=== PATIENT | female | born 1945 | race Caucasian/White ===

== ENCOUNTER 2016-10-24 09:41 | Inpatient (IN) | payer MEDICARE, OTHER ==
[~2016-10-24] VITALS: Ht 165.1 cm; Wt 65.0 kg
[~2016-10-24 09:41] MED LIST: BENZ100C7 PO; CALC-279 PO; FURO-85 PO; LEVO-366 PO; PRVHFAIN INH
--- NOTE | 2016-10-24 10:08 | EMERGENCY ROOM VISIT NOTE ---
History First contact with patient: 09:53 Chief Complaint: ILLNESS Stated Complaint: N,V,D, FEVER, COUGH History of Present Illness The patient is a 70 year old female with history of bronchiectasis (diagnosed in 03/26) who presents to the Emergency Room with complaints of flu-like symptoms over the last 4 days. She reports her symptoms started Kalia with body aches, chills, and then proceeded to have diarrhea, vomiting, and feeling dehydrated. She reports she then started coughing yesterday but hasn't so far today. She reports she had fevers of 101.4F yesterday, and a temp of 99.1 the day before. She reports her Capacity Manager is Dr Thompson who diagnosed her with bronchiectasis by CT scan and also a "non-contagious form of TB". She was recently admitted in the hospital in June and reports since then she has had multiple lung issues. Review of Systems See HPI for pertinent positives & negatives. A total of 10 systems reviewed and were otherwise negative. Past Medical/Surgical History Medical Problems: (1) Asthma (2) IBS (irritable bowel syndrome) (3) Kidney disease (4) MVP (mitral valve prolapse) (5) Skin problem Bronchiectasis Family History Cancer Diabetes mellitus Heart disease Hypertension Kidney disease Social History Smoking Status: Never Smoker Alcohol Use: occasionally Drug Use: none Marital Status: Housing Status: lives with significant other Occupation Status: retired Current/Historical Medications Scheduled Atenolol (Tenormin), 50 MG PO QAM Belladonna Alk/Phenobarbital (), 1 TAB PO TID Buspirone Hcl (Buspar), 15 MG PO BID Cholecalciferol (Vitamin D), 2,000 UNITS PO DAILY Pentosan Polysulfate Sodium (Elmiron), 200 MG PO BID Probiotic Product (Probiotic), Unknown Dose PO DAILY Pseudoephedrine-Guaifenesin (Mucinex D), 1 TAB PO BID Scheduled PRN Levalbuterol Tartrate (Levalbuterol Tartrate Hfa), 2 PUFF INH Q6 PRN for Wheezing Allergies Coded Allergies: Bacitracin (Unverified Allergy, Severe, itching, 10/24/16) Diphenhydramine (Unverified Allergy, Severe, anaphylaxis, 10/24/16) Neomycin (Unverified Allergy, Severe, itching, 10/24/16) Polymyxin B (Unverified Allergy, Severe, itching, 10/24/16) Sulfa Antibiotics (Unverified Allergy, Severe, rash, 10/24/16) Azithromycin (Unverified Adverse Reaction, Severe, nausea, 10/24/16) Clarithromycin (Unverified Adverse Reaction, Severe, nausea, 10/24/16) Codeine (Unverified Adverse Reaction, Severe, nausea, 10/24/16) Erythromycin (Unverified Adverse Reaction, Severe, nausea, 10/24/16) Hydrocodone (Unverified Adverse Reaction, Severe, nausea, 10/24/16) Hyoscyamine (Unverified Adverse Reaction, Severe, nausea, 10/24/16) Metronidazole (Unverified Adverse Reaction, Severe, nausea, 10/24/16) Oxymetazoline (Unverified Adverse Reaction, Severe, headache, 10/24/16) Pantoprazole (Unverified Adverse Reaction, Severe, nausea, 10/24/16) Propoxyphene (Unverified Adverse Reaction, Severe, nausea, 10/24/16) Tramadol (Unverified Adverse Reaction, Severe, nausea, 10/24/16) Ondansetron (Verified Adverse Reaction, Mild, "can't sleep", 10/24/16) Physical Exam Vital Signs Date Time Temp Pulse Resp B/P Pulse Ox O2 Delivery O2 Flow Rate FiO2 10/24/16 14:00 81 18 108/68 95 Room Air 10/24/16 13:28 79 10/24/16 12:47 99 Room Air 10/24/16 12:24 81 16 115/57 93 Room Air 10/24/16 11:23 85 18 106/64 96 Room Air 10/24/16 10:13 93 10/24/16 10:11 86 26 97/50 95 Room Air 10/24/16 09:48 37.4 95 18 105/59 92 Room Air Physical Exam GENERAL: Awake, alert, well-appearing, in no acute distress HENT: Normocephalic, atraumatic. Oropharynx dry. EYES: Normal conjunctiva. Sclera non-icteric. NECK: Supple. No nuchal rigidity. FROM. No JVD. RESPIRATORY: Rales to right base. CARDIAC: Regular rate, normal rhythm. Extremities warm and well perfused. Pulses equal. ABDOMEN: Soft, non-distended. No tenderness to palpation. No rebound or guarding. No masses. RECTAL: Deferred. MUSCULOSKELETAL: Chest examination reveals no tenderness. The back is symmetrical on inspection without obvious abnormality. There is no CVA tenderness to palpation. No joint edema. LOWER EXTREMITIES: Calves are equal size bilaterally and non-tender. No edema. No discoloration. NEURO: Normal sensorium. No sensory or motor deficits noted. SKIN: No rash or jaundice noted. Medical Decision & Procedures Laboratory Results 10/24/16 10:05 Red Blood Count 4.31, Mean Corpuscular Volume 88.6, Mean Corpuscular Hemoglobin 29.5, Mean Corpuscular Hemoglobin Concent 33.2, Mean Platelet Volume 9.3, Neutrophils (%) (Auto) 88.9, Lymphocytes (%) (Auto) 4.6, Monocytes (%) (Auto) 6.1, Eosinophils (%) (Auto) 0.0, Basophils (%) (Auto) 0.1, Neutrophils # (Auto) 12.81, Lymphocytes # (Auto) 0.67, Monocytes # (Auto) 0.88, Eosinophils # (Auto) 0.00, Basophils # (Auto) 0.01 10/24/16 10:05 Test 10/24/16 10:05 10/24/16 10:07 10/24/16 11:10 10/24/16 11:22 White Blood Count 14.42 K/uL (4.8-10.8) Red Blood Count 4.31 M/uL (4.2-5.4) Hemoglobin 12.7 g/dL (12.0-16.0) Hematocrit 38.2 % (37-47) Mean Corpuscular Volume 88.6 fL (80-100) Mean Corpuscular Hemoglobin 29.5 pg (25-34) Mean Corpuscular Hemoglobin Concent 33.2 g/dl (32-36) Platelet Count 208 K/uL (130-400) Mean Platelet Volume 9.3 fL (7.4-10.4) Neutrophils (%) (Auto) 88.9 % Lymphocytes (%) (Auto) 4.6 % Monocytes (%) (Auto) 6.1 % Eosinophils (%) (Auto) 0.0 % Basophils (%) (Auto) 0.1 % Neutrophils # (Auto) 12.81 K/uL (1.4-6.5) Lymphocytes # (Auto) 0.67 K/uL (1.2-3.4) Monocytes # (Auto) 0.88 K/uL (0.11-0.59) Eosinophils # (Auto) 0.00 K/uL (0-0.5) Basophils # (Auto) 0.01 K/uL (0-0.2) RDW Standard Deviation 45.3 fL (36.4-46.3) RDW Coefficient of Variation 13.8 % (11.5-14.5) Immature Granulocyte % (Auto) 0.3 % Immature Granulocyte # (Auto) 0.05 K/uL (0.00-0.02) Hyposegmented Neutrophils 1+ Prothrombin Time 10.7 SECONDS (9.0-12.0) Prothromb Time International Ratio 1.0 (0.9-1.1) Anion Gap 10.0 mmol/L (3-11) Est Creatinine Clear Calc Drug Dose 59.7 ml/min Estimated GFR () 87.2 Estimated GFR (Non- 75.2 BUN/Creatinine Ratio 20.0 (10-20) Calcium Level 8.8 mg/dl (8.5-10.1) Total Bilirubin 0.6 mg/dl (0.2-1) Aspartate Amino Transf (AST/SGOT) 17 U/L (15-37) Alanine Aminotransferase (ALT/SGPT) 21 U/L (12-78) Alkaline Phosphatase 51 U/L (45-117) Creatine Kinase MB < 0.5 ng/ml (0.5-3.6) Creatine Kinase MB Ratio (0-3.0) Total Protein 6.8 gm/dl (6.4-8.2) Albumin 3.5 gm/dl (3.4-5.0) Globulin 3.3 gm/dl (2.5-4.0) Albumin/Globulin Ratio 1.1 (0.9-2) Influenza Type A Antigen Neg for Influ A (NEG) Influenza Type B Antigen Neg for Influ B (NEG) Lactic Acid Level 1.2 mmol/L (0.4-2.0) Bedside Lactic Acid Venous 1.09 mmol/L (0.90-1.70) Medications Administered Medications (Trade) Dose Ordered Sig/Carola Route Start Time Stop Time Status Last Admin Dose Admin Sodium Chloride (Nss 1000ml) 1,000 ml @ 999 mls/hr Q1H1M IV 10/24/16 10:15 11/23/16 10:14 10/24/16 10:10 999 MLS/HR Ketorolac Tromethamine (Toradol Inj) 30 mg NOW STAT IV 10/24/16 10:20 10/24/16 10:21 DC 10/24/16 10:20 30 MG Levofloxacin (Levaquin / D5W) 750 mg NOW ONCE IV 10/24/16 11:30 10/24/16 11:31 DC 10/24/16 11:54 750 MG Prochlorperazine Edisylate (Compazine Inj) 10 mg STK-MED ONCE .ROUTE 10/24/16 11:49 10/24/16 11:51 DC 10/24/16 11:53 10 MG Procedure CHEST 2 VIEWS ROUTINE CLINICAL HISTORY: Fever and cough. History of bronchiectasis. COMPARISON STUDY: Chest radiograph July 21, [address] August 12, 2016. FINDINGS: There is no pneumothorax or pleural effusion. Cardiomediastinal silhouette is stable. There is no evidence of pulmonary edema. Note is again made of right middle lobe, lingular and left lower lobe opacities. The appearance is similar to chest CT of August 12, 2016. IMPRESSION: No significant change in right middle lobe, lingular and left lower lobe nodular opacities which favor an infectious etiology. ED Course 955: I evaluated the patient in room C4. 1000: I ordered the patient to have an IV placed and labs drawn. I ordered a CBC , CMP, Influenza antigen, and CXR. I gave her 4mg IV Zofran and a 1L NSS bolus. 10:28: I discussed the patient with Dr Burgess. We ordered a lactic acid and blood cultures as well. 10:50: The patient still had a relatively low BP despite fluids. She was started on IV Levaquin and admitted to the [facility]. Medical Decision 70 yo F with bronchiectasis who presents with 4 days of flu-like symptoms, but worsening cough. Differential includes influenza, superimposed pneumonia, sepsis , dehydration, or electrolyte abnormality. Her last admission in June was similar, and she required 10 days of Levaquin. Her flu swab was negative. She has a leukocytosis. She does not feel safe to go home with the extent her last pneumonia got to. She will be admitted to the Hospitalist service. Impression Primary Impression: Pneumonia Departure Information Dispostion Being Evaluated By Hospitalist Condition GOOD Referrals Danish Thompson DO (PCP) Patient Instructions My [facility] Resident Tracking Resident Involvement: Resident Care Provided Care Provided: Adult ED
[2016-10-24] MEDS ORDERED: ONDANSETRON INJ 2 MG/ML 2 ML VIAL IV STA (10:09)
[2016-10-24] MEDS: SODIUM CHLORIDE 0.9% 1000ML 1,000 ML IV SCH ×3 (10:10→12:17)
[2016-10-24] MEDS ORDERED: CHOL100010 PO (10:15)
[2016-10-24] MEDS ORDERED: LEVA45AE INH (10:17)
[2016-10-24] MEDS ORDERED: KETOROLAC TROMETHAMINE 30 MG/ML VIAL IV STA (10:20)
[2016-10-24 10:26] LABS: HEMATOCRIT 38.2 % (37-47); MEAN CELL VOLUME 88.6 fL (80-100); MEAN CORPUSCULAR HEMOGLOBIN 29.5 pg (25-34); MEAN CORPUSCULAR HGB CONC 33.2 g/dl (32-36); MEAN PLATELET VOLUME 9.3 fL (7.4-10.4); PLATELET COUNT 208 K/uL (130-400); RED BLOOD COUNT 4.31 M/uL (4.2-5.4); WHITE BLOOD COUNT 14.42 K/uL (4.8-10.8)
[2016-10-24 10:43] LABS: BLOOD UREA NITROGEN 16 mg/dl (7-18); CALCIUM 8.8 mg/dl (8.5-10.1); CARBON DIOXIDE 27 mmol/L (21-32); CHLORIDE 101 mmol/L (98-107); GLUCOSE 131 mg/dl (70-99); POTASSIUM 3.6 mmol/L (3.5-5.1); SODIUM 138 mmol/L (136-145)
[2016-10-24 10:48] LABS: ALB/GLOB RATIO 1.1 (0.9-2); ALKALINE PHOSPHATASE 51 U/L (45-117); ALT/SGPT 21 U/L (12-78); AST/SGOT 17 U/L (15-37)
--- NOTE | 2016-10-24 10:52 | DIAGNOSTIC IMAGING REPORT ---
CHEST 2 VIEWS ROUTINE CLINICAL HISTORY: Fever and cough. History of bronchiectasis. COMPARISON STUDY: Chest radiograph July 21, [address] August 12, 2016. FINDINGS: There is no pneumothorax or pleural effusion. Cardiomediastinal silhouette is stable. There is no evidence of pulmonary edema. Note is again made of right middle lobe, lingular and left lower lobe opacities. The appearance is similar to chest CT of August 12, 2016. IMPRESSION: No significant change in right middle lobe, lingular and left lower lobe nodular opacities which favor an infectious etiology. Electronically signed by: Rahat Mondragon M.D. 10/24/2016 10:50 AM Dictated Date/Time: 10/24/2016 10:47 AM
[2016-10-24 10:55] LABS: PROTHROMBIN TIME (PATIENT) 10.7 SECONDS (9.0-12.0)
[2016-10-24 10:56] LABS: BASO % 0.1 %; BASO ABS # 0.01 K/uL (0-0.2); COMPLETE YES; HYPOSEGMENTED POLYS 1+; IG% 0.3 %; LYMPH % 4.6 %; LYMPH ABS # 0.67 K/uL (1.2-3.4); MONO % 6.1 %; NEUT % 88.9 %
[2016-10-24] MEDS ORDERED: PSEU60TA80 PO (11:10)
[2016-10-24] MEDS ORDERED: LEVAQUIN 750MG / 150ML D5W IV ONE (11:30)
[2016-10-24] MEDS ORDERED: PROCHLORPERAZINE 5 MG/ML 2 ML VIAL IV STA (11:33)
[2016-10-24] MEDS ORDERED: PROCHLORPERAZINE 5 MG/ML 2 ML VIAL ONE (11:49)
[2016-10-24] MEDS ORDERED: BUSP15TA70 PO (11:51)
[2016-10-24] MEDS ORDERED: PROB1TAB16 PO (11:51)
[2016-10-24] MEDS ORDERED: ATEN50TA8 PO (11:51)
[2016-10-24] MEDS ORDERED: PENT100C6 PO (11:51)
[2016-10-24] MEDS ORDERED: BELL1TAB PO (11:51)
[2016-10-24] MEDS ORDERED: PROCHLORPERAZINE INJ 10 MG in SYRINGE 8 ML IV ONE (12:00)
[2016-10-24] MEDS ORDERED: PROMETHAZINE HCL INJ 12.5 MG in SODIUM CHLORIDE 0.9% 50ML 50 ML IV PRN (12:15)
[2016-10-24 12:47] VITALS: BP 153/72; PULSE 87; TEMP 36.7; O2SAT 99; Ht 165.1 cm; Wt 65.0 kg
--- NOTE | 2016-10-24 12:51 | History and Physical ---
History & Physical Date & Time of Service: Oct 24, 2016 at 12:28 Chief Complaint: N,V,D, Fever, Cough Primary Care Physician: Danish Thompson DO History of Present Illness Source: patient, clinic records, hospital records This patient is a pleasant 70-year-old female that presents the emergency department complaining of nausea, vomiting, diarrhea and cough. The patient has also been running a fever. She started feeling achy approximately 4 days ago. She did have a productive cough over the last 2 days. The nausea, vomiting and diarrhea started last night. She denies any significant abdominal pain. Her fever went as high as 101F. This is what prompted the patient come to the hospital for evaluation. The patient has a history of bronchiectasis. She follows with Dr. Thompson from pulmonary. The patient was treated in the hospital a few months back for community-acquired pneumonia. She does note a long-standing history of chronic/recurrent bronchitis. She denies any shortness of breath or chest pain. She denies any recent travel. She denies any sick contacts. She notes that her entire household had a GI illness about 1 month ago. No one in her household currently has any vomiting or diarrhea. 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) Allergies Coded Allergies: Diphenhydramine (Verified Allergy, Severe, anaphylaxis, 10/24/16) Bacitracin (Verified Allergy, Intermediate, itching, 10/24/16) Neomycin (Verified Allergy, Intermediate, itching, 10/24/16) Polymyxin B (Verified Allergy, Intermediate, itching, 10/24/16) Sulfa Antibiotics (Verified Allergy, Intermediate, rash, 10/24/16) Azithromycin (Verified Adverse Reaction, Mild, nausea, 10/24/16) Clarithromycin (Verified Adverse Reaction, Mild, nausea, 10/24/16) Codeine (Verified Adverse Reaction, Mild, nausea, 10/24/16) Erythromycin (Verified Adverse Reaction, Mild, nausea, 10/24/16) Hydrocodone (Verified Adverse Reaction, Mild, nausea, 10/24/16) Hyoscyamine (Verified Adverse Reaction, Mild, nausea, 10/24/16) Metronidazole (Verified Adverse Reaction, Mild, nausea, 10/24/16) Ondansetron (Verified Adverse Reaction, Mild, "can't sleep", 10/24/16) Oxymetazoline (Verified Adverse Reaction, Mild, headache, 10/24/16) Pantoprazole (Verified Adverse Reaction, Mild, nausea, 10/24/16) Propoxyphene (Verified Adverse Reaction, Mild, nausea, 10/24/16) Tramadol (Verified Adverse Reaction, Mild, nausea, 10/24/16) Home Medications Scheduled Atenolol (Tenormin), 50 MG PO QAM Belladonna Alk/Phenobarbital (), 1 TAB PO TID Buspirone Hcl (Buspar), 15 MG PO BID Cholecalciferol (Vitamin D), 2,000 UNITS PO DAILY Pentosan Polysulfate Sodium (Elmiron), 200 MG PO BID Probiotic Product (Probiotic), Unknown Dose PO DAILY Pseudoephedrine-Guaifenesin (Mucinex D), 1 TAB PO BID Scheduled PRN Levalbuterol Tartrate (Levalbuterol Tartrate Hfa), 2 PUFF INH Q6 PRN for Wheezing Review of Systems 10 system review performed and negative unless noted in HPI or below Physical Exam Vital Signs Date Time Temp Pulse Resp B/P Pulse Ox O2 Delivery O2 Flow Rate FiO2 10/24/16 12:24 81 16 115/57 93 Room Air 10/24/16 11:23 85 18 106/64 96 Room Air 10/24/16 10:13 93 10/24/16 10:11 86 26 97/50 95 Room Air 10/24/16 09:48 37.4 95 18 105/59 92 Room Air GENERAL: 70-year-old female, in moderate discomfort, SKIN: The skin was warm and moist HEAD: Normocephalic atraumatic. EYES: Conjunctivae without injection, sclerae without icterus. Extraocular movements intact. MOUTH: Mucous membranes fairly dry.sils are not enlarged. Pharynx without erythema or exudate. Uvula midline. NECK: Supple without nuchal rigidity. Lymphadenopathy noted in the anterior cervical chain bilaterally. No JVD. HEART: Regular rate and rhythm without murmurs gallops or rubs. LUNGS: Crackles at the bases bilaterally. Coarse breath sounds throughout. No wheezing. No tachypnea. Oxygen stable at 95% on room air. ABDOMEN: Positive bowel sounds x 4.Soft, nontender, without organomegaly. No guarding or rebound tenderness. MUSCULOSKELETAL: No muscle atrophy, erythema, or edema noted. Strength 5/5 throughout. NEURO: Patient was alert and oriented to person place and time. Normal sensation to touch. No focal neurological deficits. Diagnostics Laboratory Results 10/24/16 10:05 Red Blood Count 4.31, Mean Corpuscular Volume 88.6, Mean Corpuscular Hemoglobin 29.5, Mean Corpuscular Hemoglobin Concent 33.2, Mean Platelet Volume 9.3, Neutrophils (%) (Auto) 88.9, Lymphocytes (%) (Auto) 4.6, Monocytes (%) (Auto) 6.1, Eosinophils (%) (Auto) 0.0, Basophils (%) (Auto) 0.1, Neutrophils # (Auto) 12.81, Lymphocytes # (Auto) 0.67, Monocytes # (Auto) 0.88, Eosinophils # (Auto) 0.00, Basophils # (Auto) 0.01 10/24/16 10:05 Test 10/24/16 10:05 10/24/16 10:07 10/24/16 11:10 10/24/16 11:22 White Blood Count 14.42 K/uL (4.8-10.8) Red Blood Count 4.31 M/uL (4.2-5.4) Hemoglobin 12.7 g/dL (12.0-16.0) Hematocrit 38.2 % (37-47) Mean Corpuscular Volume 88.6 fL (80-100) Mean Corpuscular Hemoglobin 29.5 pg (25-34) Mean Corpuscular Hemoglobin Concent 33.2 g/dl (32-36) Platelet Count 208 K/uL (130-400) Mean Platelet Volume 9.3 fL (7.4-10.4) Neutrophils (%) (Auto) 88.9 % Lymphocytes (%) (Auto) 4.6 % Monocytes (%) (Auto) 6.1 % Eosinophils (%) (Auto) 0.0 % Basophils (%) (Auto) 0.1 % Neutrophils # (Auto) 12.81 K/uL (1.4-6.5) Lymphocytes # (Auto) 0.67 K/uL (1.2-3.4) Monocytes # (Auto) 0.88 K/uL (0.11-0.59) Eosinophils # (Auto) 0.00 K/uL (0-0.5) Basophils # (Auto) 0.01 K/uL (0-0.2) RDW Standard Deviation 45.3 fL (36.4-46.3) RDW Coefficient of Variation 13.8 % (11.5-14.5) Immature Granulocyte % (Auto) 0.3 % Immature Granulocyte # (Auto) 0.05 K/uL (0.00-0.02) Hyposegmented Neutrophils 1+ Prothrombin Time 10.7 SECONDS (9.0-12.0) Prothromb Time International Ratio 1.0 (0.9-1.1) Anion Gap 10.0 mmol/L (3-11) Est Creatinine Clear Calc Drug Dose 59.7 ml/min Estimated GFR () 87.2 Estimated GFR (Non- 75.2 BUN/Creatinine Ratio 20.0 (10-20) Calcium Level 8.8 mg/dl (8.5-10.1) Total Bilirubin 0.6 mg/dl (0.2-1) Aspartate Amino Transf (AST/SGOT) 17 U/L (15-37) Alanine Aminotransferase (ALT/SGPT) 21 U/L (12-78) Alkaline Phosphatase 51 U/L (45-117) Creatine Kinase MB < 0.5 ng/ml (0.5-3.6) Creatine Kinase MB Ratio (0-3.0) Total Protein 6.8 gm/dl (6.4-8.2) Albumin 3.5 gm/dl (3.4-5.0) Globulin 3.3 gm/dl (2.5-4.0) Albumin/Globulin Ratio 1.1 (0.9-2) Influenza Type A Antigen Neg for Influ A (NEG) Influenza Type B Antigen Neg for Influ B (NEG) Lactic Acid Level 1.2 mmol/L (0.4-2.0) Bedside Lactic Acid Venous 1.09 mmol/L (0.90-1.70) Results Past 24 Hours Test 10/24/16 10:00 10/24/16 10:05 10/24/16 10:07 10/24/16 11:10 Range/Units Creatine Kinase MB Ratio 0-3.0 White Blood Count 14.42 4.8-10.8 K/uL Red Blood Count 4.31 4.2-5.4 M/uL Hemoglobin 12.7 12.0-16.0 g/dL Hematocrit 38.2 37-47 % Mean Corpuscular Volume 88.6 80-100 fL Mean Corpuscular Hemoglobin 29.5 25-34 pg Mean Corpuscular Hemoglobin Concent 33.2 32-36 g/dl Platelet Count 208 130-400 K/uL Mean Platelet Volume 9.3 7.4-10.4 fL Neutrophils (%) (Auto) 88.9 % Lymphocytes (%) (Auto) 4.6 % Monocytes (%) (Auto) 6.1 % Eosinophils (%) (Auto) 0.0 % Basophils (%) (Auto) 0.1 % Neutrophils # (Auto) 12.81 1.4-6.5 K/uL Lymphocytes # (Auto) 0.67 1.2-3.4 K/uL Monocytes # (Auto) 0.88 0.11-0.59 K/uL Eosinophils # (Auto) 0.00 0-0.5 K/uL Basophils # (Auto) 0.01 0-0.2 K/uL RDW Standard Deviation 45.3 36.4-46.3 fL RDW Coefficient of Variation 13.8 11.5-14.5 % Immature Granulocyte % (Auto) 0.3 % Immature Granulocyte # (Auto) 0.05 0.00-0.02 K/uL Hyposegmented Neutrophils 1+ Prothrombin Time 10.7 9.0-12.0 SECONDS Prothromb Time International Ratio 1.0 0.9-1.1 Sodium Level 138 136-145 mmol/L Potassium Level 3.6 3.5-5.1 mmol/L Chloride Level 101 98-107 mmol/L Carbon Dioxide Level 27 21-32 mmol/L Anion Gap 10.0 3-11 mmol/L Blood Urea Nitrogen 16 7-18 mg/dl Creatinine 0.80 0.60-1.20 mg/dl Est Creatinine Clear Calc Drug Dose 59.7 ml/min Estimated GFR () 87.2 Estimated GFR (Non- 75.2 BUN/Creatinine Ratio 20.0 10-20 Random Glucose 131 70-99 mg/dl Calcium Level 8.8 8.5-10.1 mg/dl Total Bilirubin 0.6 0.2-1 mg/dl Aspartate Amino Transf (AST/SGOT) 17 15-37 U/L Alanine Aminotransferase (ALT/SGPT) 21 12-78 U/L Alkaline Phosphatase 51 45-117 U/L Creatine Kinase MB < 0.5 0.5-3.6 ng/ml Total Protein 6.8 6.4-8.2 gm/dl Albumin 3.5 3.4-5.0 gm/dl Globulin 3.3 2.5-4.0 gm/dl Albumin/Globulin Ratio 1.1 0.9-2 Influenza Type A Antigen Neg for Influ A NEG Influenza Type B Antigen Neg for Influ B NEG Lactic Acid Level 1.2 0.4-2.0 mmol/L Test 10/24/16 11:22 Range/Units Bedside Lactic Acid Venous 1.09 0.90-1.70 mmol/L Microbiology Results 10/24/16 Blood Culture, Received Pending 10/24/16 Blood Culture, Received Pending Diagnostic Radiology Patient: SIA ROBERTS Address1: [address] [place] [address] Rec: [id number] Address2: Acct ID: [id number] [facility] Zip: [place] [address] Date: 1945 Sex: F Room/Bed: Ref Phy: Danish Thompson DO SC: CEDER Att Phy: Report #: [id number] Yaa Phy: Danish Thompson DO Test: CXR Admit Phy: [employer] Broker: SHANTANU Interpreting Phy: Rahat Mondragon MD Diagnosis: N,V,D, FEVER, COUGH Ordering Phy: Marie Sin MD Service Date: 10/24/16 Admit Date: 10/24/16 MNE: [id number] CONF: DICTATED BY: Rahat Mondragon MD]] CC: Danish Thompson DO Flickinger, Bridget B., M.D. Vithalani, Nicki ., MD Endcc: [~ rep ct add3]] CHEST 2 VIEWS ROUTINE CLINICAL HISTORY: Fever and cough. History of bronchiectasis. COMPARISON STUDY: Chest radiograph July 21, [address] August 12, 2016. FINDINGS: There is no pneumothorax or pleural effusion. Cardiomediastinal silhouette is stable. There is no evidence of pulmonary edema. Note is again made of right middle lobe, lingular and left lower lobe opacities. The appearance is similar to chest CT of August 12, 2016. IMPRESSION: No significant change in right middle lobe, lingular and left lower lobe nodular opacities which favor an infectious etiology. Electronically signed by: Rahat Mondragon M.D. 10/24/2016 10:50 AM Dictated Date/Time: 10/24/2016 10:47 AM The status of this report is Signed. Draft = Not yet reviewed or approved by Radiologist. Signed = Reviewed and approved by Radiologist. <AttendingPhy></AttendingPhy> <FamilyPhy>Danish Thompson, DO</FamilyPhy> < PrimaryPhy>Danish Thompson, DO</PrimaryPhy> <UnitNumber>[id number]</UnitNumber > <VisitNumber>[id number]</VisitNumber> <PatientName>SIA ROBERTS</PatientName > <DateOfBirth>1945</DateOfBirth> <Location>[facility]</Location> <ServiceDate> 10/24/16</ServiceDate> <MNE>ESINDI</MNE> <OrderingPhy>Marie Sin MD</ OrderingPhy> <OrderingPhyMNE>f rep Impression Assessment and Plan 70-year-old female presents emergency department with nausea, vomiting, diarrhea , fever and a productive cough. History of chronic bronchiectasis. +SIRS and sepsis Cough, fever-? PNA vs viral illness-CXR doesn't look much worse than previous -admit to medical floor -Continue Levaquin -Recheck influenza PCR tomorrow -Follow CBC -Sputum culture if obtainable -Begin Mucinex 600 mg BID -NS + 20 mEq KCl @ 150 cc/hr -If no significant improvement, consider coverage for aspiration PNA (although, I would think this is less likely) nausea, vomiting, diarrhea-likely part of viral illness -IV fluids as noted above -Patient has Zofran listed as an allergy. Phenergan 12.5 mg IV q 6 hr -send stool cx, C. diff MVP -Continue atenolol History of interstitial cystitis -Continue Elmiron DVT prophylaxis -Lovenox 40 mg subQ daily -TEDS, SCDs CODE STATUS -LEVEL I FULL CODE Level of Care Med/Surg Resuscitation Status FULL RESUSCITATION VTE Prophylaxis VTE Risk Assessment Done? Y/N: Yes Risk Level: Low Given or contraindicated: Enoxaparin (Lovenox)SQ, T.E.D. Stockings, SCD's Note Patient was seen and examined by myself I personally discussed the above A&P with Miss Rogers This patient is a pleasant 70-year-old female with Hx of bronchiectasis, recent pneumonia, presented with fever, productive cough and diarrhea. will check sputum/blood Cx urine legionella labs in am C diff initiate Abx IVF hydration
[2016-10-24] MEDS ORDERED: ALBUT/IPRATROP 3MG/0.5MG NEB 3 ML VIAL INH PRN (13:30)
[2016-10-24] MEDS ORDERED: VANCOMYCIN CONSULT ACTIVE PRN (14:00)
[2016-10-24] MEDS ORDERED: ALUMINUM/MAGNESIUM/SIMETH (MAALOX MAX) 30 ML UDC PO PRN (14:15)
[2016-10-24] MEDS ORDERED: MAGNESIUM HYDROXIDE SUSP 30 ML UDC PO PRN (14:15)
--- NOTE | 2016-10-24 15:29 | Pharmacy Progress Note ---
Pharmacy Antibiotic Consult Date of Service: Oct 24, 2016. Pharmacy Dosing Scope Pharmacy is consulted to initiate vancomycin IV dosing therapy, order appropriate labs and adjust drug dose/frequency. Subjective The patient is a 70 year old female admitted on . Objective Height (Feet): 5 Height (Inches): 5.00 Weight (Kilograms): 65.000 Lab Results (24hrs): Laboratory Tests Test 10/24/16 10:05 BUN/Creatinine Ratio 20.0 Blood Urea Nitrogen 16 mg/dl Creatinine 0.80 mg/dl White Blood Count 14.42 K/uL Red Blood Count 4.31 M/uL Hemoglobin 12.7 g/dL Hematocrit 38.2 % Mean Corpuscular Volume 88.6 fL Mean Corpuscular Hemoglobin 29.5 pg Mean Corpuscular Hemoglobin Concent 33.2 g/dl Platelet Count 208 K/uL Mean Platelet Volume 9.3 fL Neutrophils (%) (Auto) 88.9 % Lymphocytes (%) (Auto) 4.6 % Monocytes (%) (Auto) 6.1 % Eosinophils (%) (Auto) 0.0 % Basophils (%) (Auto) 0.1 % Neutrophils # (Auto) 12.81 K/uL Lymphocytes # (Auto) 0.67 K/uL Monocytes # (Auto) 0.88 K/uL Eosinophils # (Auto) 0.00 K/uL Basophils # (Auto) 0.01 K/uL Assessment & Plan Assessment * 70 yo F with CAP (less likely aspiration PNA but still in differential). Most recent hospitalization > 90 days ago therefore not HAP. On levofloxacin, vancomycin * MRSA nasal swab pending. Can likely d/c vancomycin if results as negative * Goal vancomycin trough 15-20 mcg/mL * SCr slightly elevated from baseline of 0.5 to 0.8 mg/dL which may or may not be clinically significant. OK to schedule vancomycin for now but will follow closely * Will start with vancomycin 25 mg/kg IV x1 then 15 mg/kg IV q12h Plan * Vancomycin 1650 mg IV x1 then 1000 mg IV q12h * Trough prior to 4th overall dose Pharmacy will continue to follow and will adjust dose/frequency as necessary. Thank you
[2016-10-24] MEDS ORDERED: ALBUT/IPRATROP 3MG/0.5MG NEB 3 ML VIAL INH SCH (16:00)
[2016-10-24] MEDS ORDERED: FENTANYL CITRATE 100 MCG 2 ML CARP IV ONE (17:09)
[2016-10-24] MEDS ORDERED: MIDAZOLAM HCL 1 MG/ML 2ML VIAL IV ONE (17:09)
[2016-10-24 17:15] VITALS: BP 153/72; PULSE 87; TEMP 36.7; O2SAT 94
[2016-10-24] MEDS ORDERED: VANCOMYCIN INJ 1,650 MG in SODIUM CHLORIDE 0.9% 500ML 500 ML IV SCH (18:00)
[2016-10-24 19:41] VITALS: PULSE 84; O2SAT 98
[2016-10-24] MEDS: PHENOBARBITAL PO SCH (20:00)
[2016-10-24] MEDS: ATROPINE PO SCH (20:00)
[2016-10-24] MEDS: SCOPOLAMINE PO SCH (20:00)
[2016-10-24] MEDS: HYOSCYAMINE PO SCH (20:00)
[2016-10-24] MEDS ORDERED: VANCOMYCIN INJ 1,000 MG in SODIUM CHLORIDE 0.9% 250ML 250 ML IV SCH (21:00)
[2016-10-24] MEDS: ENOXAPARIN 40 MG/0.4 ML SYR SQ SCH (21:27)
[2016-10-24] MEDS: GUAIFENESIN 600 MG TABCR PO SCH (21:27)
[2016-10-24] MEDS: BusPIRone 15 MG TAB PO SCH (21:28)
[2016-10-24] MEDS: PENTOSAN POLYSULFATE SODIUM 100 MG CAP PO SCH (21:29)
[2016-10-24] MEDS: NSS + 20MEQ KCL 1000ML 1,000 ML IV SCH (21:29)
[2016-10-25] VITALS (7 sets, daily range): BP systolic 115–151; BP diastolic 57–77; PULSE 70–97; TEMP 36.7–37; O2SAT 92–98
[2016-10-25] MEDS: NSS + 20MEQ KCL 1000ML 1,000 ML IV SCH ×4 (01:18→20:56)
[2016-10-25 03:08] LABS: INFLUENZA A PCR Neg for Influ A (NEG); INFLUENZA B PCR Neg for Influ B (NEG)
[2016-10-25] MEDS: VANCOMYCIN INJ 1,000 MG in SODIUM CHLORIDE 0.9% 250ML 250 ML IV SCH ×2 (06:00→18:18)
[2016-10-25 08:17] LABS: HEMATOCRIT 31.2 % (37-47); MEAN CELL VOLUME 88.4 fL (80-100); MEAN CORPUSCULAR HEMOGLOBIN 30.3 pg (25-34); MEAN CORPUSCULAR HGB CONC 34.3 g/dl (32-36); MEAN PLATELET VOLUME 9.3 fL (7.4-10.4); PLATELET COUNT 159 K/uL (130-400); RED BLOOD COUNT 3.53 M/uL (4.2-5.4); WHITE BLOOD COUNT 10.22 K/uL (4.8-10.8)
[2016-10-25 08:43] LABS: COMPLETE YES; EOSINOPHIL % 0.9 %; LYMPH ABS # 0.89 K/uL (1.2-3.4); LYMPHOCYTE % 8.7 %; NEUTROPHILS % 85.2 %
[2016-10-25 08:56] LABS: BUN/CREATININE RATIO 22.7 (10-20); CREATININE 0.51 mg/dl (0.60-1.20); MAGNESIUM 1.9 mg/dl (1.8-2.4); POTASSIUM 3.5 mmol/L (3.5-5.1)
[2016-10-25] MEDS: GUAIFENESIN 600 MG TABCR PO SCH ×2 (08:57→20:51)
[2016-10-25] MEDS: BusPIRone 15 MG TAB PO SCH ×2 (08:57→20:52)
[2016-10-25 08:59] LABS: ALB/GLOB RATIO 0.9 (0.9-2)
[2016-10-25] MEDS: PENTOSAN POLYSULFATE SODIUM 100 MG CAP PO SCH ×2 (08:59→20:54)
[2016-10-25] MEDS: ACETAMINOPHEN 325 MG TAB PO PRN (09:01)
[2016-10-25] MEDS: ATROPINE PO SCH ×3 (09:08→20:51)
[2016-10-25] MEDS: SCOPOLAMINE PO SCH ×3 (09:08→20:51)
[2016-10-25] MEDS: HYOSCYAMINE PO SCH ×3 (09:08→20:51)
[2016-10-25] MEDS: PHENOBARBITAL PO SCH ×3 (09:08→20:51)
[2016-10-25] MEDS ORDERED: NURSING VERBAL MED ORDER ONE (10:45)
--- NOTE | 2016-10-25 11:08 | PULMONARY CONSULTATION ---
DATE OF CONSULTATION: 10/25/2016 DATE OF CONSULTATION: 10/25/2016. TIME: 10:00 a.m. REPORT OF CONSULTATION: The patient was seen in room 461 bed 2. She is a 70-year-old female who is known to me. Her most recent symptoms began on 10/21/2016 when she was noticing body aches. She states that on 10/23/2016 she began with vomiting and diarrhea. She had had the same problem with vomiting and diarrhea near the end of August. At that time she thought she probably had the norovirus. This has recurred however. She also had fevers. Her appetite has been poor. For the last 2 days she has had an increase in her cough. When she was at home there was a small amount of yellow sputum. She has had very minimal shortness of breath. Nothing of significance in terms of the breathing. She presented to the Emergency Room yesterday with these complaints and was admitted. She feels just slightly better today. She is not quite as weak. She has not had any vomiting since yesterday morning at about 5:00 a.m. I believe the same exists for the diarrhea. She had diarrhea at least 3 times. Since she is admitted she is not bringing up any phlegm. She has not had any hemoptysis. Karo has been having recurring episodes of illness since the summer of 2015. She had been living in [place] for 5 years. She subsequently had moved to [place]. She then took a trip to [place] for pheasant hunting. Her sister who was with her on that trip developed a respiratory infection and Karo herself developed respiratory symptoms. She was not feeling well on her trip home and she stopped at an urgent care in [place]. They told her they could hear a lot of rales. Subsequently, she was admitted in June to [facility] with bilateral lung infiltrates. She responded pretty well to treatment with antibiotics, which I believe is Levaquin. She describes having recurring respiratory infections for several years. I followed her up in the office. She would seem to be well for several weeks and then get sick again. She has had about 3 or 4 episodes where she was treated with Levaquin. A CAT scan was done. That was done on 08/12/2016. The CAT scan reported bronchiectasis and scarring in the lingula with mild fibrosis in the right middle lobe. There were tree-in-bud nodularity seen in the left lower lobe and right upper lobe which could suggest atypical TB infections. There was no adenopathy noted. Sputum cultures were obtained for AFB. The AFB smears were negative. However, about 2 weeks ago or thereabouts I received word that the cultures were growing. A recent check of the results shows what is described as a slight growth of Mycobacterium avium complex. The patient during the summertime has had recurring gastrointestinal problems as well. She recently was seen in the GI office of Dr. Norman. At that time she was quite stable however. PAST SURGICAL HISTORY: 1. T\T\A. 2. Right kidney repair. 3. Several cystoscopies. 4. Umbilical hernia repair. 5. Left hip surgery 2011. PAST MEDICAL HISTORY: 1. Irritable bowel syndrome. 2. Colitis. 3. Mitral valve prolapse. 4. Chronic kidney disease. 5. Obstructive sleep apnea for which she did not tolerate nasal CPAP. SOCIAL HISTORY: Tobacco use never and ETOH is occasional. FAMILY HISTORY: Her parents both very elderly. Mother was 97 and of old age and father at age 95 and he had hypertension and CVA. ALLERGIES: NUMEROUS LISTED ALLERGIES INCLUDING DIPHENHYDRAMINE, BACITRACIN, NEOMYCIN, POLYMYXIN B, SULFA, AZITHROMYCIN, CLARITHROMYCIN, CODEINE, HYDROCODONE, HYOSCYAMINE, METRONIDAZOLE, ONDANSETRON, OXYMETAZOLINE, PANTOPRAZOLE, PROPOXYPHENE, AND TRAMADOL. MEDICATIONS: At home levalbuterol inhaler 2 puffs q. 6 hours p.r.n., atenolol 50 mg daily, t.i.d., buspirone 15 mg b.i.d., vitamin D daily, Elmiron 200 mg b.i.d., probiotic, Mucinex D b.i.d. REVIEW OF SYSTEMS: GENERAL: The patient's energy level currently is much lower than normal. NEUROLOGIC: Denies syncope or near syncope. OPHTHALMIC: Denies visual complaints. EARS, NOSE, THROAT: Denies nasal congestion or coryza. CARDIAC: Denies chest pains or palpitations. PULMONARY: As noted above. GASTROINTESTINAL: As noted above. GENITOURINARY: She does have a history of interstitial cystitis. I believe she urinates more frequent than normal. MUSCULOSKELETAL: She has mild chronic diffuse pain. She is having a headache today. DERMATOLOGIC: No rash or edema. ENDOCRINE: No lymphadenopathy. PHYSICAL EXAMINATION: VITAL SIGNS: The patient is a 70-year-old female who looked to be acutely ill. She was cooperative, alert and oriented. Maximum temperature since admission was 37.4. She is afebrile this morning at 36.8. HEAD, EYES, EARS, NOSE, AND THROAT: Pupils were reactive to light. Nares were clear. Mouth exam was unremarkable. NECK: Palpation of the neck reveals no lymph nodes or masses. CHEST: Was of normal expansion. HEART: Heart rate was 80 beats per minute. Rhythm was regular. Blood pressure is 133/70. LUNGS: Respiratory rate was 20 breaths per minute. Lung raman were showing rales at the left lung base. Lungs were clear otherwise. No wheezing was heard. Oxygen saturation was reported this morning as both 98% and 92% on room air. The patient does not appear short of breath at all. She was up walking when I first saw her. ABDOMEN: Soft. Bowel sounds are present. They did not seem overactive at present. There was no tenderness to palpation. No definite mass was palpable. EXTREMITIES: Showed no cyanosis, clubbing or edema. LABORATORY DATA: White count yesterday was 14.42. Today it is 10.22. Yesterday's differential showed 88.9 neutrophils suggesting a left shift. Hemoglobin yesterday was 12.7 with hematocrit 38.2. Today, the hemoglobin is 10.7 with hematocrit 31.2. Platelets yesterday were 208,000 and today 159,000. INR is 1. Sodium today is 141, potassium 3.5, chloride 109, bicarbonate 21. BUN is 12, creatinine of 0.51. Lactic acid level was 1.0. Magnesium was 1.9. Calcium 8.0. AST was low at 14. ALT was 16. Alkaline phosphatase was low at 41. Throat culture is positive for group A beta strep. MRSA by nasal swab was positive. Blood cultures are pending. As noted, she had a recent sputum showing light growth of Mycobacterium avium. IMPRESSIONS: 1. Bronchiectasis -- seen on CAT scan. 2. Mycobacterium avium complex infection. 3. Recurrent gastroenteritis. COMMENTS: The patient has had recurring episodes of cough and sputum production. They have typically responded to Levaquin. CAT scan shows bronchiectasis. Recent culture showing MAC infection on just 1 out of 3. Her CAT scan does look compatible with MAC infection. The current chest x-ray looks relatively similar to prior films. Thus, I do not think this reflects acute bronchopneumonia. The patient is currently on levofloxacin. Vancomycin was started I am assuming because of the nasal swab. Unfortunately, she has not expectorated any sputum thus far. She feels clinically some better but still far from her normal. RECOMMENDATIONS: I am going to order an ID consult. We will get their opinion about the MAC culture and whether treatment for that disorder should be done. In light of her recurring gastrointestinal problems, consideration could be given to a GI consultation with Dr. Norman. She was seen in their office within the past 2 months or so. I would prefer the patient have nebulizer treatments rather than Combivent Respimat because of our efforts to help bring up secretions. I believe the nebulizer treatment will help with that more so. Will follow the patient with you.
[2016-10-25] MEDS ORDERED: IPRATROPIUM BROMIDE/ALBUTEROL respimat INH INH SCH (12:00)
[2016-10-25] MEDS: NAPROXEN 250 MG TAB PO SCH ×2 (12:07→20:53)
[2016-10-25] MEDS: LEVOFLOXACIN / D5W 750 MG in PREMIXED IN D5W 150 ML IV SCH (12:07)
--- NOTE | 2016-10-25 12:18 | Medical Consult ---
Consultation Date of Consultation: Oct 25, 2016. Attending Physician: Twyla Jerry MD Reason for Consultation: SEPIDEH History of Present Illness Patient is a 70-year-old female who presented to the emergency department with complaints of diarrhea, vomiting, dehydration, and cough. She was also experiencing fever at home. The patient does have history of bronchiectasis for which she is followed by Dr. Thompson. Upon review of her chart and discussion with Dr. Thompson, it was noted that the patient does have history of multiple illnesses over the past couple of months including recurrent bronchitis along with a recurrent GI illness. The patient did have a chest CT scan completed on 08/12/2016, which showed bronchiectasis and scarring of the lingula with mild fibrosis of the right middle lobe. She was also noted to have clustered foci of tree-in-bud nodularity the left lower lobe and the right upper lobe, which was suggestive of an atypical chronic infectious disease such as SEPIDEH. The patient did also have multiple sputum cultures completed in August. Her sputum culture on 08/29/2016 grew mycobacterium avium complex. She was not treated at that time. Since her current admission, the patient has blood cultures that are pending. She did have a positive nasal screen for MRSA , and her strep screen was negative, but culture is pending. Repeat sputum cultures are also pending. Her white blood cell count on admission was 14.42. She was also noted to have a procalcitonin of 1.18. Her creatinine was 0.80. Her flu screen and flu PCR were negative. A urinary Legionella antigen is pending. She was started on IV Levaquin and vancomycin. She states that she is very fatigued, and feels that she has had minimal improvement. I did discuss this case with Dr. Thompson and Dr. Gallo. 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) Allergies Coded Allergies: Diphenhydramine (Verified Allergy, Severe, anaphylaxis, 10/24/16) Bacitracin (Verified Allergy, Intermediate, itching, 10/24/16) Neomycin (Verified Allergy, Intermediate, itching, 10/24/16) Polymyxin B (Verified Allergy, Intermediate, itching, 10/24/16) Sulfa Antibiotics (Verified Allergy, Intermediate, rash, 10/24/16) Azithromycin (Verified Adverse Reaction, Mild, nausea, 10/24/16) Clarithromycin (Verified Adverse Reaction, Mild, nausea, 10/24/16) Codeine (Verified Adverse Reaction, Mild, nausea, 10/24/16) Erythromycin (Verified Adverse Reaction, Mild, nausea, 10/24/16) Hydrocodone (Verified Adverse Reaction, Mild, nausea, 10/24/16) Hyoscyamine (Verified Adverse Reaction, Mild, nausea, 10/24/16) Metronidazole (Verified Adverse Reaction, Mild, nausea, 10/24/16) Ondansetron (Verified Adverse Reaction, Mild, "can't sleep", 10/24/16) Oxymetazoline (Verified Adverse Reaction, Mild, headache, 10/24/16) Pantoprazole (Verified Adverse Reaction, Mild, nausea, 10/24/16) Propoxyphene (Verified Adverse Reaction, Mild, nausea, 10/24/16) Tramadol (Verified Adverse Reaction, Mild, nausea, 10/24/16) Home Medications Reported Home Medications Medications Dose Route/Sig Max Daily Dose Days Date Category Levalbuterol Tartrate Hfa (Levalbuterol Tartrate) 45 Mcg/Act Aer 2 Puff INH Q6 PRN 10/24/16 Reported Vitamin D (Cholecalciferol) 1,000 Unit Tab 2,000 Units PO DAILY 10/24/16 Reported Mucinex D (Pseudoephedrine-Guaifenesin) 1 Tab Tab 1 Tab PO BID 10 07/04/16 Reported Probiotic (Probiotic Product) 1 Tab Tab Unknown Dose PO DAILY 07/02/16 Reported (Belladonna Alkaloids/Phenobarbital) Tab 1 Tab PO TID 07/02/16 Reported Buspar (Buspirone Hcl) 15 Mg Tab 15 Mg PO BID 07/02/16 Reported Elmiron (Pentosan Polysulfate Sodium) 100 Mg Cap 200 Mg PO BID 07/02/16 Reported Tenormin (Atenolol) 50 Mg Tab 50 Mg PO QAM 07/02/16 Reported Current Inpatient Medications Current Inpatient Medications Medications (Trade) Dose Ordered Sig/Carola Route Start Time Stop Time Status Last Admin Dose Admin Levofloxacin 750 mg/Prmx 150 ml @ 100 mls/hr Q24H IV 10/25/16 12:00 10/31/16 11:59 Potassium Chloride/Sodium Chloride 1,000 ml @ 150 mls/hr Q6H40M IV 10/24/16 17:59 11/23/16 17:58 10/25/16 08:57 150 MLS/HR Promethazine HCl/ Sodium Chloride (Phenergan Inj/ Nss 50ml) 50.5 ml @ 204 mls/hr Q6H PRN IV 10/24/16 12:15 11/23/16 12:14 Atenolol (Tenormin Tab) 50 mg QAM PO 10/25/16 08:00 11/24/16 08:59 10/25/16 08:58 50 MG Buspirone HCl (BusPAR TAB) 15 mg BID PO 10/24/16 20:00 11/23/16 20:59 10/25/16 08:57 15 MG Miscellaneous Information (Order Awaiting Action) 1 ea QS N/A 10/24/16 16:00 11/23/16 15:59 Pentosan Polysulfate Sodium (Elmiron) 200 mg BID PO 10/24/16 20:00 11/23/16 20:59 10/25/16 08:59 200 MG Guaifenesin (Mucinex Contr Rel Tab) 600 mg Q12 PO 10/24/16 21:00 11/23/16 20:59 10/25/16 08:57 600 MG Vancomycin HCl (Consult) 1 ea UD PRN N/A 10/24/16 14:00 11/23/16 13:59 Enoxaparin Sodium (Lovenox Inj) 40 mg Q24H SQ 10/24/16 21:00 11/23/16 20:59 10/24/16 21:27 40 MG Acetaminophen (Tylenol Tab) 650 mg Q4H PRN PO 10/24/16 14:15 11/23/16 14:14 10/25/16 09:01 650 MG Al Hydrox/Mg Hydrox/Simethicone (Maalox Max Susp) 15 ml Q4H PRN PO 10/24/16 14:15 11/23/16 14:14 Magnesium Hydroxide 30 ml 30 ml Q6H PRN PO 10/24/16 14:15 11/23/16 14:14 Vancomycin HCl/ Sodium Chloride (Vancomycin Inj/ Nss 250ml) 270 ml @ 125 mls/hr Q12H IV 10/25/16 06:00 10/31/16 17:59 10/25/16 06:00 125 MLS/HR Naproxen (Naprosyn Tab) 250 mg Q12 PO 10/25/16 11:00 11/24/16 10:59 Ipratropium [place] (Atrovent 0.02% 0.5MG/2.5ML Neb) 0.5 mg Q8R INH 10/25/16 16:00 11/24/16 15:59 Levalbuterol (Xopenex 1.25MG/ 0.5ML Neb) 1.25 mg Q8R INH 10/25/16 16:00 11/24/16 15:59 Review of Systems Constitutional: + fatigue, + weight loss, No chills, No fever Eyes: No worsening of vision ENT: No hearing loss Respiratory: + cough, + shortness of breath, + sputum Cardiovascular: No chest pain Abdomen: + diarrhea (all [employer]- now improving), + nausea, + pain, + vomiting Musculoskeletal: No joint pain Integumentary: No itch, No rash Physical Exam Date Time Temp Pulse Resp B/P Pulse Ox O2 Delivery O2 Flow Rate FiO2 10/25/16 08:00 92 Room Air 10/25/16 07:45 36.8 81 22 133/70 92 Room Air 10/25/16 07:34 98 10/25/16 00:22 37.0 81 18 115/57 94 Room Air 10/25/16 00:00 Room Air 10/24/16 19:41 84 14 98 Room Air 10/24/16 19:09 Room Air 10/24/16 17:15 36.7 87 20 153/72 94 Room Air 10/24/16 15:55 84 18 109/49 95 Room Air 10/24/16 14:00 81 18 108/68 95 Room Air 10/24/16 13:28 79 10/24/16 12:47 36.7 87 20 153/72 99 Room Air 10/24/16 12:24 81 16 115/57 93 Room Air General Appearance: no apparent distress, + thin Head: normocephalic, atraumatic Eyes: normal inspection, sclerae normal ENT: hearing grossly normal Neck: supple Respiratory/Chest: chest non-tender, normal breath sounds, no respiratory distress, no accessory muscle use, + pertinent finding (relatively clear lungs) Cardiovascular: regular rate, rhythm Abdomen/GI: normal bowel sounds Back: normal inspection Extremities/Musculoskelatal: normal range of motion Neurologic/Psych: alert, normal mood/affect Skin: normal color, warm/dry, no rash Laboratory Results CHEST 2 VIEWS ROUTINE CLINICAL HISTORY: Fever and cough. History of bronchiectasis. COMPARISON STUDY: Chest radiograph July 21, [address] August 12, 2016. FINDINGS: There is no pneumothorax or pleural effusion. Cardiomediastinal silhouette is stable. There is no evidence of pulmonary edema. Note is again made of right middle lobe, lingular and left lower lobe opacities. The appearance is similar to chest CT of August 12, 2016. IMPRESSION: No significant change in right middle lobe, lingular and left lower lobe nodular opacities which favor an infectious etiology. Item Value Date Time Acid Fast Stain Received 10/25/16 1020 Sputum Expectorated Sputum Pending Gram Stain Received 10/25/16 1020 Sputum Expectorated Sputum Pending Group A Streptococcus Screen - Final Resulted 10/25/16 0425 Throat SPECIMEN NEGATIVE FOR GROUP A BETA ST... MRSA DNA Surveillance Screen - Final Complete 10/24/16 1730 Nasal Specimen Positive for MRSA by DNA Probe Blood Culture Received 10/24/16 1120 Blood Pending Blood Culture Received 10/24/16 1110 Blood Pending Last 24 Hours Test 10/25/16 00:00 10/25/16 04:03 10/25/16 08:04 Influenza Type A (RT-PCR) Neg for Influ A Influenza Type B (RT-PCR) Neg for Influ B White Blood Count 10.22 K/uL Red Blood Count 3.53 M/uL Hemoglobin 10.7 g/dL Hematocrit 31.2 % Mean Corpuscular Volume 88.4 fL Mean Corpuscular Hemoglobin 30.3 pg Mean Corpuscular Hemoglobin Concent 34.3 g/dl Platelet Count 159 K/uL Mean Platelet Volume 9.3 fL RDW Standard Deviation 45.5 fL RDW Coefficient of Variation 14.0 % Neutrophils % (Manual) 85.2 % Lymphocytes % (Manual) 8.7 % Monocytes % (Manual) 5.2 % Eosinophils % (Manual) 0.9 % Neutrophils # (Manual) 8.71 K/uL Total Absolute Neutrophils 8.71 K/uL Lymphocytes # (Manual) 0.89 K/uL Total Absolute Lymphocytes 0.89 K/uL Monocytes # (Manual) 0.53 K/uL Eosinophils # (Manual) 0.09 K/uL Sodium Level 141 mmol/L Potassium Level 3.5 mmol/L Chloride Level 109 mmol/L Carbon Dioxide Level 21 mmol/L Anion Gap 11.0 mmol/L Blood Urea Nitrogen 12 mg/dl Creatinine 0.51 mg/dl Est Creatinine Clear Calc Drug Dose 93.7 ml/min Estimated GFR () 113.7 Estimated GFR (Non- 98.1 BUN/Creatinine Ratio 22.7 Random Glucose 91 mg/dl Lactic Acid Level 1.0 mmol/L Calcium Level 8.0 mg/dl Magnesium Level 1.9 mg/dl Total Bilirubin 0.6 mg/dl Aspartate Amino Transf (AST/SGOT) 14 U/L Alanine Aminotransferase (ALT/SGPT) 16 U/L Alkaline Phosphatase 41 U/L Total Protein 5.4 gm/dl Albumin 2.6 gm/dl Globulin 2.8 gm/dl Albumin/Globulin Ratio 0.9 Assessment & Plan (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 Repeat CXR showed similar findings during this stay. Repeat sputum cultures are pending. Patient appears to likely need treatment for SEPIDEH, but has severe GI issues with all macrolide therapy (has had Biaxin, Erythromycin, and Azithromycin in the past). Will discuss other treatment options with Dr. Gallo this afternoon. Also would strongly consider repeat chest CT scan at this time to assess for change/ worsening from prior study. Will discuss this with Dr. Thompson as well. Likely will discontinue Vancomycin and Levaquin, but will make these changes following discussions. Addendum (Anahi Calderon PA-C): I did discuss this case with Dr. Thompson and Dr. Gallo. Will await the repeat sputum culture. Likely will start this patient on ethambutol and rifampin daily due to intolerance with macrolide therapy in the past. We will follow. PROVIDER ADDENDUM patient examined and reviewed with Ms. Calderon. Agree with above assessment. Have recommended QuantiFERON gold testing. Could consider addition of moxifloxacin to ethambutol and rifampin if tolerates.
[2016-10-25 13:43] LABS: IMMUNOGLOBULN M 48.4 mg/dL (40-230)
[2016-10-25] MEDS ORDERED: LEVALBUTEROL/IPRATROPIUM NEB INH SCH (14:00)
[2016-10-25] MEDS: LEVALBUTEROL 1.25MG/0.5ML NEB INH SCH ×2 (16:13→23:40)
[2016-10-25] MEDS: IPRATROPIUM BROMIDE NEB SOLN 0.02% 2.5 ML VIAL INH SCH ×2 (16:13→23:40)
--- NOTE | 2016-10-25 19:29 | Progress Note ---
Subjective Date of Service: Oct 25, 2016. Subjective Pt evaluation today including: conversation w/ patient, conversation w/ family , physical exam, chart review, lab review Problem List Medical Problems: (1) Pneumonia Status: Acute Review of Systems Constitutional: No chills, No fatigue, No fever, No problem reported, No see HPI, No sweats, No weakness, No weight loss Eyes: No diplopia, No discharge, No eye pain, No problem reported, No redness, No see HPI, No worsening of vision ENT: No dental problems, No hearing loss, No nasal symptoms, No problem reported, No see HPI, No sore throat, No tinnitus, No trouble swallowing, No unusual epistaxis Respiratory: + shortness of breath Cardiac: No PND, No chest pain, No claudication, No edema, No orthopnea, No palpitations, No problem reported, No see HPI Abdomen: + diarrhea, + vomiting Musculoskeletal: No calf pain, No joint pain, No muscle pain, No problem reported, No see HPI, No swelling Neurologic: No balance problems, No memory loss, No numbness/tingling, No paralysis, No problem reported, No see HPI, No vertigo, No weakness Heme: No abnormal bleeding/bruising, No clotting problems, No night sweats, No problem reported, No see HPI, No swollen lymph nodes Endo: No excessive thirst, No excessive urination, No fatigue, No problem reported, No see HPI Skin: No bleeding, No color change, No itch, No new/changing skin lesions, No problem reported, No rash, No see HPI Medications Current Inpatient Medications Medications (Trade) Dose Ordered Sig/Carola Route Start Time Stop Time Status Last Admin Dose Admin Levofloxacin 750 mg/Prmx 150 ml @ 100 mls/hr Q24H IV 10/25/16 12:00 10/31/16 11:59 10/25/16 12:07 100 MLS/HR Potassium Chloride/Sodium Chloride 1,000 ml @ 150 mls/hr Q6H40M IV 10/24/16 17:59 11/23/16 17:58 10/25/16 14:49 150 MLS/HR Promethazine HCl/ Sodium Chloride (Phenergan Inj/ Nss 50ml) 50.5 ml @ 204 mls/hr Q6H PRN IV 10/24/16 12:15 11/23/16 12:14 Atenolol (Tenormin Tab) 50 mg QAM PO 10/25/16 08:00 11/24/16 08:59 10/25/16 08:58 50 MG Buspirone HCl (BusPAR TAB) 15 mg BID PO 10/24/16 20:00 11/23/16 20:59 10/25/16 08:57 15 MG Pentosan Polysulfate Sodium (Elmiron) 200 mg BID PO 10/24/16 20:00 11/23/16 20:59 10/25/16 08:59 200 MG Guaifenesin (Mucinex Contr Rel Tab) 600 mg Q12 PO 10/24/16 21:00 11/23/16 20:59 10/25/16 08:57 600 MG Vancomycin HCl (Consult) 1 ea UD PRN N/A 10/24/16 14:00 11/23/16 13:59 Enoxaparin Sodium (Lovenox Inj) 40 mg Q24H SQ 10/24/16 21:00 11/23/16 20:59 10/24/16 21:27 40 MG Acetaminophen (Tylenol Tab) 650 mg Q4H PRN PO 10/24/16 14:15 11/23/16 14:14 10/25/16 09:01 650 MG Al Hydrox/Mg Hydrox/Simethicone (Maalox Max Susp) 15 ml Q4H PRN PO 10/24/16 14:15 11/23/16 14:14 Magnesium Hydroxide 30 ml 30 ml Q6H PRN PO 10/24/16 14:15 11/23/16 14:14 Vancomycin HCl/ Sodium Chloride (Vancomycin Inj/ Nss 250ml) 270 ml @ 125 mls/hr Q12H IV 10/25/16 06:00 10/31/16 17:59 10/25/16 18:18 125 MLS/HR Naproxen (Naprosyn Tab) 250 mg Q12 PO 10/25/16 11:00 11/24/16 10:59 10/25/16 12:07 250 MG Ipratropium [place] (Atrovent 0.02% 0.5MG/2.5ML Neb) 0.5 mg Q8R INH 10/25/16 16:00 11/24/16 15:59 10/25/16 16:13 0.5 MG Levalbuterol (Xopenex 1.25MG/ 0.5ML Neb) 1.25 mg Q8R INH 10/25/16 16:00 11/24/16 15:59 10/25/16 16:13 1.25 MG Objective Vital Signs Date Time Temp Pulse Resp B/P Pulse Ox O2 Delivery O2 Flow Rate FiO2 10/25/16 16:13 97 16 93 Room Air 10/25/16 15:03 36.7 71 20 137/77 94 Room Air 10/25/16 08:00 92 Room Air 10/25/16 07:45 36.8 81 22 133/70 92 Room Air 10/25/16 07:34 98 10/25/16 00:22 37.0 81 18 115/57 94 Room Air 10/25/16 00:00 Room Air 10/24/16 19:41 84 14 98 Room Air Physical Exam General Appearance: + mild distress Eyes: normal inspection, EOMI ENT: normal ENT inspection, hearing grossly normal Neck: supple Respiratory/Chest: chest non-tender, no accessory muscle use, + crackles Cardiovascular: regular rate, rhythm, no edema, no murmur Abdomen: normal bowel sounds, non tender, soft, no organomegaly Extremities: normal range of motion, non-tender, normal inspection, no pedal edema Neurologic/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: 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 as tested, no motor/sensory deficits, alert, normal mood/affect, oriented x 3 Skin: normal color, warm/dry Laboratory Results Last 24 Hours Test 10/25/16 00:00 10/25/16 04:03 10/25/16 08:04 Influenza Type A (RT-PCR) Neg for Influ A Influenza Type B (RT-PCR) Neg for Influ B White Blood Count 10.22 K/uL Red Blood Count 3.53 M/uL Hemoglobin 10.7 g/dL Hematocrit 31.2 % Mean Corpuscular Volume 88.4 fL Mean Corpuscular Hemoglobin 30.3 pg Mean Corpuscular Hemoglobin Concent 34.3 g/dl Platelet Count 159 K/uL Mean Platelet Volume 9.3 fL RDW Standard Deviation 45.5 fL RDW Coefficient of Variation 14.0 % Neutrophils % (Manual) 85.2 % Lymphocytes % (Manual) 8.7 % Monocytes % (Manual) 5.2 % Eosinophils % (Manual) 0.9 % Neutrophils # (Manual) 8.71 K/uL Total Absolute Neutrophils 8.71 K/uL Lymphocytes # (Manual) 0.89 K/uL Total Absolute Lymphocytes 0.89 K/uL Monocytes # (Manual) 0.53 K/uL Eosinophils # (Manual) 0.09 K/uL Sodium Level 141 mmol/L Potassium Level 3.5 mmol/L Chloride Level 109 mmol/L Carbon Dioxide Level 21 mmol/L Anion Gap 11.0 mmol/L Blood Urea Nitrogen 12 mg/dl Creatinine 0.51 mg/dl Est Creatinine Clear Calc Drug Dose 93.7 ml/min Estimated GFR () 113.7 Estimated GFR (Non- 98.1 BUN/Creatinine Ratio 22.7 Random Glucose 91 mg/dl Lactic Acid Level 1.0 mmol/L Calcium Level 8.0 mg/dl Magnesium Level 1.9 mg/dl Total Bilirubin 0.6 mg/dl Aspartate Amino Transf (AST/SGOT) 14 U/L Alanine Aminotransferase (ALT/SGPT) 16 U/L Alkaline Phosphatase 41 U/L Total Protein 5.4 gm/dl Albumin 2.6 gm/dl Globulin 2.8 gm/dl Albumin/Globulin Ratio 0.9 Immunoglobulin G 471.0 mg/dL Immunoglobulin A 123.0 mg/dL Immunoglobulin M 48.4 mg/dL Assessment and Plan This patient is a pleasant 70-year-old female with Hx of bronchiectasis, recent pneumonia, presented with fever, productive cough and diarrhea. nausea, vomiting, diarrhea-likely part of viral illness / improving -IV fluids as noted above -Patient has Zofran listed as an allergy. Phenergan 12.5 mg IV q 6 hr -send stool cx, C. diff Bronchiectasis with CT scan findings suggestive of chronic infection / positive sputum for Mycobacterium avium complex . consult Dr. Thompson and Dr. Gallo was appreciated will defer Abx management to the ID team Recurrent gastroenteritis / IBS -currently stable, concerns to adjust Abx accordingly especially if she will be on chronic regimen sputum/blood Cx urine legionella are all pending MVP -Continue atenolol History of interstitial cystitis -Continue Elmiron DVT prophylaxis -Lovenox 40 mg subQ daily -TEDS, SCDs
--- NOTE | 2016-10-25 19:55 | EMERGENCY ROOM VISIT NOTE ---
ED Visit Note First contact with patient: 09:53 Resident Physician Supervision Note: I interviewed and examined the patient. Discussed with Dr. Sin and agree with findings and plan as documented in the note. Any exceptions or clarifications are listed here: This patient was evaluated and appeared to be in no significant distress. She is noted to be mildly hypotensive with reported fevers. Blood cultures were obtained. Patient was medicated with IV Levaquin. Chest x-ray was performed and favors infectious infiltrate. Patient does have a history of bronchiectasis and follows with Dr. hernandez. At this time she will be evaluated by the hospitalist service for further management. She is aware of the plan and agrees. Diagnosis: Pneumonia Documented By: Silvia Burgess
[2016-10-25] MEDS: ENOXAPARIN 40 MG/0.4 ML SYR SQ SCH (20:52)
[2016-10-25] MEDS ORDERED: BENZONATATE 100MG CAP PO ONE (23:59)
[2016-10-26] MEDS: NSS + 20MEQ KCL 1000ML 1,000 ML IV SCH ×3 (03:04→16:38)
[2016-10-26] MEDS ORDERED: VANCOMYCIN TROUGH SCH (05:30)
[2016-10-26] MEDS: VANCOMYCIN INJ 1,000 MG in SODIUM CHLORIDE 0.9% 250ML 250 ML IV SCH (06:29)
[2016-10-26 07:18] LABS: BASO % 0.2 %; BASO ABS # 0.02 K/uL (0-0.2); COMPLETE YES; EOS % 0.9 %; IG% 0.4 %; LYMPH % 14.6 %; LYMPH ABS # 1.34 K/uL (1.2-3.4); MEAN CELL VOLUME 88.6 fL (80-100); MEAN CORPUSCULAR HEMOGLOBIN 29.7 pg (25-34); MEAN CORPUSCULAR HGB CONC 33.5 g/dl (32-36); MEAN PLATELET VOLUME 9.2 fL (7.4-10.4); MONO % 6.7 %; NEUT % 77.2 %; PLATELET COUNT 180 K/uL (130-400); WHITE BLOOD COUNT 9.15 K/uL (4.8-10.8)
[2016-10-26 07:44] VITALS: BP 120/75; PULSE 70; TEMP 36.7; O2SAT 98
[2016-10-26 07:51] LABS: ALB/GLOB RATIO 0.9 (0.9-2); BUN/CREATININE RATIO 12.1 (10-20); CALCIUM 8.3 mg/dl (8.5-10.1); CREATININE 0.47 mg/dl (0.60-1.20); PHOSPHORUS 2.2 mg/dl (2.5-4.9); POTASSIUM 3.7 mmol/L (3.5-5.1)
[2016-10-26 07:56] VITALS: PULSE 78; O2SAT 95
[2016-10-26] MEDS: IPRATROPIUM BROMIDE NEB SOLN 0.02% 2.5 ML VIAL INH SCH ×3 (07:56→23:43)
[2016-10-26] MEDS: LEVALBUTEROL 1.25MG/0.5ML NEB INH SCH ×3 (07:56→23:43)
[2016-10-26] MEDS: BusPIRone 15 MG TAB PO SCH ×2 (09:14→20:04)
[2016-10-26] MEDS: PENTOSAN POLYSULFATE SODIUM 100 MG CAP PO SCH ×2 (09:14→20:04)
[2016-10-26] MEDS: NAPROXEN 250 MG TAB PO SCH ×2 (09:14→20:05)
[2016-10-26] MEDS: GUAIFENESIN 600 MG TABCR PO SCH ×2 (09:15→20:03)
[2016-10-26] MEDS: BENZONATATE 100MG CAP PO SCH ×3 (09:15→20:05)
[2016-10-26] MEDS: ACETAMINOPHEN 325 MG TAB PO PRN ×2 (09:20→16:38)
[2016-10-26] MEDS: ATROPINE PO SCH ×3 (09:21→20:03)
[2016-10-26] MEDS: SCOPOLAMINE PO SCH ×3 (09:21→20:03)
[2016-10-26] MEDS: HYOSCYAMINE PO SCH ×3 (09:21→20:03)
[2016-10-26] MEDS: PHENOBARBITAL PO SCH ×3 (09:21→20:03)
[2016-10-26] MEDS ORDERED: OPTIRAY 320 IV PRN (09:30)
[2016-10-26] MEDS: LEVOFLOXACIN / D5W 750 MG in PREMIXED IN D5W 150 ML IV SCH (12:31)
--- NOTE | 2016-10-26 13:18 | DIAGNOSTIC IMAGING REPORT ---
CT OF THE CHEST WITH IV CONTRAST CLINICAL HISTORY: Bronchiectasis. Pneumonia. Possible tuberculosis. COMPARISON STUDY: Chest CT August 12, 2016 and chest radiograph October 24, 2016. TECHNIQUE: Following IV administration of 93 mL of Optiray-320, helical axial images of the chest were obtained. Images were viewed in the axial, sagittal and coronal planes. IV contrast was administered without complication. CT DOSE: 205.10 mGy.cm FINDINGS: There is no pneumothorax. Small bilateral pleural effusions are present. Mild cardiomegaly is noted. Bronchiectasis within the lingula and right middle lobe is again noted. There has been progression of extensive left lower lobe consolidation since prior exam of August 12, 2016. Right lower lobe consolidation has developed. There are groundglass and tree-in-bud opacities within the right upper lobe which have significantly progressed. No cavitation is identified. There are borderline enlarged bilateral hilar and mediastinal lymph nodes. These have increased in size mildly since prior exam. The bony thorax and upper abdomen are unremarkable. IMPRESSION: 1. Progression of multifocal airspace opacities since chest CT August 12, 2016 with bilateral lower lobe consolidation and tree-in-bud and ground glass opacities within the right upper lobe. The findings suggest a progressive infectious process and may reflect an atypical mycobacterial infection such as SEPIDEH. Tuberculosis could appear similar although is considered less likely but cannot be excluded by imaging. No cavitation. 2. Redemonstration of right middle lobe and lingular bronchiectasis. 3. Small bilateral pleural effusions, left larger than right. Electronically signed by: Rahat Mondragon M.D. 10/26/2016 1:16 PM Dictated Date/Time: 10/26/2016 1:06 PM
[2016-10-26 15:04] VITALS: BP 133/77; PULSE 72; TEMP 36.5; O2SAT 96
[2016-10-26 15:32] VITALS: PULSE 77; O2SAT 95
--- NOTE | 2016-10-26 16:14 | Infectious Disease Progress Nt ---
Progress Note Date of Service Oct 26, 2016. Subjective Pt evaluation today including: conversation w/ patient, physical exam, chart review, lab review, review of studies, conversation w/ network relations consultant (Dr. Thompson, Pharmacy), review of inpatient medication list WBC count this morning was 9.15. Creatinine was 0.47. AFB sputum culture is showing No AFB, but culture is pending. C. Diff toxin was negative. Patient states that she has had no further vomiting or diarrhea today. Chest CT scan showed progression of multifocal airspace since chest CT in August. It also noted bilateral lower lobe consolidation and tree in bud and ground glass opacities within the right upper lobe. This suggests a progressive infectious process such as SEPIDEH. Bronchiectasis was also seen in right middle lobe. I did review the images myself. It was also noted that the patient's IGG is low at 471.0. The patient states that overall, she is feeling slightly improved. She feels that she does often improve as an outpatient when she is on Levaquin. All Other Systems: Reviewed and Negative Medications Current Inpatient Medications Medications (Trade) Dose Ordered Sig/Carola Route Start Time Stop Time Status Last Admin Dose Admin Levofloxacin 750 mg/Prmx 150 ml @ 100 mls/hr Q24H IV 10/25/16 12:00 10/31/16 11:59 10/26/16 12:31 100 MLS/HR Potassium Chloride/Sodium Chloride 1,000 ml @ 150 mls/hr Q6H40M IV 10/24/16 17:59 11/23/16 17:58 10/26/16 12:30 150 MLS/HR Promethazine HCl/ Sodium Chloride (Phenergan Inj/ Nss 50ml) 50.5 ml @ 204 mls/hr Q6H PRN IV 10/24/16 12:15 11/23/16 12:14 Atenolol (Tenormin Tab) 50 mg QAM PO 10/25/16 08:00 11/24/16 08:59 10/26/16 09:15 50 MG Buspirone HCl (BusPAR TAB) 15 mg BID PO 10/24/16 20:00 11/23/16 20:59 10/26/16 09:14 15 MG Pentosan Polysulfate Sodium (Elmiron) 200 mg BID PO 10/24/16 20:00 11/23/16 20:59 10/26/16 09:14 200 MG Guaifenesin (Mucinex Contr Rel Tab) 600 mg Q12 PO 10/24/16 21:00 11/23/16 20:59 10/26/16 09:15 600 MG Vancomycin HCl (Consult) 1 ea UD PRN N/A 10/24/16 14:00 11/23/16 13:59 Enoxaparin Sodium (Lovenox Inj) 40 mg Q24H SQ 10/24/16 21:00 11/23/16 20:59 10/25/16 20:52 40 MG Acetaminophen (Tylenol Tab) 650 mg Q4H PRN PO 10/24/16 14:15 11/23/16 14:14 10/26/16 09:20 650 MG Al Hydrox/Mg Hydrox/Simethicone (Maalox Max Susp) 15 ml Q4H PRN PO 10/24/16 14:15 11/23/16 14:14 Magnesium Hydroxide 30 ml 30 ml Q6H PRN PO 10/24/16 14:15 11/23/16 14:14 Vancomycin HCl/ Sodium Chloride (Vancomycin Inj/ Nss 250ml) 270 ml @ 125 mls/hr Q12H IV 10/25/16 06:00 10/31/16 17:59 10/26/16 06:29 125 MLS/HR Naproxen (Naprosyn Tab) 250 mg Q12 PO 10/25/16 11:00 11/24/16 10:59 10/26/16 09:14 250 MG Ipratropium [place] (Atrovent 0.02% 0.5MG/2.5ML Neb) 0.5 mg Q8R INH 10/25/16 16:00 11/24/16 15:59 10/26/16 15:32 0.5 MG Levalbuterol (Xopenex 1.25MG/ 0.5ML Neb) 1.25 mg Q8R INH 10/25/16 16:00 11/24/16 15:59 10/26/16 15:32 1.25 MG Benzonatate (Tessalon Perles Cap) 100 mg TID PO 10/26/16 08:00 11/25/16 07:59 10/26/16 13:44 100 MG Ioversol (Optiray 320) 100 ml UD PRN IV 10/26/16 09:30 10/30/16 09:29 Objective Vital Signs Date Time Temp Pulse Resp B/P Pulse Ox O2 Delivery O2 Flow Rate FiO2 10/26/16 15:32 77 16 95 Room Air 10/26/16 15:04 36.5 72 20 133/77 96 Room Air 10/26/16 08:00 Room Air 10/26/16 07:56 78 16 95 Room Air 10/26/16 07:44 36.7 70 20 120/75 98 Room Air 10/26/16 00:00 Room Air 10/25/16 23:26 36.9 70 20 151/75 96 Room Air 10/25/16 16:30 Room Air 10/25/16 16:13 97 16 93 Room Air Physical Exam General Appearance: WD/WN, no apparent distress Eyes: normal inspection, sclerae normal ENT: hearing grossly normal Neck: supple, trachea midline Respiratory/Chest: no respiratory distress, no accessory muscle use Cardiovascular: regular rate, rhythm Neurologic/Psychiatric: alert, normal mood/affect Skin: normal color, warm/dry, no rash Laboratory Results CT OF THE CHEST WITH IV CONTRAST CLINICAL HISTORY: Bronchiectasis. Pneumonia. Possible tuberculosis. COMPARISON STUDY: Chest CT August 12, 2016 and chest radiograph October 24, 2016. TECHNIQUE: Following IV administration of 93 mL of Optiray-320, helical axial images of the chest were obtained. Images were viewed in the axial, sagittal and coronal planes. IV contrast was administered without complication. CT DOSE: 205.10 mGy.cm FINDINGS: There is no pneumothorax. Small bilateral pleural effusions are present. Mild cardiomegaly is noted. Bronchiectasis within the lingula and right middle lobe is again noted. There has been progression of extensive left lower lobe consolidation since prior exam of August 12, 2016. Right lower lobe consolidation has developed. There are groundglass and tree-in-bud opacities within the right upper lobe which have significantly progressed. No cavitation is identified. There are borderline enlarged bilateral hilar and mediastinal lymph nodes. These have increased in size mildly since prior exam. The bony thorax and upper abdomen are unremarkable. IMPRESSION: 1. Progression of multifocal airspace opacities since chest CT August 12, 2016 with bilateral lower lobe consolidation and tree-in-bud and ground glass opacities within the right upper lobe. The findings suggest a progressive infectious process and may reflect an atypical mycobacterial infection such as SEPIDEH. Tuberculosis could appear similar although is considered less likely but cannot be excluded by imaging. No cavitation. 2. Redemonstration of right middle lobe and lingular bronchiectasis. 3. Small bilateral pleural effusions, left larger than right. RUN DATE: 10/26/16 [facility] LAB PAGE 1 RUN TIME: 1039 Specimen Inquiry PATIENT: SIA ROBERTS LOC: [id number] U # : [id number] AGE/SX: 70/F ROOM: [facility] REG : 10/24/[address]: Twyla Jerry : 1945 BED: 2 DIS : STATUS: ADM IN TLOC: SPEC #: [id number] RUTH: 10/25/16-1020 STATUS: RES REQ #: [id number] RECD: 10/25/16-[address]: Danish Thompson DO SOURCE: SPUTUM ENTR: 10/25/16-1037 [facility] DR: Anders Gallo MD SPDESC: EXP.SPUTUM Twyla Jerry MD Tussey, Natalie B., MD ORDERED: AFB/TB CULT/SMR COMMENTS: Has Specimen Been Obtained/Collected? Y Procedure Result Verified Site AFB SMEAR Final 10/26/16-1039 RESULTS NO ACID-FAST BACILLI SEEN AFB CULTURE PENDING Last 24 Hours Test 10/26/16 06:35 10/26/16 06:50 10/26/16 06:53 White Blood Count 9.15 K/uL Red Blood Count 3.50 M/uL Hemoglobin 10.4 g/dL Hematocrit 31.0 % Mean Corpuscular Volume 88.6 fL Mean Corpuscular Hemoglobin 29.7 pg Mean Corpuscular Hemoglobin Concent 33.5 g/dl Platelet Count 180 K/uL Mean Platelet Volume 9.2 fL Neutrophils (%) (Auto) 77.2 % Lymphocytes (%) (Auto) 14.6 % Monocytes (%) (Auto) 6.7 % Eosinophils (%) (Auto) 0.9 % Basophils (%) (Auto) 0.2 % Neutrophils # (Auto) 7.06 K/uL Lymphocytes # (Auto) 1.34 K/uL Monocytes # (Auto) 0.61 K/uL Eosinophils # (Auto) 0.08 K/uL Basophils # (Auto) 0.02 K/uL RDW Standard Deviation 45.7 fL RDW Coefficient of Variation 14.1 % Immature Granulocyte % (Auto) 0.4 % Immature Granulocyte # (Auto) 0.04 K/uL Sodium Level 145 mmol/L Potassium Level 3.7 mmol/L Chloride Level 113 mmol/L Carbon Dioxide Level 22 mmol/L Anion Gap 10.0 mmol/L Blood Urea Nitrogen 6 mg/dl Creatinine 0.47 mg/dl Est Creatinine Clear Calc Drug Dose 101.7 ml/min Estimated GFR () 116.8 Estimated GFR (Non- 100.8 BUN/Creatinine Ratio 12.1 Random Glucose 93 mg/dl Calcium Level 8.3 mg/dl Phosphorus Level 2.2 mg/dl Magnesium Level 2.0 mg/dl Total Bilirubin 0.4 mg/dl Aspartate Amino Transf (AST/SGOT) 17 U/L Alanine Aminotransferase (ALT/SGPT) 21 U/L Alkaline Phosphatase 49 U/L Total Protein 5.4 gm/dl Albumin 2.5 gm/dl Globulin 2.9 gm/dl Albumin/Globulin Ratio 0.9 Vancomycin Level Trough 13.7 mcg/ml Assessment and Plan (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 Repeat CT scan shows progression of her infectious process. Repeat sputum cultures are pending. Because it does appear that this patient will need treated for SEPIDEH, will initiate a trial of IV Azithromycin. The patient has had GI intolerance to macrolides in the past. If she tolerates this well, may trial PO Azithro, but also could continue IV if necessary as an outpatient. Will then likely add Ethambutol and Rifampin once tolerance is established to macrolide. Will also check a Quantiferon gold to R/O TB. 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 Otherwise, we will continue to follow this patient. Will continue Levaquin as well for now but D/C Vancomycin. Plan: 1. Start IV Azithro 2. D/C Vancomycin, continue Levaquin for now 3. Quantiferon PROVIDER ADDENDUM: Patient reviewed with Ms. Calderon. Agree with above assessment.
[2016-10-26] MEDS ORDERED: AZITHROMYCIN IV 250 MG in DEXTROSE 5% 250ML 250 ML IV SCH (16:30)
--- NOTE | 2016-10-26 17:46 | Progress Note ---
Subjective Date of Service: Oct 26, 2016. Subjective Pt evaluation today including: conversation w/ patient, physical exam, chart review, lab review Problem List Medical Problems: (1) Pneumonia Status: Acute Review of Systems Constitutional: No chills, No fatigue, No fever, No problem reported, No see HPI, No sweats, No weakness, No weight loss Eyes: No diplopia, No discharge, No eye pain, No problem reported, No redness, No see HPI, No worsening of vision ENT: No dental problems, No hearing loss, No nasal symptoms, No problem reported, No see HPI, No sore throat, No tinnitus, No trouble swallowing, No unusual epistaxis Respiratory: + cough, + shortness of breath, + sputum Cardiac: No PND, No chest pain, No claudication, No edema, No orthopnea, No palpitations, No problem reported, No see HPI Abdomen: No GI bleeding, No constipation, No diarrhea, No nausea, No pain, No problem reported, No see HPI, No vomiting Musculoskeletal: No calf pain, No joint pain, No muscle pain, No problem reported, No see HPI, No swelling Neurologic: No balance problems, No memory loss, No numbness/tingling, No paralysis, No problem reported, No see HPI, No vertigo, No weakness Psychiatric: No anhedonism, No anxiety, No depression symptoms, No insomnia, No problem reported, No see HPI, No substance abuse Heme: No abnormal bleeding/bruising, No clotting problems, No night sweats, No problem reported, No see HPI, No swollen lymph nodes Endo: No excessive thirst, No excessive urination, No fatigue, No problem reported, No see HPI Skin: No bleeding, No color change, No itch, No new/changing skin lesions, No problem reported, No rash, No see HPI Medications Current Inpatient Medications Medications (Trade) Dose Ordered Sig/Carola Route Start Time Stop Time Status Last Admin Dose Admin Levofloxacin 750 mg/Prmx 150 ml @ 100 mls/hr Q24H IV 10/25/16 12:00 10/31/16 11:59 10/26/16 12:31 100 MLS/HR Potassium Chloride/Sodium Chloride 1,000 ml @ 150 mls/hr Q6H40M IV 10/24/16 17:59 11/23/16 17:58 10/26/16 16:38 150 MLS/HR Promethazine HCl/ Sodium Chloride (Phenergan Inj/ Nss 50ml) 50.5 ml @ 204 mls/hr Q6H PRN IV 10/24/16 12:15 11/23/16 12:14 Atenolol (Tenormin Tab) 50 mg QAM PO 10/25/16 08:00 11/24/16 08:59 10/26/16 09:15 50 MG Buspirone HCl (BusPAR TAB) 15 mg BID PO 10/24/16 20:00 11/23/16 20:59 10/26/16 09:14 15 MG Pentosan Polysulfate Sodium (Elmiron) 200 mg BID PO 10/24/16 20:00 11/23/16 20:59 10/26/16 09:14 200 MG Guaifenesin (Mucinex Contr Rel Tab) 600 mg Q12 PO 10/24/16 21:00 11/23/16 20:59 10/26/16 09:15 600 MG Enoxaparin Sodium (Lovenox Inj) 40 mg Q24H SQ 10/24/16 21:00 11/23/16 20:59 10/25/16 20:52 40 MG Acetaminophen (Tylenol Tab) 650 mg Q4H PRN PO 10/24/16 14:15 11/23/16 14:14 10/26/16 16:38 650 MG Al Hydrox/Mg Hydrox/Simethicone (Maalox Max Susp) 15 ml Q4H PRN PO 10/24/16 14:15 11/23/16 14:14 Magnesium Hydroxide (Milk Of Magnesia Susp) 30 ml Q6H PRN PO 10/24/16 14:15 11/23/16 14:14 Naproxen (Naprosyn Tab) 250 mg Q12 PO 10/25/16 11:00 11/24/16 10:59 10/26/16 09:14 250 MG Ipratropium [place] (Atrovent 0.02% 0.5MG/2.5ML Neb) 0.5 mg Q8R INH 10/25/16 16:00 11/24/16 15:59 10/26/16 15:32 0.5 MG Levalbuterol (Xopenex 1.25MG/ 0.5ML Neb) 1.25 mg Q8R INH 10/25/16 16:00 11/24/16 15:59 10/26/16 15:32 1.25 MG Benzonatate (Tessalon Perles Cap) 100 mg TID PO 10/26/16 08:00 11/25/16 07:59 10/26/16 13:44 100 MG Ioversol 100 ml 100 ml UD PRN IV 10/26/16 09:30 10/30/16 09:29 Azithromycin/ Dextrose (Zithromax IV/D5 250ml) 252.5 ml @ 125 mls/hr Q24H IV 10/26/16 16:30 11/02/16 15:59 10/26/16 16:38 125 MLS/HR Objective Vital Signs Date Time Temp Pulse Resp B/P Pulse Ox O2 Delivery O2 Flow Rate FiO2 10/26/16 15:32 77 16 95 Room Air 10/26/16 15:04 36.5 72 20 133/77 96 Room Air 10/26/16 08:00 Room Air 10/26/16 07:56 78 16 95 Room Air 10/26/16 07:44 36.7 70 20 120/75 98 Room Air 10/26/16 00:00 Room Air 10/25/16 23:26 36.9 70 20 151/75 96 Room Air Physical Exam General Appearance: WD/WN, no apparent distress Eyes: normal inspection, PERRL, EOMI ENT: normal ENT inspection, hearing grossly normal, TMs normal, pharynx normal Neck: supple, thyroid normal Respiratory/Chest: no accessory muscle use, + decreased breath sounds, + crackles Cardiovascular: regular rate, rhythm, no edema, no gallop, no JVD, no murmur Abdomen: normal bowel sounds, non tender, soft, no organomegaly Extremities: normal range of motion, non-tender, normal inspection, no pedal edema 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, no motor/sensory deficits, alert, normal mood/affect, oriented x 3 Skin: normal color, warm/dry, no rash Laboratory Results Last 24 Hours Test 10/26/16 06:35 10/26/16 06:50 10/26/16 06:53 10/26/16 16:13 White Blood Count 9.15 K/uL Red Blood Count 3.50 M/uL Hemoglobin 10.4 g/dL Hematocrit 31.0 % Mean Corpuscular Volume 88.6 fL Mean Corpuscular Hemoglobin 29.7 pg Mean Corpuscular Hemoglobin Concent 33.5 g/dl Platelet Count 180 K/uL Mean Platelet Volume 9.2 fL Neutrophils (%) (Auto) 77.2 % Lymphocytes (%) (Auto) 14.6 % Monocytes (%) (Auto) 6.7 % Eosinophils (%) (Auto) 0.9 % Basophils (%) (Auto) 0.2 % Neutrophils # (Auto) 7.06 K/uL Lymphocytes # (Auto) 1.34 K/uL Monocytes # (Auto) 0.61 K/uL Eosinophils # (Auto) 0.08 K/uL Basophils # (Auto) 0.02 K/uL RDW Standard Deviation 45.7 fL RDW Coefficient of Variation 14.1 % Immature Granulocyte % (Auto) 0.4 % Immature Granulocyte # (Auto) 0.04 K/uL Sodium Level 145 mmol/L Potassium Level 3.7 mmol/L Chloride Level 113 mmol/L Carbon Dioxide Level 22 mmol/L Anion Gap 10.0 mmol/L Blood Urea Nitrogen 6 mg/dl Creatinine 0.47 mg/dl Est Creatinine Clear Calc Drug Dose 101.7 ml/min Estimated GFR () 116.8 Estimated GFR (Non- 100.8 BUN/Creatinine Ratio 12.1 Random Glucose 93 mg/dl Calcium Level 8.3 mg/dl Phosphorus Level 2.2 mg/dl Magnesium Level 2.0 mg/dl Total Bilirubin 0.4 mg/dl Aspartate Amino Transf (AST/SGOT) 17 U/L Alanine Aminotransferase (ALT/SGPT) 21 U/L Alkaline Phosphatase 49 U/L Total Protein 5.4 gm/dl Albumin 2.5 gm/dl Globulin 2.9 gm/dl Albumin/Globulin Ratio 0.9 Vancomycin Level Trough 13.7 mcg/ml Assessment and Plan This patient is a pleasant 70-year-old female with Hx of bronchiectasis, recent pneumonia, presented with fever, productive cough and diarrhea. nausea, vomiting, diarrhea-likely part of viral illness / improving -DC IV fluids -Patient has Zofran listed as an allergy. Phenergan 12.5 mg IV q 6 hr -send stool cx, C. diff is negative Bronchiectasis with CT scan findings suggestive of chronic infection / positive sputum for Mycobacterium avium complex . consult Dr. Thompson and Dr. Gallo was appreciated will defer Abx management to the ID team Recurrent gastroenteritis / IBS -currently stable, concerns to adjust Abx accordingly especially if she will be on chronic regimen sputum/blood Cx are negative thus far urine legionella pending MVP -Continue atenolol History of interstitial cystitis -Continue Elmiron DVT prophylaxis -Lovenox 40 mg subQ daily -TEDS, SCDs
--- NOTE | 2016-10-26 19:13 | PULMONARY PROGRESS NOTE ---
DATE: 10/26/2016 TIME: 5:20 p.m. SUBJECTIVE: The patient feels somewhat better. She is still coughing. There has been no significant sputum. Her stomach is feeling some better. She is not as nauseated. She was able to eat a hamburger at lunch. I do not believe she has had further diarrhea. The patient had a CAT scan of the chest done today. This shows clear progression of the previously seen infiltrates. The most notable progression has been in the right upper lobe and in the left lower lobe. I agree with the radiologist's finding that this likely suggests a progressive infectious problem. She does have a culture of Mycobacterium avium as had been noted previously. This would likely be consistent. Once again, bronchiectasis was noted in the right middle lobe and lingular areas. She also has developed small bilateral pleural effusions. OBJECTIVE: GENERAL: The patient looks comfortable. Temperature is 36.5. She has not had any fever in at least 36 hours. EARS, NOSE, THROAT: Exam is unremarkable. VITAL SIGNS: Heart rate was 77 beats per minute. Blood pressure 133/77. LUNGS: Lung raman revealed rales bilaterally, greater at the left base than elsewhere. Oxygen saturation was 95% on room air. ABDOMEN: Soft. Bowel sounds are present. EXTREMITIES: Showed no cyanosis, clubbing or edema. LABORATORY DATA: White count today is down to 9.15. It had been 14.42 on admission. Hemoglobin is 10.4. Hemoglobin had been 12.7 on admission. Platelets are 180,000. Electrolytes today show sodium 145, potassium 3.7, chloride 113, bicarbonate 22. BUN was 6 with a creatinine of 0.47. Stool for C. diff was negative. There is one sputum for acid fast that is negative. Throat culture negative thus far. Nasal swab was positive for MRSA as noted previously. Blood cultures are negative thus far. ASSESSMENT: 1. 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 2. Bronchiectasis. 3. Small bilateral pleural effusions of undetermined etiology. 4. Gastroenteritis. Case had been discussed with Bernadette Calderon PA-C from the ID department. It appears most likely the patient has a true MAC infection, although we only have it from one culture. The patient has indicated she has had difficulty tolerating azithromycin. They are now giving her azithromycin IV to see how well she tolerates that. In light of the CAT scan changes, consideration could be given to doing bronchoscopy if it was felt necessary to make a more definitive diagnosis. Can continue other treatments for now.
[2016-10-26] MEDS: ENOXAPARIN 40 MG/0.4 ML SYR SQ SCH (20:06)
[2016-10-27 00:08] VITALS: BP 154/89; PULSE 72; TEMP 36.4; O2SAT 97
[2016-10-27 07:34] VITALS: PULSE 80; O2SAT 96
[2016-10-27] MEDS: LEVALBUTEROL 1.25MG/0.5ML NEB INH SCH ×3 (07:34→23:22)
[2016-10-27] MEDS: IPRATROPIUM BROMIDE NEB SOLN 0.02% 2.5 ML VIAL INH SCH ×3 (07:34→23:22)
[2016-10-27 08:08] LABS: BASO % 0.4 %; BASO ABS # 0.03 K/uL (0-0.2); COMPLETE YES; EOS % 1.5 %; HEMATOCRIT 32.4 % (37-47); LYMPH % 25.9 %; LYMPH ABS # 2.03 K/uL (1.2-3.4); MEAN CELL VOLUME 87.1 fL (80-100); MEAN CORPUSCULAR HEMOGLOBIN 29.8 pg (25-34); MEAN CORPUSCULAR HGB CONC 34.3 g/dl (32-36); MEAN PLATELET VOLUME 9.2 fL (7.4-10.4); MONO % 9.8 %; NEUT % 61.4 %; PLATELET COUNT 197 K/uL (130-400); RED BLOOD COUNT 3.72 M/uL (4.2-5.4); WHITE BLOOD COUNT 7.83 K/uL (4.8-10.8)
[2016-10-27 08:10] VITALS: O2SAT 93
[2016-10-27 08:24] VITALS: BP 142/80; PULSE 89; TEMP 36.4; O2SAT 93
[2016-10-27 08:49] LABS: BUN/CREATININE RATIO 8.9 (10-20); CALCIUM 8.7 mg/dl (8.5-10.1); CREATININE 0.46 mg/dl (0.60-1.20); MAGNESIUM 1.9 mg/dl (1.8-2.4); POTASSIUM 3.4 mmol/L (3.5-5.1)
[2016-10-27] MEDS: NAPROXEN 250 MG TAB PO SCH ×2 (08:54→20:00)
[2016-10-27] MEDS: PENTOSAN POLYSULFATE SODIUM 100 MG CAP PO SCH ×2 (08:55→20:01)
[2016-10-27] MEDS: BENZONATATE 100MG CAP PO SCH ×3 (08:55→20:00)
[2016-10-27] MEDS: GUAIFENESIN 600 MG TABCR PO SCH ×2 (08:55→20:00)
[2016-10-27] MEDS: BusPIRone 15 MG TAB PO SCH ×2 (08:55→19:59)
[2016-10-27] MEDS: PHENOBARBITAL PO SCH ×3 (08:56→19:58)
[2016-10-27] MEDS: ATROPINE PO SCH ×3 (08:56→19:58)
[2016-10-27] MEDS: HYOSCYAMINE PO SCH ×3 (08:56→19:58)
[2016-10-27] MEDS: SCOPOLAMINE PO SCH ×3 (08:56→19:58)
[2016-10-27 10:08] LABS: LEGIONELLA ANTIGEN NOT DETECTED
[2016-10-27] MEDS: LEVOFLOXACIN / D5W 750 MG in PREMIXED IN D5W 150 ML IV SCH (12:33)
--- NOTE | 2016-10-27 13:05 | PULMONARY PROGRESS NOTE ---
DATE: 10/27/2016 TIME: 12:50 p.m. SUBJECTIVE: The patient feels a little better. She is still coughing, but without any mucus. Her stomach is more settled down. She feels hungry for lunch. No major problem since yesterday. OBJECTIVE: GENERAL: The patient appears comfortable. She is afebrile at 36.4. EARS, NOSE, AND THROAT: Unremarkable and unchanged. HEART: Rate is 90 per minute. Rhythm is regular. Blood pressure 142/80. LUNGS: Lung raman revealed very few rales. They seem to be lessening. There are just a few rales at both bases. Oxygen saturation is 93% on room air. ABDOMEN: Soft and nontender. Bowel sounds are present and are normal. EXTREMITIES: Showed no cyanosis, clubbing or edema. LABORATORY DATA: White count today is 7.83. Hemoglobin is 11.1. Platelets are 197,000. Electrolytes show sodium 141, potassium 3.4, chloride 106, and bicarbonate 23. BUN is 4 with a creatinine of 0.46. TB QuantiFERON is still pending. IMPRESSIONS: 1. 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 2. Bronchiectasis. 3. Small pleural effusion of undetermined etiology. 4. Gastroenteritis. COMMENTS AND RECOMMENDATIONS: The case was discussed with Dr. Segovia and the ID department. We all agree that bronchoscopy would be ideal in terms of having a better sample of specimen to be more certain of an SEPIDEH infection. I explained this to the patient and her , who was present. We discussed bronchoscopy as I have discussed with her in the past before as an outpatient. We discussed the risks and benefits. She is agreeable to bronchoscopy tomorrow. Hopefully, this will allow us to make a more definitive diagnosis. We do have one sputum culture positive for SEPIDEH, but others were negative. Thus, a better sample may be helpful. LG
[2016-10-27] MEDS ORDERED: NURSING VERBAL MED ORDER ONE (14:30)
[2016-10-27] MEDS ORDERED: POTASSIUM CHLORIDE 20 MEQ TABCR PO ONE (14:45)
--- NOTE | 2016-10-27 15:14 | Infectious Disease Progress Nt ---
Progress Note Date of Service Oct 27, 2016. Subjective Pt evaluation today including: conversation w/ patient, conversation w/ family , physical exam, chart review, lab review, review of studies, conversation w/ technology consultant (Dr. Thompson), review of inpatient medication list Patient is feeling slightly improved today, but did have 2-3 loose stools overnight. She states that she did get very mild cramping yesterday evening, but has not had any severe abdominal cramping, vomiting, or diarrhea. She and her family have many questions today, and I did have a long conversation with them this afternoon. I also discussed this patient with Dr. Thompson. He is anticipating bronchoscopy tomorrow. White blood cell count today was 7.83. Her hemoglobin was 11.1. Her creatinine is stable at 0.46. QuantiFERON gold is pending. Her mycobacterial culture is also pending. Stool culture was negative. Her initial blood cultures are now growing gram-positive cocci in 1/2 bottles. I did speak with micro, and that this is a pinpoint growth, they are continuing to work with this culture. All Other Systems: Reviewed and Negative Medications Current Inpatient Medications Medications (Trade) Dose Ordered Sig/Carola Route Start Time Stop Time Status Last Admin Dose Admin Levofloxacin 750 mg/Prmx 150 ml @ 100 mls/hr Q24H IV 10/25/16 12:00 10/30/16 11:59 10/27/16 12:33 100 MLS/HR Promethazine HCl/ Sodium Chloride (Phenergan Inj/ Nss 50ml) 50.5 ml @ 204 mls/hr Q6H PRN IV 10/24/16 12:15 11/23/16 12:14 Atenolol (Tenormin Tab) 50 mg QAM PO 10/25/16 08:00 11/24/16 08:59 10/27/16 08:55 50 MG Buspirone HCl (BusPAR TAB) 15 mg BID PO 10/24/16 20:00 11/23/16 20:59 10/27/16 08:55 15 MG Pentosan Polysulfate Sodium (Elmiron) 200 mg BID PO 10/24/16 20:00 11/23/16 20:59 10/27/16 08:55 200 MG Guaifenesin (Mucinex Contr Rel Tab) 600 mg Q12 PO 10/24/16 21:00 11/23/16 20:59 10/27/16 08:55 600 MG Enoxaparin Sodium (Lovenox Inj) 40 mg Q24H SQ 10/24/16 21:00 11/23/16 20:59 10/26/16 20:06 40 MG Acetaminophen (Tylenol Tab) 650 mg Q4H PRN PO 10/24/16 14:15 11/23/16 14:14 10/26/16 16:38 650 MG Al Hydrox/Mg Hydrox/Simethicone (Maalox Max Susp) 15 ml Q4H PRN PO 10/24/16 14:15 11/23/16 14:14 Magnesium Hydroxide (Milk Of Magnesia Susp) 30 ml Q6H PRN PO 10/24/16 14:15 11/23/16 14:14 Hyoscyamine/ Phenobarbital ( 16.2mg) 16.2 tab TID PO 10/24/16 20:00 11/23/16 19:59 10/27/16 13:30 16.2 TAB Naproxen (Naprosyn Tab) 250 mg Q12 PO 10/25/16 11:00 11/24/16 10:59 10/27/16 08:54 250 MG Ipratropium [place] (Atrovent 0.02% 0.5MG/2.5ML Neb) 0.5 mg Q8R INH 10/25/16 16:00 11/24/16 15:59 10/27/16 07:34 0.5 MG Levalbuterol (Xopenex 1.25MG/ 0.5ML Neb) 1.25 mg Q8R INH 10/25/16 16:00 11/24/16 15:59 10/27/16 07:34 1.25 MG Benzonatate (Tessalon Perles Cap) 100 mg TID PO 10/26/16 08:00 11/25/16 07:59 10/27/16 13:29 100 MG Ioversol (Optiray 320) 100 ml UD PRN IV 10/26/16 09:30 10/30/16 09:29 Oxymetazoline HCl 2 sprays 2 sprays ONE ONCE NA 10/28/16 07:00 10/28/16 07:01 Sodium Chloride (Nss 500ml) 500 ml @ 40 mls/hr [id number] IV 10/28/16 06:00 11/27/16 05:59 Miscellaneous Information (Nursing Verbal Med Order) 1 ea ONE ONCE N/A 10/27/16 14:30 10/27/16 14:31 UNV Objective Vital Signs Date Time Temp Pulse Resp B/P Pulse Ox O2 Delivery O2 Flow Rate FiO2 10/27/16 08:24 36.4 89 16 142/80 93 Room Air 10/27/16 08:10 93 Room Air 10/27/16 07:34 80 16 96 Room Air 10/27/16 00:08 36.4 72 18 154/89 97 Room Air 10/27/16 00:00 Room Air 10/26/16 16:30 Room Air 10/26/16 15:32 77 16 95 Room Air 10/26/16 15:04 36.5 72 20 133/77 96 Room Air Physical Exam General Appearance: WD/WN, no apparent distress Eyes: normal inspection, sclerae normal ENT: hearing grossly normal Neck: supple, trachea midline Respiratory/Chest: no respiratory distress, no accessory muscle use, + pertinent finding (Dry cough on exam) Cardiovascular: regular rate, rhythm Extremities: normal range of motion Neurologic/Psychiatric: alert, normal mood/affect Skin: normal color, warm/dry, no rash Laboratory Results Item Value Date Time C.difficile Toxin B Gene (PCR) - Final Complete 10/26/16 0045 Stool No C. difficile toxin B gene detected Shiga Toxin Test Received 10/26/16 0045 Stool Pending Acid Fast Stain - Final Resulted 10/25/16 1020 Sputum Expectorated Sputum Gram Stain - Final Complete 10/25/16 1020 Sputum Expectorated Sputum Blood Culture - Preliminary Resulted 10/24/16 1110 Blood Gram Positive Cocci Blood Culture - Preliminary Resulted 10/24/16 1120 Blood NO GROWTH TO DATE. Group A Streptococcus Screen - Final Complete 10/25/16 0425 Throat SPECIMEN NEGATIVE FOR GROUP A BETA ST... MRSA DNA Surveillance Screen - Final Complete 10/24/16 1730 Nasal Specimen Positive for MRSA by DNA Probe Shiga Toxin Test - Preliminary Resulted 10/26/16 0045 Stool No E. Coli shiga toxin 1 or shiga tox... Last 24 Hours Test 10/26/16 16:40 10/27/16 07:50 White Blood Count 7.83 K/uL Red Blood Count 3.72 M/uL Hemoglobin 11.1 g/dL Hematocrit 32.4 % Mean Corpuscular Volume 87.1 fL Mean Corpuscular Hemoglobin 29.8 pg Mean Corpuscular Hemoglobin Concent 34.3 g/dl Platelet Count 197 K/uL Mean Platelet Volume 9.2 fL Neutrophils (%) (Auto) 61.4 % Lymphocytes (%) (Auto) 25.9 % Monocytes (%) (Auto) 9.8 % Eosinophils (%) (Auto) 1.5 % Basophils (%) (Auto) 0.4 % Neutrophils # (Auto) 4.80 K/uL Lymphocytes # (Auto) 2.03 K/uL Monocytes # (Auto) 0.77 K/uL Eosinophils # (Auto) 0.12 K/uL Basophils # (Auto) 0.03 K/uL RDW Standard Deviation 44.6 fL RDW Coefficient of Variation 14.0 % Immature Granulocyte % (Auto) 1.0 % Immature Granulocyte # (Auto) 0.08 K/uL Sodium Level 141 mmol/L Potassium Level 3.4 mmol/L Chloride Level 106 mmol/L Carbon Dioxide Level 23 mmol/L Anion Gap 12.0 mmol/L Blood Urea Nitrogen 4 mg/dl Creatinine 0.46 mg/dl Est Creatinine Clear Calc Drug Dose 103.9 ml/min Estimated GFR () 117.6 Estimated GFR (Non- 101.5 BUN/Creatinine Ratio 8.9 Random Glucose 96 mg/dl Calcium Level 8.7 mg/dl Magnesium Level 1.9 mg/dl Total Bilirubin 0.4 mg/dl Aspartate Amino Transf (AST/SGOT) 20 U/L Alanine Aminotransferase (ALT/SGPT) 26 U/L Alkaline Phosphatase 62 U/L Total Protein 6.0 gm/dl Albumin 3.0 gm/dl Globulin 3.0 gm/dl Albumin/Globulin Ratio 1.0 Assessment and Plan (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 Repeat CT scan shows progression of her infectious process. Repeat sputum cultures are pending. Initiated IV Azithromycin yesterday, and she overall did tolerate this well. I was going to trial PO Azithro this afternoon, but Dr. Cable would prefer to hold off on this until after her bronchoscopy tomorrow incase she becomes ill from the medication. I agree that this is a good plan. Following bronchoscopy, will trial PO Azithromycin. If she tolerates this well, prefer to continue on PO Azithromycin alone for a few days and then add Ethambutol and Rifampin potentially as an outpatient. Also will be following repeat cultures from bronchoscopy. Patient's initial blood cultures are now also growing GPC in 1/2 bottles. I discussed this with Dr. Meeks, and she agrees that we will add IV Vancomycin until culture results are available. Plan: 1. D/C Azithro until after bronchoscopy- then trial PO Azithromycin 2. Restart IV Vancomycin 3. Follow blood cultures and sputum cultures PROVIDER ADDENDUM: Patient reviewed with Ms. Calderon. Agree with above assessment.
[2016-10-27] MEDS ORDERED: VANCOMYCIN CONSULT ACTIVE PRN (15:15)
--- NOTE | 2016-10-27 15:36 | Pharmacy Progress Note ---
Pharmacy Antibiotic Consult Date of Service: Oct 27, 2016. Pharmacy Dosing Scope Pharmacy is consulted to initiate Vancomycin IV dosing therapy, order appropriate labs and adjust drug dose/frequency. Subjective The patient is a 70 year old female admitted on Oct 24, 2016 at 14:17, started on Vancomycin 10/24-10/26, then it was discontinued. Restarting now for gram positive cocci growing in blood culture. Trough drawn on 10/26 was slightly below goal range so we will restart at a slightly higher dose of Vancomycin. Objective Height (Feet): 5 Height (Inches): 5.00 Weight (Kilograms): 65.000 Lab Results (24hrs): Laboratory Tests Test 10/27/16 07:50 BUN/Creatinine Ratio 8.9 Blood Urea Nitrogen 4 mg/dl Creatinine 0.46 mg/dl White Blood Count 7.83 K/uL Red Blood Count 3.72 M/uL Hemoglobin 11.1 g/dL Hematocrit 32.4 % Mean Corpuscular Volume 87.1 fL Mean Corpuscular Hemoglobin 29.8 pg Mean Corpuscular Hemoglobin Concent 34.3 g/dl Platelet Count 197 K/uL Mean Platelet Volume 9.2 fL Neutrophils (%) (Auto) 61.4 % Lymphocytes (%) (Auto) 25.9 % Monocytes (%) (Auto) 9.8 % Eosinophils (%) (Auto) 1.5 % Basophils (%) (Auto) 0.4 % Neutrophils # (Auto) 4.80 K/uL Lymphocytes # (Auto) 2.03 K/uL Monocytes # (Auto) 0.77 K/uL Eosinophils # (Auto) 0.12 K/uL Basophils # (Auto) 0.03 K/uL Item Value Date Time Vancomycin Level Trough 13.7 mcg/ml 10/26/16 0653 Micro Results: Item Value Date Time Blood Culture - Preliminary Resulted 10/24/16 1110 Blood Gram Positive Cocci Blood Culture - Preliminary Resulted 10/24/16 1120 Blood NO GROWTH TO DATE. MRSA DNA Surveillance Screen - Final Complete 10/24/16 1730 Nasal Specimen Positive for MRSA by DNA Probe Group A Streptococcus Screen - Final Complete 10/25/16 0425 Throat SPECIMEN NEGATIVE FOR GROUP A BETA ST... Gram Stain - Final Complete 10/25/16 1020 Sputum Expectorated Sputum Acid Fast Stain - Final Resulted 10/25/16 1020 Sputum Expectorated Sputum Shiga Toxin Test - Preliminary Resulted 10/26/16 0045 Stool No E. Coli shiga toxin 1 or shiga tox... C.difficile Toxin B Gene (PCR) - Final Complete 10/26/16 004 Stool No C. difficile toxin B gene detected Recent Pertinent Medications Levaquin 750mg IV Q24H Assessment & Plan Patient's last dose of Vancomycin was at 0600 yesterday, will begin maintenance dose as she will still have some in her system Vancomycin 1200 mg (18mg/kg) IV every 12 hours. Goal trough level estimate: between 15 - 20 mcg/mL for bacteremia. Trough level has been ordered for: prior to 0400 dose, this will be after patient has received 3 doses. Pharmacy will continue to follow and will adjust dose/frequency as necessary. Thank you
[2016-10-27 15:45] VITALS: PULSE 77; O2SAT 95
[2016-10-27 15:53] VITALS: BP 152/77; PULSE 67; TEMP 36.7; O2SAT 95
[2016-10-27] MEDS ORDERED: AZITHROMYCIN 250 MG TAB PO SCH (16:00)
[2016-10-27] MEDS: VANCOMYCIN INJ 1,200 MG in SODIUM CHLORIDE 0.9% 250ML 250 ML IV SCH (17:28)
[2016-10-27 17:30] LABS: ARTERIAL BLD GAS O2 SATURATION 94.7 % (90-95); ARTERIAL BLOOD GAS BASE EXCESS 2.9 mEq/L (-9-1.8); ARTERIAL BLOOD GAS HCO3 26 mmol/L (19-24); ARTERIAL BLOOD GAS PO2 71 mm/Hg (80-95)
[2016-10-27] MEDS ORDERED: POTASSIUM CHLORIDE 10 MEQ TABCR PO ONE (17:30)
[2016-10-27 17:36] LABS: ALLEN TEST POS (POS); O2 ADMINISTRATION ROOM AIR
--- NOTE | 2016-10-27 17:37 | Progress Note ---
Subjective Date of Service: Oct 27, 2016. Subjective Pt evaluation today including: conversation w/ patient, physical exam, chart review, lab review, conversation w/ health consultant, review of inpatient medication list Problem List Medical Problems: (1) Pneumonia Status: Acute Review of Systems Constitutional: No chills, No fatigue, No fever, No problem reported, No see HPI, No sweats, No weakness, No weight loss Eyes: No diplopia, No discharge, No eye pain, No problem reported, No redness, No see HPI, No worsening of vision ENT: No dental problems, No hearing loss, No nasal symptoms, No problem reported, No see HPI, No sore throat, No tinnitus, No trouble swallowing, No unusual epistaxis Respiratory: + cough, + shortness of breath, + sputum, No dyspnea at rest, No dyspnea on exertion, No hemoptysis, No problem reported, No see HPI, No wheezing Cardiac: No PND, No chest pain, No claudication, No edema, No orthopnea, No palpitations, No problem reported, No see HPI Abdomen: No GI bleeding, No constipation, No diarrhea, No nausea, No pain, No problem reported, No see HPI, No vomiting Musculoskeletal: No calf pain, No joint pain, No muscle pain, No problem reported, No see HPI, No swelling Female : No abnormal vaginal bleeding, No dysuria, No hematuria, No incontinence, No problem reported, No see HPI, No urinary frequency, No vaginal discharge Neurologic: No balance problems, No memory loss, No numbness/tingling, No paralysis, No problem reported, No see HPI, No vertigo, No weakness Psychiatric: No anhedonism, No anxiety, No depression symptoms, No insomnia, No problem reported, No see HPI, No substance abuse Heme: No abnormal bleeding/bruising, No clotting problems, No night sweats, No problem reported, No see HPI, No swollen lymph nodes Endo: No excessive thirst, No excessive urination, No fatigue, No problem reported, No see HPI Skin: No bleeding, No color change, No itch, No new/changing skin lesions, No problem reported, No rash, No see HPI Medications Current Inpatient Medications Medications (Trade) Dose Ordered Sig/Carola Route Start Time Stop Time Status Last Admin Dose Admin Levofloxacin 750 mg/Prmx 150 ml @ 100 mls/hr Q24H IV 10/25/16 12:00 10/30/16 11:59 10/27/16 12:33 100 MLS/HR Promethazine HCl/ Sodium Chloride (Phenergan Inj/ Nss 50ml) 50.5 ml @ 204 mls/hr Q6H PRN IV 10/24/16 12:15 11/23/16 12:14 Atenolol (Tenormin Tab) 50 mg QAM PO 10/25/16 08:00 11/24/16 08:59 10/27/16 08:55 50 MG Buspirone HCl (BusPAR TAB) 15 mg BID PO 10/24/16 20:00 11/23/16 20:59 10/27/16 08:55 15 MG Pentosan Polysulfate Sodium (Elmiron) 200 mg BID PO 10/24/16 20:00 11/23/16 20:59 10/27/16 08:55 200 MG Guaifenesin (Mucinex Contr Rel Tab) 600 mg Q12 PO 10/24/16 21:00 11/23/16 20:59 10/27/16 08:55 600 MG Enoxaparin Sodium (Lovenox Inj) 40 mg Q24H SQ 10/24/16 21:00 11/23/16 20:59 10/26/16 20:06 40 MG Acetaminophen (Tylenol Tab) 650 mg Q4H PRN PO 10/24/16 14:15 11/23/16 14:14 10/26/16 16:38 650 MG Al Hydrox/Mg Hydrox/Simethicone (Maalox Max Susp) 15 ml Q4H PRN PO 10/24/16 14:15 11/23/16 14:14 Magnesium Hydroxide (Milk Of Magnesia Susp) 30 ml Q6H PRN PO 10/24/16 14:15 11/23/16 14:14 Hyoscyamine/ Phenobarbital ( 16.2mg) 16.2 tab TID PO 10/24/16 20:00 11/23/16 19:59 10/27/16 13:30 16.2 TAB Naproxen (Naprosyn Tab) 250 mg Q12 PO 10/25/16 11:00 11/24/16 10:59 10/27/16 08:54 250 MG Ipratropium [place] (Atrovent 0.02% 0.5MG/2.5ML Neb) 0.5 mg Q8R INH 10/25/16 16:00 11/24/16 15:59 10/27/16 15:45 0.5 MG Levalbuterol (Xopenex 1.25MG/ 0.5ML Neb) 1.25 mg Q8R INH 10/25/16 16:00 11/24/16 15:59 10/27/16 15:45 1.25 MG Benzonatate (Tessalon Perles Cap) 100 mg TID PO 10/26/16 08:00 11/25/16 07:59 10/27/16 13:29 100 MG Ioversol (Optiray 320) 100 ml UD PRN IV 10/26/16 09:30 10/30/16 09:29 Oxymetazoline HCl 2 sprays 2 sprays ONE ONCE NA 10/28/16 07:00 10/28/16 07:01 Sodium Chloride 500 ml @ 40 mls/hr [id number] IV 10/28/16 06:00 11/27/16 05:59 Vancomycin HCl/ Sodium Chloride (Vancomycin Inj/ Nss 250ml) 274 ml @ 125 mls/hr Q12@0400,1600 IV 10/27/16 16:00 11/10/16 15:59 Vancomycin HCl (Consult) 1 ea UD PRN N/A 10/27/16 15:15 11/26/16 15:14 Potassium Chloride (Klor-Con M10) 20 meq NOW STAT PO 10/27/16 16:57 10/27/16 16:58 UNV Objective Vital Signs Date Time Temp Pulse Resp B/P Pulse Ox O2 Delivery O2 Flow Rate FiO2 10/27/16 15:53 36.7 67 17 152/77 95 Room Air 10/27/16 15:45 77 16 95 Room Air 10/27/16 08:24 36.4 89 16 142/80 93 Room Air 10/27/16 08:10 93 Room Air 10/27/16 07:34 80 16 96 Room Air 10/27/16 00:08 36.4 72 18 154/89 97 Room Air 10/27/16 00:00 Room Air Physical Exam General Appearance: WD/WN, no apparent distress Eyes: normal inspection, PERRL, EOMI ENT: normal ENT inspection, hearing grossly normal, TMs normal, pharynx normal Neck: supple, no adenopathy, thyroid normal Respiratory/Chest: chest non-tender, no accessory muscle use, + decreased breath sounds, + crackles Cardiovascular: regular rate, rhythm, no edema, no gallop, no JVD, no murmur Abdomen: normal bowel sounds, non tender, soft, no organomegaly, no pulsatile mass Extremities: normal range of motion, non-tender, normal inspection, no pedal edema, no calf tenderness Neurologic/Psychiatric: sandblaster stone II-XII nml as tested, no motor/sensory deficits, alert, normal mood/affect, oriented x 3 Skin: normal color, warm/dry, no rash Laboratory Results Last 24 Hours Test 10/27/16 07:50 10/27/16 16:06 White Blood Count 7.83 K/uL Red Blood Count 3.72 M/uL Hemoglobin 11.1 g/dL Hematocrit 32.4 % Mean Corpuscular Volume 87.1 fL Mean Corpuscular Hemoglobin 29.8 pg Mean Corpuscular Hemoglobin Concent 34.3 g/dl Platelet Count 197 K/uL Mean Platelet Volume 9.2 fL Neutrophils (%) (Auto) 61.4 % Lymphocytes (%) (Auto) 25.9 % Monocytes (%) (Auto) 9.8 % Eosinophils (%) (Auto) 1.5 % Basophils (%) (Auto) 0.4 % Neutrophils # (Auto) 4.80 K/uL Lymphocytes # (Auto) 2.03 K/uL Monocytes # (Auto) 0.77 K/uL Eosinophils # (Auto) 0.12 K/uL Basophils # (Auto) 0.03 K/uL RDW Standard Deviation 44.6 fL RDW Coefficient of Variation 14.0 % Immature Granulocyte % (Auto) 1.0 % Immature Granulocyte # (Auto) 0.08 K/uL Sodium Level 141 mmol/L Potassium Level 3.4 mmol/L Chloride Level 106 mmol/L Carbon Dioxide Level 23 mmol/L Anion Gap 12.0 mmol/L Blood Urea Nitrogen 4 mg/dl Creatinine 0.46 mg/dl Est Creatinine Clear Calc Drug Dose 103.9 ml/min Estimated GFR () 117.6 Estimated GFR (Non- 101.5 BUN/Creatinine Ratio 8.9 Random Glucose 96 mg/dl Calcium Level 8.7 mg/dl Magnesium Level 1.9 mg/dl Total Bilirubin 0.4 mg/dl Aspartate Amino Transf (AST/SGOT) 20 U/L Alanine Aminotransferase (ALT/SGPT) 26 U/L Alkaline Phosphatase 62 U/L Total Protein 6.0 gm/dl Albumin 3.0 gm/dl Globulin 3.0 gm/dl Albumin/Globulin Ratio 1.0 Assessment and Plan This patient is a pleasant 70-year-old female with Hx of bronchiectasis, recent pneumonia, presented with fever, productive cough and diarrhea. Bronchiectasis with CT scan findings suggestive of chronic infection / positive sputum for Mycobacterium avium complex . consult Dr. Thompson and Dr. Gallo was appreciated D/W Dr. Thompson, who will do bronchoscope tomorrow, NPO from midnight and hold lovenox in am patient lived in [place] for 5 years until 04/2016 she got sick once in march 2016 with pneumonia/GI symptoms but she improved she visited [place] in 06/2016 hunting season from that time she started getting sick chronically and didn't recover due to the unusual exposure; ordered: -coccidioides Abs -Histo urine Ag -Fungitell/D-glucan -Toxoplasma Igg/Igm -Fungal culture in sputum -Immune cell function will defer Abx management to the ID team (currently vanco/levo - 1/2 Bcx GPC) nausea, vomiting, diarrhea-likely part of viral illness / improving -DC IV fluids -Patient has Zofran listed as an allergy. Phenergan 12.5 mg IV q 6 hr -send stool cx, C. diff is negative Recurrent gastroenteritis / IBS -currently stable, concerns to adjust Abx accordingly especially if she will be on chronic regimen sputum/blood Cx are negative thus far urine legionella is negative MVP -Continue atenolol History of interstitial cystitis -Continue Elmiron DVT prophylaxis -Lovenox 40 mg subQ daily -TEDS, SCDs
[2016-10-28] VITALS (25 sets, daily range): BP systolic 136–165; BP diastolic 62–94; PULSE 70–89; TEMP 36.5–37; O2SAT 92–100
[2016-10-28] MEDS: VANCOMYCIN INJ 1,200 MG in SODIUM CHLORIDE 0.9% 250ML 250 ML IV SCH (03:38)
[2016-10-28] MEDS: SODIUM CHLORIDE 0.9% 500ML 500 ML IV SCH ×2 (06:05→18:07)
[2016-10-28] MEDS: IPRATROPIUM BROMIDE NEB SOLN 0.02% 2.5 ML VIAL INH SCH ×3 (07:00→21:55)
[2016-10-28] MEDS: LEVALBUTEROL 1.25MG/0.5ML NEB INH SCH ×3 (07:00→21:55)
[2016-10-28] MEDS ORDERED: OXYMETAZOLINE HCL 0.05% NA SPR 15 ML BTL ONE (07:00)
--- NOTE | 2016-10-28 07:37 | History & Physical Bridge Note ---
H&P Re-Evaluation Bridge Note: I have examined the patient, reviewed the History & Physical and in the interval since the performance of the History & Physical I have noted the following changes of clinical significance: No changes noted
--- NOTE | 2016-10-28 07:41 | Procedure Note ---
Pre-Mod Sedation Assessment General Date of Moderate Sedation: Oct 28, 2016. Vital Signs: Vital Signs Past 12 Hours Date Time Temp Pulse Resp B/P Pulse Ox O2 Delivery O2 Flow Rate FiO2 10/28/16 07:00 77 16 95 Room Air 10/28/16 00:30 Room Air 10/28/16 00:21 36.7 74 16 144/78 97 Room Air Review Cardiovascular: regular rate, rhythm, no edema, no gallop Abdomen: normal bowel sounds, non tender, soft Lungs: no respiratory distress, no accessory muscle use, + rales Airway Class: I Pre-Sedation Airway Assessment Oral Cavity: WNL Short Thick Neck: No Hx of Sleep Apnea: No Smoking Status: Never Smoker Mallampati Classification: Class I ASA Classification: Class I Notes The planned sedation has been discussed with the patient and consent obtained. I have identified the patient, determined the appropriateness of sedation and have assessed the patient immediately prior to the procedure. All medicine(s) and interventions are by my order.
[2016-10-28] MEDS: ATROPINE PO SCH ×3 (08:00→20:51)
[2016-10-28] MEDS: PHENOBARBITAL PO SCH ×3 (08:00→20:51)
[2016-10-28] MEDS: SCOPOLAMINE PO SCH ×3 (08:00→20:51)
[2016-10-28] MEDS: BENZONATATE 100MG CAP PO SCH ×3 (08:00→20:50)
[2016-10-28] MEDS: HYOSCYAMINE PO SCH ×3 (08:00→20:51)
[2016-10-28 09:06] LABS: QUANTIF TB AG-NIL 0.05 IU/ML; QUANTIFERON NIL 0.08 IU/ML
--- NOTE | 2016-10-28 09:09 | Procedure Note ---
Pre-Mod Sedation Assessment General Date of Moderate Sedation: Oct 28, 2016. Vital Signs: Vital Signs Past 12 Hours Date Time Temp Pulse Resp B/P Pulse Ox O2 Delivery O2 Flow Rate FiO2 10/28/16 08:55 84 21 159/80 93 Nasal Cannula 4.0 10/28/16 08:50 81 18 154/79 95 Mask 10.0 10/28/16 08:45 79 18 158/82 95 Mask 10.0 10/28/16 08:40 89 18 165/87 100 Mask 10.0 10/28/16 08:35 77 16 156/73 96 Mask 10.0 10/28/16 08:30 79 16 154/76 100 Mask 6.0 10/28/16 08:25 76 18 157/73 99 Mask 6.0 10/28/16 08:20 77 18 157/77 100 Mask 6.0 10/28/16 08:15 83 18 162/77 100 Mask 6.0 10/28/16 08:04 36.7 80 18 149/62 96 Room Air 10/28/16 07:45 82 17 157/81 100 Mask 6.0 10/28/16 07:26 36.5 77 20 149/62 95 Room Air 10/28/16 07:00 77 16 95 Room Air 10/28/16 00:30 Room Air 10/28/16 00:21 36.7 74 16 144/78 97 Room Air Review Cardiovascular: regular rate, rhythm, no edema, no gallop Abdomen: normal bowel sounds, non tender, soft Lungs: no respiratory distress, no accessory muscle use, + rales Airway Class: I Pre-Sedation Airway Assessment Oral Cavity: WNL Able to Visualize Vocal Cords: Yes Short Thick Neck: No Hx of Sleep Apnea: No Smoking Status: Never Smoker Mallampati Classification: Class I ASA Classification: Class I Procedure Planning Contraindications-for Mod Sed: None Yes Notes The planned sedation has been discussed with the patient and consent obtained. I have identified the patient, determined the appropriateness of sedation and have assessed the patient immediately prior to the procedure. All medicine(s) and interventions are by my order.
--- NOTE | 2016-10-28 09:10 | Procedure Note ---
Post-Moderate Sedation Plan General Date of Moderate Sedation Oct 28, 2016. Vital Signs: Vital Signs Past 12 Hours Date Time Temp Pulse Resp B/P Pulse Ox O2 Delivery O2 Flow Rate FiO2 10/28/16 08:55 84 21 159/80 93 Nasal Cannula 4.0 10/28/16 08:50 81 18 154/79 95 Mask 10.0 10/28/16 08:45 79 18 158/82 95 Mask 10.0 10/28/16 08:40 89 18 165/87 100 Mask 10.0 10/28/16 08:35 77 16 156/73 96 Mask 10.0 10/28/16 08:30 79 16 154/76 100 Mask 6.0 10/28/16 08:25 76 18 157/73 99 Mask 6.0 10/28/16 08:20 77 18 157/77 100 Mask 6.0 10/28/16 08:15 83 18 162/77 100 Mask 6.0 10/28/16 08:04 36.7 80 18 149/62 96 Room Air 10/28/16 07:45 82 17 157/81 100 Mask 6.0 10/28/16 07:26 36.5 77 20 149/62 95 Room Air 10/28/16 07:00 77 16 95 Room Air 10/28/16 00:30 Room Air 10/28/16 00:21 36.7 74 16 144/78 97 Room Air Review - Discharge Plan Post Moderate Sedation Plan: On clinical assessment, the patient appears to have tolerated the conscious sedation without complications. Patient is recovering as anticipated. Patient will continue to be monitored by nursing and may be discharged when conscious sedation discharge criteria are met.
[2016-10-28] MEDS ORDERED: FENTANYL CITRATE INJ 50 MCG/1 ML 2 ML VIAL IV SCH (09:12)
[2016-10-28] MEDS ORDERED: MIDAZOLAM HCL 5 MG/ML 1 ML VIAL IV SCH (09:12)
[2016-10-28] MEDS ORDERED: NURSING VERBAL MED ORDER ONE (09:15)
--- NOTE | 2016-10-28 09:34 | OPERATIVE REPORT ---
DATE OF OPERATION: 10/28/2016 TIME: 9:00 a.m. PROCEDURE PERFORMED: Flexible fiberoptic bronchoscopy with washings and bronchial lavage. PREBRONCH DIAGNOSIS: Bilateral lung infiltrates -- rule out Mycobacterium avium complex. POSTBRONCH DIAGNOSIS: Same. MEDICATIONS DURING THE PROCEDURE: Xylocaine 2% sprayed into the nasal passages and oropharynx and also in the tracheobronchial tree as needed during bronchoscopy. Xylocaine jelly was used into the nostrils. During the procedure, Versed 1.5 mg and fentanyl 50 mg was administered to the patient. The bronchoscope was inserted through the left nostril without difficulty. The nasal passages, pharynx, and larynx were all normal. The vocal cords approximated normally. The scope was advanced into the trachea without difficulty. The trachea was normal in appearance. The gaby was sharp. The right lung was entered. Right upper lobe showed no endobronchial abnormalities and there was scant mucus. Bronchus intermedius was clear. Right middle lobe was clear. Right lower lobe had small amount of secretions in the superior segment of right lower lobe, that was aspirated readily. There were scant secretions in the basilar segments. All subsegments of the right lung were clear in terms of no obstructions or neoplasms. The bronchoscope was then returned to the gaby. The left main was entered. There were some small scattered secretions in the distal left main and down into the left lower lobe. These were aspirated readily. They were clear to white in color. The quantity was relatively small. Small quantities of saline were used to assist with the clearance. The left lower lobe subsegments were clearly seen. Left upper lobe was clear. There was no significant mucus and no endobronchial abnormalities. Washings were individually obtained from the right and left side. At this point in time, I returned back to the right upper lobe and did lavage in a subsegment of the anterior segment. 40 mL of saline were utilized during the lavage. The return was relatively clear with just a few small particles. The patient had mild coughing during the procedure. The bronchoscope was then removed. Bronchial washings are individually sent from the right and left side for Gram stain and culture, AFB smear and culture, fungal smear and culture. Lavage fluid was also sent from right upper lobe anterior segment and this was also for Gram stain and culture, AFB smear and culture, fungal smear and culture, and cytology. The patient was stable following the procedure. I attest to the content of the Intraoperative Record and any orders documented therein. Any exceptions are noted below. MARIAELENAD
--- NOTE | 2016-10-28 10:41 | Infectious Disease Progress Nt ---
Progress Note Date of Service Oct 28, 2016. Subjective Pt evaluation today including: conversation w/ patient, conversation w/ family (, daughter), physical exam, chart review, lab review, review of studies , review of inpatient medication list Blood gases showed decreased pO2. Blood cultures are showing Micrococcus in 1/2 initial cultures. She was restarted on IV Vancomycin yesterday for concerns of GPC growing in blood culture. She did have her bronchoscopy this morning, and multiple cultures were taken and are pending. She states that she did have a large, loose BM last night, but has not had any more this morning. She otherwise continues to have some cough on and off, and some minor sputum production. All Other Systems: Reviewed and Negative Medications Current Inpatient Medications Medications (Trade) Dose Ordered Sig/Carola Route Start Time Stop Time Status Last Admin Dose Admin Levofloxacin 750 mg/Prmx 150 ml @ 100 mls/hr Q24H IV 10/25/16 12:00 10/30/16 11:59 10/27/16 12:33 100 MLS/HR Promethazine HCl/ Sodium Chloride (Phenergan Inj/ Nss 50ml) 50.5 ml @ 204 mls/hr Q6H PRN IV 10/24/16 12:15 11/23/16 12:14 Atenolol (Tenormin Tab) 50 mg QAM PO 10/25/16 08:00 11/24/16 08:59 10/27/16 08:55 50 MG Buspirone HCl (BusPAR TAB) 15 mg BID PO 10/24/16 20:00 11/23/16 20:59 10/27/16 19:59 15 MG Pentosan Polysulfate Sodium (Elmiron) 200 mg BID PO 10/24/16 20:00 11/23/16 20:59 10/27/16 20:01 200 MG Guaifenesin (Mucinex Contr Rel Tab) 600 mg Q12 PO 10/24/16 21:00 11/23/16 20:59 10/27/16 20:00 600 MG Enoxaparin Sodium (Lovenox Inj) 40 mg Q24H SQ 10/24/16 21:00 11/23/16 20:59 Future Hold 10/26/16 20:06 40 MG Acetaminophen (Tylenol Tab) 650 mg Q4H PRN PO 10/24/16 14:15 11/23/16 14:14 10/26/16 16:38 650 MG Al Hydrox/Mg Hydrox/Simethicone (Maalox Max Susp) 15 ml Q4H PRN PO 10/24/16 14:15 11/23/16 14:14 Magnesium Hydroxide (Milk Of Magnesia Susp) 30 ml Q6H PRN PO 10/24/16 14:15 11/23/16 14:14 Hyoscyamine/ Phenobarbital ( 16.2mg) 16.2 tab TID PO 10/24/16 20:00 11/23/16 19:59 10/27/16 19:58 16.2 TAB Naproxen (Naprosyn Tab) 250 mg Q12 PO 10/25/16 11:00 11/24/16 10:59 10/27/16 20:00 250 MG Ipratropium [place] (Atrovent 0.02% 0.5MG/2.5ML Neb) 0.5 mg Q8R INH 10/25/16 16:00 11/24/16 15:59 10/28/16 07:00 0.5 MG Levalbuterol (Xopenex 1.25MG/ 0.5ML Neb) 1.25 mg Q8R INH 10/25/16 16:00 11/24/16 15:59 10/28/16 07:00 1.25 MG Benzonatate (Tessalon Perles Cap) 100 mg TID PO 10/26/16 08:00 11/25/16 07:59 10/27/16 20:00 100 MG Ioversol 100 ml 100 ml UD PRN IV 10/26/16 09:30 10/30/16 09:29 Sodium Chloride (Nss 500ml) 500 ml @ 40 mls/hr [id number] IV 10/28/16 06:00 11/27/16 05:59 10/28/16 06:05 40 MLS/HR Vancomycin HCl (Consult) 1 ea UD PRN N/A 10/27/16 15:15 11/26/16 15:14 Fentanyl Citrate (Fentanyl Inj) 50 mcg TODAY@0912 IV 10/28/16 09:12 10/28/16 11:20 Objective Vital Signs Date Time Temp Pulse Resp B/P Pulse Ox O2 Delivery O2 Flow Rate FiO2 10/28/16 09:46 36.6 76 18 151/83 92 Nasal Cannula 4.0 10/28/16 09:25 36.7 78 18 157/72 94 Nasal Cannula 4.0 10/28/16 09:15 37.0 77 20 148/63 94 Nasal Cannula 4.0 10/28/16 09:00 70 18 151/75 94 Nasal Cannula 4.0 10/28/16 08:55 84 21 159/80 93 Nasal Cannula 4.0 10/28/16 08:50 81 18 154/79 95 Mask 10.0 10/28/16 08:45 79 18 158/82 95 Mask 10.0 10/28/16 08:40 89 18 165/87 100 Mask 10.0 10/28/16 08:35 77 16 156/73 96 Mask 10.0 10/28/16 08:30 79 16 154/76 100 Mask 6.0 10/28/16 08:25 76 18 157/73 99 Mask 6.0 10/28/16 08:20 77 18 157/77 100 Mask 6.0 10/28/16 08:15 83 18 162/77 100 Mask 6.0 10/28/16 08:04 36.7 80 18 149/62 96 Room Air 10/28/16 07:45 82 17 157/81 100 Mask 6.0 10/28/16 07:26 36.5 77 20 149/62 95 Room Air 10/28/16 07:00 77 16 95 Room Air 10/28/16 00:30 Room Air 10/28/16 00:21 36.7 74 16 144/78 97 Room Air 10/27/16 16:30 Room Air 10/27/16 15:53 36.7 67 17 152/77 95 Room Air 10/27/16 15:45 77 16 95 Room Air Physical Exam General Appearance: WD/WN, no apparent distress Eyes: normal inspection, sclerae normal ENT: hearing grossly normal Neck: supple, trachea midline Respiratory/Chest: chest non-tender, normal breath sounds, no respiratory distress, no accessory muscle use, + rales (bilateral lower lobes) Cardiovascular: regular rate, rhythm Abdomen: normal bowel sounds Extremities: normal range of motion Neurologic/Psychiatric: alert, normal mood/affect Skin: warm/dry, no rash, + pallor Laboratory Results Item Value Date Time Fungal Smear Adria Batch 10/28/16 0922 Bronchial Washings Right Upper Lobe Pending Acid Fast Stain Adria Batch 10/28/16 0922 Bronchoalveolar Lavage Culture Right Upper Lobe Pending Gram Stain Ordered 10/28/16 0922 Bronchial Washings Right Upper Lobe Pending Fungal Smear Adria Batch 10/28/16 0919 Bronchial Washings Left Lobe Pending Acid Fast Stain Adria Batch 10/28/16 0919 Bronchial Washings Left Lobe Pending Gram Stain Ordered 10/28/16 0919 Bronchial Washings Left Lobe Pending Fungal Smear Adria Batch 10/28/16 0910 Bronchial Washings Right Lobe Pending Acid Fast Stain Adria Batch 10/28/16 0910 Bronchial Washings Right Lobe Pending Gram Stain Ordered 10/28/16 0910 Bronchial Washings Right Lobe Pending Last 24 Hours Test 10/27/16 17:10 10/28/16 00:00 10/28/16 04:44 Arterial Blood pH 7.50 Arterial Blood Partial Pressure CO2 34 mmHg Arterial Blood Partial Pressure O2 71 mm/Hg Arterial Blood HCO3 26 mmol/L Arterial Blood Oxygen Saturation 94.7 % Arterial Blood Base Excess 2.9 mEq/L Arterial Blood Gas Delivery ROOM AIR Giorgi Test POS Assessment and Plan (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 Repeat CT scan shows progression of her infectious process. Repeat sputum cultures are pending. Cultures from bronch are also pending. Her QuantiFERON was negative for TB. She previously tolerated 1 dose of IV Azithromycin, and therefore will trial PO Azithromycin this afternoon to see how she tolerates this. If she does well, the patient likely could be discharged on PO Azithromycin with ID follow up next week as an outpatient for initiation of Ethambutol and Rifampin. Otherwise , will need to transition patient back to IV Azithromycin and see if she continues to tolerate this. If so, may consider PICC line placement and IV abx at home, however this is not ideal due to length of therapy being 12-18 months. Will D/C Vancomycin since blood culture is growing micrococcus, likely contaminant. Levaquin will stop today after 5 days. Plan: 1. Trial PO Azithromycin today 2. Follow cultures 3. D/C Vancomycin PROVIDER ADDENDUM: Patient reviewed with Ms. Calderon. Agree with above assessment.
[2016-10-28 10:42] LABS: BASO % 0.5 %; BASO ABS # 0.03 K/uL (0-0.2); COMPLETE YES; EOS % 1.7 %; HEMATOCRIT 33.3 % (37-47); IG% 2.4 %; LYMPH % 20.4 %; LYMPH ABS # 1.21 K/uL (1.2-3.4); MEAN CELL VOLUME 87.4 fL (80-100); MEAN CORPUSCULAR HEMOGLOBIN 29.9 pg (25-34); MEAN CORPUSCULAR HGB CONC 34.2 g/dl (32-36); MONO % 8.6 %; NEUT % 66.4 %; PLATELET COUNT 249 K/uL (130-400); RED BLOOD COUNT 3.81 M/uL (4.2-5.4); WHITE BLOOD COUNT 5.93 K/uL (4.8-10.8)
[2016-10-28 11:15] LABS: BUN/CREATININE RATIO 13.1 (10-20); CALCIUM 8.6 mg/dl (8.5-10.1); CREATININE 0.51 mg/dl (0.60-1.20); MAGNESIUM 1.8 mg/dl (1.8-2.4); POTASSIUM 3.9 mmol/L (3.5-5.1)
[2016-10-28 11:17] LABS: ALB/GLOB RATIO 0.8 (0.9-2)
[2016-10-28] MEDS: GUAIFENESIN 600 MG TABCR PO SCH ×2 (12:52→20:51)
[2016-10-28] MEDS: PENTOSAN POLYSULFATE SODIUM 100 MG CAP PO SCH ×2 (12:53→20:51)
[2016-10-28] MEDS: NAPROXEN 250 MG TAB PO SCH ×2 (12:55→20:51)
[2016-10-28] MEDS: AZITHROMYCIN 250 MG TAB PO SCH (12:56)
[2016-10-28] MEDS: BusPIRone 15 MG TAB PO SCH ×2 (12:56→20:51)
[2016-10-28] MEDS: LEVOFLOXACIN / D5W 750 MG in PREMIXED IN D5W 150 ML IV SCH (13:07)
[2016-10-28] MEDS: ACETAMINOPHEN 325 MG TAB PO PRN (16:30)
--- NOTE | 2016-10-28 16:42 | Progress Note ---
Subjective Date of Service: Oct 28, 2016. Subjective Pt evaluation today including: conversation w/ patient, conversation w/ family , physical exam, chart review, lab review, conversation w/ market research consultant, review of inpatient medication list Problem List Medical Problems: (1) Pneumonia Status: Acute Review of Systems Constitutional: No chills, No fatigue, No fever, No problem reported, No see HPI, No sweats, No weakness, No weight loss Eyes: No diplopia, No discharge, No eye pain, No problem reported, No redness, No see HPI, No worsening of vision ENT: No dental problems, No hearing loss, No nasal symptoms, No problem reported, No see HPI, No sore throat, No tinnitus, No trouble swallowing, No unusual epistaxis Respiratory: + cough, + shortness of breath, + sputum, No dyspnea at rest, No dyspnea on exertion, No hemoptysis, No problem reported, No see HPI, No wheezing Cardiac: No PND, No chest pain, No claudication, No edema, No orthopnea, No palpitations, No problem reported, No see HPI Abdomen: No GI bleeding, No constipation, No diarrhea, No nausea, No pain, No problem reported, No see HPI, No vomiting Musculoskeletal: No calf pain, No joint pain, No muscle pain, No problem reported, No see HPI, No swelling Female : No abnormal vaginal bleeding, No dysuria, No hematuria, No incontinence, No problem reported, No see HPI, No urinary frequency, No vaginal discharge Neurologic: No balance problems, No memory loss, No numbness/tingling, No paralysis, No problem reported, No see HPI, No vertigo, No weakness Psychiatric: No anhedonism, No anxiety, No depression symptoms, No insomnia, No problem reported, No see HPI, No substance abuse Endo: No excessive thirst, No excessive urination, No fatigue, No problem reported, No see HPI Skin: No bleeding, No color change, No itch, No new/changing skin lesions, No problem reported, No rash, No see HPI Objective Vital Signs Date Time Temp Pulse Resp B/P Pulse Ox O2 Delivery O2 Flow Rate FiO2 10/28/16 15:43 36.6 79 18 137/74 98 Room Air 10/28/16 13:56 36.6 86 18 136/79 93 Room Air 10/28/16 11:57 36.7 81 20 145/94 92 Nasal Cannula 4.0 10/28/16 10:35 Mask 10/28/16 10:33 36.6 75 22 149/83 95 Nasal Cannula 4.0 10/28/16 09:46 36.6 76 18 151/83 92 Nasal Cannula 4.0 10/28/16 09:25 36.7 78 18 157/72 94 Nasal Cannula 4.0 10/28/16 09:15 37.0 77 20 148/63 94 Nasal Cannula 4.0 10/28/16 09:00 70 18 151/75 94 Nasal Cannula 4.0 10/28/16 08:55 84 21 159/80 93 Nasal Cannula 4.0 10/28/16 08:50 81 18 154/79 95 Mask 10.0 10/28/16 08:45 79 18 158/82 95 Mask 10.0 10/28/16 08:40 89 18 165/87 100 Mask 10.0 10/28/16 08:35 77 16 156/73 96 Mask 10.0 10/28/16 08:30 79 16 154/76 100 Mask 6.0 10/28/16 08:25 76 18 157/73 99 Mask 6.0 10/28/16 08:20 77 18 157/77 100 Mask 6.0 10/28/16 08:15 83 18 162/77 100 Mask 6.0 10/28/16 08:04 36.7 80 18 149/62 96 Room Air 10/28/16 07:45 82 17 157/81 100 Mask 6.0 10/28/16 07:26 36.5 77 20 149/62 95 Room Air 10/28/16 07:00 77 16 95 Room Air 10/28/16 00:30 Room Air 10/28/16 00:21 36.7 74 16 144/78 97 Room Air Physical Exam General Appearance: no apparent distress Eyes: PERRL, EOMI ENT: normal ENT inspection, hearing grossly normal, TMs normal, pharynx normal Neck: supple Respiratory/Chest: chest non-tender, no respiratory distress, + decreased breath sounds, + crackles Cardiovascular: regular rate, rhythm, no edema, no gallop, no JVD, no murmur Abdomen: normal bowel sounds, non tender, soft, no organomegaly, no pulsatile mass Extremities: normal range of motion, non-tender, normal inspection, no pedal edema 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, no motor/sensory deficits, alert, normal mood/affect, oriented x 3 Skin: normal color, warm/dry, no rash Laboratory Results Last 24 Hours Test 10/27/16 17:10 10/28/16 00:00 10/28/16 10:14 Arterial Blood pH 7.50 Arterial Blood Partial Pressure CO2 34 mmHg Arterial Blood Partial Pressure O2 71 mm/Hg Arterial Blood HCO3 26 mmol/L Arterial Blood Oxygen Saturation 94.7 % Arterial Blood Base Excess 2.9 mEq/L Arterial Blood Gas Delivery ROOM AIR Giorgi Test POS White Blood Count 5.93 K/uL Red Blood Count 3.81 M/uL Hemoglobin 11.4 g/dL Hematocrit 33.3 % Mean Corpuscular Volume 87.4 fL Mean Corpuscular Hemoglobin 29.9 pg Mean Corpuscular Hemoglobin Concent 34.2 g/dl Platelet Count 249 K/uL Mean Platelet Volume 9.0 fL Neutrophils (%) (Auto) 66.4 % Lymphocytes (%) (Auto) 20.4 % Monocytes (%) (Auto) 8.6 % Eosinophils (%) (Auto) 1.7 % Basophils (%) (Auto) 0.5 % Neutrophils # (Auto) 3.94 K/uL Lymphocytes # (Auto) 1.21 K/uL Monocytes # (Auto) 0.51 K/uL Eosinophils # (Auto) 0.10 K/uL Basophils # (Auto) 0.03 K/uL RDW Standard Deviation 44.4 fL RDW Coefficient of Variation 14.0 % Immature Granulocyte % (Auto) 2.4 % Immature Granulocyte # (Auto) 0.14 K/uL Sodium Level 141 mmol/L Potassium Level 3.9 mmol/L Chloride Level 107 mmol/L Carbon Dioxide Level 26 mmol/L Anion Gap 8.0 mmol/L Blood Urea Nitrogen 7 mg/dl Creatinine 0.51 mg/dl Est Creatinine Clear Calc Drug Dose 93.7 ml/min Estimated GFR () 113.7 Estimated GFR (Non- 98.1 BUN/Creatinine Ratio 13.1 Random Glucose 85 mg/dl Calcium Level 8.6 mg/dl Magnesium Level 1.8 mg/dl Total Bilirubin 0.3 mg/dl Aspartate Amino Transf (AST/SGOT) 18 U/L Alanine Aminotransferase (ALT/SGPT) 27 U/L Alkaline Phosphatase 63 U/L Total Protein 5.9 gm/dl Albumin 2.7 gm/dl Globulin 3.2 gm/dl Albumin/Globulin Ratio 0.8 Assessment and Plan This patient is a pleasant 70-year-old female with Hx of bronchiectasis, recent pneumonia, presented with fever, productive cough and diarrhea. Bronchiectasis with CT scan findings suggestive of chronic infection / positive sputum for Mycobacterium avium complex . consult Dr. Thompson and Dr. Gallo was appreciated D/W Dr. Thompson s/p bronchoscopy 10/28, no significant secretions patient lived in [place] for 5 years until 04/2016 she got sick once in march 2016 with pneumonia/GI symptoms but she improved she visited [place] in 06/2016 hunting season from that time she started getting sick chronically and didn't recover due to the unusual exposure; yesterday ordered: -coccidioides Abs -Histo urine Ag -Fungitell/D-glucan -Toxoplasma Igg/Igm -Fungal culture in sputum -Immune cell function -today added crypto Ag will defer Abx management to the ID team (currently vanco/levo - 1/2 Bcx GPC) nausea, vomiting, diarrhea-likely part of viral illness / improving -DC IV fluids -Patient has Zofran listed as an allergy. Phenergan 12.5 mg IV q 6 hr -send stool cx, C. diff is negative Recurrent gastroenteritis / IBS -currently stable, concerns to adjust Abx accordingly especially if she will be on chronic regimen sputum/blood Cx are negative thus far urine legionella is negative ordered; (stool Cx, O&P, Giardia WBCs, Heme occult), will add Crypto/cyclo/ isosprodium as she is is considered immune compromised D/W family, will follow up With GI as an out patient MVP -Continue atenolol History of interstitial cystitis -Continue Elmiron DVT prophylaxis -Lovenox 40 mg subQ daily -TEDS, SCDs
[2016-10-29 00:23] VITALS: BP 124/73; PULSE 68; TEMP 36.6; O2SAT 96
[2016-10-29] MEDS ORDERED: VANCOMYCIN TROUGH SCH (03:30)
[2016-10-29] MEDS: SODIUM CHLORIDE 0.9% 500ML 500 ML IV SCH (06:29)
[2016-10-29] MEDS: ACETAMINOPHEN 325 MG TAB PO PRN (06:31)
[2016-10-29 07:12] LABS: BASO % 0.3 %; BASO ABS # 0.02 K/uL (0-0.2); COMPLETE YES; EOS % 2.6 %; HEMATOCRIT 33.2 % (37-47); IG% 1.8 %; LYMPH % 18.5 %; LYMPH ABS # 1.22 K/uL (1.2-3.4); MEAN CELL VOLUME 87.6 fL (80-100); MEAN CORPUSCULAR HEMOGLOBIN 29.8 pg (25-34); MEAN PLATELET VOLUME 8.7 fL (7.4-10.4); MONO % 10.6 %; NEUT % 66.2 %; PLATELET COUNT 245 K/uL (130-400); RED BLOOD COUNT 3.79 M/uL (4.2-5.4)
[2016-10-29 07:23] VITALS: PULSE 74; O2SAT 95
[2016-10-29] MEDS: LEVALBUTEROL 1.25MG/0.5ML NEB INH SCH ×2 (07:23→16:18)
[2016-10-29] MEDS: IPRATROPIUM BROMIDE NEB SOLN 0.02% 2.5 ML VIAL INH SCH ×2 (07:23→16:18)
[2016-10-29 07:30] VITALS: BP 144/79; PULSE 69; TEMP 36.4; O2SAT 92
[2016-10-29 07:54] LABS: BUN/CREATININE RATIO 16.9 (10-20); CALCIUM 8.4 mg/dl (8.5-10.1); CREATININE 0.59 mg/dl (0.60-1.20); MAGNESIUM 1.8 mg/dl (1.8-2.4); POTASSIUM 3.9 mmol/L (3.5-5.1)
[2016-10-29 07:58] LABS: ALB/GLOB RATIO 0.9 (0.9-2); PHOSPHORUS 3.9 mg/dl (2.5-4.9)
[2016-10-29 08:00] VITALS: O2SAT 92
[2016-10-29] MEDS: BusPIRone 15 MG TAB PO SCH (09:18)
[2016-10-29] MEDS: PENTOSAN POLYSULFATE SODIUM 100 MG CAP PO SCH (09:18)
[2016-10-29] MEDS: GUAIFENESIN 600 MG TABCR PO SCH (09:19)
[2016-10-29] MEDS: NAPROXEN 250 MG TAB PO SCH (09:19)
[2016-10-29] MEDS: PHENOBARBITAL PO SCH ×2 (09:20→14:15)
[2016-10-29] MEDS: ATROPINE PO SCH ×2 (09:20→14:15)
[2016-10-29] MEDS: SCOPOLAMINE PO SCH ×2 (09:20→14:15)
[2016-10-29] MEDS: AZITHROMYCIN 250 MG TAB PO SCH (09:20)
[2016-10-29] MEDS: HYOSCYAMINE PO SCH ×2 (09:20→14:15)
[2016-10-29] MEDS: BENZONATATE 100MG CAP PO SCH ×2 (09:20→14:16)
--- NOTE | 2016-10-29 09:56 | Pulmonology Progress Note ---
Pulmonary Progress Note Date of Service Oct 29, 2016. Attending Víctor Solorzano Subjective Patient doing well today with minimal non-productive cough: VS: reviewed and stable RESP: Rhonchi noted within the left lower lobe posterior subsegment Cardiac: S1-S2 regular rate and rhythm Abdomen: Positive bowel sounds soft nontender Skin: No tissue breakdown, no lower extremity edema 70y/o female admitted 10/24/16 for N/V/diarrhea with 3 month history of progressive pulmonary infiltrates/bronchiectasis with SEPIDEH positive sputum on ( [facility]: 10/11/16). The patient underwent bronchoscopy 12/27/[address] Balwinder Thompson with minimal diffuse white mucus appreciated and easily removed. 1) Treatment: a. Azithromycin 10/28/16- b. Atrovent/Xopenex c. Levaquin :750mg 10/25- 2) Labs: a. Urine Legionella negative (only looks for L. pneumophila serogroup 1) b. ABG (10/27/16) 7.50/34/71/26 on RA c. Influenza A + B: negative d. QFT negative with good mitogen response e. IgA, IgM: WNL f. Ig (ref: 700-1600) g. Microbiology: i. C-diff: negative ii. Stool Studies (Shigella, Salmonella, Camp: negative) iii. Blood (11/03/16) Micrococus + Corynebacterium 3) Pending Labs: a. Bronchoscopy (10/28/15) i. AFB, G&S, Micro, fungal Pending ii. coccidioides Abs Pending iii. Histo urine Ag Pending iv. Fungitell/D-glucan Pending v. Toxoplasma Igg/Igm Pending vi. Fungal culture in sputum Pending vii. Immune cell function Pending viii. crypto Ag Pending Objective 70-year-old female with chronic illness over the last 9-12 months admitted to 2016 for nausea vomiting diarrhea and noted have chronic bronchiectasis: #1 bronchiectasis: Patient has bronchiectasis as well as mediastinal lymphadenopathy. She is undergone bronchoscopy with labs pending on 10/28/2016. At this time I suggest we obtain previous records from [facility] with CT of the abdomen for comparison of initially diagnosed left lower lobe pneumonia. As well would like previous workup from [facility] as well as primary care physician outside facility last seen 2010. 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 Patient could possibly require U/ENB for evaluation of bronchiectasis and mediastinal lymphadenopathy in the future. Also per the patient she was worked up by rheumatology in the past if able obtaining these records for review would be pertinent. Patient currently stable and could be worked up as an outpatient. Data Medications: Current Inpatient Medications Medications (Trade) Dose Ordered Sig/Carola Route Start Time Stop Time Status Last Admin Dose Admin Promethazine HCl/ Sodium Chloride (Phenergan Inj/ Nss 50ml) 50.5 ml @ 204 mls/hr Q6H PRN IV 10/24/16 12:15 11/23/16 12:14 Atenolol (Tenormin Tab) 50 mg QAM PO 10/25/16 08:00 11/24/16 08:59 10/29/16 09:18 50 MG Buspirone HCl (BusPAR TAB) 15 mg BID PO 10/24/16 20:00 11/23/16 20:59 10/29/16 09:18 15 MG Pentosan Polysulfate Sodium (Elmiron) 200 mg BID PO 10/24/16 20:00 11/23/16 20:59 10/29/16 09:18 200 MG Guaifenesin (Mucinex Contr Rel Tab) 600 mg Q12 PO 10/24/16 21:00 11/23/16 20:59 10/29/16 09:19 600 MG Enoxaparin Sodium (Lovenox Inj) 40 mg Q24H SQ 10/24/16 21:00 11/23/16 20:59 Future Hold 10/26/16 20:06 40 MG Acetaminophen (Tylenol Tab) 650 mg Q4H PRN PO 10/24/16 14:15 11/23/16 14:14 10/29/16 06:31 650 MG Al Hydrox/Mg Hydrox/Simethicone (Maalox Max Susp) 15 ml Q4H PRN PO 10/24/16 14:15 11/23/16 14:14 Magnesium Hydroxide (Milk Of Magnesia Susp) 30 ml Q6H PRN PO 10/24/16 14:15 11/23/16 14:14 Hyoscyamine/ Phenobarbital ( 16.2mg) 16.2 tab TID PO 10/24/16 20:00 11/23/16 19:59 10/29/16 09:20 16.2 TAB Naproxen (Naprosyn Tab) 250 mg Q12 PO 10/25/16 11:00 11/24/16 10:59 10/29/16 09:19 250 MG Ipratropium [place] (Atrovent 0.02% 0.5MG/2.5ML Neb) 0.5 mg Q8R INH 10/25/16 16:00 11/24/16 15:59 10/29/16 07:23 0.5 MG Levalbuterol (Xopenex 1.25MG/ 0.5ML Neb) 1.25 mg Q8R INH 10/25/16 16:00 11/24/16 15:59 10/29/16 07:23 1.25 MG Benzonatate (Tessalon Perles Cap) 100 mg TID PO 10/26/16 08:00 11/25/16 07:59 10/29/16 09:20 100 MG Ioversol 100 ml 100 ml UD PRN IV 10/26/16 09:30 10/30/16 09:29 Sodium Chloride (Nss 500ml) 500 ml @ 40 mls/hr [id number] IV 10/28/16 06:00 11/27/16 05:59 10/29/16 06:29 40 MLS/HR Azithromycin (Zithromax Tab) 250 mg QAM PO 10/28/16 12:30 11/04/16 12:29 10/29/16 09:20 250 MG I & O: 24-Hour Column 10/29/16 07:59 Intake Total 1686 ml Output Total 0 ml Balance 1686 ml Vital Signs: Date Time Temp Pulse Resp B/P Pulse Ox O2 Delivery O2 Flow Rate FiO2 10/29/16 07:30 36.4 69 18 144/79 92 Room Air 69 10/29/16 07:23 74 16 95 Room Air 10/29/16 00:23 36.6 68 18 124/73 96 Room Air 10/29/16 00:00 Room Air 10/28/16 21:55 74 20 95 Room Air 10/28/16 16:20 72 20 95 Room Air 10/28/16 16:15 Room Air 10/28/16 15:43 36.6 79 18 137/74 98 Room Air 10/28/16 13:56 36.6 86 18 136/79 93 Room Air 10/28/16 11:57 36.7 81 20 145/94 92 Nasal Cannula 4.0 10/28/16 10:35 Mask 10/28/16 10:33 36.6 75 22 149/83 95 Nasal Cannula 4.0 Laboratory Results: Last 24 Hours Test 10/28/16 10:14 10/29/16 05:12 10/29/16 06:51 White Blood Count 5.93 K/uL 6.60 K/uL Red Blood Count 3.81 M/uL 3.79 M/uL Hemoglobin 11.4 g/dL 11.3 g/dL Hematocrit 33.3 % 33.2 % Mean Corpuscular Volume 87.4 fL 87.6 fL Mean Corpuscular Hemoglobin 29.9 pg 29.8 pg Mean Corpuscular Hemoglobin Concent 34.2 g/dl 34.0 g/dl Platelet Count 249 K/uL 245 K/uL Mean Platelet Volume 9.0 fL 8.7 fL Neutrophils (%) (Auto) 66.4 % 66.2 % Lymphocytes (%) (Auto) 20.4 % 18.5 % Monocytes (%) (Auto) 8.6 % 10.6 % Eosinophils (%) (Auto) 1.7 % 2.6 % Basophils (%) (Auto) 0.5 % 0.3 % Neutrophils # (Auto) 3.94 K/uL 4.37 K/uL Lymphocytes # (Auto) 1.21 K/uL 1.22 K/uL Monocytes # (Auto) 0.51 K/uL 0.70 K/uL Eosinophils # (Auto) 0.10 K/uL 0.17 K/uL Basophils # (Auto) 0.03 K/uL 0.02 K/uL RDW Standard Deviation 44.4 fL 44.9 fL RDW Coefficient of Variation 14.0 % 14.1 % Immature Granulocyte % (Auto) 2.4 % 1.8 % Immature Granulocyte # (Auto) 0.14 K/uL 0.12 K/uL Sodium Level 141 mmol/L 141 mmol/L Potassium Level 3.9 mmol/L 3.9 mmol/L Chloride Level 107 mmol/L 105 mmol/L Carbon Dioxide Level 26 mmol/L 26 mmol/L Anion Gap 8.0 mmol/L 10.0 mmol/L Blood Urea Nitrogen 7 mg/dl 10 mg/dl Creatinine 0.51 mg/dl 0.59 mg/dl Est Creatinine Clear Calc Drug Dose 93.7 ml/min 81.0 ml/min Estimated GFR () 113.7 108.4 Estimated GFR (Non- 98.1 93.5 BUN/Creatinine Ratio 13.1 16.9 Random Glucose 85 mg/dl 89 mg/dl Calcium Level 8.6 mg/dl 8.4 mg/dl Magnesium Level 1.8 mg/dl 1.8 mg/dl Total Bilirubin 0.3 mg/dl 0.3 mg/dl Aspartate Amino Transf (AST/SGOT) 18 U/L 13 U/L Alanine Aminotransferase (ALT/SGPT) 27 U/L 22 U/L Alkaline Phosphatase 63 U/L 58 U/L Total Protein 5.9 gm/dl 5.7 gm/dl Albumin 2.7 gm/dl 2.7 gm/dl Globulin 3.2 gm/dl 3.0 gm/dl Albumin/Globulin Ratio 0.8 0.9 Phosphorus Level 3.9 mg/dl
[2016-10-29] MEDS ORDERED: GFNSR600 PO (12:18)
[2016-10-29] MEDS ORDERED: XPNINS1255 INH (12:18)
[2016-10-29] MEDS ORDERED: ZTHM250 PO (12:18)
[2016-10-29] MEDS ORDERED: ATRINS INH (12:18)
--- NOTE | 2016-10-29 12:19 | Discharge Instructions ---
Discharge Instructions Admission Admission Date: Oct 24, 2016 at 14:17 Admission Diagnosis: Pneumonia. Discharge Care Plan - Problem: Medical Problems: (1) Pneumonia Care Plan - Goal(s): Improve function Care Plan - Instructions: Recommended Home Diet: AHA Phase I (2gmNa/LoCho) VTE Core Measure Inpt VTE Proph given/why not?: Enoxaparin (Lovenox)SQ, T.E.D. Stockings, SCD's [facility] Recommendations: Call your doctor if: * Temperature above 101 degrees * Pain not relieved by pain medicine ordered * There is increased drainage or redness from any incision * You have any unanswered questions or concerns. Your Doctors Instructions noted above were prepared by provider Twyla Carrera.
[2016-10-29 14:35] VITALS: BP 144/79; TEMP 36.4; O2SAT 92
--- NOTE | 2016-10-29 16:14 | Discharge Summary ---
Discharge Summary Admission Date: Oct 24, 2016 at 14:17 Discharge Date: Oct 29, 2016 Discharge Disposition: Home Problems/Secondary Diagnoses: Bronchiectasis positive sputum for Mycobacterium avium complex . Chronic pulmonary disease with progression nausea, vomiting, diarrhea / Recurrent gastroenteritis / IBS MVP History of interstitial cystitis Medication Reconciliation New Medications: Azithromycin (Azithromycin) 250 Mg Tab 250 MG PO QAM for 20 Days, #30 TAB Guaifenesin Ext Rel (Mucinex Ext Rel) 600 Mg Tabcr 600 MG PO Q12 for 14 Days, #28 TAB Ipratropium [place] (Ipratropium [place]) 0.5 Mg/2.5 Ml Nebu 0.5 MG INH Q8R PRN for Wheezing for 30 Days, #25 VIAL Levalbuterol (Levalbuterol) 1.25 Mg/0.5 Ml Nebu 1.25 MG INH Q8R for 30 Days, #25 VIAL Continued Medications: Atenolol (Tenormin) 50 Mg Tab 50 MG PO QAM, TAB Belladonna Alk/Phenobarbital () Tab 1 TAB PO TID, TAB Buspirone Hcl (Buspar) 15 Mg Tab 15 MG PO BID, TAB Cholecalciferol (Vitamin D) 1,000 Unit Tab 2000 UNITS PO DAILY Levalbuterol Tartrate (Levalbuterol Tartrate Hfa) 45 Mcg/Act Aer 2 PUFF INH Q6 PRN for Wheezing Pentosan Polysulfate Sodium (Elmiron) 100 Mg Cap 200 MG PO BID, CAP Probiotic Product (Probiotic) 1 Tab Tab Unknown Dose PO DAILY Discontinued Medications: Pseudoephedrine-Guaifenesin (Mucinex D) 1 Tab Tab 1 TAB PO BID for 10 Days, #20 TAB Discharge Exam Review of Systems: Constitutional: No chills, No fatigue, No fever, No problem reported, No sweats, No weakness, No weight loss Eyes: No diplopia, No discharge, No eye pain, No problem reported, No redness, No worsening of vision ENT: No dental problems, No hearing loss, No nasal symptoms, No problem reported, No sore throat, No tinnitus, No trouble swallowing, No unusual epistaxis Respiratory: + cough, + shortness of breath, + sputum Cardiovascular: No PND, No chest pain, No claudication, No edema, No orthopnea, No palpitations, No problem reported Abdomen: No GI bleeding, No constipation, No diarrhea, No nausea, No pain, No problem reported, No vomiting Musculoskeletal: No calf pain, No joint pain, No muscle pain, No problem reported, No swelling Genitourinary - Female: No dysmenorrhea, No dysuria, No hematuria, No menorrhagia, No metrorrhagia, No , No problem reported, No rash, No urinary frequency, No urinary incontinence, No urinary retention, No urinary urgency, No vaginal bleeding, No vaginal discharge, No vaginal itching, No vulvodynia Neurologic: No balance problems, No memory loss, No numbness/tingling, No paralysis, No problem reported, No vertigo, No weakness Psychiatric: No anhedonism, No anxiety, No depression symptoms, No insomnia , No problem reported, No substance abuse Endocrine: No excessive thirst, No excessive urination, No fatigue, No problem reported Hematologic / Lymphatic: No abnormal bleeding/bruising, No clotting problems , No night sweats, No problem reported, No swollen lymph nodes Integumentary: No bleeding, No color change, No itch, No new/changing skin lesions, No problem reported, No rash Physical Exam: General Appearance: WD/WN, no apparent distress Eyes: normal inspection, PERRL, EOMI ENT: normal ENT inspection, hearing grossly normal Neck: supple Respiratory/Chest: chest non-tender, no accessory muscle use, + decreased breath sounds, + crackles Cardiovascular: regular rate, rhythm, no edema, no gallop, no JVD, no murmur Abdomen / GI: normal bowel sounds, non tender, soft, no organomegaly, no pulsatile mass, normal rectal exam Extremities: normal inspection, no calf tenderness, normal capillary refill , no pedal edema, normal range of motion 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 patient lived in [place] for 5 years until 04/2016 she got sick once in march 2016 with pneumonia/GI symptoms but she improved she visited [place] in 06/2016 hunting season from that time she started getting sick chronically and didn't recover initially started on levofloxacin. then 09/12 blood cx had GPC, vanco was added and then removed as it turned out to be a contaminate Blood (11/03/16) grew Micrococus + Corynebacterium , I called microbiology lab, left a message for them to confirm that the Micrococus does not resemeble; Rhodococcus equi they will get back to me tomorrow, (although lesions are not cavitary, but it's a possibility) sputum/blood Cx are negative thus far urine legionella is negative she has Hx of one positive sputum for Mycobacterium avium complex (from Out side hospital) . Her QuantiFERON was negative for TB. repeat CT scan chest showed progression of disease I attached both CT scan results underneath: First CT chest: 08/12/2016 IMPRESSION: 1. There is no lobar consolidation or pleural effusion. 2. There is bronchiectasis and scarring identified in the lingula, with mild fibrosis seen in the right middle lobe. Additionally, there are clustered foci of tree-in-bud nodularity in the left lower lobe and the right upper lobe. The appearance suggests an atypical and likely chronic infectious process such as SEPIDEH. Clinical correlation will be essential. Consider 3-[address] follow-up to document resolution. 3. Cardiomegaly. 4. There is no mediastinal or hilar lymphadenopathy. Electronically signed by: Raul Lagos M.D. 08/12/2016 4:35 PM second one done this admission: IMPRESSION: 1. Progression of multifocal airspace opacities since chest CT August 12, 2016 with bilateral lower lobe consolidation and tree-in-bud and ground glass opacities within the right upper lobe. The findings suggest a progressive infectious process and may reflect an atypical mycobacterial infection such as SEPIDEH. Tuberculosis could appear similar although is considered less likely but cannot be excluded by imaging. No cavitation. 2. Redemonstration of right middle lobe and lingular bronchiectasis. 3. Small bilateral pleural effusions, left larger than right. There are borderline enlarged bilateral hilar and mediastinal lymph nodes. These have increased in size mildly since prior exam. Electronically signed by: Rahat Mondragon M.D. 10/26/2016 1:16 PM due to the progression of the disease Bronchoscopy was scheduled next day D/W Dr. Thompson s/p bronchoscopy 10/28, no significant secretions, AFB, G&S, Micro , fungal Pending Tissue biopsy can be considered as an out patient from lymph nodes or lung tissue IgA, IgM: WNL IgG, slightly decreased: 471 (ref: 700-1600) due to the unusual exposure ([place]); I ordered: -coccidioides Abs -Histo urine Ag -Fungitell/D-glucan -Toxoplasma Igg/Igm -Fungal culture in sputum -Immune cell function -rypto Ag ID team reconciled her Antibiotics to Azithromycin which she tolerated well they recommended discharged on PO Azithromycin with ID follow up next week as an outpatient for initiation of Ethambutol and Rifampin. for her nausea, vomiting, diarrhea-likely part of viral illness / improved after IV fluids C. 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 Mejia, ID This includes examination of the patient, discharge planning, medication reconciliation, and communication with other providers. Discharge Instructions Please refer to the electronic Patient Visit Report (Discharge Instructions) for additional information. Additional Copies To Anders Gallo MD; Danish Thompson DO; Anahi Calderon ., DAISY; Víctor Solorzano MD
[2016-10-29 16:18] VITALS: PULSE 80; O2SAT 97
[2016-11-02 11:42] LABS: O&P GIARDIA AG NOT DETECTED (NOT DETECTED); O&P SOURCE OTHER-STOOL
== END 2016-10-29 17:10 | disposition home or self-care (01) | DRG 168 ==
LOC: ENRESERVTM → ENRESERVDT → C.EDB 09:43 → C.MS4W 14:17 → UNDOADMIN 14:17
PROVIDERS: ADMIT Internal Medicine; ATTEND Internal Medicine
PROC: 0B9C8ZX Drainage of Right Upper Lung Lobe, Via Natural or Artificial Opening Endoscopic, Diagnostic (ICD-10-PCS; principal; 2016-10-28)
PROC: 0B9F8ZX Drainage of Right Lower Lung Lobe, Via Natural or Artificial Opening Endoscopic, Diagnostic (ICD-10-PCS; principal; 2016-10-28)
PROC: 0B9J8ZX Drainage of Left Lower Lung Lobe, Via Natural or Artificial Opening Endoscopic, Diagnostic (ICD-10-PCS; principal; 2016-10-28)
DX: A31.0 Pulmonary mycobacterial infection (principal); J47.9 Bronchiectasis, uncomplicated; I34.1 Nonrheumatic mitral (valve) prolapse; K58.9 Irritable bowel syndrome, unspecified; Z88.2 Allergy status to sulfonamides; K52.9 Noninfective gastroenteritis and colitis, unspecified; N18.9 Chronic kidney disease, unspecified; Z83.3 Family history of diabetes mellitus; G47.33 Obstructive sleep apnea (adult) (pediatric)

== ENCOUNTER → 2016-11-11 | Outpatient (CLI) | payer MEDICARE ==
[~2016-11-11] MED LIST changes: +ATEN50TA8 PO; +ATRINS INH; +BELL1TAB PO; -BENZ100C7 PO; +BUSP15TA70 PO; -CALC-279 PO; +CHOL100010 PO; -FURO-85 PO; +GFNSR600 PO; +LEVA45AE INH; -LEVO-366 PO; +PENT100C6 PO; +PROB1TAB16 PO; -PRVHFAIN INH; +XPNINS1255 INH; +ZTHM250 PO
[2016-11-11 11:52] LABS: CHOLESTEROL/HDL RATIO 2.3; FERRITIN 64.2 ng/ml (8.0-388.0)
== END | disposition home or self-care (01) ==
LOC: C.LAB1850 10:36
PROVIDERS: ATTEND Internal Medicine
DX: Z11.59 Encounter for screening for other viral diseases (principal); E78.5 Hyperlipidemia, unspecified; E61.1 Iron deficiency

== ENCOUNTER → 2016-11-15 | Outpatient (CLI) | payer MEDICARE ==
[2016-11-15 17:07] LABS: ALKALINE PHOSPHATASE 61 U/L (45-117); ALT/SGPT 21 U/L (12-78); AST/SGOT 15 U/L (15-37); BLOOD UREA NITROGEN 16 mg/dl (7-18); BUN/CREATININE RATIO 23.4 (10-20); CALCIUM 8.6 mg/dl (8.5-10.1); CARBON DIOXIDE 31 mmol/L (21-32); CHLORIDE 103 mmol/L (98-107); CREATININE 0.67 mg/dl (0.60-1.20); GLUCOSE 91 mg/dl (70-99); SODIUM 141 mmol/L (136-145)
[2016-11-15 17:09] LABS: ALB/GLOB RATIO 1.1 (0.9-2)
== END | disposition home or self-care (01) ==
LOC: C.LAB1850 15:33
PROVIDERS: ATTEND Internal Medicine Infectious Disease
DX: J47.9 Bronchiectasis, uncomplicated (principal); J18.9 Pneumonia, unspecified organism; A31.0 Pulmonary mycobacterial infection

== ENCOUNTER → 2016-12-14 | Outpatient (CLI) | payer MEDICARE ==
[~2016-12-14] MED LIST changes: +AZIT-57 PO; -BELL1TAB PO; +PHEN-778 PO; -ZTHM250 PO
== END | disposition home or self-care (01) ==
LOC: C.LAB1850 14:49
PROVIDERS: ATTEND Physician Assistant
DX: R19.7 Diarrhea, unspecified (principal)

== ENCOUNTER → 2017-01-02 | Outpatient (CLI) | payer MEDICARE | END | disposition home or self-care (01) | LOC: C.RDSM 14:32 | PROVIDERS: ATTEND Family Medicine Sports Medicine | DX: M25.531 Pain in right wrist (principal) ==

== ENCOUNTER → 2017-01-13 | Outpatient (CLI) | payer MEDICARE ==
--- NOTE | 2017-01-13 17:01 | DIAGNOSTIC IMAGING REPORT ---
FACIAL BONES MIN 3 VIEWS RTN CLINICAL HISTORY: Mandibular pain status post trauma COMPARISON STUDY: No previous studies for comparison. FINDINGS: No fractures are visualized on conventional radiographic imaging. There is no evidence of orbital emphysema. There are no air-fluid levels within the maxillary sinuses. It should be noted that facial fractures can be occult on conventional radiographic evaluation. IMPRESSION: No fractures identified. Electronically signed by: Man Schaffer M.D. 01/13/2017 5:00 PM Dictated Date/Time: 01/13/2017 4:59 PM
== END | disposition home or self-care (01) ==
LOC: C.RADBC 16:35
PROVIDERS: ATTEND Internal Medicine
DX: S00.83XA Contusion of other part of head, initial encounter (principal); X58.XXXA Exposure to other specified factors, initial encounter

== ENCOUNTER → 2017-02-21 | Outpatient (CLI) | payer MEDICARE ==
--- NOTE | 2017-02-21 16:06 | MAMMOGRAPHY REPORT ---
THIS REPORT HAS BEEN AMENDED. BILATERAL DIGITAL SCREENING MAMMOGRAM TOMOSYNTHESIS WITH CAD: 02/21/2017 CLINICAL HISTORY: Routine screening exam. The patient provided an outside CT abdomen and pelvis repo rt dated 03/17/2016. In the body of the report, they reported, "There is also an asymmetry of the br east tissue that is demonstrated. There is questionable skin thickening and correlation with mammogr aphy is suggested." Within the report there is no localization as to which side the asymmetry or ski n thickening is located. These outside CT images will also be requested in addition to any prior kane ilable mammograms. TECHNIQUE: Bilateral breast tomosynthesis in addition to standard 2D mammography was performed. Curre nt study was also evaluated with a Computer Aided Detection (CAD) system. COMPARISON: No prior exams were available for comparison. BREAST COMPOSITION: There are scattered areas of fibroglandular density in both breasts. FINDINGS: There is a 2.5 cm focal asymmetry in the upper outer anterior right breast, that has the a ppearance of normal glandular tissue on the corresponding tomosynthesis images. There is a benign ri m calcification within the right breast. No suspicious mass, architectural distortion or cluster of microcalcifications is seen bilaterally. No focal skin thickening or nipple retraction is appreciated. IMPRESSION: ACR BI-RADS CATEGORY 0: INCOMPLETE EVALUATION: NEED ADDITIONAL IMAGING EVALUATION There is a 2.5 cm focal asymmetry in the upper outer anterior right breast which could simply represe nt normal 5 and glandular tissue. However, comparison to any prior outside mammograms would be usefu l to assess stability. There is no skin thickening or nipple retraction appreciated mammographically . If the outside exams are not obtained in a timely manner, additional spot compression tomosynthesi s views and possibly ultrasound are recommended. The patient will be called to schedule an appointment. Approximately 10% of breast cancers are not detected with mammography. A negative mammographic report should not delay biopsy if a clinically suggestive mass is present. Margarita Ruiz M.D. ay/:02/21/2017 14:38:44 Classified Advertising Supervisor: Marylou CARLSON)(Kirill), [facility] letter sent: Need Priors 0 BI-RADS Code: ACR BI-RADS Category 0: Incomplete Evaluation: Need Additional Imaging Evaluation AMENDMENT: 04/10/2017 Margarita Joseph, M.D. Prior outside mammograms from [facility] dated 01/15/2013 and 01/16/2014 became availa ble for review. The 2.5 cm focal asymmetry in the upper outer anterior right breast is stable compar ed to the 2012 and 2013 mammograms, likely representing the patient's baseline glandular pattern. No new suspicious mass, architectural distortion, developing asymmetry or suspicious calcifications are seen bilaterally. There is a benign rim calcification in the right breast. No focal skin thickenin g is appreciated. A prior CT of the abdomen dated 03/17/2016 was also reviewed in which the report described possible s kin thickening of the left breast. A follow-up chest CT dated 08/12/2016 was also reviewed and there was no skin thickening appreciated on that exam nor is there any identified mammographically. Amended BI-RADS: ACR BI-RADS Category 2: Benign letter sent: Normal 1/2
--- NOTE | 2017-02-27 13:28 | CODING QUERY MEDICAL NECESSITY ---
SUPPORTING DIAGNOSIS NEEDED A supporting diagnosis is required for the test/procedure performed on this patient in order for us to be reimbursed by the patient's insurance. Please provide a supporting diagnosis for the following test/procedure listed below next to the test name along with your signature. *If there is no additional diagnosis for this patient that would support the following test/procedure please document that below next to the test/procedure. Test(s)/Procedure(s) that require a supporting diagnosis: * DXA, BONE DENSITY AXIAL DIAGNOSIS: Provider Signature: Date: Thank you Anaid [employer] Information Management Once completed, please kindly fax back to [phone] For questions please call [phone]
== END | disposition home or self-care (01) ==
LOC: C.MAMM 13:38
PROVIDERS: ATTEND Obstetrics & Gynecology
DX: Z12.31 Encounter for screening mammogram for malignant neoplasm of breast (principal); M85.851 Other specified disorders of bone density and structure, right thigh; M85.852 Other specified disorders of bone density and structure, left thigh

== ENCOUNTER → 2017-03-07 | Outpatient (CLI) | payer MEDICARE ==
[~2017-03-07] MED LIST changes: -AZIT-57 PO; +BELL1TAB PO; -PHEN-778 PO; +ZTHM250 PO
== END | disposition home or self-care (01) ==
LOC: C.PATHSPEC 16:56
PROVIDERS: ATTEND Dermatology
DX: L82.1 Other seborrheic keratosis (principal)

== ENCOUNTER → 2017-05-30 | Outpatient (CLI) | payer MEDICARE ==
--- NOTE | 2017-05-30 10:56 | DIAGNOSTIC IMAGING REPORT ---
CHEST 2 VIEWS ROUTINE CLINICAL HISTORY: J47.9 [id number] SEPIDEH (mycobacterium avium-intracellular COMPARISON STUDY: 10/24/2016 FINDINGS: The cardiac and mediastinal contours remain stable. There is suspected lingular and right middle lobe bronchiectasis, similar to the prior study. Slightly prominent left basilar markings remain stable. There is no acute parenchymal consolidation. There is no failure. There are no pleural effusions.[ IMPRESSION: Stable bronchiectatic changes. No evidence of acute parenchymal consolidation Electronically signed by: Man Schaffer M.D. 05/30/2017 10:54 AM Dictated Date/Time: 05/30/2017 10:53 AM
== END | disposition home or self-care (01) ==
LOC: C.RAD 10:06
PROVIDERS: ATTEND Internal Medicine Pulmonary Disease
DX: A31.0 Pulmonary mycobacterial infection (principal); J47.9 Bronchiectasis, uncomplicated

== ENCOUNTER → 2017-06-05 | Outpatient (CLI) | payer MEDICARE | END | disposition home or self-care (01) | LOC: C.RDSM 15:01 | PROVIDERS: ATTEND Family Medicine Sports Medicine | DX: M79.642 Pain in left hand (principal) ==

== ENCOUNTER → 2017-06-16 | Outpatient (CLI) | payer MEDICARE ==
[2017-06-16 15:30] LABS: BASO % 0.4 %; BASO ABS # 0.02 K/uL (0-0.2); COMPLETE YES; EOS % 1.8 %; HEMATOCRIT 38.4 % (37-47); IG% 0.2 %; LYMPH % 18.1 %; LYMPH ABS # 0.82 K/uL (1.2-3.4); MEAN CELL VOLUME 91.9 fL (80-100); MEAN CORPUSCULAR HEMOGLOBIN 30.6 pg (25-34); MEAN CORPUSCULAR HGB CONC 33.3 g/dl (32-36); MEAN PLATELET VOLUME 10.4 fL (7.4-10.4); MONO % 8.6 %; NEUT % 70.9 %; PLATELET COUNT 130 K/uL (130-400); RED BLOOD COUNT 4.18 M/uL (4.2-5.4); WHITE BLOOD COUNT 4.54 K/uL (4.8-10.8)
[2017-06-16 15:35] LABS: ALT/SGPT 23 U/L (12-78); AST/SGOT 16 U/L (15-37); BLOOD UREA NITROGEN 14 mg/dl (7-18); BUN/CREATININE RATIO 22.3 (10-20); CALCIUM 8.5 mg/dl (8.5-10.1); CARBON DIOXIDE 29 mmol/L (21-32); CHLORIDE 109 mmol/L (98-107); CREATININE 0.62 mg/dl (0.60-1.20); GLUCOSE 89 mg/dl (70-99); SODIUM 142 mmol/L (136-145)
[2017-06-16 15:38] LABS: ALB/GLOB RATIO 1.2 (0.9-2); ALKALINE PHOSPHATASE 67 U/L (45-117)
== END | disposition home or self-care (01) ==
LOC: C.LAB1850 12:22
PROVIDERS: ATTEND Internal Medicine Infectious Disease
DX: A31.0 Pulmonary mycobacterial infection (principal)

== ENCOUNTER → 2017-06-20 | Outpatient (CLI) | payer MEDICARE | END | disposition home or self-care (01) | LOC: C.LAB 09:29 | PROVIDERS: ATTEND Nutritionist | DX: R53.83 Other fatigue (principal) ==

== ENCOUNTER → 2017-06-27 | Outpatient (CLI) | payer MEDICARE | LOC: C.LABSPEC 16:51 | PROVIDERS: ATTEND Dermatology | DX: L53.9 Erythematous condition, unspecified (principal) ==

== ENCOUNTER → 2017-08-01 | Outpatient (CLI) | payer MEDICARE ==
[~2017-08-01] MED LIST changes: +AZIT-57 PO; -BELL1TAB PO; +PHEN-778 PO; -ZTHM250 PO
== END | disposition home or self-care (01) ==
LOC: C.RDSM 09:06
PROVIDERS: ATTEND Family Medicine Sports Medicine
DX: M65.311 Trigger thumb, right thumb (principal)

== ENCOUNTER 2017-08-26 11:02 | Inpatient (IN) | payer MEDICARE, OTHER ==
[~2017-08-26] VITALS: Ht 165.1 cm; Wt 65.7 kg
[2017-08-26] MEDS ORDERED: SODIUM CHLORIDE 0.9% 1000ML 1,000 ML IV ONE (11:28)
[2017-08-26] MEDS ORDERED: ACETAMINOPHEN 325 MG TAB PO STA (11:28)
[2017-08-26] MEDS ORDERED: SODIUM CHLORIDE 0.9% 1000ML 1,000 ML IV STA (11:28)
--- NOTE | 2017-08-26 11:35 | EMERGENCY ROOM VISIT NOTE ---
History Report prepared by Ed: Lam Galvez Under the Supervision of: Dr. Konstantin Aguirre M.D. First contact with patient: 11:23 Chief Complaint: NAUSEA Stated Complaint: NAUSEA,HOT FLASHES Nursing Triage Summary: triage note: Pt reports since 08-14-17 "fever, shaking, chills, nausea and severe body aches like flu symptoms." History of Present Illness The patient is a 71 year old female who presents to the Emergency Room with complaints of constant flu like symptoms beginning 3 days ago. The patient notes that she was diagnosed with atypical TB (SEPIDEH) ten months ago, and has recently been taking rifampicin for her symptoms. She notes that her current symptoms feel similar to her previous symptoms. She reports that she stopped taking her rifampicin last week due to the side effects. She also complains of a fever, nausea, productive cough, sore throat, runny nose, headache, diarrhea, and right flank pain. The patient states that her fever reached a high of 102 today and that she has been coughing up thick mucus. She denies any CP, SOB, and urinary symptoms. She notes that she also has a history of irritable bowel syndrome and pneumonia. She reports that she took an Aleve and Tylenol last night with no relief of her symptoms. Source of History: patient, spouse/significant other Onset: 3 days ago Position: other (global) Quality: other (flu like symptoms) Timing: constant Associated Symptoms: + fevers (102), + headache, + sorethroat, + cough ( productive cough with thick mucus), + nausea, + diarrhea, No chest pain, No SOB , No urinary symptoms Note: She also complains of a runny nose and right flank pain. Review of Systems See HPI for pertinent positives & negatives. A total of 10 systems reviewed and were otherwise negative. Past Medical & Surgical Medical Problems: (1) Asthma (2) IBS (irritable bowel syndrome) (3) Kidney disease (4) SEPIDEH (mycobacterium avium-intracellulare) infection (5) MVP (mitral valve prolapse) (6) Pneumonia (7) Skin problem Old medical records were reviewed. Nurse's notes were reviewed and I agree with. Family History Cancer Diabetes mellitus Heart disease Hypertension Kidney disease Social History Smoking Status: Never Smoker Alcohol Use: occasionally Drug Use: none Marital Status: Housing Status: lives with significant other Occupation Status: retired Current/Historical Medications Scheduled Atenolol (Tenormin), 50 MG PO QAM Belladonna Alk/Phenobarbital (), 1 TAB PO TID Buspirone Hcl (Buspar), 15 MG PO BID Cholecalciferol (Vitamin D), 2,000 UNITS PO DAILY Ethambutol Hcl (Ethambutol Hcl), 2 TABS PO MWF Guaifenesin Ext Rel (Mucinex Ext Rel), 600 MG PO Q12 Moxifloxacin Hcl (Avelox), 400 MG PO MWF Naproxen (Aleve), 2 TABS PO DAILY Pentosan Polysulfate Sodium (Elmiron), 200 MG PO BID Probiotic Product (Probiotic), Unknown Dose PO DAILY Scheduled PRN Belladonna Alk/Phenobarbital (), 1 TAB PO UD PRN for IBS Ipratropium [place] (Ipratropium [place]), 0.5 MG INH Q8R PRN for Wheezing Levalbuterol Tartrate (Levalbuterol Tartrate Hfa), 2 PUFF INH Q6 PRN for Wheezing Allergies Coded Allergies: Diphenhydramine (Verified Allergy, Severe, anaphylaxis, 08/26/17) Bacitracin (Verified Allergy, Intermediate, itching, 08/26/17) Neomycin (Verified Allergy, Intermediate, itching, 08/26/17) Polymyxin B (Verified Allergy, Intermediate, itching, 08/26/17) Sulfa Antibiotics (Verified Allergy, Intermediate, rash, 08/26/17) Azithromycin (Verified Adverse Reaction, Mild, nausea, 08/26/17) Clarithromycin (Verified Adverse Reaction, Mild, nausea, 08/26/17) Codeine (Verified Adverse Reaction, Mild, nausea, 08/26/17) Erythromycin (Verified Adverse Reaction, Mild, nausea, 08/26/17) Hydrocodone (Verified Adverse Reaction, Mild, nausea, 08/26/17) Hyoscyamine (Verified Adverse Reaction, Mild, nausea, 08/26/17) Metronidazole (Verified Adverse Reaction, Mild, nausea, 08/26/17) Ondansetron (Verified Adverse Reaction, Mild, "can't sleep", 08/26/17) Oxymetazoline (Verified Adverse Reaction, Mild, headache, 08/26/17) Pantoprazole (Verified Adverse Reaction, Mild, nausea, 08/26/17) Propoxyphene (Verified Adverse Reaction, Mild, nausea, 08/26/17) Tramadol (Verified Adverse Reaction, Mild, nausea, 08/26/17) Physical Exam Vital Signs Date Time Temp Pulse Resp B/P (MAP) Pulse Ox O2 Delivery O2 Flow Rate FiO2 08/26/17 13:08 37.5 89 20 145/65 95 Room Air 08/26/17 12:30 75 08/26/17 11:07 38.9 92 20 164/73 94 Room Air Physical Exam General: Non-ill appearing 71 year old female in no acute distress. Intermittent dry cough no respiratory distress. HEENT: Normal cephalic atraumatic. Pupils are equal round and reactive to light. Extraocular movements are intact. Oropharynx is pink with moist mucous membranes. No swelling of the mouth lips or tongue. Neck: Supple with a midline trachea. No meningeal signs or stiffness, no JVD or bruits. No Stridor. Chest: Clear to auscultation bilaterally. No wheezes or rhonchi. No increased work of breathing. Lungs have crackles in the left base. Heart: regular rate and rhythm. Abdomen: Soft nontender, nondistended without rebound guarding or rigidity. Extremities: No cyanosis clubbing or edema. No calf tenderness or assymetry Spine/Back. Non tender to palpation. No CVA tenderness Skin: Good turgor without rashes. Neurologic exam: Cranial nerves two through 12 are intact. Motor and sensation are intact and symmetrical throughout. Medical Decision & Procedures ER Provider Diagnostic Interpretation: Radiology results as stated below per my review and radiologist interpretation: CHEST ONE VIEW PORTABLE FINDINGS: No pneumothorax. No pleural effusions. The heart is normal in size. The right lung is clear. Linear densities within the left lung base have slightly progressed. IMPRESSION: Slightly progression of the linear densities at the left lung base. This favors atelectasis or scarring. However, a developing pneumonia could also have a similar appearance in the appropriate clinical setting. Electronically signed by: Yobani Davison M.D. 08/26/2017 12:35 PM Laboratory Results 08/26/17 11:55 Red Blood Count 4.08, Mean Corpuscular Volume 91.2, Mean Corpuscular Hemoglobin 30.6, Mean Corpuscular Hemoglobin Concent 33.6, Mean Platelet Volume 9.3, Neutrophils (%) (Auto) 65.6, Lymphocytes (%) (Auto) 19.5, Monocytes (%) (Auto) 14.2, Eosinophils (%) (Auto) 0.2, Basophils (%) (Auto) 0.5, Neutrophils # (Auto ) 2.82, Lymphocytes # (Auto) 0.84, Monocytes # (Auto) 0.61, Eosinophils # (Auto ) 0.01, Basophils # (Auto) 0.02 08/26/17 11:55 Test 08/26/17 11:35 08/26/17 11:55 08/26/17 12:07 08/26/17 13:14 Influenza Type A Antigen Neg for Influ A (NEG) Influenza Type B Antigen Neg for Influ B (NEG) White Blood Count 4.30 K/uL (4.8-10.8) Red Blood Count 4.08 M/uL (4.2-5.4) Hemoglobin 12.5 g/dL (12.0-16.0) Hematocrit 37.2 % (37-47) Mean Corpuscular Volume 91.2 fL (80-100) Mean Corpuscular Hemoglobin 30.6 pg (25-34) Mean Corpuscular Hemoglobin Concent 33.6 g/dl (32-36) Platelet Count 173 K/uL (130-400) Mean Platelet Volume 9.3 fL (7.4-10.4) Neutrophils (%) (Auto) 65.6 % Lymphocytes (%) (Auto) 19.5 % Monocytes (%) (Auto) 14.2 % Eosinophils (%) (Auto) 0.2 % Basophils (%) (Auto) 0.5 % Neutrophils # (Auto) 2.82 K/uL (1.4-6.5) Lymphocytes # (Auto) 0.84 K/uL (1.2-3.4) Monocytes # (Auto) 0.61 K/uL (0.11-0.59) Eosinophils # (Auto) 0.01 K/uL (0-0.5) Basophils # (Auto) 0.02 K/uL (0-0.2) RDW Standard Deviation 45.6 fL (36.4-46.3) RDW Coefficient of Variation 13.7 % (11.5-14.5) Immature Granulocyte % (Auto) 0.0 % Immature Granulocyte # (Auto) 0.00 K/uL (0.00-0.02) Anion Gap 5.0 mmol/L (3-11) Est Creatinine Clear Calc Drug Dose 88.9 ml/min Estimated GFR () 111.5 Estimated GFR (Non- 96.2 BUN/Creatinine Ratio 25.4 (10-20) Calcium Level 8.2 mg/dl (8.5-10.1) Total Bilirubin 0.3 mg/dl (0.2-1) Direct Bilirubin < 0.1 mg/dl (0-0.2) Aspartate Amino Transf (AST/SGOT) 17 U/L (15-37) Alanine Aminotransferase (ALT/SGPT) 19 U/L (12-78) Alkaline Phosphatase 55 U/L (45-117) Total Protein 6.0 gm/dl (6.4-8.2) Albumin 3.3 gm/dl (3.4-5.0) Lipase 153 U/L (73-393) Bedside Lactic Acid Venous 0.72 mmol/L (0.90-1.70) Urine Color YELLOW Urine Appearance CLEAR (CLEAR) Urine pH 6.0 (4.5-7.5) Urine Specific [place] 1.018 (1.000-1.030) Urine Protein NEG (NEG) Urine Glucose (UA) NEG (NEG) Urine Ketones 1+ (NEG) Urine Occult Blood NEG (NEG) Urine Nitrite NEG (NEG) Urine Bilirubin NEG (NEG) Urine Urobilinogen NEG (NEG) Urine Leukocyte Esterase NEG (NEG) Laboratory studies as stated above per my review. Medications Administered Medications (Trade) Dose Ordered Sig/Carola Route Start Time Stop Time Status Last Admin Dose Admin Sodium Chloride 1,000 ml @ 999 mls/hr Q1H1M STAT IV 08/26/17 11:28 08/26/17 12:28 DC 08/26/17 12:03 999 MLS/HR Sodium Chloride 1,000 ml @ 150 mls/hr Q6H40M ONCE IV 08/26/17 11:28 08/26/17 18:07 08/26/17 13:05 150 MLS/HR Acetaminophen (Tylenol Tab) 650 mg NOW STAT PO 08/26/17 11:28 08/26/17 11:31 DC 08/26/17 11:40 650 MG ECG Indication: nausea Rate (beats per minute): 79 Rhythm: normal sinus Findings: no acute ischemic change, no ectopy Comparison ECG Date: 10/29/2016 Change: no significant change ED Course 1122: Past medical records reviewed. The patient was evaluated in room C9, and a complete history and physical examination were performed. 1128: Acetaminophen 650mg PO, Sodium Chloride 1000 ml @ 999 mls/hr IV 1316: Upon reevaluation, the patient is stable. I discussed the results and treatment plan with the patient. She verbalized agreement of the treatment plan. The patient will be evaluated for further management. 1318: I reevaluated and updated the patient. She is resting comfortably. She is still coughing and her temperature is coming down. Medical Decision Differential diagnoses include: pneumonia, viral illness, mycobacterium, dehydration, sepsis, electrolyte/metabolic abnormality. This patient comes in as described above. She has a very complex medical history. She's been treated chronically for SEPIDEH. She's been on 3 different antibiotics with rifampin and ethambutol and Avelox. She stopped her rifampin last week as she is having a lot of side effects. She's had fevers off-and-on for a week or so as well as a cough. She has a high temperature today as a dry cough she looks well on exam she is non-hypoxemic. She's had some crackles in the base on exam but has no hypoxemia or increased work of breathing. IV access established and blood work was obtained including blood cultures. She has no white count elevation or elevation of her lactic acid. She has no acute electrolyte or metabolic abnormalities. I do think that she needs to be admitted for IV antibiotics and further treatment and evaluation of pulmonary consultation. She is allergic to multiple antibiotics and is already on 2 broad -spectrum antibiotics. At this point, I'm not sure what antibiotic to give her and have consulted the hospitalist her records and infectious disease will need to be consulted for further treatment and evaluation. Medication Reconcilliation Current Medication List: was personally reviewed by me Blood Pressure Screening Patient's blood pressure: Elevated blood pressure Referred to hospitalist. Consults Time Called: 1315 Consulting Physician: Dr. Renee - Pako, [facility] [place] Returned Call: [phone] Discussed the patient's case. The patient will be evaluated for further management. Impression Primary Impression: Pneumonia Additional Impression: SEPIDEH (mycobacterium avium-intracellulare) infection Scribe Attestation The scribe's documentation has been prepared under my direction and personally reviewed by me in its entirety. I confirm that the note above accurately reflects all work, treatment, procedures, and medical decision making performed by me. Departure Information Dispostion Being Evaluated By Hospitalist Referrals Reva Florence M.D. (PCP) Patient Instructions [facility] Problem Qualifiers
[2017-08-26 12:22] LABS: BASO % 0.5 %; BASO ABS # 0.02 K/uL (0-0.2); COMPLETE YES; EOS % 0.2 %; HEMATOCRIT 37.2 % (37-47); LYMPH % 19.5 %; LYMPH ABS # 0.84 K/uL (1.2-3.4); MEAN CELL VOLUME 91.2 fL (80-100); MEAN CORPUSCULAR HEMOGLOBIN 30.6 pg (25-34); MEAN CORPUSCULAR HGB CONC 33.6 g/dl (32-36); MEAN PLATELET VOLUME 9.3 fL (7.4-10.4); MONO % 14.2 %; NEUT % 65.6 %; PLATELET COUNT 173 K/uL (130-400); RED BLOOD COUNT 4.08 M/uL (4.2-5.4)
[2017-08-26] MEDS ORDERED: MOXI400T2 PO (12:34)
[2017-08-26] MEDS ORDERED: ETHA1TAB8 PO (12:34)
[2017-08-26] MEDS ORDERED: PHEN-778 PO (12:34)
[2017-08-26] MEDS ORDERED: NAPR1TAB9 PO (12:34)
--- NOTE | 2017-08-26 12:36 | DIAGNOSTIC IMAGING REPORT ---
CHEST ONE VIEW PORTABLE HISTORY: Atypical CHEST PAIN COMPARISON: Chest 05/30/2017. FINDINGS: No pneumothorax. No pleural effusions. The heart is normal in size. The right lung is clear. Linear densities within the left lung base have slightly progressed. IMPRESSION: Slightly progression of the linear densities at the left lung base. This favors atelectasis or scarring. However, a developing pneumonia could also have a similar appearance in the appropriate clinical setting. Electronically signed by: Yobani Davison M.D. 08/26/2017 12:35 PM Dictated Date/Time: 08/26/2017 12:34 PM
[2017-08-26 12:40] LABS: BLOOD UREA NITROGEN 14 mg/dl (7-18); BUN/CREATININE RATIO 25.4 (10-20); CALCIUM 8.2 mg/dl (8.5-10.1); CARBON DIOXIDE 27 mmol/L (21-32); CHLORIDE 102 mmol/L (98-107); CREATININE 0.53 mg/dl (0.60-1.20); GLUCOSE 96 mg/dl (70-99); POTASSIUM 3.5 mmol/L (3.5-5.1); SODIUM 134 mmol/L (136-145)
[2017-08-26 12:43] LABS: ALKALINE PHOSPHATASE 55 U/L (45-117); ALT/SGPT 19 U/L (12-78); AST/SGOT 17 U/L (15-37)
[2017-08-26 13:36] LABS: URINE APPEARANCE CLEAR (CLEAR); URINE BILIRUBIN NEG (NEG); URINE COLOR YELLOW; URINE NITRITE NEG (NEG); URINE SPECIFIC GRAVITY 1.018 (1.000-1.030); UROBILINOGEN NEG (NEG)
[2017-08-26 13:39] LABS: MANUAL MICROSCOPIC REQUIRED? NO; REVIEW REQ? NO
[2017-08-26] MEDS ORDERED: LEValbuterol HFA 15GM INHALER INH PRN (14:15)
[2017-08-26] MEDS ORDERED: MOXIFLOXACIN HCL 400 MG PO SCH (14:15)
[2017-08-26] MEDS ORDERED: ONDANSETRON INJ 2 MG/ML 2 ML VIAL IV PRN (14:15)
[2017-08-26] MEDS ORDERED: IPRATROPIUM BROMIDE NEB SOLN 0.02% 2.5 ML VIAL INH PRN (14:15)
--- NOTE | 2017-08-26 14:32 | History and Physical ---
History & Physical Date & Time of Service: Aug 26, 2017 at 14:14 Chief Complaint: Nausea,Hot Flashes Primary Care Physician: Reva Florence M.D. 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 The patient has been on a regimen of Moxifloxacin and Ethambutol sine November 2016 and then Rifampin was added later in the spring. She has been compliant with this regimen and has been following with Dr. Gallo in the office. She has been doing well, no fever or chills or productive cough. She also follows with Dr. Thompson for bronchiectasis and some pulmonary scarring/fibrosis. She was doing well until 08/14 (12 days ago) when she developed fever and rigors at the dentist office. When the fever persisted for a few days she started to read about side effects from her medications and she noted that Rifampin could cause fever. She called Dr. Gallo's office on 08/21 and she was instructed to stop the Rifampin. In addition to the fever she had muscle aches, headache, poor appetite and some URI symptoms. She does note that her and grand daughter also have URI symptoms. Yesterday she started to develop a productive cough, yellow to clear sputum, no hemoptysis. Denies chest pain. She had a loose BM yesterday but with her IBS she typically has loose stools. In the ED she is febrile, vitals stable, no hypoxia. WBC 4k, BMP normal. CXR shows left basilar atelectasis vs infiltrate, increased compared to prior CXR. 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 (5) MVP (mitral valve prolapse) Status: Resolved (6) Pneumonia Status: Resolved (7) Skin problem Status: Chronic Family History Cancer Diabetes mellitus Heart disease Hypertension Kidney disease Social History Smoking Status: Never Smoker Drug Use: none Marital Status: Housing status: lives with significant other Occupational Status: retired Multi-Drug Resistant Organisms History of MDRO: Yes Type of MDRO: MRSA Allergies Coded Allergies: Diphenhydramine (Verified Allergy, Severe, anaphylaxis, 08/26/17) Bacitracin (Verified Allergy, Intermediate, itching, 08/26/17) Neomycin (Verified Allergy, Intermediate, itching, 08/26/17) Polymyxin B (Verified Allergy, Intermediate, itching, 08/26/17) Sulfa Antibiotics (Verified Allergy, Intermediate, rash, 08/26/17) Azithromycin (Verified Adverse Reaction, Mild, nausea, 08/26/17) Clarithromycin (Verified Adverse Reaction, Mild, nausea, 08/26/17) Codeine (Verified Adverse Reaction, Mild, nausea, 08/26/17) Erythromycin (Verified Adverse Reaction, Mild, nausea, 08/26/17) Hydrocodone (Verified Adverse Reaction, Mild, nausea, 08/26/17) Hyoscyamine (Verified Adverse Reaction, Mild, nausea, 08/26/17) Metronidazole (Verified Adverse Reaction, Mild, nausea, 08/26/17) Ondansetron (Verified Adverse Reaction, Mild, "can't sleep", 08/26/17) Oxymetazoline (Verified Adverse Reaction, Mild, headache, 08/26/17) Pantoprazole (Verified Adverse Reaction, Mild, nausea, 08/26/17) Propoxyphene (Verified Adverse Reaction, Mild, nausea, 08/26/17) Tramadol (Verified Adverse Reaction, Mild, nausea, 08/26/17) Home Medications Scheduled Atenolol (Tenormin), 50 MG PO QAM Belladonna Alk/Phenobarbital (), 1 TAB PO TID Buspirone Hcl (Buspar), 15 MG PO BID Cholecalciferol (Vitamin D), 2,000 UNITS PO DAILY Ethambutol Hcl (Ethambutol Hcl), 2 TABS PO MWF Guaifenesin Ext Rel (Mucinex Ext Rel), 600 MG PO Q12 Moxifloxacin Hcl (Avelox), 400 MG PO MWF Naproxen (Aleve), 2 TABS PO DAILY Pentosan Polysulfate Sodium (Elmiron), 200 MG PO BID Probiotic Product (Probiotic), Unknown Dose PO DAILY Scheduled PRN Belladonna Alk/Phenobarbital (), 1 TAB PO UD PRN for IBS Ipratropium [place] (Ipratropium [place]), 0.5 MG INH Q8R PRN for Wheezing Levalbuterol Tartrate (Levalbuterol Tartrate Hfa), 2 PUFF INH Q6 PRN for Wheezing Review of Systems Constitutional: + fever, + chills, + sweats, + weakness, + fatigue, No weight loss Eyes: No worsening of vision, No eye pain, No redness, No discharge, No diplopia, No problem reported ENT: No hearing loss, No unusual epistaxis, No nasal symptoms, No sore throat, No tinnitus, No dental problems, No trouble swallowing, No problem reported Respiratory: + cough, + sputum, No wheezing, No shortness of breath, No dyspnea on exertion, No dyspnea at rest, No hemoptysis Cardiovascular: No chest pain, No orthopnea, No PND, No edema, No claudication , No palpitations, No problem reported Abdomen: + diarrhea, No pain, No nausea, No vomiting, No constipation, No GI bleeding, No problem reported Musculoskeletal: + joint pain (diffuse arthralgia, headache), + muscle pain ( generalized aches with her fever), No swelling, No calf pain, No problem reported Genitourinary - Female: No dysuria, No urinary frequency, No urinary urgency, No urinary incontinence, No urinary retention, No hematuria Neurologic: No memory loss, No paralysis, No weakness, No numbness/tingling, No vertigo, No balance problems, No problem reported Psychiatric: No depression symptoms, No anhedonism, No anxiety, No insomnia, No substance abuse, No problem reported Endocrine: No fatigue, No excessive thirst, No excessive urination, No problem reported Hematologic / Lymphatic: No abnormal bleeding/bruising, No clotting problems, No swollen lymph nodes, No night sweats, No problem reported Integumentary: No rash, No itch, No new/changing skin lesions, No color change , No bleeding, No problem reported Allergic / Immunologic: No environmental allergies, No seasonal allergies, No pet sensitivities, No food allergies, No hives, No frequent infections, No poor healing, No prolonged convalescence, No problem reported Physical Exam Vital Signs Date Time Temp Pulse Resp B/P (MAP) Pulse Ox O2 Delivery O2 Flow Rate FiO2 08/26/17 13:08 37.5 89 20 145/65 95 Room Air 08/26/17 12:30 75 08/26/17 11:07 38.9 92 20 164/73 94 Room Air General Appearance: WD/WN, no apparent distress Head: normocephalic, atraumatic Eyes: normal inspection, EOMI, sclerae normal ENT: normal ENT inspection, hearing grossly normal, pharynx normal Neck: supple, no adenopathy, no JVD, trachea midline Respiratory/Chest: chest non-tender, lungs clear, normal breath sounds, no respiratory distress, no accessory muscle use Cardiovascular: regular rate, rhythm, no edema, no gallop, no JVD, no murmur, normal peripheral pulses Abdomen/GI: normal bowel sounds, non tender, soft, no organomegaly Back: normal inspection, no CVA tenderness, no muscle spasm, normal range of motion Extremities/Musculoskelatal: normal inspection, no calf tenderness, normal capillary refill, no pedal edema, normal range of motion, pelvis stable Neurologic/Psych: fashion adviser II-XII nml as tested, no motor/sensory deficits, alert, normal mood/affect, normal reflexes, oriented x 3 Skin: normal color, warm/dry, no rash Diagnostics Laboratory Results Results Past 24 Hours Test 08/26/17 11:35 08/26/17 11:55 08/26/17 12:07 08/26/17 13:14 Range/Units Influenza Type A Antigen Neg for Influ A NEG Influenza Type B Antigen Neg for Influ B NEG White Blood Count 4.30 4.8-10.8 K/uL Red Blood Count 4.08 4.2-5.4 M/uL Hemoglobin 12.5 12.0-16.0 g/dL Hematocrit 37.2 37-47 % Mean Corpuscular Volume 91.2 80-100 fL Mean Corpuscular Hemoglobin 30.6 25-34 pg Mean Corpuscular Hemoglobin Concent 33.6 32-36 g/dl Platelet Count 173 130-400 K/uL Mean Platelet Volume 9.3 7.4-10.4 fL Neutrophils (%) (Auto) 65.6 % Lymphocytes (%) (Auto) 19.5 % Monocytes (%) (Auto) 14.2 % Eosinophils (%) (Auto) 0.2 % Basophils (%) (Auto) 0.5 % Neutrophils # (Auto) 2.82 1.4-6.5 K/uL Lymphocytes # (Auto) 0.84 1.2-3.4 K/uL Monocytes # (Auto) 0.61 0.11-0.59 K/uL Eosinophils # (Auto) 0.01 0-0.5 K/uL Basophils # (Auto) 0.02 0-0.2 K/uL RDW Standard Deviation 45.6 36.4-46.3 fL RDW Coefficient of Variation 13.7 11.5-14.5 % Immature Granulocyte % (Auto) 0.0 % Immature Granulocyte # (Auto) 0.00 0.00-0.02 K/uL Sodium Level 134 136-145 mmol/L Potassium Level 3.5 3.5-5.1 mmol/L Chloride Level 102 98-107 mmol/L Carbon Dioxide Level 27 21-32 mmol/L Anion Gap 5.0 3-11 mmol/L Blood Urea Nitrogen 14 7-18 mg/dl Creatinine 0.53 0.60-1.20 mg/dl Est Creatinine Clear Calc Drug Dose 88.9 ml/min Estimated GFR () 111.5 Estimated GFR (Non- 96.2 BUN/Creatinine Ratio 25.4 10-20 Random Glucose 96 70-99 mg/dl Calcium Level 8.2 8.5-10.1 mg/dl Total Bilirubin 0.3 0.2-1 mg/dl Direct Bilirubin < 0.1 0-0.2 mg/dl Aspartate Amino Transf (AST/SGOT) 17 15-37 U/L Alanine Aminotransferase (ALT/SGPT) 19 12-78 U/L Alkaline Phosphatase 55 45-117 U/L Total Protein 6.0 6.4-8.2 gm/dl Albumin 3.3 3.4-5.0 gm/dl Lipase 153 73-393 U/L Bedside Lactic Acid Venous 0.72 0.90-1.70 mmol/L Urine Color YELLOW Urine Appearance CLEAR CLEAR Urine pH 6.0 4.5-7.5 Urine Specific [place] 1.018 1.000-1.030 Urine Protein NEG NEG Urine Glucose (UA) NEG NEG Urine Ketones 1+ NEG Urine Occult Blood NEG NEG Urine Nitrite NEG NEG Urine Bilirubin NEG NEG Urine Urobilinogen NEG NEG Urine Leukocyte Esterase NEG NEG Microbiology Results 08/26/17 Blood Culture, Received Pending 08/26/17 Blood Culture, Received Pending Diagnostic Radiology CHEST ONE VIEW PORTABLE HISTORY: Atypical CHEST PAIN COMPARISON: Chest 05/30/2017. FINDINGS: No pneumothorax. No pleural effusions. The heart is normal in size. The right lung is clear. Linear densities within the left lung base have slightly progressed. IMPRESSION: Slightly progression of the linear densities at the left lung base. This favors atelectasis or scarring. However, a developing pneumonia could also have a similar appearance in the appropriate clinical setting. Normal EKG Impression Assessment and Plan 71 yo female with h/o SEPIDEH, still on Ethambutol and Moxifloxacin, presents with over a week of fever/rigors and chills and now with productive cough - Left lower lobe pneumonia: will cover with Vancomycin and Cefepime initially will discuss with Dr. Gallo if we should add Levaquin since she already takes Moxifloxacin MRSA nasal swab, if negative can d/c the Vanco consult Dr. Gallo with her h/o SEPIDEH repeat CBC tomorrow NSS + 20mEq of K at 80cc/hr - SEPIDEH, bronchiectasis: currently on Ethambutol and Moxifloxacin stopped Rifampin on 08/21 for possible side effect of fever however, fever has persisted so doubt that rifampin was cause will ask Dr. Gallo for his recommendations - HTN: Atenolol - GERD: Ranitidine - IBS: Bobbisally Schwarz PRN - DVT prophylaxis: Lovenox Level of Care Med/Surg Resuscitation Status FULL RESUSCITATION VTE Prophylaxis VTE Risk Assessment Done? Y/N: Yes Risk Level: Moderate Given or contraindicated: Enoxaparin (Lovenox)SQ Additional Copies To Anders Gallo MD; Reva Florence M.D.
[2017-08-26 15:40] VITALS: BP 132/75; PULSE 80; TEMP 37.2; O2SAT 93; Ht 165.1 cm; Wt 65.7 kg
[2017-08-26] MEDS ORDERED: VANCOMYCIN CONSULT ACTIVE PRN (16:00)
--- NOTE | 2017-08-26 16:00 | Pharmacy Progress Note ---
Pharmacy Abx Dose Short Note Date of Service Aug 26, 2017. Assessment & Plan Assessment 71 year old female receiving VANC/LVQ/Cefepime for treatment of pulmonary source infection * Day # 1 of antimicrobial therapy. Pertinent PMH: asthma, hx MRSA, SEPIDEH (on Avelox/Ethambutal as out-pt, f/u with ID team) Multiple ABX allergies: sulfa, macrolides, Flagyl. Plan Vancomycin * Estimated p'kinetics: Vd~0.7L/kg, Ke~0.0783 hr-1, T1/2~9 hours * LOADING DOSE: VANC 1750mg (~26mg/kg) IV x 1 then, * MAINTENANCe dose: VANC 1000mg (~15mg/kg) IV every 12 hours * Goal trough level: 15 to 20 mcg/mL * VANC Trough level @ Css prior to 08/28/17 1200 dose Pharmacy will continue to follow and will adjust dose/frequency as necessary. Thank you.
[2017-08-26] MEDS: VANCOMYCIN INJ 1,750 MG in SODIUM CHLORIDE 0.9% 500ML 500 ML IV ONE ×2 (16:12→16:44)
[2017-08-26 17:28] LABS: PARTIAL THROMBOPLASTIN RATIO 1.1; PROTHROMBIN TIME (PATIENT) 10.7 SECONDS (9.0-12.0)
--- NOTE | 2017-08-26 17:36 | Medical Consult ---
Consultation Date of Consultation: Aug 26, 2017. Attending Physician: Theo Renee D.O. Reason for Consultation: Pneumonia, history of SEPIDEH History of Present Illness 71-year-old female well known to me from outpatient infectious disease consultation, with history of asthma and irritable bowel syndrome, who was diagnosed earlier this year with SEPIDEH pulmonary infection. She has had difficulty with her medications, and has had significant intolerance with her macrolide therapy. She was on combination of ethambutol and moxifloxacin, and rifampin more recently added. He approximately 1-2 weeks ago, patient noted onset of fever and chills along with progressively worsening cough with some sputum production. Apparently some family members were ill with upper respiratory tract symptoms. Because of concern of possible reaction to rifampin , this medication was held several days ago. However fever and symptoms persisted and patient came to the hospital and was admitted for further management. Chest x-ray shows some evidence of possible early pneumonitis. Patient feeling better since admission. Cough improved. 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 (2) Pneumonia Status: Acute Medical Problems: (1) Asthma (2) IBS (irritable bowel syndrome) (3) Kidney disease (4) SEPIDEH (mycobacterium avium-intracellulare) infection (5) MVP (mitral valve prolapse) (6) Pneumonia (7) Skin problem Family History Cancer Diabetes mellitus Heart disease Hypertension Kidney disease Social History Smoking Status: Never Smoker Drug Use: none Marital Status: Housing Status: lives with significant other Occupation Status: retired Allergies Coded Allergies: Diphenhydramine (Verified Allergy, Severe, anaphylaxis, 08/26/17) Bacitracin (Verified Allergy, Intermediate, itching, 08/26/17) Neomycin (Verified Allergy, Intermediate, itching, 08/26/17) Polymyxin B (Verified Allergy, Intermediate, itching, 08/26/17) Sulfa Antibiotics (Verified Allergy, Intermediate, rash, 08/26/17) Azithromycin (Verified Adverse Reaction, Mild, nausea, 08/26/17) Clarithromycin (Verified Adverse Reaction, Mild, nausea, 08/26/17) Codeine (Verified Adverse Reaction, Mild, nausea, 08/26/17) Erythromycin (Verified Adverse Reaction, Mild, nausea, 08/26/17) Hydrocodone (Verified Adverse Reaction, Mild, nausea, 08/26/17) Hyoscyamine (Verified Adverse Reaction, Mild, nausea, 08/26/17) Metronidazole (Verified Adverse Reaction, Mild, nausea, 08/26/17) Ondansetron (Verified Adverse Reaction, Mild, "can't sleep", 08/26/17) Oxymetazoline (Verified Adverse Reaction, Mild, headache, 08/26/17) Pantoprazole (Verified Adverse Reaction, Mild, nausea, 08/26/17) Propoxyphene (Verified Adverse Reaction, Mild, nausea, 08/26/17) Tramadol (Verified Adverse Reaction, Mild, nausea, 08/26/17) Current Inpatient Medications Current Inpatient Medications Medications (Trade) Dose Ordered Sig/Carola Route Start Time Stop Time Status Last Admin Dose Admin Enoxaparin Sodium (Lovenox Inj) 40 mg Q24H SQ 08/26/17 14:15 09/25/17 14:14 UNV Acetaminophen (Tylenol Tab) 650 mg Q4H PRN PO 08/26/17 14:15 09/25/17 14:14 Ondansetron HCl (Zofran Inj) 4 mg Q6H PRN IV 08/26/17 14:15 09/25/17 14:14 Potassium Chloride/Sodium Chloride 1,000 ml @ 80 mls/hr [id number] IV 08/26/17 17:15 09/25/17 14:14 Atenolol (Tenormin Tab) 50 mg QAM PO 08/27/17 09:00 09/26/17 08:59 Buspirone HCl (BusPAR TAB) 15 mg BID PO 08/26/17 21:00 09/25/17 20:59 Cholecalciferol (Vitamin D Tab) 2,000 inter.unit DAILY PO 08/27/17 09:00 09/26/17 08:59 Ethambutol HCl (Myambutol Tab) 800 mg MoWeFr@0900 PO 08/28/17 09:00 09/27/17 08:59 Guaifenesin (Mucinex Contr Rel Tab) 600 mg Q12 PO 08/26/17 21:00 09/25/17 20:59 Ipratropium [place] (Atrovent 0.02% 0.5MG/2.5ML Neb) 0.5 mg Q8R PRN INH 08/26/17 14:15 09/25/17 14:14 Levalbuterol (Xopenex Hfa Inhaler) 2 puffs Q6 PRN INH 08/26/17 14:15 09/25/17 14:14 Miscellaneous Information (Order Awaiting Action) 1 ea QS N/A 08/27/17 00:00 09/26/17 00:00 Pentosan Polysulfate Sodium (Elmiron) 200 mg BID PO 08/26/17 21:00 09/25/17 20:59 Vancomycin HCl 1000 mg/Sodium Chloride 270 ml @ 125 mls/hr Q12H IV 08/27/17 00:00 09/03/17 00:00 Vancomycin HCl 1750 mg/Sodium Chloride 535 ml @ 200 mls/hr NOW ONCE IV 08/26/17 16:15 08/26/17 18:55 08/26/17 16:44 200 MLS/HR Levofloxacin 750 mg/Prmx 150 ml @ 100 mls/hr Q24H IV 08/26/17 18:00 09/02/17 15:59 Vancomycin HCl (Consult) 1 ea UD PRN N/A 08/26/17 16:00 09/25/17 15:59 Cefepime HCl 1000 mg/Syringe 11 ml @ 5.5 mls/min Q12H IV 08/26/17 18:00 09/02/17 17:59 Review of Systems All systems were reviewed and are negative except as per HPI Physical Exam Date Time Temp Pulse Resp B/P (MAP) Pulse Ox O2 Delivery O2 Flow Rate FiO2 08/26/17 15:40 37.2 80 18 132/75 93 Room Air 08/26/17 13:08 37.5 89 20 145/65 95 Room Air 08/26/17 12:30 75 08/26/17 11:07 38.9 92 20 164/73 94 Room Air General Appearance: WD/WN, no apparent distress Head: normocephalic, atraumatic Eyes: normal inspection, EOMI, sclerae normal ENT: normal ENT inspection, pharynx normal Neck: supple, no adenopathy, thyroid normal, trachea midline Respiratory/Chest: chest non-tender, lungs clear, normal breath sounds, no respiratory distress Cardiovascular: regular rate, rhythm, no gallop, no murmur Abdomen/GI: normal bowel sounds, non tender, soft, no organomegaly Back: normal inspection, no CVA tenderness Extremities/Musculoskelatal: no calf tenderness, normal capillary refill, non- tender Neurologic/Psych: alert, normal mood/affect, oriented x 3 Skin: normal color, warm/dry, no rash Lymphatic: no adenopathy Laboratory Results Date/Time Source Procedure Growth Status 08/26/17 12:00 Blood Blood Culture Pending Received 08/26/17 11:55 Blood Blood Culture Pending Received 08/26/17 16:30 Nasal MRSA DNA Surveillance Screen Pending Received Last 24 Hours Test 08/26/17 11:35 08/26/17 11:55 08/26/17 12:07 08/26/17 13:14 Influenza Type A Antigen Neg for Influ A Influenza Type B Antigen Neg for Influ B White Blood Count 4.30 K/uL Red Blood Count 4.08 M/uL Hemoglobin 12.5 g/dL Hematocrit 37.2 % Mean Corpuscular Volume 91.2 fL Mean Corpuscular Hemoglobin 30.6 pg Mean Corpuscular Hemoglobin Concent 33.6 g/dl Platelet Count 173 K/uL Mean Platelet Volume 9.3 fL Neutrophils (%) (Auto) 65.6 % Lymphocytes (%) (Auto) 19.5 % Monocytes (%) (Auto) 14.2 % Eosinophils (%) (Auto) 0.2 % Basophils (%) (Auto) 0.5 % Neutrophils # (Auto) 2.82 K/uL Lymphocytes # (Auto) 0.84 K/uL Monocytes # (Auto) 0.61 K/uL Eosinophils # (Auto) 0.01 K/uL Basophils # (Auto) 0.02 K/uL RDW Standard Deviation 45.6 fL RDW Coefficient of Variation 13.7 % Immature Granulocyte % (Auto) 0.0 % Immature Granulocyte # (Auto) 0.00 K/uL Prothrombin Time 10.7 SECONDS Prothromb Time International Ratio 1.0 Activated Partial Thromboplast Time 27.5 SECONDS Partial Thromboplastin Ratio 1.1 Sodium Level 134 mmol/L Potassium Level 3.5 mmol/L Chloride Level 102 mmol/L Carbon Dioxide Level 27 mmol/L Anion Gap 5.0 mmol/L Blood Urea Nitrogen 14 mg/dl Creatinine 0.53 mg/dl Est Creatinine Clear Calc Drug Dose 88.9 ml/min Estimated GFR () 111.5 Estimated GFR (Non- 96.2 BUN/Creatinine Ratio 25.4 Random Glucose 96 mg/dl Calcium Level 8.2 mg/dl Total Bilirubin 0.3 mg/dl Direct Bilirubin < 0.1 mg/dl Aspartate Amino Transf (AST/SGOT) 17 U/L Alanine Aminotransferase (ALT/SGPT) 19 U/L Alkaline Phosphatase 55 U/L Total Protein 6.0 gm/dl Albumin 3.3 gm/dl Lipase 153 U/L Bedside Lactic Acid Venous 0.72 mmol/L Urine Color YELLOW Urine Appearance CLEAR Urine pH 6.0 Urine Specific [place] 1.018 Urine Protein NEG Urine Glucose (UA) NEG Urine Ketones 1+ Urine Occult Blood NEG Urine Nitrite NEG Urine Bilirubin NEG Urine Urobilinogen NEG Urine Leukocyte Esterase NEG Patient Name: SIA ROBERTS Unit Number: [id number] Dictated: 08/26/[id number] Transcribed: 08/26/171233 PAJ Printed Date/Time: [~ rep prt dt]/[~ rep prt tm] [~ rep ct labl] - [~ rep ct ivnm] [facility] [place] [address] Dictated: 08/26/[id number] Transcribed: 08/26/171233 PAJ Printed Date/Time: [~ rep prt dt]/[~ rep prt tm] [~ rep ct labl] - [~ rep ct ivnm] CHEST ONE VIEW PORTABLE HISTORY: Atypical CHEST PAIN COMPARISON: Chest 05/30/2017. FINDINGS: No pneumothorax. No pleural effusions. The heart is normal in size. The right lung is clear. Linear densities within the left lung base have slightly progressed. IMPRESSION: Slightly progression of the linear densities at the left lung base. This favors atelectasis or scarring. However, a developing pneumonia could also have a similar appearance in the appropriate clinical setting. Electronically signed by: Yobani Davison M.D. 08/26/2017 12:35 PM Dictated Date/Time: 08/26/2017 12:34 PM The status of this report is Signed. Draft = Not yet reviewed or approved by Radiologist. Signed = Reviewed and approved by Radiologist. <AttendingPhy></AttendingPhy> <FamilyPhy>Reva Florence M.D.</FamilyPhy> < PrimaryPhy>Reva Florence M.D.</PrimaryPhy> <UnitNumber>[id number]</UnitNumber> < VisitNumber>[id number]</VisitNumber> <PatientName>SIA ROBERTS</PatientName > <DateOfBirth>1945</DateOfBirth> <Location>[facility]</Location> <ServiceDate> 08/26/17</ServiceDate> <MNE>ESINDI</MNE> <OrderingPhy>Konstantin Aguirre M.D.</ OrderingPhy> <OrderingPhyMNE>f rep ord dr means</OrderingPhyMNE> <DictatingPhyMNE> f rep dict dr means</DictatingPhyMNE> <CCListMNE>f rep ct mne</CCListMNE> < AdmittingPhyMNE>f pt admit dr means</AdmittingPhyMNE> <AttendingPhyMNE>f pt attend dr means</AttendingPhyMNE> <ConsultingPhyMNE>f pt consult dr means</ConsultingPhyMNE> <FamilyPhyMNE>f pt fam dr means</FamilyPhyMNE> <OtherPhyMNE>f pt other dr means</OtherPhyMNE> < PrimaryPhyMNE>f pt prim care dr means</PrimaryPhyMNE> <ReferringPhyMNE>f pt referring dr means</ReferringPhyMNE> Assessment & Plan 71-year-old female with known SEPIDEH infection, on current treatment with multiple drugs, with persistent fever, cough, and shortness of breath. Multiple family members also with similar symptoms. Not clear whether patient has additional viral infection, reaction to her medications, or other new process. Given that rifampin can cause flu-like symptoms a side effect, have recommended discontinuation of this medication. Would continue current Rx and had levofloxacin for now pending further culture results. Case discuss with Dr. Renee. Will follow.
[2017-08-26] MEDS: CEFEPIME IV 1,000 MG in SYRINGE 0 ML IV SCH (17:46)
[2017-08-26] MEDS: NSS + 20MEQ KCL 1000ML 1,000 ML IV SCH (17:46)
[2017-08-26] MEDS ORDERED: CEFEPIME IV 1,000 MG in SYRINGE 0 ML IV SCH (18:00)
[2017-08-26] MEDS ORDERED: LEVOFLOXACIN / D5W 750 MG in PREMIXED IN D5W 150 ML IV SCH (18:00)
[2017-08-26] MEDS ORDERED: ENOXAPARIN 40 MG/0.4 ML SYR SQ SCH (18:00)
[2017-08-26] MEDS: GUAIFENESIN 600 MG TABCR PO SCH (19:52)
[2017-08-26] MEDS: BusPIRone 15 MG TAB PO SCH (19:52)
[2017-08-26] MEDS: PENTOSAN POLYSULFATE SODIUM 100 MG CAP PO SCH (19:53)
[2017-08-26] MEDS: ACETAMINOPHEN 325 MG TAB PO PRN (19:58)
[2017-08-26 23:24] VITALS: BP 149/82; PULSE 69; TEMP 36.7; O2SAT 94
[2017-08-27] MEDS ORDERED: VANCOMYCIN INJ 1,000 MG in SODIUM CHLORIDE 0.9% 250ML 250 ML IV SCH ×2
[2017-08-27] MEDS ORDERED: METOCLOPRAMIDE HCL 5 MG TAB PO ONE
[2017-08-27] MEDS: CEFEPIME IV 1,000 MG in SYRINGE 0 ML IV SCH (05:37)
[2017-08-27 06:41] LABS: BASO % 0.6 %; BASO ABS # 0.02 K/uL (0-0.2); COMPLETE YES; EOS % 0.3 %; HEMATOCRIT 36.4 % (37-47); IG% 0.3 %; LYMPH % 29.7 %; LYMPH ABS # 1.05 K/uL (1.2-3.4); MEAN CELL VOLUME 91.2 fL (80-100); MEAN CORPUSCULAR HEMOGLOBIN 30.3 pg (25-34); MEAN CORPUSCULAR HGB CONC 33.2 g/dl (32-36); MEAN PLATELET VOLUME 9.2 fL (7.4-10.4); MONO % 12.5 %; NEUT % 56.6 %; PLATELET COUNT 171 K/uL (130-400); RED BLOOD COUNT 3.99 M/uL (4.2-5.4); WHITE BLOOD COUNT 3.53 K/uL (4.8-10.8)
[2017-08-27 07:13] LABS: BUN/CREATININE RATIO 14.1 (10-20); CALCIUM 7.8 mg/dl (8.5-10.1); CREATININE 0.48 mg/dl (0.60-1.20); POTASSIUM 3.8 mmol/L (3.5-5.1)
[2017-08-27 07:16] VITALS: BP 146/85; PULSE 75; TEMP 37.1; O2SAT 94
[2017-08-27] MEDS: PENTOSAN POLYSULFATE SODIUM 100 MG CAP PO SCH (08:22)
[2017-08-27] MEDS: BusPIRone 15 MG TAB PO SCH (08:22)
[2017-08-27] MEDS: NSS + 20MEQ KCL 1000ML 1,000 ML IV SCH (08:22)
[2017-08-27] MEDS: GUAIFENESIN 600 MG TABCR PO SCH (08:22)
[2017-08-27] MEDS: ACETAMINOPHEN 325 MG TAB PO PRN (08:27)
[2017-08-27] MEDS ORDERED: CHOLECALCIFEROL 1000 INTER.UNIT TAB PO SCH (09:00)
[2017-08-27] MEDS ORDERED: BENZONATATE 100MG CAP PO SCH (09:00)
[2017-08-27] MEDS ORDERED: NAPR1TAB9 PO (10:07)
[2017-08-27] MEDS ORDERED: BENZ100C7 PO (10:07)
[2017-08-27] MEDS ORDERED: LEVO1TAB35 PO (10:07)
--- NOTE | 2017-08-27 10:28 | Discharge Instructions ---
Discharge Instructions Date of Service Aug 27, 2017. Admission Reason for Admission: Pneumonia Discharge Discharge Diagnosis / Problem: pneumonia Discharge Goals Goal(s): Diagnostic testing, Therapeutic intervention Activity Recommendations Activity Limitations: resume your previous activity . Instructions / Follow-Up Instructions / Follow-Up fever, cough -this appears to have actually been THREE separate things (all related, but technically separate from eachother) -rifampin side effect ---> which should improve as you're off the rifampin longer -viral side effects --> since so many people you know have had viral respiratory infections, and viral respiratory infections are wildly contagious, it's highly likely that a viral infection was part of the situation -bacterial pneumonia --> you also have a very small pneumonia in the base of your left lung. this appear to be "the straw that broke the camel's back" as far as respiratory illness. while being sick with the SEPIDEH and all of the above would make you more prone to getting a "regular" pneumonia, this still appears to have been just a "regular" pneumonia, and just requires treatment as would any other pneumonia ---treatment: we'll have you continue to hold off on the rifampin; Dr Gallo will need to see you in about a week and a half (our nurse navigator will work on setting this up) and he can then determine what, if anything, would need to be substituted -there's no specific treatment needed for the viral portion of your illness; viral illnesses are cleared by your immune system, and generally just take a week or two to go away -for the "regular" pneumonia, we'll be treating with levaquin (it's very similar to the moxifloxacin you're on for the SEPIDEH, but definitely works nicely for most pneumonia bacteria; and because of your other allergies and intolerances, it is a very good treatment for pneumonia that you'll be able to tolerate. it's a once a day pill - we'll for another six days after the treatment we've given you in hospital. as a weird, rare side effect, it can make you more prone to tendonitis or even a tendon tear, so safety says take it easy and avoid heavy lifting, overhead lifting, or repetitive movements for the next month). because it's so similar to the moxifloxacin, it makes sense to hold off on your moxifloxacin dosing while you're on the levaquin. we'll be working on getting you set up with Dr Florence (or if she's tied up one of the residents in her office) this week to make sure you're continuing to get better from the current pneumonia and all is going well; we'll then work on getting you set up with Dr Gallo for hopefully the week between and to determine where best to go next with the SEPIDEH since the rifampin has been stopped. Current Hospital Diet Patient's current hospital diet: Regular Diet Discharge Diet Recommended Diet: Regular Diet Pending Studies Studies pending at discharge: yes List of pending studies: blood cultures will still be in the lab for about 4 more days. Although we do not expect any growth on them, should your cultures surprise us with bacterial findings, we'll be in touch with you right away. Medical Emergencies . Who to Call and When: Medical Emergencies: If at any time you feel your situation is an emergency, please call 911 immediately. . Non-Emergent Contact Non-Emergency issues call your: Primary Care Provider, Specialist (infectious disease) . . "Provider Documentation" section prepared by Cristi Jauregui. . VTE Core Measure Inpt VTE Proph given/why not?: Enoxaparin (Lovenox)SQ
[2017-08-27 10:38] VITALS: BP 146/85; PULSE 75; TEMP 37.1; O2SAT 94
--- NOTE | 2017-08-27 11:29 | Discharge Summary ---
Discharge Summary Date of Service Aug 27, 2017. 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 FINDINGS: No pneumothorax. No pleural effusions. The heart is normal in size. The right lung is clear. Linear densities within the left lung base have slightly progressed. IMPRESSION: Slightly progression of the linear densities at the left lung base. This favors atelectasis or scarring. However, a developing pneumonia could also have a similar appearance in the appropriate clinical setting. Electronically signed by: Yobani Davison M.D. 08/26/2017 12:35 PM Dictated Date/Time: 08/26/2017 12:34 PM Last Resulted CBC 08/27/17 06:23 Red Blood Count 3.99, Mean Corpuscular Volume 91.2, Mean Corpuscular Hemoglobin 30.3, Mean Corpuscular Hemoglobin Concent 33.2, Mean Platelet Volume 9.2, Neutrophils (%) (Auto) 56.6, Lymphocytes (%) (Auto) 29.7, Monocytes (%) (Auto) 12.5, Eosinophils (%) (Auto) 0.3, Basophils (%) (Auto) 0.6, Neutrophils # (Auto ) 2.00, Lymphocytes # (Auto) 1.05, Monocytes # (Auto) 0.44, Eosinophils # (Auto ) 0.01, Basophils # (Auto) 0.02 Last Resulted BMP 08/27/17 06:23 Consultations: ID - recommended holding rifampin Medication Reconciliation New Medications: Levofloxacin (Levaquin) 750 Mg Tab 750 MG PO DAILY, #6 TAB Benzonatate (Benzonatate) 100 Mg Cap 100 MG PO TID, #30 CAP Changed Medications: Naproxen (Aleve) 220 Mg Tab 2 TABS PO DAILY PRN for Pain for 30 Days, TAB (Medication details modified) Continued Medications: Atenolol (Tenormin) 50 Mg Tab 50 MG PO QAM, TAB Belladonna Alk/Phenobarbital () Tab 1 TAB PO TID, TAB Belladonna Alk/Phenobarbital () Tab 1 TAB PO UD PRN for IBS, TAB Buspirone Hcl (Buspar) 15 Mg Tab 15 MG PO BID, TAB Cholecalciferol (Vitamin D) 1,000 Unit Tab 2000 UNITS PO DAILY Ethambutol Hcl (Ethambutol Hcl) 400 Mg Tab 2 TABS PO MWF Guaifenesin Ext Rel (Mucinex Ext Rel) 600 Mg Tabcr 600 MG PO Q12 for 14 Days, #28 TAB Ipratropium Boaz (Ipratropium Boaz) 0.5 Mg/2.5 Ml Nebu 0.5 MG INH Q8R PRN for Wheezing for 30 Days, #25 VIAL Levalbuterol Tartrate (Levalbuterol Tartrate Hfa) 45 Mcg/Act Aer 2 PUFF INH Q6 PRN for Wheezing Moxifloxacin Hcl (Avelox) 400 Mg Tab 400 MG PO MWF, TAB Pentosan Polysulfate Sodium (Elmiron) 100 Mg Cap 200 MG PO BID, CAP Probiotic Product (Probiotic) 1 Tab Tab Unknown Dose PO DAILY Discharge Exam Physical Exam: General Appearance: no apparent distress Eyes: EOMI ENT: hearing grossly normal Neck: trachea midline Respiratory/Chest: no respiratory distress, no accessory muscle use Neurologic/Psychiatric: filter bed placer II-XII nml as tested, alert, normal mood/affect Skin: normal color, warm/dry Hospital Course admitted with fever, cough, shortness of breath -flu negative, but likely other viral illness at play -CXR w small L base findings c/w developing pneumonia --> levaquin -rifampin side effect likely culprit as well for fevers and aches -- held ( outpt f/u w ID in regards to ongoing treatment for SEPIDEH) -stable for home outpt f/u w PCP next week, ID f/u the following week Total Time Spent: Greater than 30 minutes This includes examination of the patient, discharge planning, medication reconciliation, and communication with other providers. Discharge Instructions Please refer to the electronic Patient Visit Report (Discharge Instructions) for additional information. Additional Copies To Anders Gallo MD; Reva Florence M.D.
[2017-08-28] MEDS ORDERED: ETHAMBUTOL HCL 400 MG TAB PO SCH (09:00)
[2017-08-28] MEDS ORDERED: VANCOMYCIN TROUGH ONE (11:30)
== END 2017-08-27 11:57 | disposition home or self-care (01) | DRG 195 ==
LOC: C.EDB 11:03 → C.MED 14:09 → ENRESERV 14:32
PROVIDERS: ADMIT Internal Medicine; ATTEND Family Medicine
DX: J18.9 Pneumonia, unspecified organism (principal); A31.0 Pulmonary mycobacterial infection; J45.909 Unspecified asthma, uncomplicated; I10 Essential (primary) hypertension; K21.9 Gastro-esophageal reflux disease without esophagitis; K58.9 Irritable bowel syndrome, unspecified; Z87.01 Personal history of pneumonia (recurrent); Z80.9 Family history of malignant neoplasm, unspecified; Z83.3 Family history of diabetes mellitus; Z82.49 Family history of ischemic heart disease and other diseases of the circulatory system; Z84.1 Family history of disorders of kidney and ureter

== ENCOUNTER → 2017-10-10 | Outpatient (CLI) | payer MEDICARE ==
[~2017-10-10] MED LIST changes: -AZIT-57 PO; +BENZ100C7 PO; +ETHA1TAB8 PO; +LEVO1TAB35 PO; +MOXI400T2 PO; +NAPR1TAB9 PO; -XPNINS1255 INH
== END | disposition home or self-care (01) ==
LOC: C.PATHSPEC 13:14
PROVIDERS: ATTEND Dermatology
DX: L57.0 Actinic keratosis (principal); L82.1 Other seborrheic keratosis

== ENCOUNTER → 2018-04-17 | Outpatient (CLI) | payer MEDICARE ==
[~2018-04-17] MED LIST changes: -LEVO1TAB35 PO
--- NOTE | 2018-04-17 11:03 | DIAGNOSTIC IMAGING REPORT ---
CHEST 2 VIEWS ROUTINE CLINICAL HISTORY: COUGH dyspnea COMPARISON STUDY: 08/26/2017 FINDINGS: Chronic pleural and parenchymal change left lung base. Lungs otherwise appear clear. Diaphragms are smooth. Pulmonary apices are clear. IMPRESSION: Chronic parenchymal changes left lung base. No acute process. The above report was generated using voice recognition software. It may contain grammatical, syntax or spelling errors. Electronically signed by: Collin Oliver M.D. 04/17/2018 11:01 AM Dictated Date/Time: 04/17/2018 11:00 AM
== END | disposition home or self-care (01) ==
LOC: C.RAD1850 10:26
PROVIDERS: ATTEND Internal Medicine
DX: R05 Cough (principal); J98.4 Other disorders of lung

== ENCOUNTER 2022-01-06 17:22 | Observation (INO) ==
[2022-01-06 19:28] LABS: Basophils # (auto) 0.03 K/uL (0-0.2); Basophils % (auto) 0.4 %; Eosinophils # (auto) 0.14 K/uL (0-0.5); Eosinophils % (auto) 1.8 %; Hematocrit (blood only) 41.4 % (37-47); Hemoglobin 13.1 g/dL (12.0-16.0); Immature Granulocytes # (auto) 0.01 K/uL (0.00-0.02); Immature Granulocytes % (auto) 0.1 %; Lymphocytes # (auto) 2.23 K/uL (1.2-3.4); Lymphocytes % (auto) 29.1 %; Mean Corpuscular Hemoglobin 29.2 pg (25-34); Mean Corpuscular Hgb Conc 31.6 g/dL (32-36); Mean Corpuscular Volume 92.4 fL (80-100); Mean Platelet Volume 9.9 fL (7.4-10.4); Monocytes # (auto) 0.65 K/uL (0.11-0.59); Monocytes % (auto) 8.5 %; Neutrophils # (auto) 4.61 K/uL (1.4-6.5); Neutrophils % (auto) 60.1 %; Platelet Count 309 K/uL (130-400); RDW Coefficient of Variation 15.5 % (11.5-14.5); RDW Standard Deviation 52.4 fL (36.4-46.3); Red Blood Count 4.48 M/uL (4.2-5.4); White Blood Count 7.67 K/uL (4.8-10.8)
[2022-01-06 19:41] LABS: Partial Thromboplastin Time 27.1 Seconds (21.0-31.0); Prothrombin Time 10.3 Seconds (9.0-12.0)
[2022-01-06 19:53] LABS: Albumin Globulin Ratio 1.8 (0.9-2); Albumin Level 4.1 gm/dl (3.4-5.0); BUN Creatinine Ratio 22.1 (10-20); Bilirubin,Total 0.5 mg/dl (0.2-1.0); Creatinine Clr Calc Pharmacy 75.3 ml/min; Est GFR (African American) 99.2 ml/min; Est GFR (Non-African American) 85.6 ml/min; Globulin 2.3 gm/dl (2.5-4.0); Magnesium 2.1 mg/dl (1.7-2.4); Potassium 3.7 mmol/L (3.5-5.1); Total Protein 6.4 gm/dl (6.0-8.3)
--- NOTE | 2022-01-06 20:11 | XRay Report ---
XR chest 1V portable CLINICAL HISTORY: SOB. COMPARISON STUDY: 12/12/2021 TECHNIQUE: 1 view of the chest FINDINGS: Single frontal view of the chest demonstrates the cardiomediastinal silhouette to be within normal li mits. The lungs are clear of alveolar opacities. Chronic prominence of the pulmonary markings at the lung bases is again seen in a patient with a history of bronchiectasis. There is no evidence for pleu ral effusion. There is no evidence for vascular congestion. There is no acute osseous pathology. IMPRESSION: 1. No acute cardiopulmonary disease. ACT 112: Negative or not required by law. Electronically signed by: Piero Riley M.D. 01/06/2022 8:10 PM
[2022-01-06] MEDS ORDERED: NAPROXEN 250 MG TAB PO STA (20:59)
[2022-01-06] MEDS ORDERED: AZITHROMYCIN 250 MG TAB PO STA (20:59)
[2022-01-06] MEDS ORDERED: ACETAMINOPHEN 500 MG TAB PO STA (20:59)
[2022-01-06] MEDS ORDERED: AZITHROMYCIN 250 MG in DEXTROSE 5% 250 ML IV ONE (21:29)
--- NOTE | 2022-01-06 22:11 | History & Physical Report ---
Date of Service January 06, 2022 Assessment & Plan (1) Mycobacterial infection: Plan: This is a 76-year-old female with a history of chronic MAC infection presenting to the ED for evaluation for dyspnea. It has been recommended the patient get admitted to the hospital for treatment of chronic MAC by [facility] infectious disease. Patient is clinically stable at this time. -Admit patient to medicine with telemetry under observation -Begin orders for azithromycin 250 mg daily, ethambutol 1200 mg daily, and anakinra 1250 mg every Monday. -Per patient history will likely require a PICC line to receive IV antibiotics in the outpatient setting -Daily CBC, BMP -Consider contacting [facility] infectious disease tomorrow for further recommendations and follow-up -Will likely be able to discharge home once IV regimen and PICC line are established. (2) Dyspnea: Plan: -Likely due to chronic MAC infection and bronchiectasis -No hypoxia noted during hospitalization thus far -Chest x-ray not concerning for consolidative pneumonia -Oxygen as needed for saturations below 90% -Flutter valve and incentive spirometer ordered -Mucinex 600 mg p.o. twice daily for bronchiectasis -Hypersal 7% nebulizer twice daily -Albuterol every 4 as needed Diet: Heart healthy DVT prophylaxis: Lovenox Disposition: MedSurg with telemetry CODE STATUS: Full code History of Present Illness Chief Complaint: Dyspnea Primary Care Provider: Emi Mondragon MD Patient is a 76-year-old female with a past medical history of chronic Mycobacterium avium complex and bronchiectasis who presented to the ED for concerns regarding shortness of breath. Patient reports dyspnea over the past 3 days. Patient reports a history of being diagnosed for nontuberculous mycobacteria in 2017. Patient was initially treated by a Dr. Gallo from [facility]. Patient took 14 months of rifampin, ethambutol, and moxifloxacin in 2017. 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 Per the patient's history there was discussion with infectious disease regarding utilizing a PICC line so the patient could receive IV antibiotics in the outpatient setting. She currently follows Dr. Shelby from [facility] infectious disease and Dr. Mcelroy for pulmonology. Dr. Shelby had gotten contact with the ED provider, Dr. Palacios, who states that he would like the patient to be admitted to be put on IV antibiotics. The regimen he is requesting is ethambutol 1200 mg daily, azithromycin 250 mg daily, and anakinra 1250 mg every Monday. Patient reports there has been talk about patient being on a PICC line to receive IV antibiotics in the outpatient setting with her infectious disease doctor. Otherwise patient does have the complaint of chest discomfort that is reproducible. Patient reports that she does get chest pain when she has frequent episodes of coughing like she has recently. Reports history of mu ltiple episodes of costochondritis. Does not seem to worsen with exertion. Pain appears to be sternal. Patient has no other complaints at this time. ED course: Patient seen at bedside by ED provider. EKG, chest x-ray, routine lab work ordered. EKG showing frequent PACs otherwise sinus arrhythmia. No concerns seen on blood work. Troponin pending at the time of writing this note. Chest x-ray was clear and unremarkable. Patient received first dose of azithromycin and ethambutol in the ED. Allergies Allergy/AdvReac Type Severity Reaction Status Date / Time diphenhydramine Allergy Severe anaphylaxis Verified 01/06/22 20:50 bacitracin Allergy Intermediate itching Verified 01/06/22 20:50 neomycin Allergy Intermediate itching Verified 01/06/22 20:50 polymyxin B Allergy Intermediate itching Verified 01/06/22 20:50 Sulfa (Sulfonamide Allergy Intermediate rash Verified 01/06/22 20:50 Antibiotics) amoxicillin [From Augmentin] Allergy Mild Diarrhea Verified 01/06/22 20:50 clavulanic acid Allergy Mild Diarrhea Verified 01/06/22 20:50 [From Augmentin] triamcinolone Allergy Mild nose Verified 01/06/22 20:50 bleed, Nausea doxycycline AdvReac Severe abdominal Verified 01/06/22 20:50 pain and diarrhea azithromycin AdvReac Mild Nausea Verified 01/06/22 20:50 clarithromycin AdvReac Mild nausea Verified 01/06/22 20:50 codeine AdvReac Mild nausea Verified 01/06/22 20:50 erythromycin base AdvReac Mild nausea Verified 01/06/22 20:50 hydrocodone AdvReac Mild nausea Verified 01/06/22 20:50 hyoscyamine AdvReac Mild when just Verified 01/06/22 20:50 by itself not in combo med metronidazole AdvReac Mild nausea Verified 01/06/22 20:50 ondansetron AdvReac Mild "can't Verified 01/06/22 20:50 sleep" oxymetazoline AdvReac Mild headache Verified 01/06/22 20:50 pantoprazole AdvReac Mild nausea Verified 01/06/22 20:50 propoxyphene AdvReac Mild nausea Verified 01/06/22 20:50 tramadol AdvReac Mild nausea Verified 01/06/22 20:50 Home Medications Medication Instructions Recorded Confirmed Type guaifenesin 600 mg tablet, 600 mg PO Q12H 06/13/18 01/06/22 History extended release 12 hr (Mucinex) vit C 250 mg-vit E 90 mg-zinc 40 1 tab PO BID 06/13/18 01/06/22 History mg-copper 1 [id number] capsule (PreserVision AREDS-2) Saccharomyces boulardii 250 mg 250 mg PO BID 05/01/19 01/06/22 History capsule (Florastor) cholecalciferol (vitamin D3) 50 4,000 units PO QAM cap 08/19/19 01/06/22 History mcg (2,000 unit) capsule (Vitamin D3) naproxen sodium 220 mg capsule 220 mg PO BID PRN 05/20/21 01/06/22 History (Aleve) buspirone 15 mg tablet 15 mg PO BID #180 tab 09/28/21 01/06/22 Rx turmeric 400 mg capsule 400 mg PO DAILY 11/24/21 01/06/22 History albuterol sulfate 90 mcg/actuation 2 puff INHALATION Q4H PRN #18 g 12/07/21 01/06/22 Rx aerosol inhaler Hypersal 7% Neb 1 dose INHALATION BID 01/06/22 01/06/22 History magnesium 500 mg tablet 500 mg PO DAILY 01/06/22 01/06/22 History amikacin 1,000 mg/4 mL injection 1,250 mg IV DAILY #4 ml 01/07/22 Rx solution azithromycin 250 mg tablet 250 mg PO QPM 30 Days #30 tab 01/07/22 Rx ethambutol 400 mg tablet 1,200 mg PO DAILY 30 Days #90 tab 01/07/22 Rx (Myambutol) Past Med/Surg History Medical History Asthma Bronchiectasis Hx of colonic polyps Interstitial cystitis Irritable bowel syndrome Macular degeneration SEPIDEH (mycobacterium avium-intracellulare) infection Microscopic colitis Mitral valve prolapse Myoclonus REASON FOR TAKING BUSPAR Obstructive sleep apnea no cpap can't tolerate Osteoarthritis Sciatica Solar lentigo Stomach ulcer Trochanteric bursitis, right hip Vitamin D deficiency Surgical History H/O excision of mass (10/30/20) Right Arm Lipoma Excision(Right), superficial to fascia, less than [address] Cloud 10/30/2020 History of arthroscopy LEFT HIP History of bronchoscopy 2017 History of cataract surgery bilat History of colonoscopy History of esophagogastroduodenoscopy (EGD) History of kidney surgery right > repair UPJ obstruction History of tonsillectomy History of tooth extraction History of umbilical hernia repair Lipoma RT ARM Ureteral and renal pelvis obstruction, congenital resolved Family History Brother Family history of diabetes mellitus Depression Family hx colonic polyps Myocardial infarction Hypertension Colorectal cancer Sister Colon cancer Dementia Depression Colorectal cancer Father Prostate cancer Hypertension Stroke Aunt Breast cancer Grandmother Colon cancer Unknown Colon cancer Colorectal cancer Grandfather (Maternal) Colorectal cancer Other No family history of adverse response to anesthesia Denies family history of Ovarian cancer Social History Smoking Status: Never smoker Second Hand Exposure: No; Hx Alcohol Use: Yes Alcohol type: wine Alcohol Intake Frequency: 4 or More x per/Week Hx Substance Use: No Preferred Language: Cypriot Communication Ability: Effective Underground Production Foreperson Required: No Beliefs That Will Affect Care: None marital status: Current Living Situation: Spouse current occupational status: retired 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, 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 [email or web address] How many Children do You have: 3 Feels Safe at Home: Yes Childhood Exposure to Second-Hand Smoke: No Diet Comment: eats small amounts of fish as well caffeine: Yes Dental Care, Regularly: Yes Physical Activity Frequency: 3-4 Times per Week Seatbelt Use: always Sunscreen Use: Yes Assistive Devices: Glasses Review of Systems Review of Systems: All systems reviewed & are unremarkable except as noted in HPI & below Physical Exam Constitutional: WD/WN, vitals as above Eyes: PERRL, conjunctivae normal, anicteric sclerae Neck: trachea midline, no thyromegaly Respiratory: normal respiratory effort and + cough; no respiratory distress Auscultation: lungs clear to auscultation bilaterally Cardiovascular: Rate/Rhythm: regular rate; + abnormal rhythm (Sinus arrhythmia) Extremities: normal capillary refill and + edema (Trace) Chest (Breasts): Chest: normal inspection of chest Additional Comments: Tenderness to palpation of the chest at the lower sternal borders. Gastrointestinal (Abdomen): normal bowel sounds, soft, nontender, no hepatosplenomegaly Musculoskeletal: Head/Neck/Chest: normocephalic and head atraumatic Skin: no rashes, warm and dry Neurologic: moves all extremities Psychiatric: A+Ox3, euthymic affect Results & Data Results & Data ([facility]) Vital Signs (Past 12 Hours) Vital Signs Temp Pulse Pulse Resp BP BP Pulse Ox 01/06/22 20:31 67 18 167/86 H 95 01/06/22 17:36 36.3 C L 89 17 189/86 H 95 Supervising Physician Co-Signing Physician Notes Attending addendum: I have physically seen this patient, have supervised the medical residents activities, and agree with the H&P unless as otherwise noted. Assessment and Plan: Mycobacterium avium complex infection- [facility] infectious disease recommends admission and treatment with amikacin 1250 mg IV every Monday, Monday and Monday. Along with azithromycin 50 mg daily and ethambutol 12 mg daily PICC line placement Consult pulmonology Nasal cannula oxygen, titrate to keep pulse ox 92-94% DuoNebs every 4 hours as needed Remaining orders and notations as noted Resident Activity Tracking Resident Involvement: Resident Care Provided Care Provided: Adult Hospital Medicine (1) Dyspnea Dyspnea type: unspecified Qualified Code(s): R06.00 - Dyspnea, unspecified
--- NOTE | 2022-01-06 23:16 | Emergency Department Note ---
Impression & Plan Chest pain, Dyspnea, Mycobacterial infection ED Provider Note NAME: SIA ROBERTS AGE: 76 SEX: F : 1945 ARRIVES VIA: Walk-In INFORMANT: Patient, ED PROVIDER(S): Navid Palacios MD Chief Complaint: Chest pain shortness of breath, infectious disease referral HPI: Patient does present for intermittent chest pain and shortness of breath. No exacerbating or remitting factors but thinks that this all began when she was recently diagnosed with Mycobacterium avium. The patient does follow with pulmonology and infectious disease. The patient has been on intermittent ciprofloxacin therapy. The patient states that her chest pain is sometimes central and nonradiating. Sometimes it is positional but not necessarily exertional. No diaphoresis nausea nausea vomiting. No history of DVT or PE. The patient denies any recent prolonged car plane travel. The patient denies any cardiac history. The patient does follow with pulmonology also for history of bronchiectasis. I did receive an infectious disease call from Dr. Shelby who recommended that the patient be admitted and started on amikacin 1250 mg IV Monday, ethambutol 1200 mg daily as well as azithromycin 250 mg daily. Patient states that sometimes the chest pain is reproducible and sometimes worse with palpation. Patient denies any recent falls or trauma ROS: See HPI for pertinent positives and negatives. A total of 10 systems were reviewed and otherwise negative. Past medical history: See below Surgical history: See below Social history: See below Physical Exam: GENERAL: Well appearing, well nourished, NAD, wearing glasses, wearing a mask, non-toxic. EYE EXAM: Normal conjunctiva. PERRL, no anisocoria and EOM's grossly intact w/o pain. [OROPHARYNX: Moist mucus membranes. Grossly normal dentition. No exudate, posterior pharynx is clear, no tonsillar/uvular deviation or swelling. No cervical adenopathy, no submental, submandibular, or sublingual swelling.] NECK: Supple, no nuchal rigidity, no adenopathy, non-tender. No signs of meningismus. FROM of the neck with good chin to chest and neck extension. No stridor. Chest: Reproducible chest wall pain LUNGS: Clear to auscultation. Normal chest wall mechanics. HEART: NSR, no MRG. ABDOMEN: Abdomen soft, non-tender, normo-active bowel sounds, no masses, no rebound or guarding. BACK: No CVA TTP. SKIN: No rashes and no bruising. UPPER EXTREMITIES: Upper extremities are grossly normal. LOWER EXTREMITIES: Grossly normal, no edema. Negative Homans' sign bilaterally. NEURO EXAM: A&O x3, cranial nerves II-XII grossly intact, normal speech, moves all 4 extremities on command w/o issue. Differential diagnoses: Cardiac ischemia, aortic dissection, pulmonary embolism, pneumothorax, pneumonia, pericarditis, myocarditis, esophageal rupture, GERD, cholecystitis, pancreatitis, musculoskeletal, as well as other pathologies. Course: Patient was seen and evaluated the bedside. Full history physical exam was performed. EKG interpreted by me Likely sinus with a rate of 91, normal axis, P waves appear to be present. Likely PACs. Sinus arrhythmia. Imaging Studies: See Below Cardiac monitoring: An order was placed for continuous cardiac monitoring. The monitor shows a rate of 92 with sinus rhythm. MDM: Patient was seen due to concern for chest pain shortness of breath and outpatient referral for ID initiation of IV antibiotics. I did speak with Dr. Giles at [facility] infectious disease as the schedule was for Monday for the amikacin and states that this may be held until tomorrow. Blood work shows a normal white count H&H and platelet count. The patient's kidney function was unremarkable. The patient was ordered Aleve and Tylenol. Troponin was added and pending at the time of admission. I did order the patient the ethambutol and azithromycin. COVID-negative. Chest x-ray clear. I did speak with the on-call hospitalist Cesar Milian DO child and family services worker and was admitted by Dr. Goddard. Past Med/Surg History Medical History Asthma Bronchiectasis Hx of colonic polyps Interstitial cystitis Irritable bowel syndrome Macular degeneration SEPIDEH (mycobacterium avium-intracellulare) infection Microscopic colitis Mitral valve prolapse Myoclonus REASON FOR TAKING BUSPAR Obstructive sleep apnea no cpap can't tolerate Osteoarthritis Sciatica Solar lentigo Stomach ulcer Trochanteric bursitis, right hip Vitamin D deficiency Surgical History H/O excision of mass (10/30/20) Right Arm Lipoma Excision(Right), superficial to fascia, less than [address] Cloud 10/30/2020 History of arthroscopy LEFT HIP History of bronchoscopy 2017 History of cataract surgery bilat History of colonoscopy History of esophagogastroduodenoscopy (EGD) History of kidney surgery right > repair UPJ obstruction History of tonsillectomy History of tooth extraction History of umbilical hernia repair Lipoma RT ARM Ureteral and renal pelvis obstruction, congenital resolved Family History Brother Family history of diabetes mellitus Depression Family hx colonic polyps Myocardial infarction Hypertension Colorectal cancer Sister Colon cancer Dementia Depression Colorectal cancer Father Prostate cancer Hypertension Stroke Aunt Breast cancer Grandmother Colon cancer Unknown Colon cancer Colorectal cancer Grandfather (Maternal) Colorectal cancer Other No family history of adverse response to anesthesia Denies family history of Ovarian cancer Social History Smoking Status: Never smoker Second Hand Exposure: No; Hx Alcohol Use: Yes Alcohol type: wine Alcohol Intake Frequency: 4 or More x per/Week Hx Substance Use: No Preferred Language: Arabic Communication Ability: Effective Command Center Officer Required: No Beliefs That Will Affect Care: None marital status: Current Living Situation: Spouse current occupational status: retired 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, 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 [employer] How many Children do You have: 3 Feels Safe at Home: Yes Childhood Exposure to Second-Hand Smoke: No Diet Comment: eats small amounts of fish as well caffeine: Yes Dental Care, Regularly: Yes Physical Activity Frequency: 3-4 Times per Week Seatbelt Use: always Sunscreen Use: Yes Assistive Devices: Glasses and Nebulizer Allergies Allergies Allergy/AdvReac Type Severity Reaction Status Date / Time diphenhydramine Allergy Severe anaphylaxis Verified 01/06/22 20:50 bacitracin Allergy Intermediate itching Verified 01/06/22 20:50 neomycin Allergy Intermediate itching Verified 01/06/22 20:50 polymyxin B Allergy Intermediate itching Verified 01/06/22 20:50 Sulfa (Sulfonamide Allergy Intermediate rash Verified 01/06/22 20:50 Antibiotics) amoxicillin [From Augmentin] Allergy Mild Diarrhea Verified 01/06/22 20:50 clavulanic acid Allergy Mild Diarrhea Verified 01/06/22 20:50 [From Augmentin] triamcinolone Allergy Mild nose Verified 01/06/22 20:50 bleed, Nausea doxycycline AdvReac Severe abdominal Verified 01/06/22 20:50 pain and diarrhea azithromycin AdvReac Mild Nausea Verified 01/06/22 20:50 clarithromycin AdvReac Mild nausea Verified 01/06/22 20:50 codeine AdvReac Mild nausea Verified 01/06/22 20:50 erythromycin base AdvReac Mild nausea Verified 01/06/22 20:50 hydrocodone AdvReac Mild nausea Verified 01/06/22 20:50 hyoscyamine AdvReac Mild when just Verified 01/06/22 20:50 by itself not in combo med metronidazole AdvReac Mild nausea Verified 01/06/22 20:50 ondansetron AdvReac Mild "can't Verified 01/06/22 20:50 sleep" oxymetazoline AdvReac Mild headache Verified 01/06/22 20:50 pantoprazole AdvReac Mild nausea Verified 01/06/22 20:50 propoxyphene AdvReac Mild nausea Verified 01/06/22 20:50 tramadol AdvReac Mild nausea Verified 01/06/22 20:50 Home Meds Home Medications Medication Instructions Recorded Confirmed guaifenesin 600 mg tablet, 600 mg PO Q12H 06/13/18 01/06/22 extended release 12 hr (Mucinex) vit C 250 mg-vit E 90 mg-zinc 40 1 tab PO BID 06/13/18 01/06/22 mg-copper 1 [id number] capsule (PreserVision AREDS-2) Saccharomyces boulardii 250 mg 250 mg PO BID 05/01/19 01/06/22 capsule (Florastor) cholecalciferol (vitamin D3) 50 4,000 units PO QAM cap 08/19/19 01/06/22 mcg (2,000 unit) capsule (Vitamin D3) naproxen sodium 220 mg capsule 220 mg PO BID PRN 05/20/21 01/06/22 (Aleve) turmeric 400 mg capsule 400 mg PO DAILY 11/24/21 01/06/22 Hypersal 7% Neb 1 dose INHALATION BID 01/06/22 01/06/22 magnesium 500 mg tablet 500 mg PO DAILY 01/06/22 01/06/22 Previous Rx's Medication Instructions Recorded buspirone 15 mg tablet 15 mg PO BID #180 tab 09/28/21 albuterol sulfate 90 mcg/actuation 2 puff INHALATION Q4H PRN #18 g 12/07/21 aerosol inhaler Results & Data (ED) Vital Signs Vital Signs - 24 hr 01/06/22 17:36 01/06/22 17:41 01/06/22 20:30 Temperature 36.3 C L Temperature Source Temporal Artery Scan Pulse Rate 89 Pulse Rate [Right Finger] Pulse Rhythm Regular Pulse Rhythm [Right Finger] Pulse Strength Normal Pulse Strength [Right Finger] Respiratory Rate 17 Respiratory Effort / Characteristics Non-Labored Spontaneous Non-Labored Spontaneous Respiratory Depth Normal Normal Respiratory Pattern Regular Regular Blood Pressure 189/86 H Blood Pressure [Right Arm] Blood Pressure Mean 120 Blood Pressure Mean [Right Arm] Blood Pressure Position Sitting Pulse Oximetry 95 Oxygen Delivery Method Room Air Room Air Room Air Sepsis Recent Fever Within 48 Hours No Sepsis New/Unexplained Change in Mental Status N/A Sepsis Action Taken by Nursing No Action Required 01/06/22 20:31 01/06/22 23:11 Temperature Temperature Source Pulse Rate 74 Pulse Rate [Right Finger] 67 Pulse Rhythm Pulse Rhythm [Right Finger] Regular Pulse Strength Pulse Strength [Right Finger] Normal Respiratory Rate 18 17 Respiratory Effort / Characteristics Non-Labored Spontaneous Respiratory Depth Normal Respiratory Pattern Blood Pressure Blood Pressure [Right Arm] 167/86 H Blood Pressure Mean Blood Pressure Mean [Right Arm] 113 Blood Pressure Position Pulse Oximetry 95 95 Oxygen Delivery Method Room Air Room Air Sepsis Recent Fever Within 48 Hours Sepsis New/Unexplained Change in Mental Status Sepsis Action Taken by Shelter Medications Current Medication List: was personally reviewed by me Laboratory Data Attestation: I reviewed the patient's lab results. Result diagrams: 01/06/22 19:10 01/06/22 19:10 Lab Results 01/06/22 01/06/22 01/06/22 Range/Units 19:10 19:10 19:10 WBC 7.67 (4.8-10.8) K/uL RBC 4.48 (4.2-5.4) M/uL Hgb 13.1 (12.0-16.0) g/dL Hct 41.4 (37-47) % MCV 92.4 (80-100) fL MCH 29.2 (25-34) pg MCHC 31.6 L (32-36) g/dL RDW Std Deviation 52.4 H (36.4-46.3) fL RDW Coeff of Daisy 15.5 H (11.5-14.5) % Plt Count 309 (130-400) K/uL MPV 9.9 (7.4-10.4) fL Immature Gran % (Auto) 0.1 % Neut % (Auto) 60.1 % Lymph % (Auto) 29.1 % [place] % (Auto) 8.5 % Eos % (Auto) 1.8 % Baso % (Auto) 0.4 % Neut # (Auto) 4.61 (1.4-6.5) K/uL Lymph # (Auto) 2.23 (1.2-3.4) K/uL [place] # (Auto) 0.65 H (0.11-0.59) K/uL Eos # (Auto) 0.14 (0-0.5) K/uL Baso # (Auto) 0.03 (0-0.2) K/uL Immature Gran # (Auto) 0.01 (0.00-0.02) K/uL PT 10.3 (9.0-12.0) Seconds INR 1.0 (0.9-1.1) APTT 27.1 (21.0-31.0) Seconds PTT Ratio 1.0 Sodium 138 (136-145) mmol/L Potassium 3.7 (3.5-5.1) mmol/L Chloride 106 (98-107) mmol/L Carbon Dioxide 28 (21-32) mmol/L Anion Gap 4 (3-11) BUN 15 (6-23) mg/dl Creatinine 0.68 (0.6-1.2) mg/dl Est Cr Clr Drug Dosing 75.3 ml/min Est GFR ( Amer) 99.2 ml/min Est GFR (Non-Af Amer) 85.6 ml/min BUN/Creatinine Ratio 22.1 H (10-20) Glucose 100 H (70-99(Fasting)) mg/dl Calcium 9.0 (8.5-10.1) mg/dl Magnesium 2.1 (1.7-2.4) mg/dl Total Bilirubin 0.5 (0.2-1.0) mg/dl AST 20 (13-39) U/L ALT 18 (7-52) U/L Alkaline Phosphatase 73 (34-104) U/L Total Protein 6.4 (6.0-8.3) gm/dl Albumin 4.1 (3.4-5.0) gm/dl Globulin 2.3 L (2.5-4.0) gm/dl Albumin/Globulin Ratio 1.8 (0.9-2) SARS-CoV-2, RNA, NAAT (NEGATIVE) 01/06/22 Range/Units 21:10 WBC (4.8-10.8) K/uL RBC (4.2-5.4) M/uL Hgb (12.0-16.0) g/dL Hct (37-47) % MCV (80-100) fL MCH (25-34) pg MCHC (32-36) g/dL RDW Std Deviation (36.4-46.3) fL RDW Coeff of Daisy (11.5-14.5) % Plt Count (130-400) K/uL MPV (7.4-10.4) fL Immature Gran % (Auto) % Neut % (Auto) % Lymph % (Auto) % [place] % (Auto) % Eos % (Auto) % Baso % (Auto) % Neut # (Auto) (1.4-6.5) K/uL Lymph # (Auto) (1.2-3.4) K/uL [place] # (Auto) (0.11-0.59) K/uL Eos # (Auto) (0-0.5) K/uL Baso # (Auto) (0-0.2) K/uL Immature Gran # (Auto) (0.00-0.02) K/uL PT (9.0-12.0) Seconds INR (0.9-1.1) APTT (21.0-31.0) Seconds PTT Ratio Sodium (136-145) mmol/L Potassium (3.5-5.1) mmol/L Chloride (98-107) mmol/L Carbon Dioxide (21-32) mmol/L Anion Gap (3-11) BUN (6-23) mg/dl Creatinine (0.6-1.2) mg/dl Est Cr Clr Drug Dosing ml/min Est GFR ( Amer) ml/min Est GFR (Non-Af Amer) ml/min BUN/Creatinine Ratio (10-20) Glucose (70-99(Fasting)) mg/dl Calcium (8.5-10.1) mg/dl Magnesium (1.7-2.4) mg/dl Total Bilirubin (0.2-1.0) mg/dl AST (13-39) U/L ALT (7-52) U/L Alkaline Phosphatase (34-104) U/L Total Protein (6.0-8.3) gm/dl Albumin (3.4-5.0) gm/dl Globulin (2.5-4.0) gm/dl Albumin/Globulin Ratio (0.9-2) SARS-CoV-2, RNA, NAAT NEGATIVE (NEGATIVE) Administered Medications Azithromycin 250 mg/ Dextrose 252.5 mls @ 125 mls/hr IV ONE ONE Stop: 01/06/22 23:30 Last Admin: 01/06/22 22:12 Dose: 125 mls/hr Documented by: [id number] Discontinued Medications Acetaminophen (Acetaminophen 500 Mg Tab) 1,000 mg PO NOW STA Stop: 01/06/22 21:00 Last Admin: 01/06/22 21:08 Dose: 1,000 mg Documented by: [id number] Azithromycin (Azithromycin 250 Mg Tab) 250 mg PO DAILY STA Stop: 01/06/22 21:00 Last Admin: 01/06/22 21:35 Dose: Not Given Documented by: [id number] Naproxen (Naproxen 250 Mg Tab) 500 mg PO NOW STA Stop: 01/06/22 21:00 Last Admin: 01/06/22 21:08 Dose: 500 mg Documented by: [id number] Imaging Data Radiologist's Impression: Chest X-Ray 01/06/22 18:59 XR chest 1V portable CLINICAL HISTORY: SOB. COMPARISON STUDY: 12/12/2021 TECHNIQUE: 1 view of the chest FINDINGS: Single frontal view of the chest demonstrates the cardiomediastinal silhouette to be within normal limits. The lungs are clear of alveolar opacities. Chronic prominence of the pulmonary markings at the lung bases is again seen in a patient with a history of bronchiectasis. There is no evidence for pleural effusion. There is no evidence for vascular congestion. There is no acute osseo us pathology. IMPRESSION: 1. No acute cardiopulmonary disease. ACT 112: Negative or not required by law. Electronically signed by: Piero Riley M.D. 01/06/2022 8:10 PM Discharge Plan Visit Data Chief Complaint: Shortness of Breath/Dyspnea Stated Complaint: CHEST PAIN, SOB ED Provider: Navid Palacios Discharge Problem: Chest pain, Dyspnea, Mycobacterial infection Discharge Instructions Interventions: ED Discharge Assessment Last Done: 01/06/22 23:11 Forms Stand Alone Forms: [facility] [employer] Prescriptions Prescriptions: No Action buspirone 15 mg tablet 15 mg PO BID Qty: 180 RF: 3 turmeric 400 mg capsule 400 mg PO DAILY RF: 0 Florastor 250 mg capsule 250 mg PO BID RF: 0 albuterol sulfate 90 mcg/actuation HFA aerosol inhaler 2 puff inhalation Q4H PRN (Reason: Wheezing) Qty: 18 RF: 3 PreserVision AREDS-2 [id number]-mg Capsule 1 tab PO BID RF: 0 guaifenesin [Mucinex] 600 mg Tablet Extended Release 12hr 600 mg PO Q12H RF: 0 cholecalciferol (vitamin D3) [Vitamin D3] 50 mcg (2,000 unit) capsule 4,000 units PO QAM RF: 0 magnesium 500 mg Tablet 500 mg PO DAILY RF: 0 Hypersal 7% Neb 1 dose inhalation BID RF: 0 naproxen sodium [Aleve] 220 mg Capsule 220 mg PO BID PRN (Reason: Pain) RF: 0 Referrals Referrals: Emi Mondragon MD [Primary Care Provider] - Discharge Problem: Chest pain Qualifiers: Chest pain type: unspecified Qualified Code(s): R07.9 - Chest pain, unspecified Dyspnea Qualifiers: Dyspnea type: unspecified Qualified Code(s): R06.00 - Dyspnea, unspecified
[2022-01-06] MEDS ORDERED: ALBUTEROL HFA 8 GM INHALER INH PRN (23:44)
[2022-01-06] MEDS ORDERED: AMIKACIN CONSULT ACTIVE PRN (23:44)
[2022-01-06] MEDS ORDERED: POLYETHYLENE (MIRALAX) 17 GM PACK PO PRN (23:44)
[2022-01-06] MEDS ORDERED: ACETAMINOPHEN 325 MG TAB PO PRN (23:44)
[2022-01-07] MEDS ORDERED: NAPROXEN 250 MG TAB PO PRN (00:53)
[2022-01-07] MEDS: guaiFENesin 600 MG TABCR PO SCH ×2 (01:26→09:30)
[2022-01-07] MEDS ORDERED: ETHAMBUTOL HCL 400 MG TAB PO SCH (02:00)
[2022-01-07] MEDS ORDERED: AMIKACIN SULFATE 1,250 MG in DEXTROSE 5% 250 ML IV SCH (02:00)
[2022-01-07] MEDS ORDERED: SODIUM CHLOR 7% 4 ML NEB INH SCH (07:00)
[2022-01-07] MEDS ORDERED: ETHAMBUTOL HCL 400 MG TAB PO STA (08:00)
[2022-01-07 08:23] LABS: Hemoglobin 12.6 g/dL (12.0-16.0); Mean Corpuscular Hemoglobin 28.9 pg (25-34); Mean Corpuscular Hgb Conc 31.5 g/dL (32-36); Mean Corpuscular Volume 91.7 fL (80-100); Mean Platelet Volume 9.9 fL (7.4-10.4); Platelet Count 274 K/uL (130-400); RDW Coefficient of Variation 15.3 % (11.5-14.5); RDW Standard Deviation 51.6 fL (36.4-46.3); Red Blood Count 4.36 M/uL (4.2-5.4); White Blood Count 5.78 K/uL (4.8-10.8)
[2022-01-07] MEDS ORDERED: CEROVITE ADV FORMULA TAB PO SCH (09:00)
[2022-01-07] MEDS ORDERED: SACCHAROMYCES BOULARDII 250 MG CAP PO SCH (09:00)
[2022-01-07] MEDS ORDERED: busPIRone 15 MG TAB PO SCH (09:00)
[2022-01-07] MEDS ORDERED: ENOXAPARIN INJ 40 MG/0.4 ML SYR SQ SCH (09:00)
[2022-01-07] MEDS ORDERED: NON-FORMULARY MEDICATION (Turmeric 400 mg capsule) PO SCH (09:00)
[2022-01-07] MEDS ORDERED: CHOLECALCIFEROL 1,000 UNITS 25 MCG TAB PO SCH (09:00)
[2022-01-07] MEDS ORDERED: MAGNESIUM OXIDE 400 MG TAB PO SCH (09:00)
[2022-01-07 09:04] LABS: BUN Creatinine Ratio 21.7 (10-20); Calcium 8.6 mg/dl (8.5-10.1); Creatinine Clr Calc Pharmacy 84.9 ml/min; Est GFR (African American) 103.3 ml/min; Est GFR (Non-African American) 89.2 ml/min
--- NOTE | 2022-01-07 09:37 | Pharmacy Report ---
Pharmacy Renal Dosing Consult - Date of Service January 07, 2022 - Objective: Height: 5 ft 5 in Weight: 80.5 kg Lab Results (24hrs):: Laboratory Tests 01/06/22 01/06/22 01/07/22 19:10 19:10 07:39 WBC 7.67 5.78 Neut # (Auto) 4.61 BUN 15 Creatinine 0.68 01/07/22 07:39 WBC Neut # (Auto) BUN 13 Creatinine 0.60 - Current Medications: Current Inpatient Medications Acetaminophen (Acetaminophen 325 Mg Tab) 650 mg PO Q4H PRN PRN Reason: Pain or Fever Stop: 02/05/22 23:43 Albuterol (Albuterol Hfa 8 Gm Inhaler) 2 puffs INH Q4H PRN PRN Reason: Wheezing Stop: 02/05/22 23:43 Amikacin Sulfate (Amikacin Consult Active) 1 ea N/A UD PRN PRN Reason: Consult Stop: 02/05/22 23:43 Buspirone HCl (Buspirone 15 Mg Tab) 15 mg PO BID [facility] Stop: 02/06/22 08:59 Enoxaparin Sodium (Enoxaparin Inj 40 Mg/0.4 Ml Syr) 40 mg SQ Q24H [facility] Stop: 02/06/22 08:59 Ethambutol HCl (Ethambutol Hcl 400 Mg Tab) 1,200 mg PO DAILY [facility] Stop: 02/06/22 01:59 Last Admin: 01/07/22 02:42 Dose: 1,200 mg Documented by: Guaifenesin (Guaifenesin 600 Mg Tabcr) 600 mg PO Q12 [facility] Stop: 02/05/22 23:43 Last Admin: 01/07/22 01:26 Dose: 600 mg Documented by: Amikacin Sulfate 1,250 mg/ (Dextrose) 255 mls @ 250 mls/hr IV [id number] [facility]; Protocol Stop: 02/06/22 01:59 Last Infusion: 01/07/22 03:57 Dose: Infused Documented by: Azithromycin 250 mg/ Dextrose 252.5 mls @ 125 mls/hr IV Q24H [facility] Stop: 01/14/22 20:59 Magnesium Oxide (Magnesium Oxide 400 Mg Tab) 400 mg PO DAILY [facility] Stop: 02/06/22 08:59 Multivitamins/Minerals (Cerovite Adv Formula Tab) 1 tab PO QAM [facility] Stop: 02/06/22 08:59 Naproxen (Naproxen 250 Mg Tab) 250 mg PO BID PRN PRN Reason: Pain Stop: 02/06/22 00:52 Polyethylene Glycol (Polyethylene (Miralax) 17 Gm Pack) 17 gm PO DAILY PRN PRN Reason: Constipation Stop: 02/05/22 23:43 Saccharomyces Boulardii (Saccharomyces Boulardii 250 Mg Cap) 250 mg PO BID [facility] Stop: 02/06/22 08:59 Sodium Chloride (Sodium Chlor 7% 4 Ml Neb) 4 ml INH BIDR [facility] Stop: 02/06/22 06:59 Last Admin: 01/07/22 07:22 Dose: 4 ml Documented by: Vitamin D (Cholecalciferol 1,000 Units 25 Mcg Tab) 4,000 units PO QAM [facility] Stop: 02/06/22 08:59 - Assessment & Plan: * PL is a 76 year old female admitted 01/06/22 for initiation of antibiotics for treatment of chronic MAC infection. * Recommendations provided by [facility] infectious diseases * Amikacin 1250 mg IV thrice weekly (MWF) ~15 mg/kg * Ethambutol 1200 mg PO daily * Azithromycin 250 mg IV daily * Pharmacy automatically consulted for Amikacin - will consider peak/trough levels if extended hospitalization * Of note: peak/trough levels will be a send out and will take several days to result * Current amikacin dosing is appropriate * Thrice-weekly lab targets, peak 65-80 mcg/mL; trough < 5 mcg/mL
--- NOTE | 2022-01-07 12:03 | Electrocardiogram Report ---
Test Reason : Blood Pressure : / mmHG Vent. Rate : 091 BPM Atrial Rate : 108 BPM P-R Int : 000 ms QRS Dur : 072 ms QT Int : 352 ms P-R-T Axes : 000 046 073 degrees QTc Int : 432 ms Probable Normal sinus rhythm with frequent Premature atrial complexes Septal infarct , age undetermined Abnormal ECG When compared with ECG of 03-JAN-2022 15:11, No significant change Confirmed by Perico Rivera ([id number]) on 01/07/2022 12:03:37 PM Referred By: Luigi Shelby Confirmed By:Perico Rivera
--- NOTE | 2022-01-07 12:26 | Pulmonary Consultation ---
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 She was referred for adm ission by her infectious disease consultants at [facility] for initiation of antimicrobial therapy. Recommendations: 1. Bronchiectasis: Continue pulmonary toilet measures including flutter valve, hypertonic saline, and as needed bronchodilators. 2. 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 M kazes isiah is typically difficult to treat. If she remains on amikacin would recommend a baseline audiogram and serial audiograms every 2 to 3 months to evaluate for potential ototoxicity. While being on ethambutol she should have every 3 month color vision screening performed. It appears that the patient requires a PICC line and will defer to the primary admitting service to get this set up as well as initiation of home antibiotics under the direction of [facility]. In some cases, surgical resection may be required to affect cure for M abscessus after appropriate antimicrobial therapy. Again defer to ID 3. Chest pain and dyspnea: I am not entirely convinced that the patient's complaints of chest discomfort and shortness of breath are related to her underlying lung disease at is it is fairly local and not diffuse enough to cause symptoms. Agree with looking for other alternative etiologies including cardiac evaluation and potentially GI evaluation. From a pulmonary standpoint, once IV antibiotics are set up and she is got outpatient follow-up arranged with [facility], she can be dismissed from the hospital. She has follow-up scheduled with Dr. Mcelroy in about 3 months The above recommendations and plan were discussed with the patient at bedside. Questions were answered to the best my ability. She expressed understanding and is in agreement with plan as outlined. Will sign off at this point time. Feel free to contact us if we can be of additional assistance. History of Present Illness Attending Physician: Johnny Kilgore MD History of Present Illness Asked by hospitalist to assist in evaluation and management of this patient with known nontuberculous mycobacterial infection of the lung and bronchiectasis. The patient is followed by Dr. Santacruz in the outpatient setting as well as by [facility] infectious disease. Patient is a 76-year-old female with a history of Mycobacterium avium complex diagnosed and managed by Dr. Gallo and Dr. Thompson previously. She was treated with azithromycin, rifampin, and ethambutol although it does not appear that she was able to tolerate the rifampin for full 18 months. It is unclear if she had a complete clinical response. She had residual bronchiectasis. Follow-up sputum cultures unfortunately demonstrated persistent/recurrence of the nontuberculous mycobacterial infection with both Mycobacterium avium complex and Mycobacterium abscessus identified. She was seen in consultation with [facility]. They referred the patient to the emergency room for initiation of IV antibiotics in the form of amikacin as well as azithromycin and ethambutol. The nontuberculous mycobacterial isolates have apparently been sent for sensitivities by the [facility] folks but we do not have that data available to review. The patient reports some cough and production of clear to whitish phlegm. No hemoptysis. She has occasional shortness of breath and some substernal chest discomfort. No fevers chills night sweats or other constitutional symptoms. Allergies Allergy/AdvReac Type Severity Reaction Status Date / Time diphenhydramine Allergy Severe anaphylaxis Verified 01/06/22 20:50 bacitracin Allergy Intermediate itching Verified 01/06/22 20:50 neomycin Allergy Intermediate itching Verified 01/06/22 20:50 polymyxin B Allergy Intermediate itching Verified 01/06/22 20:50 Sulfa (Sulfonamide Allergy Intermediate rash Verified 01/06/22 20:50 Antibiotics) amoxicillin [From Augmentin] Allergy Mild Diarrhea Verified 01/06/22 20:50 clavulanic acid Allergy Mild Diarrhea Verified 01/06/22 20:50 [From Augmentin] triamcinolone Allergy Mild nose Verified 01/06/22 20:50 bleed, Nausea doxycycline AdvReac Severe abdominal Verified 01/06/22 20:50 pain and diarrhea azithromycin AdvReac Mild Nausea Verified 01/06/22 20:50 clarithromycin AdvReac Mild nausea Verified 01/06/22 20:50 codeine AdvReac Mild nausea Verified 01/06/22 20:50 erythromycin base AdvReac Mild nausea Verified 01/06/22 20:50 hydrocodone AdvReac Mild nausea Verified 01/06/22 20:50 hyoscyamine AdvReac Mild when just Verified 01/06/22 20:50 by itself not in combo med metronidazole AdvReac Mild nausea Verified 01/06/22 20:50 ondansetron AdvReac Mild "can't Verified 01/06/22 20:50 sleep" oxymetazoline AdvReac Mild headache Verified 01/06/22 20:50 pantoprazole AdvReac Mild nausea Verified 01/06/22 20:50 propoxyphene AdvReac Mild nausea Verified 01/06/22 20:50 tramadol AdvReac Mild nausea Verified 01/06/22 20:50 Home Medications Medication Instructions Recorded Confirmed Type guaifenesin 600 mg tablet, 600 mg PO Q12H 06/13/18 01/06/22 History extended release 12 hr (Mucinex) vit C 250 mg-vit E 90 mg-zinc 40 1 tab PO BID 06/13/18 01/06/22 History mg-copper 1 [id number] capsule (PreserVision AREDS-2) Saccharomyces boulardii 250 mg 250 mg PO BID 05/01/19 01/06/22 History capsule (Florastor) cholecalciferol (vitamin D3) 50 4,000 units PO QAM cap 08/19/19 01/06/22 History mcg (2,000 unit) capsule (Vitamin D3) naproxen sodium 220 mg capsule 220 mg PO BID PRN 05/20/21 01/06/22 History (Aleve) buspirone 15 mg tablet 15 mg PO BID #180 tab 09/28/21 01/06/22 Rx turmeric 400 mg capsule 400 mg PO DAILY 11/24/21 01/06/22 History albuterol sulfate 90 mcg/actuation 2 puff INHALATION Q4H PRN #18 g 12/07/21 01/06/22 Rx aerosol inhaler Hypersal 7% Neb 1 dose INHALATION BID 01/06/22 01/06/22 History magnesium 500 mg tablet 500 mg PO DAILY 01/06/22 01/06/22 History Patient History Medical History Asthma Bronchiectasis Hx of colonic polyps Interstitial cystitis Irritable bowel syndrome Macular degeneration SEPIDEH (mycobacterium avium-intracellulare) infection Microscopic colitis Mitral valve prolapse Myoclonus REASON FOR TAKING BUSPAR Obstructive sleep apnea no cpap can't tolerate Osteoarthritis Sciatica Solar lentigo Stomach ulcer Trochanteric bursitis, right hip Vitamin D deficiency Surgical History H/O excision of mass (10/30/20) Right Arm Lipoma Excision(Right), superficial to fascia, less than [address] Cloud 10/30/2020 History of arthroscopy LEFT HIP History of bronchoscopy 2017 History of cataract surgery bilat History of colonoscopy History of esophagogastroduodenoscopy (EGD) History of kidney surgery right > repair UPJ obstruction History of tonsillectomy History of tooth extraction History of umbilical hernia repair Lipoma RT ARM Ureteral and renal pelvis obstruction, congenital resolved Family History Brother Family history of diabetes mellitus Depression Family hx colonic polyps Myocardial infarction Hypertension Colorectal cancer Sister Colon cancer Dementia Depression Colorectal cancer Father Prostate cancer Hypertension Stroke Aunt Breast cancer Grandmother Colon cancer Unknown Colon cancer Colorectal cancer Grandfather (Maternal) Colorectal cancer Other No family history of adverse response to anesthesia Denies family history of Ovarian cancer Social History Smoking Status: Never smoker Second Hand Exposure: No; Hx Alcohol Use: Yes Alcohol type: wine Alcohol Intake Frequency: 4 or More x per/Week Hx Substance Use: No Preferred Language: Urdu Communication Ability: Effective Yard Hostler Required: No Beliefs That Will Affect Care: None marital status: Current Living Situation: Spouse current occupational status: retired 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 No additions or deletions Physical Exam Constitutional: WD/WN, vitals as above Neck: trachea midline, no thyromegaly Respiratory: normal respiratory effort, lungs clear to auscultation Cardiovascular: RRR, no murmur, no edema Gastrointestinal (Abdomen): normal bowel sounds, soft, nontender, no hepatosplenomegaly Musculoskeletal: Extremities: extremities normal to inspection Skin: no rashes, warm and dry Neurologic: Nonfocal exam Lymphatic: no cervical lymphadenopathy Results & Data Results & Data ([facility]) Vital Signs (Past 12 Hours) Vital Signs Temp Pulse Pulse Resp BP Pulse Ox 01/07/22 11:20 36.5 C 68 18 121/61 96 01/07/22 07:41 36.6 C 65 18 135/81 96 01/07/22 07:25 57 L 01/07/22 07:23 64 18 93 01/07/22 04:00 36.4 C L 65 18 151/72 H 94 01/07/22 01:14 71 Diagnostic Findings Outpatient clinical notes from Dr. Cantrell were extensively reviewed in the [facility] medical record. CT chest diagnostic wo con 11/16/[address] DOSE: 344.18 mGycm CLINICAL HISTORY: 75 years-old Female with J47.9 - Bronchiectasis, uncompl icated. Acute cough with shortness of breath. TECHNIQUE: Multiaxial CT images of the chest were performed without contrast. A dose lowering technique was utilized adhering to the principles of ALARA. COMPARISON: Chest CT 05/24/2021 FINDINGS: Unremarkable thyroid. The heart is normal in size without pericardial effusion. No thoracic aortic aneurysm. There are a few subcentimeter mediastinal lymph nodes which are favored to be physiologic. No pneumothorax, pleural effusion or overt pulmonary edema. Focal areas of bronchiectasis are redemonstrated within the inferior segment lingula, posterior basal segment left lower lobe and medial segment of the right middle lobe. Associated linear consolidation is also noted within these distributions with an unchanged 8 mm nodular component within the left lower lobe on image 224. Mild bibasilar mucous plugging. Progressively worsened multilobar tree-in-bud nodules are noted bilaterally, most pronounced within the lung bases. Minimal areas of m osaic attenuation are suggestive of air trapping. Mild nonspecific distal esophageal wall thickening. Unremarkable soft tissues. No acute fracture or destructive bone lesion. IMPRESSION: 1. Bibasilar bronchiectasis with associated linear consolidation is redemonstrated. Progressive multilobar bibasilar predominant tree-in-bud nodules have worsened from the 05/24/2021 study. Constellation of findings is compatible with a nonspecific infectious or inflammatory bronchiolitis/pneumonitis such as nontuberculosis mycobacterium. 2. No lymphadenopathy or pleural effusion. Sputum culture 09/30/2021 showed Mycobacterium avium complex and Mycobacterium abscessus complex. Sensitivities are pending Critical Care Results & Data Vital Signs (Past 12 Hours) Vital Signs Temp Pulse Pulse Resp BP Pulse Ox 01/07/22 11:20 36.5 C 68 18 121/61 96 01/07/22 07:41 36.6 C 65 18 135/81 96 01/07/22 07:25 57 L 01/07/22 07:23 64 18 93 01/07/22 04:00 36.4 C L 65 18 151/72 H 94 01/07/22 01:14 71 Lab & Micro Results (Past 24 Hours) RBC 4.36 M/uL (4.2-5.4) 01/07/22 WBC 5.78 K/uL (4.8-10.8) 01/07/22 Hgb 12.6 g/dL (12.0-16.0) 01/07/22 Hct 40.0 % (37-47) 01/07/22 MCV 91.7 fL (80-100) 01/07/22 MCH 28.9 pg (25-34) 01/07/22 MCHC 31.5 g/dL (32-36) L 01/07/22 RDW Standard Deviation 51.6 fL (36.4-46.3) H 01/07/22 RDW Coefficient of Variation 15.3 % (11.5-14.5) H 01/07/22 Plt Count 274 K/uL (130-400) 01/07/22 MPV 9.9 fL (7.4-10.4) 01/07/22 Neutrophils (%) (Auto) 60.1 % 01/06/22 Lymphocytes (%) (Auto) 29.1 % 01/06/22 Monocytes # (Auto) 0.65 K/uL (0.11-0.59) H 01/06/22 Eosinophils # (Auto) 0.14 K/uL (0-0.5) 01/06/22 Immature Granulocyte % (Auto) 0.1 % 01/06/22 Neutrophils # (Auto) 4.61 K/uL (1.4-6.5) 01/06/22 Lymphocytes # (Auto) 2.23 K/uL (1.2-3.4) 01/06/22 Monocytes # (Auto) 0.65 K/uL (0.11-0.59) H 01/06/22 Eosinophils # (Auto) 0.14 K/uL (0-0.5) 01/06/22 Basophils # (Auto) 0.03 K/uL (0-0.2) 01/06/22 Immature Granulocyte # (Auto) 0.01 K/uL (0.00-0.02) 01/06/22 Na 139 mmol/L (136-145) 01/07/22 K 4.0 mmol/L (3.5-5.1) 01/07/22 Cl 107 mmol/L (98-107) 01/07/22 CO2 27 mmol/L (21-32) 01/07/22 Anion Gap 5 (3-11) 01/07/22 BUN 13 mg/dl (6-23) 01/07/22 Creatinine 0.60 mg/dl (0.6-1.2) 01/07/22 Estimated GFR ( Amer) 103.3 ml/min 01/07/22 Estimated GFR (Non-Af Amer) 89.2 ml/min 01/07/22 BUN/Creatinine Ratio 21.7 (10-20) H 01/07/22 Glu 88 mg/dl (70-99(Fasting)) 01/07/22 Ca 8.6 mg/dl (8.5-10.1) 01/07/22 Total Bilirubin 0.5 mg/dl (0.2-1.0) 01/06/22 AST 20 U/L (13-39) 01/06/22 ALT 18 U/L (7-52) 01/06/22 Alkaline Phosphatase 73 U/L (34-104) 01/06/22 TP 6.4 gm/dl (6.0-8.3) 01/06/22 Albumin 4.1 gm/dl (3.4-5.0) 01/06/22 Globulin 2.3 gm/dl (2.5-4.0) L 01/06/22 Albumin/Globulin Ratio 1.8 (0.9-2) 01/06/22 Mg 2.1 mg/dl (1.7-2.4) 01/06/22 19:10 01/06/22 Calcium Level 8.6 mg/dl (8.5-10.1) 01/07/22 07:39 01/07/22 Prothromb Time International Ratio 1.0 (0.9-1.1) 01/06/22 19:10 01/06/22 Diagnostic Findings (Past 24 Hours) Chest X-Ray 01/06/22 18:59 XR chest 1V portable CLINICAL HISTORY: SOB. COMPARISON STUDY: 12/12/2021 TECHNIQUE: 1 view of the chest FINDINGS: Single frontal view of the chest demonstrates the cardiomediastinal silhouette to be within normal limits. The lungs are clear of alveolar opacities. Chronic prominence of the pulmonary markings at the lung bases is again seen in a patient with a history of bronchiectasis. There is no evidence for pleural effusion. There is no evidence for vascular congestion. There is no acute osseous pathology. IMPRESSION: 1. No acute cardiopulmonary disease. ACT 112: Negative or not required by law. Electronically signed by: Piero iRley M.D. 01/06/2022 8:10 PM I & O Totals 24 Hours 01/06/22 01/07/22 01/08/22 06:59 06:59 06:59 Intake Total 757.5 / 757.5 Balance 757.5 / 757.5 Cumulative 01/06/22 17:22 thru 01/07/22 06:00 Intake Total 757.5 Balance 757.5 RT Ventilator Mngmt (Last Documented) Ventilator Ordered Settings Respiratory Rate 18 01/07/22 11:20 Ventilator - PT Measurements Respiratory Rate 18 PG Care Time/CCT Total # of Minutes Spent Total Time Spent with Patient: Total time spent is greater than 50% in coordination of care (as documented) at patient's floor/unit and/or counseling patient: Coding Level of Care Code 83909 Initial Inpt Care Lvl 3 Diagnoses Mycobacterial infection A31.9 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
--- NOTE | 2022-01-07 15:27 | XCELERA ---
[id number]
[2022-01-07] MEDS ORDERED: AZITHROMYCIN 250 MG TAB PO SCH (21:00)
[2022-01-07] MEDS ORDERED: AZITHROMYCIN 250 MG in DEXTROSE 5% 250 ML IV SCH (21:00)
--- NOTE | 2022-01-08 05:32 | Billing Data ---
Date of Service January 08, 2022 Coding Level of Care Code INT OBSERVATION CARE 70M LVL 3
--- NOTE | 2022-01-10 10:44 | Discharge Summary ---
Date of Service January 07, 2022 Admission HPI Per Admitting Provider Patient is a 76-year-old female with a past medical history of chronic Mycobacterium avium complex and bronchiectasis who presented to the ED for concerns regarding shortness of breath. Patient reports dyspnea over the past 3 days. Patient reports a history of being diagnosed for nontuberculous mycobacteria in 2017. Patient was initially treated by a Dr. Gallo from [facility]. Patient took 14 months of rifampin, ethambutol, and moxifloxacin in 2017. 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 Per the patient's history there was discussion with infectious disease regarding utilizing a PICC line so the patient could receive IV antibiotics in the outpatient setting. She currently follows Dr. Shelby from [facility] infectious disease and Dr. Mcelroy for pulmonology. Dr. Shelby had gotten contact with the ED provider, Dr. Palacios, who states that he would like the patient to be admitted to be put on IV antibiotics. The regimen he is requesting is ethambutol 1200 mg daily, azithromycin 250 mg daily, and anakinra 1250 mg every Monday. Patient reports there has been talk about patient being on a PICC line to receive IV antibiotics in the outpatient setting with her infectious disease doctor. Otherwise patient does have the complaint of chest discomfort that is reproducible. Patient reports that she does get chest pain when she has frequent episodes of coughing like she has recently. Reports history of multiple episodes of costochondritis. Does not seem to worsen with exertion. Pain appears to be sternal. Patient has no other complaints at this time. ED course: Patient seen at bedside by ED provider. EKG, chest x-ray, routine lab work ordered. EKG showing frequent PACs otherwise sinus arrhythmia. No concerns seen on blood work. Troponin pending at the time of writing this note. Chest x-ray was clear and unremarkable. Patient received first dose of azithromycin and ethambutol in the ED. Principal Diagnosis Shortness of breath Mycobacterium avium complex Mycobacterium abscesses complex Discharge Exam Constitutional WD/WN, vitals as above Neck trachea midline, no thyromegaly Respiratory normal respiratory effort, lungs clear to auscultation Cardiovascular RRR, no murmur, no edema Gastrointestinal (Abdomen) normal bowel sounds, soft, nontender, no hepatosplenomegaly Musculoskeletal no cyanosis or clubbing, extremities motor strength 5/5 Skin no rashes, warm and dry Neurologic moves all extremities and awake; not confused Psychiatric A+Ox3, euthymic affect Discharge Data Allergies Allergy/AdvReac Type Severity Reaction Status Date / Time diphenhydramine Allergy Severe anaphylaxis Verified 01/06/22 20:50 bacitracin Allergy Intermediate itching Verified 01/06/22 20:50 neomycin Allergy Intermediate itching Verified 01/06/22 20:50 polymyxin B Allergy Intermediate itching Verified 01/06/22 20:50 Sulfa (Sulfonamide Allergy Intermediate rash Verified 01/06/22 20:50 Antibiotics) amoxicillin [From Augmentin] Allergy Mild Diarrhea Verified 01/06/22 20:50 clavulanic acid Allergy Mild Diarrhea Verified 01/06/22 20:50 [From Augmentin] triamcinolone Allergy Mild nose Verified 01/06/22 20:50 bleed, Nausea doxycycline AdvReac Severe abdominal Verified 01/06/22 20:50 pain and diarrhea azithromycin AdvReac Mild Nausea Verified 01/06/22 20:50 clarithromycin AdvReac Mild nausea Verified 01/06/22 20:50 codeine AdvReac Mild nausea Verified 01/06/22 20:50 erythromycin base AdvReac Mild nausea Verified 01/06/22 20:50 hydrocodone AdvReac Mild nausea Verified 01/06/22 20:50 hyoscyamine AdvReac Mild when just Verified 01/06/22 20:50 by itself not in combo med metronidazole AdvReac Mild nausea Verified 01/06/22 20:50 ondansetron AdvReac Mild "can't Verified 01/06/22 20:50 sleep" oxymetazoline AdvReac Mild headache Verified 01/06/22 20:50 pantoprazole AdvReac Mild nausea Verified 01/06/22 20:50 propoxyphene AdvReac Mild nausea Verified 01/06/22 20:50 tramadol AdvReac Mild nausea Verified 01/06/22 20:50 Consultations 01/06/22 21:11 ED Decision to Admit Stat 01/07/22 07:48 Consult Infectious Diseases Routine 01/07/22 07:51 Consult Pulmonology Routine Hospital Course (1) Mycobacterial infection: Karo Wells is a 76 year old female observed at [facility] from January 06-2021 due to shortness of breath. Alternative etiology for her shortness of breath was assessed with stress echocardiogram which was subsequently normal. Chest XR showed no acute pathology. Suspect her chest pain is due to costochondritis given history of this and reproducibility on palpation - recommend taking Naproxen as needed for this. On discussion with her infectious disease physician recommended treating previously diagnosed mycobacterium avium complex and mycobacterium abscessus complex with Amikacin IV, azithromycin and ethambutol. The Amikacin has been arranged through the medical treatment unit and PICC line placed to enable this. Initial course of 30 days prescribed but this is likely to be prolonged by her infectious disease physician. While on ethambutol recommend every 3 month color vision screening performed. Recommend a baseline audiogram and serial audiograms every 2 to 3 months to evaluate for potential ototoxicity while on Amikacin (she was advised to arrange this through her infectious disease physician. (2) Dyspnea: Total Time Total Time Spent Total Time Spent (In Minutes): 65 Discharge Plan Discharge Items Patient Disposition: Home - Self-Care Reason For Visit: DYSPNEA Discharge Diagnosis: Mycobacterium avium complex Mycobacterium abscessus complex Activity: Resume your previous activity Non-emergency contact: Primary Care Provider Call non-emergency contact if: you have any medication questions and your symptoms worsen Follow-up/Referrals: Emi Mondragon MD [Primary Care Provider] - 01/17/22 11:00 am (Appointment with Ella Minor PA-C) Diet: Regular Addtl Attending Provider Instructions: You were observed at [facility] from January 06-2021 due to shortness of breath. Alternative etiology for your shortness of breath was assessed with stress echocardiogram which was subsequently normal. Chest XR showed no acute pathology. Suspect your chest pain is due to costochondritis given history of this and reproducibility on palpation - recommend taking Naproxen as needed for this. On discussion with your infectious disease physician recommended treating previously diagnosed mycobacterium avium complex and mycobacterium abscessus complex with Amikacin IV, azithromycin and ethambutol. The Amikacin has been arranged through the medical treatment unit and PICC line placed to enable this. Initial course of 30 days prescribed but this is likely to be prolonged by your infectious disease physician. While on ethambutol you should have every 3 month color vision screening performed. Recommend a baseline audiogram and serial audiograms every 2 to 3 months to evaluate for potential ototoxicity while on Amikacin (please arrange this through your infectious disease physician). Pending Studies at Discharge: No Stand-Alone Forms: [facility], Smoking Cessation Medications and DC Order Prescriptions: New azithromycin 250 mg Tablet 250 mg PO QPM 30 Days Qty: 30 RF: 0 ethambutol [Myambutol] 400 mg Tablet 1,200 mg PO DAILY 30 Days Qty: 90 RF: 0 amikacin 1,000 mg/4 mL solution 1,250 mg IV DAILY Qty: 4 RF: 0 Continued buspirone 15 mg tablet 15 mg PO BID Qty: 180 RF: 3 turmeric 400 mg capsule 400 mg PO DAILY RF: 0 Florastor 250 mg capsule 250 mg PO BID RF: 0 albuterol sulfate 90 mcg/actuation HFA aerosol inhaler 2 puff inhalation Q4H PRN (Reason: Wheezing) Qty: 18 RF: 3 PreserVision AREDS-2 [id number] Capsule 1 tab PO BID RF: 0 guaifenesin [Mucinex] 600 mg Tablet Extended Release 12hr 600 mg PO Q12H RF: 0 cholecalciferol (vitamin D3) [Vitamin D3] 50 mcg (2,000 unit) capsule 4,000 units PO QAM RF: 0 magnesium 500 mg Tablet 500 mg PO DAILY RF: 0 Hypersal 7% Neb 1 dose inhalation BID RF: 0 naproxen sodium [Aleve] 220 mg Capsule 220 mg PO BID PRN (Reason: Pain) RF: 0 Discharge Orders: Discharge Order (Routine); Ordered 01/07/22 Ordered By: Johnny Kilgore Admission Data Admit Date/Time: 01/06/22 22:29 Attending Provider: Johnny Kilgore Admit Provider: Cesar Milian Primary Care Provider: Emi Mondragon Other Providers: Freddy Frederick ; Nadeem Sorensen ; Cee Emanuel ; Eliseo Giles I. ; Morro Vergara II ; Karo Brown ; Collin Matta ; Luigi Shelby ; Yosi Albarado Other Interventions: Discharge Summary Assessment (RN) Last Done: 01/07/22 18:16 Coding Level of Care Code 42339 OBS Care - Discharge Diagnoses Mycobacterial infection A31.9 Dyspnea R06.00 Dyspnea type: unspecified
== END 2022-01-07 19:20 | disposition home or self-care (01) ==
LOC: ED 17:22 → 2N 17:22 → SUATTDRO 22:29 → 2N 23:11

== ENCOUNTER 2023-06-19 09:48 | Inpatient (IN) ==
[2023-06-19] MEDS ORDERED: ASPIRIN CHEW 324 MG PO STA (09:59)
[2023-06-19] MEDS ORDERED: SODIUM CHLORIDE 0.9% 250 ML IV ONE (10:02)
[2023-06-19] MEDS ORDERED: ONDANSETRON INJ 2 MG/ML 2 ML VIAL ONE (10:02)
[2023-06-19] MEDS ORDERED: ONDANSETRON INJ 2 MG/ML 2 ML VIAL IV STA (10:02)
--- NOTE | 2023-06-19 10:12 | Emergency Department Note ---
Impression & Plan ST elevation UT (STEMI), Chest pain, Elevated troponin I level ED Provider Note NAME: SIA ROBERTS AGE: 77 SEX: F : 1945 ARRIVES VIA: Walk-In INFORMANT: Patient, ED PROVIDER(S): Perico Ventura DO CHIEF COMPLAINT: Chest pain HPI: The patient is a 77-year-old female who presented to the emergency department for an evaluation of chest pain. The patient describes anterior chest pain which began approximately 9 days ago. She also notices nausea. The symptoms are intermittent and wax and wane. They sometimes worsen with exertion. The patient is not been seen by her family doctor for the symptoms. She presented to the emergency department today because of ongoing symptoms. The patient denies having any swelling in her legs. 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 She has had some coughing but nothing new. ROS: See above HPI for pertinent positives & negatives. A total of 10 systems reviewed and were otherwise negative. PAST MEDICAL HISTORY: See Below PAST SURGICAL HISTORY: See Below FAMILY HISTORY: See Below SOCIAL HISTORY: See Below HOME MEDICATIONS: See Below ALLERGIES: See Below VITALS: See Below PHYSICAL EXAMINATION: GENERAL: Patient is awake alert in no acute distress patient is resting comfortably and showing no signs of anxiety EYES: The conjunctivae are clear. The pupils are round and reactive. EARS, NOSE, MOUTH AND THROAT: The nose is without any evidence of any deformity NECK: The neck is nontender and supple. RESPIRATORY: Normal respiratory effort is noted there is no evidence of wheezing rhonchi or rales CARDIOVASCULAR: Regular rate and rhythm noted there no murmurs rubs or gallops normal S1 normal S2. GASTROINTESTINAL: The abdomen is soft. Abdomen is nontender. MUSCULOSKELETAL/EXTREMITIES: There is no evidence of gross deformity full range of motion is noted in the hips and shoulders. SKIN: There is no obvious evidence of any rash. There are no petechiae, pallor or cyanosis noted. NEUROLOGIC: Patient is awake alert and oriented x3 strength is symmetric patellar reflexes are 2+ bilaterally MEDICAL DECISION MAKING: The patient is a 77-year-old female who presented to the emergency department for chest pain. The patient presented through triage. The triage nurse presented an EKG to me and the patient was taken directly to a trauma resuscitation room. Heart alert was called after I discussed the patient's condition with her. She was having chest pain but it was very mild at this time. I discussed the patient's laboratory and radiographic studies with her. Heart alert was called immediately and I discussed the patient's condition with the on-call beater engineer. The patient was treated with aspirin initially. She was given Brilinta after the patient was evaluated by the beater engineer. I discussed the patient's condition with her and her . They were agreeable to cardiac catheterization. I discussed her condition with the on-call [facility]. Triage Nursing notes reviewed. Prior medical records reviewed Vital Signs: reviewed and remarkable for no significant abnormalities Differential diagnosis: Cardiac ischemia, aortic dissection, pulmonary embolism, pneumothorax, pneumonia, pericarditis, myocarditis, esophageal rupture, GERD, cholecystitis, pancreatitis, musculoskeletal, as well as other pathologies. ER treatment provided: See below Diagnostics interpreted by me: ECG: EKG was obtained in the emergency department. My interpretation is normal sinus rhythm at 79 beats per minute. There were no PVCs noted. ST segment elevations were noted in the inferior leads with reciprocal changes in the high lateral low lateral and posterior leads. T wave abnormalities were noted in the inferior and lateral leads. This appears to be consistent with acute process in the inferior posterior wall. This was compared to a tracing from November 10, 2022. The ischemic changes are new compared to the previous tracing. Cardiac Monitoring: An order was placed for continuous cardiac monitoring. The monitor shows a rate of 78 bpm with sinus rhythm. Laboratory studies: As stated above and show below. Imaging studies: See below. Radiographic imaging was reviewed by myself Consultation(s): I discussed this case with Dr. Fuentes who was on-call for interventional cardiology. Dr. Kilgore who is on for the [facility] was notified about the patient. ED COURSE: Procedures: none Critical Care: I have personally spent greater than 35 minutes of critical care time in the direct management of this patient. This includes bedside care, interpretation of diagnostic studies, and testing, discussion with consultants, patient, and family members, and other required patient management activities. This 35 minutes is in excess of all separately billable procedures. Past Med/Surg History Medical History Asthma Bronchiectasis Hx of colonic polyps Interstitial cystitis Macular degeneration SEPIDEH (mycobacterium avium-intracellulare) infection Microscopic colitis Mitral valve prolapse Myoclonus REASON FOR TAKING BUSPAR Obstructive sleep apnea no cpap can't tolerate Osteoarthritis Osteoporosis Prediabetes Right lumbar radiculopathy Sciatica Solar lentigo Trochanteric bursitis, right hip Vitamin D deficiency Surgical History H/O excision of mass (10/30/20) Right Arm Lipoma Excision(Right), superficial to fascia, less than [address] Cloud 10/30/2020 History of arthroscopy LEFT HIP History of bronchoscopy 2017 History of cataract surgery bilat History of colonoscopy History of esophagogastroduodenoscopy (EGD) History of kidney surgery right > repair UPJ obstruction History of tonsillectomy History of tooth extraction History of umbilical hernia repair Lipoma RT ARM Ureteral and renal pelvis obstruction, congenital resolved Family History Brother Family history of diabetes mellitus Depression Family hx colonic polyps Myocardial infarction Hypertension Colorectal cancer Sister Colon cancer Dementia Depression Colorectal cancer Father Prostate cancer Hypertension Stroke Aunt Breast cancer Grandmother Colon cancer Unknown Colon cancer Colorectal cancer Grandfather (Maternal) Colorectal cancer Other No family history of adverse response to anesthesia Denies family history of Ovarian cancer Social History Smoking Status: Never smoker Second Hand Exposure: No; Do You Dip or Chew Tobacco: No; Hx Alcohol Use: Yes Alcohol type: wine Alcohol Intake Frequency: 4 or More x per/Week Alcohol Intake Frequency Comment: daily drink with dinner Hx Substance Use: No Preferred Language: Rw[place] Communication Ability: Effective Visual Impairment: No Limitations Hearing Ability: Normal 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 Required: No Beliefs That Will Affect Care: None marital status: Current Living Situation: Spouse Current Living Situation Comment: Independent Living at [facility] current occupational status: retired 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, 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 [employer] How many Children do You have: 3 Feels Safe at Home: Yes Childhood Exposure to Second-Hand Smoke: No Diet: regular Diet Comment: eats small amounts of fish as well caffeine: Yes Dental Care, Regularly: Yes Physical Activity Frequency: Does not Exercise Seatbelt Use: always Sunscreen Use: Yes Assistive Devices: Nebulizer Allergies Allergies Allergy/AdvReac Type Severity Reaction Status Date / Time diphenhydramine Allergy Severe anaphylaxis Verified 05/10/23 12:55 amikacin Allergy Intermediate Rash Verified 05/10/23 12:55 chlorhexidine Allergy Intermediate RED & ITCHY Verified 05/10/23 12:55 Sulfa (Sulfonamide Allergy Intermediate rash Verified 05/10/23 12:55 Antibiotics) triamcinolone Allergy Intermediate nose Verified 05/10/23 12:55 bleed, Nausea azithromycin AdvReac Intermediate Nausea Verified 05/10/23 12:55 clarithromycin AdvReac Intermediate nausea Verified 05/10/23 12:55 codeine AdvReac Intermediate nausea Verified 05/10/23 12:55 erythromycin base AdvReac Intermediate nausea Verified 05/10/23 12:55 hydrocodone AdvReac Intermediate nausea Verified 05/10/23 12:55 metronidazole AdvReac Intermediate nausea Verified 05/10/23 12:55 ondansetron AdvReac Intermediate "can't Verified 05/10/23 12:55 sleep" oxymetazoline AdvReac Intermediate headache Verified 05/10/23 12:55 pantoprazole AdvReac Intermediate nausea Verified 05/10/23 12:55 propoxyphene AdvReac Intermediate nausea Verified 05/10/23 12:55 tramadol AdvReac Intermediate nausea Verified 05/10/23 12:55 hyoscyamine AdvReac Mild when just Verified 05/10/23 12:55 by itself ok, not in combo med Home Meds Home Medications Medication Instructions Recorded Confirmed guaifenesin 600 mg tablet, 600 mg PO Q12H 06/13/18 05/10/23 extended release 12 hr (Mucinex) vit C 250 mg-vit E 90 mg-zinc 40 1 tab PO BID 06/13/18 05/10/23 mg-copper 1 [id number] capsule (PreserVision AREDS-2) cholecalciferol (vitamin D3) 50 4,000 units PO QAM 08/19/19 05/10/23 mcg (2,000 unit) capsule (Vitamin D3) acetaminophen 650 mg 650 mg PO Q12H PRN Pain 01/15/22 05/10/23 tablet,extended release ethambutol 400 mg tablet 1,200 mg PO QAM 08/23/22 05/10/23 turmeric root extract 500 mg tablet 1,000 mg PO DAILY 01/13/23 05/10/23 L.acid,casei,plant,saliv-B.anim 10 cap PO 05/10/23 05/10/23 billion cell (2 billion ea) capsule Previous Rx's Medication Instructions Recorded nebulizer accessories #2 ea 01/13/22 buspirone 15 mg tablet 15 mg PO BID #180 tabs 12/01/22 clofazimine 100 mg PO DAILY #1 cap 01/13/23 meclizine 12.5 mg tablet 12.5 mg PO DAILY PRN dizziness #10 02/23/23 tabs naproxen 500 mg tablet,delayed 500 mg PO BID PRN pain #60 tabs 03/28/23 release (EC-Naprosyn) lisinopril 10 mg tablet 10 mg PO DAILY #30 tabs 05/09/23 albuterol sulfate 90 mcg/actuation 2 puff inhalation Q4H PRN Wheezing 05/17/23 aerosol inhaler #18 grams ipratropium 0.5 mg-albuterol 3 mg 3 ml inhalation Q8H PRN shortness 05/17/23 (2.5 mg base)/3 mL nebulization of breath or wheezing #180 mL soln sodium chloride 7 % for 1 inh inhalation BID #240 mL 05/17/23 nebulization Results & Data (ED) Vital Signs Vital Signs - 24 hr 06/19/23 09:53 06/19/23 10:06 06/19/23 10:11 Temperature 36.5 C Temperature Source Temporal Artery Scan Pulse Rate 85 82 Pulse Rate from SpO2 Sensor Respiratory Rate 20 Blood Pressure 118/57 L Blood Pressure Mean 77 Pulse Oximetry 95 Oxygen Delivery Method Room Air Room Air Oxygen Flow Rate 97 Sepsis Recent Fever Within 48 Hours No Sepsis New/Unexplained Change in Mental Status N/A Sepsis Action Taken by Nursing No Action Required 06/19/23 10:11 06/19/23 10:05 06/19/23 10:15 Temperature Temperature Source Pulse Rate Pulse Rate from SpO2 Sensor 80 Respiratory Rate 20 Blood Pressure 129/71 Blood Pressure Mean 90 Pulse Oximetry 97 97 Oxygen Delivery Method Room Air Room Air Oxygen Flow Rate Sepsis Recent Fever Within 48 Hours Sepsis New/Unexplained Change in Mental Status Sepsis Action Taken by Nursing 06/19/23 10:10 Temperature Temperature Source Pulse Rate 83 Pulse Rate from SpO2 Sensor 81 Respiratory Rate 16 Blood Pressure Blood Pressure Mean Pulse Oximetry 95 Oxygen Delivery Method Oxygen Flow Rate Sepsis Recent Fever Within 48 Hours Sepsis New/Unexplained Change in Mental Status Sepsis Action Taken by Penitentiary Medications Current Medication List: was personally reviewed by me Laboratory Data Attestation: I reviewed the patient's lab results. 06/19/23 10:05 06/19/23 10:05 Lab Results 06/19/23 06/19/23 Range/Units 10: 10:05 WBC 9.36 (4.8-10.8) K/ul RBC 3.79 L (4.20-5.40) M/uL Hgb 11.4 L (12.0-16.0) g/dl Hct 34.9 L (37.0-47.0) % MCV 92.1 (80.0-100.0) fL MCH 30.1 (25.0-34.0) pg MCHC 32.7 (32.0-36.0) g/dL RDW Std Deviation 48.6 H (36.4-46.3) fL RDW Coeff of Daisy 14.4 (11.5-14.5) % Plt Count 290 (130-400) K/uL MPV 9.4 (9.4-12.4) fL Immature Gran % (Auto) 0.4 % Neut % (Auto) 77.4 % Lymph % (Auto) 12.1 % [place] % (Auto) 9.7 % Eos % (Auto) 0.0 % Baso % (Auto) 0.4 % Neut # (Auto) 7.24 H (1.40-6.50) K/uL Lymph # (Auto) 1.13 L (1.20-3.40) K/uL [place] # (Auto) 0.91 H (0.11-0.59) K/uL Eos # (Auto) 0.00 (0.00-0.50) K/uL Baso # (Auto) 0.04 (0.00-0.20) K/uL Immature Gran # (Auto) 0.04 (0.01-0.20) K/uL Sodium 138 (136-145) mmol/L Potassium 3.3 L (3.5-5.1) mmol/L Chloride 105 (98-107) mmol/L Carbon Dioxide 26 (21-32) mmol/L Anion Gap 7 (3-11) BUN 19 (6-23) mg/dl Creatinine 0.71 (0.6-1.2) mg/dl Est Cr Clr Drug Dosing 67.4 ml/min Est GFR ( Amer) 95.9 ml/min Est GFR (Non-Af Amer) 82.7 ml/min BUN/Creatinine Ratio 26.8 H (10-20) Glucose 115 H (70-99(Fasting)) mg/dl Calcium 8.9 (8.6-10.3) mg/dl Magnesium 1.9 (1.7-2.4) mg/dl Total Bilirubin 1.0 (0.2-1.0) mg/dl AST 73 H (13-39) U/L ALT 26 (7-52) U/L Alkaline Phosphatase 48 (34-104) U/L Troponin I High Sens 11571.3 H* (0-14) pg/ml Total Protein 6.5 (6.0-8.3) gm/dl Albumin 3.8 (3.4-5.0) gm/dl Globulin 2.7 (2.5-4.0) gm/dl Albumin/Globulin Ratio 1.4 (0.9-2) Lipase 16 (11-82) U/L Administered Medications Acetaminophen (Acetaminophen 325 Mg Tab) 650 mg PO Q4H PRN PRN Reason: MILD Pain (Scale 1,2,3) Stop: 07/19/23 11:18 Last Admin: 06/19/23 12:43 Dose: 650 mg Documented By: ANGELITA Sodium Chloride (Nss) 1,000 mls @ 75 mls/hr IV .[id number] [facility] Stop: 07/19/23 11:29 Last Admin: 06/19/23 12:47 Dose: 75 mls/hr Documented By: ANGELITA Miscellaneous (Icu Protocol For Hyperglycemia) 1 each N/A ACHS [facility] Stop: 06/21/23 12:03 Last Admin: 06/19/23 12:21 Dose: Not Given Documented By: ANGELITA Discontinued Medications Aspirin (Aspirin Chew 324 Mg) 324 mg PO NOW STA Stop: 06/19/23 10:00 Last Admin: 06/19/23 10:07 Dose: 324 mg Documented By: HS Fentanyl Citrate (Fentanyl Citrate Pf 100 Mcg/2 Ml Vial) Confirm Administered Dose 100 mcg .ROUTE .STK-MED ONE Stop: 06/19/23 10:16 Last Increment: 06/19/23 11:13 Dose: 50 mcg Documented By: NOELLE Heparin Sodium (Porcine) (Heparin (Porcine) 1000 Unit/Ml 10 Ml (Special Effects Makeup Artist Use Only)) Confirm Administered Dose 10,000 units .ROUTE .STK-MED ONE Stop: 06/19/23 10:16 Last Admin: 06/19/23 11:13 Dose: 6,500 units Documented By: NOELLE Heparin Sodium/Sodium Chloride (Heparin In Nss Infusion 1000 Unit/500 Ml (2 U/Ml) Bag) Confirm Administered Dose 3,000 units IV .STK-MED ONE Stop: 06/19/23 10:16 Last Admin: 06/19/23 11:01 Dose: 3,000 units Documented By: NOELLE Sodium Chloride (Nss) 250 mls @ 999 mls/hr IV .Q16M ONE Stop: 06/19/23 10:17 Last Infusion: 06/19/23 12:21 Dose: 0 mls/hr Documented By: Admin: 06/19/23 10:07 Dose: 999 mls/hr Documented By: TUAN Midazolam HCl (Midazolam Hcl 1 Mg/Ml 2ml Vial) Confirm Administered Dose 2 mg .ROUTE .STK-MED ONE Stop: 06/19/23 10:16 Last Admin: 06/19/23 11:14 Dose: Not Given Documented By: NOELLE Midazolam HCl (Midazolam Hcl 1 Mg/Ml 2ml Vial) Confirm Administered Dose 2 mg .ROUTE .STK-MED ONE Stop: 06/19/23 10:42 Last Admin: 06/19/23 11:01 Dose: 2 mg Documented By: NOELLE Morphine Sulfate (Morphine Sulfate 2 Mg/Ml Carp) 2 mg IV NOW STA Stop: 06/19/23 12:25 Last Admin: 06/19/23 13:45 Dose: Not Given Documented By: ES Morphine Sulfate (Morphine Sulfate 2 Mg/Ml Carp) 2 mg IV NOW STA Stop: 06/19/23 12:45 Last Admin: 06/19/23 13:14 Dose: 2 mg Documented By: ANGELITA Nicardipine HCl (Nicardipine Hcl Inj 2.5 Mg/Ml 10 Ml Amp) Confirm Administered Dose 25 mg .ROUTE .STK-MED ONE Stop: 06/19/23 10:16 Last Admin: 06/19/23 11:00 Dose: 25 mg Documented By: CAITIE Nitroglycerin/Dextrose (Nitroglycerin/D5w 100mcg/Ml 20ml Syr) Confirm Administered Dose 2,000 mcg .ROUTE .STK-MED ONE Stop: 06/19/23 10:16 Last Admin: 06/19/23 11:01 Dose: 2,000 mcg Documented By: [id number] Ondansetron HCl (Ondansetron Inj 2 Mg/Ml 2 Ml Vial) Confirm Administered Dose 4 mg .ROUTE .STK-MED ONE Stop: 06/19/23 10:03 Last Admin: 06/19/23 10:07 Dose: Not Given Documented By: HS Ondansetron HCl (Ondansetron Inj 2 Mg/Ml 2 Ml Vial) 4 mg IV NOW STA Stop: 06/19/23 10:03 Last Admin: 06/19/23 10:07 Dose: 4 mg Documented By: HS Ticagrelor (Ticagrelor 90 Mg Tab) 180 mg PO ONE ONE Stop: 06/19/23 10:14 Last Admin: 06/19/23 10:14 Dose: 180 mg Documented By: HS Ticagrelor (Ticagrelor 90 Mg Tab) Confirm Administered Dose 180 mg .ROUTE .STK- MED ONE Stop: 06/19/23 10:15 Last Admin: 06/19/23 10:15 Dose: Not Given Documented By: HS Imaging Data Attestation: I personally reviewed and interpreted this imaging study as follows: My Impression: 1 view chest x-ray was obtained in the emergency department. My interpretation is no free air or definite infiltrate, final report below. Radiologist's Impression: Chest X-Ray 06/19/23 09:58 XR chest 1V portable CLINICAL HISTORY: Chest pain, nonspecific. COMPARISON STUDY: Chest radiograph January 19, 2022. Chest CT January 30, 2023. FINDINGS: There is no pneumothorax or pleural effusion. Cardiomediastinal silhouette is stable. No evidence for pulmonary edema. Linear bibasilar densities are greater on the left. The findings favor atelectasis. Underlying bronchiectasis is better depicted on prior CT. There has been no significant change in appearance of the chest. IMPRESSION: No acute cardiopulmonary findings. No significant change in appearance of the chest. ACT 112: Negative or not required by law. Electronically signed by: Rahat Mondragon M.D. 06/19/2023 10:24 AM Discharge Plan Visit Data Chief Complaint: Chest Pain Stated Complaint: CHEST PAIN; NAUSEA ED Provider: Perico Ventura Discharge Problem: ST elevation UT (STEMI), Chest pain, Elevated troponin I level Patient Disposition: Admitted As Inpatient Discharge Instructions Interventions: ED Discharge Assessment Last Done: 06/19/23 10:15
[2023-06-19] MEDS ORDERED: TICAGRELOR 90 MG TAB PO ONE (10:13)
[2023-06-19] MEDS ORDERED: TICAGRELOR 90 MG TAB ONE (10:14)
[2023-06-19] MEDS ORDERED: niCARdipine HCL INJ 2.5 MG/ML 10 ML AMP ONE (10:15)
[2023-06-19] MEDS ORDERED: MIDAZOLAM HCL 1 MG/ML 2ML VIAL ONE ×2 (10:15→10:41)
[2023-06-19] MEDS ORDERED: HEPARIN (PORCINE) 1000 UNIT/ML 10 ML (CATH LAB USE ONLY) ONE (10:15)
[2023-06-19] MEDS ORDERED: NITROGLYCERIN/D5W 100MCG/ML 20ML SYR ONE (10:15)
[2023-06-19] MEDS ORDERED: fentaNYL citrate PF 100 MCG/2 ML VIAL ONE (10:15)
[2023-06-19 10:19] LABS: Basophils # (auto) 0.04 K/uL (0.00-0.20); Basophils % (auto) 0.4 %; Hematocrit (blood only) 34.9 % (37.0-47.0); Hemoglobin 11.4 g/dl (12.0-16.0); Immature Granulocytes # (auto) 0.04 K/uL (0.01-0.20); Immature Granulocytes % (auto) 0.4 %; Lymphocytes # (auto) 1.13 K/uL (1.20-3.40); Lymphocytes % (auto) 12.1 %; Mean Corpuscular Hemoglobin 30.1 pg (25.0-34.0); Mean Corpuscular Hgb Conc 32.7 g/dL (32.0-36.0); Mean Corpuscular Volume 92.1 fL (80.0-100.0); Mean Platelet Volume 9.4 fL (9.4-12.4); Monocytes # (auto) 0.91 K/uL (0.11-0.59); Monocytes % (auto) 9.7 %; Neutrophils # (auto) 7.24 K/uL (1.40-6.50); Neutrophils % (auto) 77.4 %; Platelet Count 290 K/uL (130-400); RDW Coefficient of Variation 14.4 % (11.5-14.5); RDW Standard Deviation 48.6 fL (36.4-46.3); Red Blood Count 3.79 M/uL (4.20-5.40); White Blood Count 9.36 K/ul (4.8-10.8)
--- NOTE | 2023-06-19 10:25 | XRay Report ---
XR chest 1V portable CLINICAL HISTORY: Chest pain, nonspecific. COMPARISON STUDY: Chest radiograph January 19, 2022. Chest CT January 30, 2023. FINDINGS: There is no pneumothorax or pleural effusion. Cardiomediastinal silhouette is stable. No ev idence for pulmonary edema. Linear bibasilar densities are greater on the left. The findings favor at electasis. Underlying bronchiectasis is better depicted on prior CT. There has been no significant ch foster in appearance of the chest. IMPRESSION: No acute cardiopulmonary findings. No significant change in appearance of the chest. ACT 112: Negative or not required by law. Electronically signed by: Rahat Mondragon M.D. 06/19/2023 10:24 AM
[2023-06-19 10:45] LABS: Albumin Globulin Ratio 1.4 (0.9-2); Albumin Level 3.8 gm/dl (3.4-5.0); BUN Creatinine Ratio 26.8 (10-20); Calcium 8.9 mg/dl (8.6-10.3); Creatinine Clr Calc Pharmacy 67.4 ml/min; Est GFR (African American) 95.9 ml/min; Est GFR (Non-African American) 82.7 ml/min; Globulin 2.7 gm/dl (2.5-4.0); Potassium 3.3 mmol/L (3.5-5.1); Total Protein 6.5 gm/dl (6.0-8.3)
[2023-06-19 10:55] LABS: Troponin I High Sensitivity 11280.3 pg/ml (0-14)
--- NOTE | 2023-06-19 10:58 | History & Physical Report ---
Date of Service June 19, 2023 History of Present Illness Chief Complaint: Chest pain Primary Care Provider: Sunni Torres MD Karo Wells is a 77 year old female who presents to the ER with 1 week of substernal chest pain, nausea and shortness of breath. Allergies Allergy/AdvReac Type Severity Reaction Status Date / Time diphenhydramine Allergy Severe anaphylaxis Verified 05/10/23 12:55 amikacin Allergy Intermediate Rash Verified 05/10/23 12:55 chlorhexidine Allergy Intermediate RED & ITCHY Verified 05/10/23 12:55 Sulfa (Sulfonamide Allergy Intermediate rash Verified 05/10/23 12:55 Antibiotics) triamcinolone Allergy Intermediate nose Verified 05/10/23 12:55 bleed, Nausea azithromycin AdvReac Intermediate Nausea Verified 05/10/23 12:55 clarithromycin AdvReac Intermediate nausea Verified 05/10/23 12:55 codeine AdvReac Intermediate nausea Verified 05/10/23 12:55 erythromycin base AdvReac Intermediate nausea Verified 05/10/23 12:55 hydrocodone AdvReac Intermediate nausea Verified 05/10/23 12:55 metronidazole AdvReac Intermediate nausea Verified 05/10/23 12:55 ondansetron AdvReac Intermediate "can't Verified 05/10/23 12:55 sleep" oxymetazoline AdvReac Intermediate headache Verified 05/10/23 12:55 pantoprazole AdvReac Intermediate nausea Verified 05/10/23 12:55 propoxyphene AdvReac Intermediate nausea Verified 05/10/23 12:55 tramadol AdvReac Intermediate nausea Verified 05/10/23 12:55 hyoscyamine AdvReac Mild when just Verified 05/10/23 12:55 by itself ok, not in combo med Home Medications Medication Instructions Recorded Confirmed Type guaifenesin 600 mg tablet, 600 mg PO Q12H 06/13/18 05/10/23 History extended release 12 hr (Mucinex) vit C 250 mg-vit E 90 mg-zinc 40 1 tab PO BID 06/13/18 05/10/23 History mg-copper 1 [id number] capsule (PreserVision AREDS-2) cholecalciferol (vitamin D3) 50 4,000 units PO QAM 08/19/19 05/10/23 History mcg (2,000 unit) capsule (Vitamin D3) nebulizer accessories #2 ea 01/13/22 05/10/23 Rx acetaminophen 650 mg 650 mg PO Q12H PRN Pain 01/15/22 05/10/23 History tablet,extended release ethambutol 400 mg tablet 1,200 mg PO QAM 08/23/22 05/10/23 History buspirone 15 mg tablet 15 mg PO BID #180 tabs 12/01/22 05/10/23 Rx clofazimine 100 mg PO DAILY #1 cap 01/13/23 05/10/23 Rx turmeric root extract 500 mg tablet 1,000 mg PO DAILY 01/13/23 05/10/23 History meclizine 12.5 mg tablet 12.5 mg PO DAILY PRN dizziness #10 02/23/23 05/10/23 Rx tabs naproxen 500 mg tablet,delayed 500 mg PO BID PRN pain #60 tabs 03/28/23 05/10/23 Rx release (EC-Naprosyn) lisinopril 10 mg tablet 10 mg PO DAILY #30 tabs 05/09/23 05/10/23 Rx L.acid,casei,plant,saliv-B.anim 10 cap PO 05/10/23 05/10/23 History billion cell (2 billion ea) capsule albuterol sulfate 90 mcg/actuation 2 puff inhalation Q4H PRN Wheezing 05/17/23 05/17/23 Rx aerosol inhaler #18 grams ipratropium 0.5 mg-albuterol 3 mg 3 ml inhalation Q8H PRN shortness 05/17/23 05/17/23 Rx (2.5 mg base)/3 mL nebulization of breath or wheezing #180 mL soln sodium chloride 7 % for 1 inh inhalation BID #240 mL 05/17/23 05/17/23 Rx nebulization Past Med/Surg History Medical History Asthma Bronchiectasis Hx of colonic polyps Interstitial cystitis Macular degeneration SEPIDEH (mycobacterium avium-intracellulare) infection Microscopic colitis Mitral valve prolapse Myoclonus REASON FOR TAKING BUSPAR Obstructive sleep apnea no cpap can't tolerate Osteoarthritis Osteoporosis Prediabetes Right lumbar radiculopathy Sciatica Solar lentigo Trochanteric bursitis, right hip Vitamin D deficiency Surgical History H/O excision of mass (10/30/20) Right Arm Lipoma Excision(Right), superficial to fascia, less than [address] Cloud 10/30/2020 History of arthroscopy LEFT HIP History of bronchoscopy 2017 History of cataract surgery bilat History of colonoscopy History of esophagogastroduodenoscopy (EGD) History of kidney surgery right > repair UPJ obstruction History of tonsillectomy History of tooth extraction History of umbilical hernia repair Lipoma RT ARM Ureteral and renal pelvis obstruction, congenital resolved Family History Brother Family history of diabetes mellitus Depression Family hx colonic polyps Myocardial infarction Hypertension Colorectal cancer Sister Colon cancer Dementia Depression Colorectal cancer Father Prostate cancer Hypertension Stroke Aunt Breast cancer Grandmother Colon cancer Unknown Colon cancer Colorectal cancer Grandfather (Maternal) Colorectal cancer Other No family history of adverse response to anesthesia Denies family history of Ovarian cancer Social History Smoking Status: Never smoker Second Hand Exposure: No; Do You Dip or Chew Tobacco: No; Hx Alcohol Use: Yes Alcohol type: wine Alcohol Intake Frequency: 4 or More x per/Week Alcohol Intake Frequency Comment: daily drink with dinner Hx Substance Use: No Preferred Language: Somali Communication Ability: Effective Visual Impairment: No Limitations Hearing Ability: Normal 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 Beliefs That Will Affect Care: None marital status: Current Living Situation: Spouse current occupational status: retired 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, 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 [employer] How many Children do You have: 3 Feels Safe at Home: Yes Childhood Exposure to Second-Hand Smoke: No Diet: regular Diet Comment: eats small amounts of fish as well caffeine: Yes Dental Care, Regularly: Yes Physical Activity Frequency: Does not Exercise Seatbelt Use: always Sunscreen Use: Yes Assistive Devices: Glasses Results & Data Results & Data Vital Signs (Past 12 Hours) Vital Signs Temp Pulse Resp BP Pulse Ox O2 Del Method O2 Flow Rate 06/19/23 10:10 83 16 95 06/19/23 10:15 Room Air 06/19/23 10:05 20 129/71 97 06/19/23 10:11 97 Room Air 06/19/23 10:11 Room Air 97 06/19/23 10:06 82 06/19/23 09:53 36.5 C 85 20 118/57 L 95 Room Air Diagnostic Findings XR chest 1V portable CLINICAL HISTORY: Chest pain, nonspecific. COMPARISON STUDY: Chest radiograph January 19, 2022. Chest CT January 30, 2023. FINDINGS: There is no pneumothorax or pleural effusion. Cardiomediastinal silhouette is stable. No evidence for pulmonary edema. Linear bibasilar densities are greater on the left. The findings favor atelectasis. Underlying bronchiectasis is better depicted on prior CT. There has been no significant change in appearance of the chest. IMPRESSION: No acute cardiopulmonary findings. No significant change in appearance of the chest. Medications Administered ER Medications Given: ASA 324mg PO Normal saline 250ml Ondansetron 4mg IV Ticagrelor 180mg PO ECG Indication: chest pain Rate (beats per minute): 79 Rhythm: normal sinus Findings: + ST elevation (Inferior) Comparison ECG Date: from (november 10, 2022) Change: the following changes noted (ST elevation in inferior leads is new with reciprocal changes) Code Status & VTE Plan VTE Prophylaxis Plan VTE Prophylaxis will be ordered: Yes PG Care Time/CCT Total # of Minutes Spent Total Time Spent with Patient: Total time spent is greater than 50% in coordination of care (as documented) at patient's floor/unit and/or counseling patient: Coding Diagnoses
[2023-06-19 11:23] LABS: Magnesium 1.9 mg/dl (1.7-2.4)
--- NOTE | 2023-06-19 11:46 | Pre Anesthesia Assessment ---
Date of Service June 19, 2023 Pre Sedation Assessment Vital Signs Temp Pulse Pulse Resp BP BP Pulse Ox 06/19/23 11:39 86 16 130/61 95 06/19/23 11:25 88 16 127/72 93 06/19/23 10:10 83 16 95 06/19/23 10:15 06/19/23 10:05 20 129/71 97 06/19/23 10:11 97 06/19/23 10:11 06/19/23 10:06 82 06/19/23 09:53 36.5 C 85 20 118/57 L 95 O2 Del Method O2 Flow Rate 06/19/23 11:39 Room Air 06/19/23 11:25 Room Air 06/19/23 10:10 06/19/23 10:15 Room Air 06/19/23 10:05 06/19/23 10:11 Room Air 06/19/23 10:11 Room Air 97 06/19/23 10:06 06/19/23 09:53 Room Air Cardiovascular RRR, no murmur, no edema Respiratory normal respiratory effort, lungs clear to auscultation Pre-Sedation Airway Assessment Smoking Status: Never smoker MALLAMPATI II ASA-4 Notes The planned sedation has been discussed with the patient. Informed Consent was obtained. I have identified the patient, determined the appropriateness of sedation and have assessed the patient immediately prior to the procedure. All medicine(s) and interventions are by my order. [facility] [place]odes ([place]arges) Indication for Procedure Indication for procedure: Acute UT
--- NOTE | 2023-06-19 11:49 | Post Anesthesia Assessment ---
Date of Service June 19, 2023 Post Sedation Assessment Vital Signs Temp Pulse Pulse Resp BP BP Pulse Ox 06/19/23 11:39 86 16 130/61 95 06/19/23 11:25 88 16 127/72 93 06/19/23 10:10 83 16 95 06/19/23 10:15 06/19/23 10:05 20 129/71 97 06/19/23 10:11 97 06/19/23 10:11 06/19/23 10:06 82 06/19/23 09:53 36.5 C 85 20 118/57 L 95 O2 Del Method O2 Flow Rate 06/19/23 11:39 Room Air 06/19/23 11:25 Room Air 06/19/23 10:10 06/19/23 10:15 Room Air 06/19/23 10:05 06/19/23 10:11 Room Air 06/19/23 10:11 Room Air 97 06/19/23 10:06 06/19/23 09:53 Room Air Recovery Score Activity: Moves 4 extremities Respiration: Deep Breath/Cough Circulation: +/-20% PreAnes Value Consciousness: Fully Awake Oxygen Saturation: > 92% On Room Air Post Anesthesia Score: 10 Discharge Sedation Level of Care: Fast Track Phase II Post Sedation Plan On clinical assessment, the patient appears to have tolerated the sedation without complications. Patient is recovering as anticipated. Patient will continue to be monitored by nursing and may be discharged when sedation discharge criteria are met per below protocol. Upon Completions of procedure up to 15 minutes continue every 5 minute vital signs and the P.A.R. score; then discharge to a Phase I or Fast Track to Phase II per the following guidelines: * Discharge Patient to appropriate Phase II area if PAR is 8 or greater or return to pre- procedure baseline. The post - procedure orders will be as directed. * If PAR score is less than 8 or not return to pre-procedure baseline then patient will follow Phase I monitoring till PAR is reached for Phase II. The Phase I may be done in procedure room or may call to secure a Phase I area. * If naloxone or flumazenil are used for reversal, hold in Phase I for continued monitoring from when last reversal dose was given for a minimum of 60 minutes or longer pending the nurse and/or physician discretion of patient condition before discharge to Phase II. Please call the Sedation Physician to re-evaluate and complete post-note for discharge to Phase II area. Do NOT discharge from procedure sedation or Phase 1 until post- sedation evaluation note is complete by procedure /sedation MD Sedation Discharge Instructions to be given to the patient at discharge to home. [facility] [place] Procedure Codes (Charges) Indication for Procedure Indication for procedure: Acute CA Sedation/Anesthesia Procedure 1: Sedation/Anesthesia: 39259 Mod Sedation by the same physician;Init15 Min Child Age 5 & Up (Initial 15 min (start time 1026)) Total Sedation Time (minutes): 51 Procedure 2: Sedation/Anesthesia: 23433 Mod Sedation by the same physician; Ea [id number] Minutes (Additional 36 min (end time 1117)) Total Sedation Time (minutes): 51
--- NOTE | 2023-06-19 11:53 | Cardiac Catheterization ---
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 Cardiac Status Clinical evaluation leading to the procedure CAD Presenation: STEMI Anginal Classification: CCS IV Heart Failure: No Cardiogenic Shock within 24 Hours: No Cardiac Arrest within 24 Hours: No Imaging Studies Past 6 Months: No Stress Studies Past 6 Months: No Coronary Anatomy Dominant: Right Left Main (% Stenosis): Normal LAD (% Stenosis): Distal (20%) D1 (% Stenosis): Normal Circumflex (% Stenosis): Normal OM1 (% Stenosis): Normal RCA (% Stenosis): Proximal (Proximal to mid 99%) R PDA (% Stenosis): Normal R PL1 (% Stenosis): Normal Ramus (% Stenosis): Normal Diagnostic Physicians Name: Wayne Fuentes MD, PhD Closure Device Percutaneous Entry Location: Both radial and femoral Closure Device: Angio-Seal and Radial Band Recommendations: Medical Therapy and/or Counseling and PCI without planned CABG PCI Indication: PCI for STEMI - Stable First Noted: First EKG Reason For Delay in PCI:: Difficult vascular access Lesion Segment Name: Proximal to mid RCA Culprit Artery: Yes Stenosis Prior to Rx (%): 99 Chronic Total Occlusion: No Pre-Procedure DENISE Flow: 1 Previously Treated Lesion: No Lesion Complexity: Non-High/Non-C Lesion Length (mm): 28 Thrombus Present: Yes Bifurcation Lesion: No Guidewire Across Lesion: Yes Intraprocedure Events Significant Disection: No Perforation: No Cardiac Cath Procedure Full Procedure Date June 19, 2023 Pre-Procedure Diagnosis Pre-Procedure Diagnosis: STEMI AUC Score AUC Score: 09 Post-Procedure Diagnosis Post-Procedure Diagnosis: Severe CAD and Successful PCI Procedure(s) Performed Procedure(s) Performed: Coronary Angiography, Drug Eluting Stent and Ultrasound Guided Vascular Access Manager Medical Device Wayne Fuentes MD, PhD Estimated Blood Loss Estimated Blood Loss: 10 mL Medication(s) Medication(s): Atropine, Fentanyl, Heparin, Lidocaine 1%, Nicardipine, Nitroglycerin and Versed Summary of Findings Brief description: Patient was brought to the cardiac catheterization suite where she was shaved and prepped in a sterile fashion. Sedated using IV Versed and fentanyl. Soft tissues of the right wrist were anesthetized using 2 mL of 1% Xylocaine. Using the ultrasound for guidance, the right radial artery was accessed and a 6 Brazilian radial artery glide sheath was placed. Patient was provided anticoagulation with IV heparin and antispasmodics including nitroglycerin and nicardipine. However, we were unsuccessful in advancing the J-wire and catheter beyond the elbow. We therefore abandoned the radial artery approach. Soft tissues of the right groin were anesthetized using 10 mils of 1% Xylocaine. Using the ultrasound for guidance (image saved), the right femoral artery was accessed and a 6 Brazilian arterial sheath was placed. All catheters were advanced and exchanged over a 0.035 J-tip wire. Right coronary angiography was performed with a 6 Brazilian JR4 guide catheter. We proceeded immediately to PCI. ACT was checked and additional heparin was provided throughout the case as needed to maintain therapeutic anticoagulation. A BMW number so guidewire was advanced through the guide catheter and positioned distally in the RCA. The lesion was predilated using a 2.0 x 12 mm mini trek balloon and inflated ini tially 8 edwina then a second inflation to 17 edwina. Balloon removed. 2.5 x 30 mm Nick drug-eluting stent was advanced across the lesion and deployed initially at 12 edwina. Second inflation up to 16 edwina. Stent balloon was then removed. Patient developed bradycardia and therefore 0.5 mg of atropine were given. A 2.75 x 15 mm noncompliant balloon was advanced and positioned within the stent. Mid segment was postdilated to 12 edwina. Proximal segment was postdilated to 16 edwina. Balloon was removed. Angiography revealed a residual thrombus at the distal portion of the stent. Given her late presentation this was felt to be fairly organized and we decided to place another stent distally in an overlap fashion. A 2.5 x 12 mm Nick drug-eluting stent was advanced and positioned distal to the initial stent but with its proximal portion overlapped with the distal portion of that stent. This was then deployed at 12 edwina. The overlap segment had a secondary inflation to 16 edwina. Stent balloon was removed. The proximal portion of the proximal stent was then postdilated using a 3.0 x 15 mm NC trek balloon. At 18 edwina proximally and 12 edwina mid stent. Balloon was removed. A 2.75 x 15 mm NC balloon was advanced over the wire and used to post dilate the overlapped distal segment and the distal part of the first stent to 14 edwina. Balloon was removed. Finally, a 3.25 x 8 mm noncompliant balloon was used to post dilate the proximal portion of the first stent at 12 edwina followed by 15 edwina. Balloon was removed. Guidewire was removed and final angiographic evaluation was performed. The guide catheter was removed. Left coronary angiography was performed in orthogonal views using a 5 Brazilian JL 3.5 diagnostic catheter. Diagnostic catheter was removed. Limited right femoral artery angiography was performed to evaluate for closure. Findings were favorable, therefore, the femoral artery sheath was removed and exchanged for a 6 Brazilian Angio-Seal closure device. This was deployed in the recommended fashion. We obtained immediate hemostasis and the patient remained hemodynamically stable. The right radial artery sheath was then removed and hemostasis was obtained using a TR band. Patient was hemodynamically stable and returned to the recovery area. This ended the case. Coronary angiography findings: [id number]-esbzo-[id number] vessel trifurcating into LAD, LCx, and ramus. There is no disease. LAD-large caliber and transapical. Proximal segment without disease. It gives a large caliber branching first diagonal without disease. The mid segment is also without disease in the vessel then becomes tortuous distally. The early distal segment has less than 20% stenosis. [id number]-[id number] traveling in the AV groove. It is a nondominant vessel and essentially becomes a large caliber multi branching OM1. There is no angiographically evident disease in the circumflex or its branches. Ramus-small to medium caliber vessel without significant disease. RCA-medium to large caliber and dominant. Proximal segment into the mid segment has a long thrombotic 99% occlusion. There is no more than DENISE I flow distal to this lesion. Initial angiography does not reveal the distal branch vessels. PCI of RCA- 0% residual stenosis PCI. DENISE-3 flow post PCI No evidence of dissection or perforation post PCI There is revealed a large and long PDA as well as a medium caliber multi branching posterolateral. These vessels have no disease. Summary: 1. Acute inferior ST elevation MO secondary to proximal to mid RCA occlusion. 2. Successful PCI of the RCA with implantation of 2 overlapped drug-eluting stents. 3. No significant residual coronary disease. 4. Dual antiplatelet therapy with aspirin and Brilinta. Initiate guideline directed medical therapy for secondary prevention to include; high intensity statin therapy, beta-monique, plus or minus PHONG inhibitor/ARB. Hemodynamics Rest Ao:: 108/45 mmHg Final Ao: 129/67 mmHg LV: Not performed Recommendations Recommendations: Medical Therapy and/or Counseling and PCI without planned CABG Radiation Exposure (mGy) 681 mGy, fluoroscopy time 9.6 minutes Contrast (mls) 100 mL Anesthesia 50 mcg IV fentanyl, 2 mg IV Versed, start time 1026, end time 1117 Procedural Complication(s) None Disposition ICU I attest to the content of the Intraoperative Record and any orders documented therein. Any exceptions are noted below. [facility] Card Cath Procedure Codes Cardiac Catheterization Procedure 1: Cardiovascular Cath Procedures: 33276 Coronaries Therapeutic Services & Ancillary Procedure 1: Cardiovascular Tx and Anc Procedures: 74099 Ultrasonic Guidance Vascular Access Moderate Sedation Procedure 1: Sedation/Anesthesia: 96403 Mod Sedation by the same physician;Init15 Min Child Age 5 & Up (Initial 15 min, start time 1026) Procedure 2: Sedation/Anesthesia: 45684 Mod Sedation by the same physician; Ea [id number] Minutes (Additional 36 min, end time 1117) Stenting Procedure 1: Cardiovascular Stent Procedures: 82227 Perc transluminal revascularization of acute sub/total occl, aMI (RCA) PG Care Time/CCT Total # of Minutes Spent Total Time Spent with Patient: Total time spent is greater than 50% in coordination of care (as documented) at patient's floor/unit and/or counseling patient:
--- NOTE | 2023-06-19 12:14 | History & Physical Report ---
Date of Service June 19, 2023 Assessment & Plan (1) STEMI (ST elevation myocardial infarction): Plan: Patient presented with 1 week of substernal chest pain, nausea and shortness of breath. EKG w/ ST elevation in inferior leads, trop 58330.3 on admission, heart alert called s/p cardiac catheterization with Dr Fuentes this morning Admitted to ICU post-op for 24hour monitoring Networking Administrator on consult Monitor on telemetry Continue Brilinta BID, ASA 81mg, Metoprolol tartrate 25mg BID, Lipitor 40mg daily as ordered by primary service Monitor A1c/lipid panel for further risk stratification (not on any medication for her DM, likely start metformin) Morphine ordered, defer to primary/candy decorator for further management Monitor labs on repeat (2) HTN (hypertension): Plan: BP 132/69 post-cath On lisinopril 10mg daily at home metoprolol as above, holding further lisinopril post-cath monitor (3) Obstructive sleep apnea: Plan: unable to tolerate CPAP reported also w/ restrictive lung disease, not very compliant w/ her nebs duonebs/hypertonic saline added as needed. CXR w/o acute process on admission (4) Prediabetes: Plan: check repeat A1c, not on any meds at baseline (5) CAD (coronary atherosclerotic disease): Plan: as above, now s/p PCI Monitoring on telemetry post lab instructor EKG w/n CP Trending trop Pain control continue BB, statin, DAPT as ordered by primary service Plan monitoring in ICU post-cath Admission and Anticipated Discharge Date Admission Date: June 19, 2023 History of Present Illness Chief Complaint: 1 week of substernal chest pain, nausea and shortness of breath. Primary Care Provider: Sunni Torres MD Karo Wells is a 77 year old female who presents to the ER with 1 week of substernal chest pain, nausea and shortness of breath. She had been putting this off being seen as she had things to do last week/company coming to visit. No prior cardiac history/aspirin use or stenting. She was taken to lab instructor this morning with Dr Fuentes, s/p stenting x 2. Patient evaluated in room 109, laying flat in bed. MM moist, wanting something to drink if possible. Having ongoing chest pain about 6/10, not significantly improved since her cardiac catheterization. Ordered Tylenol, will order dose morphine 2mg IV x1, additional prn. Having to urinate, discussed using pure-wick to avoid Marinelli. 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 No breathing difficulty but noncompliant with her nebs at baseline. ER Course: ASA 324mg/Brilinta 180mg now, 250cc NS bolus. Allergies Allergy/AdvReac Type Severity Reaction Status Date / Time diphenhydramine Allergy Severe anaphylaxis Verified 05/10/23 12:55 amikacin Allergy Intermediate Rash Verified 05/10/23 12:55 chlorhexidine Allergy Intermediate RED & ITCHY Verified 05/10/23 12:55 Sulfa (Sulfonamide Allergy Intermediate rash Verified 05/10/23 12:55 Antibiotics) triamcinolone Allergy Intermediate nose Verified 05/10/23 12:55 bleed, Nausea Beef Containing Products Allergy Verified 06/19/23 15:03 milk Allergy Verified 06/21/23 08:09 Pork/Porcine Containing Allergy Verified 06/19/23 15:03 Products azithromycin AdvReac Intermediate Nausea Verified 05/10/23 12:55 clarithromycin AdvReac Intermediate nausea Verified 05/10/23 12:55 codeine AdvReac Intermediate nausea Verified 05/10/23 12:55 erythromycin base AdvReac Intermediate nausea Verified 05/10/23 12:55 hydrocodone AdvReac Intermediate nausea Verified 05/10/23 12:55 metronidazole AdvReac Intermediate nausea Verified 05/10/23 12:55 ondansetron AdvReac Intermediate "can't Verified 05/10/23 12:55 sleep" oxymetazoline AdvReac Intermediate headache Verified 05/10/23 12:55 pantoprazole AdvReac Intermediate nausea Verified 05/10/23 12:55 propoxyphene AdvReac Intermediate nausea Verified 05/10/23 12:55 tramadol AdvReac Intermediate nausea Verified 05/10/23 12:55 hyoscyamine AdvReac Mild when just Verified 05/10/23 12:55 by itself ok, not in combo med Home Medications Medication Instructions Recorded Confirmed Type guaifenesin 600 mg tablet, 600 mg PO Q12H 06/13/18 06/22/23 History extended release 12 hr (Mucinex) vit C 250 mg-vit E 90 mg-zinc 40 1 tab PO BID 06/13/18 06/22/23 History mg-copper 1 [id number] capsule (PreserVision AREDS-2) cholecalciferol (vitamin D3) 50 4,000 units PO QAM 08/19/19 06/22/23 History mcg (2,000 unit) capsule (Vitamin D3) nebulizer accessories #2 ea 01/13/22 06/22/23 Rx ethambutol 400 mg tablet 1,200 mg PO QAM 08/23/22 06/22/23 History buspirone 15 mg tablet 15 mg PO BID #180 tabs 12/01/22 06/22/23 Rx clofazimine 100 mg PO DAILY #1 cap 01/13/23 06/22/23 Rx turmeric root extract 500 mg tablet 1,000 mg PO DAILY 01/13/23 06/22/23 History meclizine 12.5 mg tablet 12.5 mg PO DAILY PRN dizziness #10 02/23/23 06/22/23 Rx tabs naproxen 500 mg tablet,delayed 500 mg PO BID PRN pain #60 tabs 03/28/23 06/22/23 Rx release (EC-Naprosyn) L.acid,casei,plant,saliv-B.anim 10 cap PO 05/10/23 06/22/23 History billion cell (2 billion ea) capsule albuterol sulfate 90 mcg/actuation 2 puff inhalation Q4H PRN Wheezing 05/17/23 06/22/23 Rx aerosol inhaler #18 grams ipratropium 0.5 mg-albuterol 3 mg 3 ml inhalation Q8H PRN shortness 05/17/23 06/22/23 Rx (2.5 mg base)/3 mL nebulization of breath or wheezing #180 mL soln sodium chloride 7 % for 1 inh inhalation BID #240 mL 05/17/23 06/22/23 Rx nebulization aspirin 81 mg tablet,delayed 81 mg PO QAM #90 tabs 06/21/23 06/22/23 Rx release atorvastatin 40 mg tablet 40 mg PO QAM #90 tabs 06/21/23 06/22/23 Rx colchicine (gout) 0.6 mg tablet 0.6 mg PO BID #60 tabs 06/21/23 06/22/23 Rx (Colcrys) lisinopril 10 mg tablet 5 mg PO DAILY #30 tabs 06/21/23 06/22/23 Rx metoprolol tartrate 25 mg tablet 25 mg PO BID #180 tabs 06/21/23 06/22/23 Rx pantoprazole 40 mg tablet,delayed 40 mg PO BID #60 tabs 06/21/23 06/22/23 Rx release ticagrelor 90 mg tablet (Brilinta) 90 mg PO BID #180 tabs 06/21/23 06/22/23 Rx Past Med/Surg History Medical History (Updated 06/21/23 @ 16:46 by Wayne Fuentes MD, PhD) Asthma Bronchiectasis Hx of colonic polyps Interstitial cystitis Macular degeneration SEPIDEH (mycobacterium avium-intracellulare) infection Microscopic colitis Mitral valve prolapse Myoclonus REASON FOR TAKING BUSPAR Obstructive sleep apnea no cpap can't tolerate Osteoarthritis Osteoporosis Prediabetes Right lumbar radiculopathy Sciatica Solar lentigo Tick bite Trochanteric bursitis, right hip Vitamin D deficiency Surgical History H/O excision of mass (10/30/20) Right Arm Lipoma Excision(Right), superficial to fascia, less than [address] Cloud 10/30/2020 History of arthroscopy LEFT HIP History of bronchoscopy 2017 History of cataract surgery bilat History of colonoscopy History of esophagogastroduodenoscopy (EGD) History of kidney surgery right > repair UPJ obstruction History of tonsillectomy History of tooth extraction History of umbilical hernia repair Lipoma RT ARM Ureteral and renal pelvis obstruction, congenital resolved Family History Brother Family history of diabetes mellitus Depression Family hx colonic polyps Myocardial infarction Hypertension Colorectal cancer Sister Colon cancer Dementia Depression Colorectal cancer Father Prostate cancer Hypertension Stroke Aunt Breast cancer Grandmother Colon cancer Unknown Colon cancer Colorectal cancer Grandfather (Maternal) Colorectal cancer Other No family history of adverse response to anesthesia Denies family history of Ovarian cancer Social History Smoking Status: Never smoker Second Hand Exposure: No; Do You Dip or Chew Tobacco: No; Hx Alcohol Use: Yes Alcohol type: wine Alcohol Intake Frequency: 4 or More x per/Week Alcohol Intake Frequency Comment: daily drink with dinner Hx Substance Use: No Preferred Language: Georgian Communication Ability: Effective Visual Impairment: No Limitations Hearing Ability: Normal Hand Cloth Cutter Required: No Beliefs That Will Affect Care: None marital status: Current Living Situation: Spouse Current Living Situation Comment: Independent Living at [facility] current occupational status: retired 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, 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 [employer] How many Children do You have: 3 Feels Safe at Home: Yes Childhood Exposure to Second-Hand Smoke: No Diet: regular Diet Comment: eats small amounts of fish as well caffeine: Yes Dental Care, Regularly: Yes Physical Activity Frequency: Does not Exercise Seatbelt Use: always Sunscreen Use: Yes Assistive Devices: Nebulizer Physical Exam Physical Exam: General: WD female laying flat in bed, NAD but reporting chest pressure/pain to sternum, +general pallor HEENT: head atraumatic, normocephalic, mm DRY, trachea midline Resp: diminished in the bases, bibasilar crackles, no rales/wheezing, on room air CV: regular rate/rhythm, +faint murmur, no pitting edema/calf tenderness, TR band to R wrist, pulse palpable, microfilmer strength intact GI: +BS, soft/NT : no marinelli MSK/neuro: non focal, no slurred speech/facial droop, follows commands reports lumbar stenosis at baseline Psych: AOx3, cooperative with exam Results & Data Results & Data Vital Signs (Past 12 Hours) Vital Signs Temp Pulse Pulse Resp BP BP Pulse Ox 06/19/23 11:39 86 16 130/61 95 06/19/23 11:25 88 16 127/72 93 06/19/23 10:10 83 16 95 06/19/23 10:15 06/19/23 10:05 20 129/71 97 06/19/23 10:11 97 06/19/23 10:11 06/19/23 10:06 82 06/19/23 09:53 36.5 C 85 20 118/57 L 95 O2 Del Method O2 Flow Rate 06/19/23 11:39 Room Air 06/19/23 11:25 Room Air 06/19/23 10:10 06/19/23 10:15 Room Air 06/19/23 10:05 06/19/23 10:11 Room Air 06/19/23 10:11 Room Air 97 06/19/23 10:06 06/19/23 09:53 Room Air Laboratory Results 06/19/23 06/19/23 06/19/23 Range/Units 11:13 10:46 10:05 WBC (4.8-10.8) K/ul RBC (4.20-5.40) M/uL Hgb (12.0-16.0) g/dl Hct (37.0-47.0) % MCV (80.0-100.0) fL MCH (25.0-34.0) pg MCHC (32.0-36.0) g/dL RDW Std Deviation (36.4-46.3) fL RDW Coeff of Daisy (11.5-14.5) % Plt Count (130-400) K/uL MPV (9.4-12.4) fL Immature Gran % (Auto) % Neut % (Auto) % Lymph % (Auto) % Putnam % (Auto) % Eos % (Auto) % Baso % (Auto) % Neut # (Auto) (1.40-6.50) K/uL Lymph # (Auto) (1.20-3.40) K/uL Putnam # (Auto) (0.11-0.59) K/uL Eos # (Auto) (0.00-0.50) K/uL Baso # (Auto) (0.00-0.20) K/uL Immature Gran # (Auto) (0.01-0.20) K/uL Activ Coag Time Kaolin 233 H 233 H (94-140) SECONDS Sodium 138 (136-145) mmol/L Potassium 3.3 L (3.5-5.1) mmol/L Chloride 105 (98-107) mmol/L Carbon Dioxide 26 (21-32) mmol/L Anion Gap 7 (3-11) BUN 19 (6-23) mg/dl Creatinine 0.71 (0.6-1.2) mg/dl Est Cr Clr Drug Dosing 67.4 ml/min Est GFR ( Amer) 95.9 ml/min Est GFR (Non-Af Amer) 82.7 ml/min BUN/Creatinine Ratio 26.8 H (10-20) Glucose 115 H (70-99(Fasting)) mg/dl Calcium 8.9 (8.6-10.3) mg/dl Magnesium 1.9 (1.7-2.4) mg/dl Total Bilirubin 1.0 (0.2-1.0) mg/dl AST 73 H (13-39) U/L ALT 26 (7-52) U/L Alkaline Phosphatase 48 (34-104) U/L Troponin I High Sens 66991.3 H* (0-14) pg/ml Total Protein 6.5 (6.0-8.3) gm/dl Albumin 3.8 (3.4-5.0) gm/dl Globulin 2.7 (2.5-4.0) gm/dl Albumin/Globulin Ratio 1.4 (0.9-2) Lipase 16 (11-82) U/L 06/19/23 Range/Units 10:05 WBC 9.36 (4.8-10.8) K/ul RBC 3.79 L (4.20-5.40) M/uL Hgb 11.4 L (12.0-16.0) g/dl Hct 34.9 L (37.0-47.0) % MCV 92.1 (80.0-100.0) fL MCH 30.1 (25.0-34.0) pg MCHC 32.7 (32.0-36.0) g/dL RDW Std Deviation 48.6 H (36.4-46.3) fL RDW Coeff of Daisy 14.4 (11.5-14.5) % Plt Count 290 (130-400) K/uL MPV 9.4 (9.4-12.4) fL Immature Gran % (Auto) 0.4 % Neut % (Auto) 77.4 % Lymph % (Auto) 12.1 % Putnam % (Auto) 9.7 % Eos % (Auto) 0.0 % Baso % (Auto) 0.4 % Neut # (Auto) 7.24 H (1.40-6.50) K/uL Lymph # (Auto) 1.13 L (1.20-3.40) K/uL Putnam # (Auto) 0.91 H (0.11-0.59) K/uL Eos # (Auto) 0.00 (0.00-0.50) K/uL Baso # (Auto) 0.04 (0.00-0.20) K/uL Immature Gran # (Auto) 0.04 (0.01-0.20) K/uL Activ Coag Time Kaolin (94-140) SECONDS Sodium (136-145) mmol/L Potassium (3.5-5.1) mmol/L Chloride (98-107) mmol/L Carbon Dioxide (21-32) mmol/L Anion Gap (3-11) BUN (6-23) mg/dl Creatinine (0.6-1.2) mg/dl Est Cr Clr Drug Dosing ml/min Est GFR ( Amer) ml/min Est GFR (Non-Af Amer) ml/min BUN/Creatinine Ratio (10-20) Glucose (70-99(Fasting)) mg/dl Calcium (8.6-10.3) mg/dl Magnesium (1.7-2.4) mg/dl Total Bilirubin (0.2-1.0) mg/dl AST (13-39) U/L ALT (7-52) U/L Alkaline Phosphatase (34-104) U/L Troponin I High Sens (0-14) pg/ml Total Protein (6.0-8.3) gm/dl Albumin (3.4-5.0) gm/dl Globulin (2.5-4.0) gm/dl Albumin/Globulin Ratio (0.9-2) Lipase (11-82) U/L Diagnostic Findings Chest X-Ray 06/19/23 09:58 XR chest 1V portable CLINICAL HISTORY: Chest pain, nonspecific. COMPARISON STUDY: Chest radiograph January 19, 2022. Chest CT January 30, 2023. FINDINGS: There is no pneumothorax or pleural effusion. Cardiomediastinal silhouette is stable. No evidence for pulmonary edema. Linear bibasilar de nsities are greater on the left. The findings favor atelectasis. Underlying bronchiectasis is better depicted on prior CT. There has been no significant change in appearance of the chest. IMPRESSION: No acute cardiopulmonary findings. No significant change in appearance of the chest. ACT 112: Negative or not required by law. Electronically signed by: Rahat Mondragon M.D. 06/19/2023 10:24 AM Medications Administered Medications Administered ER Medications Given: ASA 324mg PO Normal saline 250ml Ondansetron 4mg IV Ticagrelor 180mg PO ECG Additional Comments: Indication: chest pain Rate (beats per minute): 79 Rhythm: normal sinus Findings: + ST elevation (Inferior) Comparison ECG Date: from (november 10, 2022) Change: the following changes noted (ST elevation in inferior leads is new with reciprocal changes) Code Status & VTE Plan VTE Prophylaxis Plan VTE Prophylaxis will be ordered: Yes Supervising Physician Co-Signing Physician Notes I personally saw and examined the patient. I verified all diaz points and agree with Porsche Christie PA-C with the following exceptions and/or additions: 77 year old female presents to the ER with 1 week of substernal chest pain, nausea and shortness of breath. Worse on exertion but also happening with rest. Patient seen in the ICU. Patient still having chest pain when seen - discussed with Dr Scott. O/E HS RRR, no murmurs, Chest CTAB, Abdo SNT A/P STEMI - management per ICU and cardiology s/p successful PCI ith x2 WON to RCA. Residual chest pain may be more reflux related - consider starting famotidine. ASA, Brillinta, metoprolol, atorvastatin. PG Care Time/CCT Total # of Minutes Spent Total Time Spent with Patient: Total time spent is greater than 50% in coordination of care (as documented) at patient's floor/unit and/or counseling patient: Coding Level of Care Code 69621 INT INP/OBS CARE 3/75MIN Diagnoses STEMI (ST elevation myocardial infarction) I21.3 HTN (hypertension) I10 Obstructive sleep apnea G47.33 Prediabetes R73.03 CAD (coronary atherosclerotic disease) I25.10
[2023-06-19] MEDS: ICU Protocol for HYPERglycemia SCH ×3 (12:21→21:22)
[2023-06-19] MEDS ORDERED: MoRPHine SULFATE 2 MG/ML CARP IV STA ×2 (12:24→12:44)
[2023-06-19] MEDS ORDERED: DICLOFENAC SOD 1% GEL 100 GM TUBE EXT PRN (12:26)
[2023-06-19] MEDS ORDERED: MoRPHine SULFATE 2 MG/ML CARP IV PRN ×2 (12:27→21:39)
[2023-06-19 12:29] LABS: Basophils # (auto) 0.02 K/uL (0.00-0.20); Basophils % (auto) 0.2 %; Hematocrit (blood only) 30.8 % (37.0-47.0); Hemoglobin 10.2 g/dl (12.0-16.0); Immature Granulocytes # (auto) 0.06 K/uL (0.01-0.20); Immature Granulocytes % (auto) 0.7 %; Lymphocytes # (auto) 1.12 K/uL (1.20-3.40); Lymphocytes % (auto) 12.2 %; Mean Corpuscular Hemoglobin 29.7 pg (25.0-34.0); Mean Corpuscular Hgb Conc 33.1 g/dL (32.0-36.0); Mean Corpuscular Volume 89.5 fL (80.0-100.0); Mean Platelet Volume 9.4 fL (9.4-12.4); Monocytes # (auto) 0.99 K/uL (0.11-0.59); Monocytes % (auto) 10.8 %; Neutrophils % (auto) 76.1 %; Platelet Count 262 K/uL (130-400); RDW Coefficient of Variation 14.4 % (11.5-14.5); RDW Standard Deviation 46.9 fL (36.4-46.3); Red Blood Count 3.44 M/uL (4.20-5.40); White Blood Count 9.19 K/ul (4.8-10.8)
[2023-06-19] MEDS: ACETAMINOPHEN 325 MG TAB PO PRN (12:43)
--- NOTE | 2023-06-19 12:44 | Electrocardiogram Report ---
Test Reason : Blood Pressure : / mmHG Vent. Rate : 079 BPM Atrial Rate : 079 BPM P-R Int : 164 ms QRS Dur : 092 ms QT Int : 362 ms P-R-T Axes : 069 042 256 degrees QTc Int : 415 ms Normal sinus rhythm ST elevation consider inferior injury or acute infarct ACUTE OR / STEMI Consider right ventricular involvement in acute inferior infarct Abnormal ECG When compared with ECG of 10-NOV-2022 17:31, Significant changes have occurred Confirmed by Perico Rivera ([id number]) on 06/19/2023 12:43:46 PM Referred By: Confirmed By:Perico Rivera
[2023-06-19] MEDS ORDERED: SODIUM CHLOR 7% 4 ML NEB NEB PRN (12:46)
[2023-06-19] MEDS ORDERED: ALBUT/IPRATROP 3MG/0.5MG NEB 3 ML VIAL NEB PRN (12:46)
[2023-06-19] MEDS: SODIUM CHLORIDE 0.9% 1,000 ML IV SCH (12:47)
[2023-06-19 12:51] LABS: Calcium 8.5 mg/dl (8.6-10.3); Potassium 3.8 mmol/L (3.5-5.1)
[2023-06-19 12:57] LABS: BUN Creatinine Ratio 26.2 (10-20); Creatinine Clr Calc Pharmacy 73.6 ml/min; Est GFR (Non-African American) 86.2 ml/min
--- NOTE | 2023-06-19 13:19 | Electrocardiogram Report ---
Test Reason : Blood Pressure : / mmHG Vent. Rate : 091 BPM Atrial Rate : 091 BPM P-R Int : 140 ms QRS Dur : 080 ms QT Int : 386 ms P-R-T Axes : 070 065 -81 degrees QTc Int : 474 ms Normal sinus rhythm ST elevation in Inferior leads ACUTE NC / STEMI Abnormal ECG When compared with ECG of 19-JUN-2023 09:57, (unconfirmed) QT has lengthened Confirmed by Perico Rivera ([id number]) on 06/19/2023 1:19:39 PM Referred By: Confirmed By:Perico Rivera
[2023-06-19 13:20] LABS: Estimated Average Glucose 103 mg/dl; Hemoglobin A1C 5.2 % (4.5-5.6)
--- NOTE | 2023-06-19 15:14 | Cardiology Consultation ---
Date of Consultation June 19, 2023 Assessment & Plan (1) ST elevation GA (STEMI): Status post PCI with 2 overlapped drug-eluting stents in the RCA. Mild residual coronary disease. She shall remain on dual antiplatelet for up to 1 year. Aspirin 81 mg daily and Brilinta 90 mg p.o. twice daily as tolerated. She will be in the ICU. We need to obtain an echocardiogram. Assuming no complications she would be appropriate for transfer out to stepdown unit tomorrow. (2) CAD (coronary atherosclerotic disease): Guideline directed medical therapy for secondary prevention. Initiating aspirin, metoprolol tartrate 25 mg p.o. twice daily, and high intensity statin therapy. (3) HTN (hypertension): Blood pressure is adequately controlled. Continue metoprolol tartrate 25 mg p.o. twice daily. She was also previously on lisinopril which we could restart tomorrow. She does have a history of asthma so will be vigilant for evidence of beta-monique induced bronchospasm. (4) Atherogenic dyslipidemia: Patient is high risk. High intensity statin therapy with a atorvastatin 40 mg daily. We are checking a fasting lipid panel and we will titrate accordingly. History of Present Illness Reason for Consultation: Chest pain, ST elevation Requesting Physician: Dr. Ventura Attending Physician: Johnny Kilgore MD History of Present Illness 77-year-old female who presented to the hospital after experiencing chest pain and pressure. She initially had episodes on and off over the weekend. However, today her symptoms were more persistent and she decided to seek medical attention. In addition Titian to the chest pain heaviness and tightness she had some mild shortness of breath. She had significant nausea. No prior cardiac history. She denies any syncope, near syncope, orthopnea, PND, racing heartbeat, palpitations, or edema. She tells me she was diagnosed with a murmur as a child. Never had any need for congenital heart surgery. She has a family history of cardiac disease. Based on her EKG she appears to have evidence of RCA territory infarct. She was taken emergently to the cardiac catheterization suite where she underwent diagnostic coronary angiography and PCI of the RCA with implantation of 2 overlapped drug-eluting stents. No complications. She is currently chest pain-free and feeling better. Her is in attendance. Allergies Allergy/AdvReac Type Severity Reaction Status Date / Time diphenhydramine Allergy Severe anaphylaxis Verified 05/10/23 12:55 amikacin Allergy Intermediate Rash Verified 05/10/23 12:55 chlorhexidine Allergy Intermediate RED & ITCHY Verified 05/10/23 12:55 Sulfa (Sulfonamide Allergy Intermediate rash Verified 05/10/23 12:55 Antibiotics) triamcinolone Allergy Intermediate nose Verified 05/10/23 12:55 bleed, Nausea Beef Containing Products Allergy Verified 06/19/23 15:03 Pork/Porcine Containing Allergy Verified 06/19/23 15:03 Products azithromycin AdvReac Intermediate Nausea Verified 05/10/23 12:55 clarithromycin AdvReac Intermediate nausea Verified 05/10/23 12:55 codeine AdvReac Intermediate nausea Verified 05/10/23 12:55 erythromycin base AdvReac Intermediate nausea Verified 05/10/23 12:55 hydrocodone AdvReac Intermediate nausea Verified 05/10/23 12:55 metronidazole AdvReac Intermediate nausea Verified 05/10/23 12:55 ondansetron AdvReac Intermediate "can't Verified 05/10/23 12:55 sleep" oxymetazoline AdvReac Intermediate headache Verified 05/10/23 12:55 pantoprazole AdvReac Intermediate nausea Verified 05/10/23 12:55 propoxyphene AdvReac Intermediate nausea Verified 05/10/23 12:55 tramadol AdvReac Intermediate nausea Verified 05/10/23 12:55 hyoscyamine AdvReac Mild when just Verified 05/10/23 12:55 by itself ok, not in combo med Home Medications Medication Instructions Recorded Confirmed Type guaifenesin 600 mg tablet, 600 mg PO Q12H 06/13/18 05/10/23 History extended release 12 hr (Mucinex) vit C 250 mg-vit E 90 mg-zinc 40 1 tab PO BID 06/13/18 05/10/23 History mg-copper 1 fk-xzjctc-sinadl capsule (PreserVision AREDS-2) cholecalciferol (vitamin D3) 50 4,000 units PO QAM 08/19/19 05/10/23 History mcg (2,000 unit) capsule (Vitamin D3) nebulizer accessories #2 ea 01/13/22 05/10/23 Rx acetaminophen 650 mg 650 mg PO Q12H PRN Pain 01/15/22 05/10/23 History tablet,extended release ethambutol 400 mg tablet 1,200 mg PO QAM 08/23/22 05/10/23 History buspirone 15 mg tablet 15 mg PO BID #180 tabs 12/01/22 05/10/23 Rx clofazimine 100 mg PO DAILY #1 cap 01/13/23 05/10/23 Rx turmeric root extract 500 mg tablet 1,000 mg PO DAILY 01/13/23 05/10/23 History meclizine 12.5 mg tablet 12.5 mg PO DAILY PRN dizziness #10 02/23/23 05/10/23 Rx tabs naproxen 500 mg tablet,delayed 500 mg PO BID PRN pain #60 tabs 03/28/23 05/10/23 Rx release (EC-Naprosyn) lisinopril 10 mg tablet 10 mg PO DAILY #30 tabs 05/09/23 05/10/23 Rx L.acid,casei,plant,saliv-B.anim 10 cap PO 05/10/23 05/10/23 History billion cell (2 billion ea) capsule albuterol sulfate 90 mcg/actuation 2 puff inhalation Q4H PRN Wheezing 05/17/23 05/17/23 Rx aerosol inhaler #18 grams ipratropium 0.5 mg-albuterol 3 mg 3 ml inhalation Q8H PRN shortness 05/17/23 05/17/23 Rx (2.5 mg base)/3 mL nebulization of breath or wheezing #180 mL soln sodium chloride 7 % for 1 inh inhalation BID #240 mL 05/17/23 05/17/23 Rx nebulization Patient History Medical History Asthma Bronchiectasis Hx of colonic polyps Interstitial cystitis Macular degeneration SEPIDEH (mycobacterium avium-intracellulare) infection Microscopic colitis Mitral valve prolapse Myoclonus REASON FOR TAKING BUSPAR Obstructive sleep apnea no cpap can't tolerate Osteoarthritis Osteoporosis Prediabetes Right lumbar radiculopathy Sciatica Solar lentigo Trochanteric bursitis, right hip Vitamin D deficiency Surgical History H/O excision of mass (10/30/20) Right Arm Lipoma Excision(Right), superficial to fascia, less than [address] Cloud 10/30/2020 History of arthroscopy LEFT HIP History of bronchoscopy 2017 History of cataract surgery bilat History of colonoscopy History of esophagogastroduodenoscopy (EGD) History of kidney surgery right > repair UPJ obstruction History of tonsillectomy History of tooth extraction History of umbilical hernia repair Lipoma RT ARM Ureteral and renal pelvis obstruction, congenital resolved Family History Brother Family history of diabetes mellitus Depression Family hx colonic polyps Myocardial infarction Hypertension Colorectal cancer Sister Colon cancer Dementia Depression Colorectal cancer Father Prostate cancer Hypertension Stroke Aunt Breast cancer Grandmother Colon cancer Unknown Colon cancer Colorectal cancer Grandfather (Maternal) Colorectal cancer Other No family history of adverse response to anesthesia Denies family history of Ovarian cancer Social History Smoking Status: Never smoker Second Hand Exposure: No; Do You Dip or Chew Tobacco: No; Hx Alcohol Use: Yes Alcohol type: wine Alcohol Intake Frequency: 4 or More x per/Week Alcohol Intake Frequency Comment: daily drink with dinner Hx Substance Use: No Preferred Language: Nigerien Communication Ability: Effective Visual Impairment: No Limitations Hearing Ability: Normal Burlap Spreader Required: No Beliefs That Will Affect Care: None marital status: Current Living Situation: Spouse Current Living Situation Comment: Independent Living at [facility] current occupational status: retired 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 Sclera are anicteric. ENMT: Oral mucosa is pink moist and intact Neck: No JVD or bruits Respiratory: Clear to auscultation bilaterally. No wheezing, rhonchi, or rales. Good air movement. Cardiovascular: Regular rate and rhythm. Distant heart sounds. S4 gallop. Do not appreciate any rubs or murmurs. Musculoskeletal: no cyanosis or clubbing, extremities motor strength 5/5 Neurologic: Cognition is intact. Speech is fluent. No focal deficits. Psychiatric: A+Ox3, euthymic affect Results & Data Vital Signs (Past 12 Hours) Vital Signs Temp Pulse Pulse Resp BP BP Pulse Ox 06/19/23 13:05 06/19/23 12:35 36.9 C 06/19/23 12:00 78 28 H 90 06/19/23 12:00 132/69 06/19/23 11:53 83 32 H 91 06/19/23 11:53 123/80 06/19/23 12:05 06/19/23 11:39 86 16 130/61 95 06/19/23 11:25 88 16 127/72 93 06/19/23 10:10 83 16 95 06/19/23 10:15 06/19/23 10:05 20 129/71 97 06/19/23 10:11 97 06/19/23 10:11 06/19/23 10:06 82 06/19/23 09:53 36.5 C 85 20 118/57 L 95 O2 Del Method O2 Flow Rate 06/19/23 13:05 Room Air 06/19/23 12:35 06/19/23 12:00 06/19/23 12:00 06/19/23 11:53 06/19/23 11:53 06/19/23 12:05 Room Air 06/19/23 11:39 Room Air 06/19/23 11:25 Room Air 06/19/23 10:10 06/19/23 10:15 Room Air 06/19/23 10:05 06/19/23 10:11 Room Air 06/19/23 10:11 Room Air 97 06/19/23 10:06 06/19/23 09:53 Room Air PG Care Time/CCT Total # of Minutes Spent Total Time Spent with Patient: Total time spent is greater than 50% in coordination of care (as documented) at patient's floor/unit and/or counseling patient: Total Critical Care Time: 65 A total of 65 minutes of critical care time was spent in the initial review of records, examination of the patient, interview of the patient and her , discussion with the ER staff and the [facility] team, formulation and implementation of a plan of care, and all associated documentation. This time is exclusive of the time spent for the procedure. Coding Level of Care Code 30039 CRITICAL CARE 1ST 30-74M Diagnoses ST elevation GA (STEMI) I21.3 Involved coronary artery: unspecified coronary artery CAD (coronary atherosclerotic disease) I25.10 HTN (hypertension) I10 Atherogenic dyslipidemia E78.5 Time Spent (min) 65 (1) ST elevation GA (STEMI) Involved coronary artery: unspecified coronary artery Qualified Code(s): I21.3 - ST elevation (STEMI) myocardial infarction of unspecified site
--- NOTE | 2023-06-19 17:35 | Critical Care Consultation ---
Date of Consultation June 19, 2023 Assessment & Plan (1) Atherogenic dyslipidemia: Reason Critically Ill: 77-year-old female with acute ST elevation AL PLAN: Resp: History of SEPIDEH -Follow-up with pulmonary as previously directed CV: Hypertension: Well-controlled -Reviewed cardiology notes Coronary artery disease -Follow-up lipid panel ID: Afebrile GI/Nutrition: Animal product intolerance -Possible alpha gal versus lactose intolerance -Discussed following up with database consultant versus GI doctor for further evaluation and possible etiologies of diarrhea related to animal product and dairy product Heme: Dual antiplatelet therapy DVT prophylaxis: Lovenox to start tomorrow morning. Patient should also be ambulatory shortly thereafter Endocrine: ICU hyperglycemia protocol Awaiting A1c Vascular access: Peripheral IVs Code Status: Full code Disposition: ICU (2) ST elevation AL (STEMI): (3) Chest pain: (4) CAD (coronary atherosclerotic disease): (5) Obstructive sleep apnea: (6) SEPIDEH (mycobacterium avium-intracellulare) infection: Supervising Physician Co-Signing Physician Notes I have personally spent 30 minutes of critical care time in the direct manageme nt of this patient. This is a life/limb threatening event. This includes time spent evaluating patient, direct bedside care, chart review, placing orders, interpretation of diagnostic studies, discussion with consultants, patient, and/or family members regarding treatment decisions, as well as other required patient management activities. This time is exclusive of all separately billable procedures, and teaching time and separate from and in addition to any other critical care service time. History of Present Illness Reason for Consultation: STEMI Attending Physician: Johnny Kilgore MD History of Present Illness Patient is a 77-year-old female who presented to the ER and was found to have acute ST elevation AL after complaining of intractable nausea. She reports she has a possible history of alpha gal from a tick exposure approximately 2 years ago. During my evaluation she was complaining of 4 of 10 chest pain/chest discomfort which was significantly improved from prior chest pains prior to her cardiac catheterization. Allergies Allergy/AdvReac Type Severity Reaction Status Date / Time diphenhydramine Allergy Severe anaphylaxis Verified 05/10/23 12:55 amikacin Allergy Intermediate Rash Verified 05/10/23 12:55 chlorhexidine Allergy Intermediate RED & ITCHY Verified 05/10/23 12:55 Sulfa (Sulfonamide Allergy Intermediate rash Verified 05/10/23 12:55 Antibiotics) triamcinolone Allergy Intermediate nose Verified 05/10/23 12:55 bleed, Nausea Beef Containing Products Allergy Verified 06/19/23 15:03 Pork/Porcine Containing Allergy Verified 06/19/23 15:03 Products azithromycin AdvReac Intermediate Nausea Verified 05/10/23 12:55 clarithromycin AdvReac Intermediate nausea Verified 05/10/23 12:55 codeine AdvReac Intermediate nausea Verified 05/10/23 12:55 erythromycin base AdvReac Intermediate nausea Verified 05/10/23 12:55 hydrocodone AdvReac Intermediate nausea Verified 05/10/23 12:55 metronidazole AdvReac Intermediate nausea Verified 05/10/23 12:55 ondansetron AdvReac Intermediate "can't Verified 05/10/23 12:55 sleep" oxymetazoline AdvReac Intermediate headache Verified 05/10/23 12:55 pantoprazole AdvReac Intermediate nausea Verified 05/10/23 12:55 propoxyphene AdvReac Intermediate nausea Verified 05/10/23 12:55 tramadol AdvReac Intermediate nausea Verified 05/10/23 12:55 hyoscyamine AdvReac Mild when just Verified 05/10/23 12:55 by itself ok, not in combo med Home Medications Medication Instructions Recorded Confirmed Type guaifenesin 600 mg tablet, 600 mg PO Q12H 06/13/18 05/10/23 History extended release 12 hr (Mucinex) vit C 250 mg-vit E 90 mg-zinc 40 1 tab PO BID 06/13/18 05/10/23 History mg-copper 1 qo-okfila-brvhbw capsule (PreserVision AREDS-2) cholecalciferol (vitamin D3) 50 4,000 units PO QAM 08/19/19 05/10/23 History mcg (2,000 unit) capsule (Vitamin D3) nebulizer accessories #2 ea 01/13/22 05/10/23 Rx acetaminophen 650 mg 650 mg PO Q12H PRN Pain 01/15/22 05/10/23 History tablet,extended release ethambutol 400 mg tablet 1,200 mg PO QAM 08/23/22 05/10/23 History buspirone 15 mg tablet 15 mg PO BID #180 tabs 12/01/22 05/10/23 Rx clofazimine 100 mg PO DAILY #1 cap 01/13/23 05/10/23 Rx turmeric root extract 500 mg tablet 1,000 mg PO DAILY 01/13/23 05/10/23 History meclizine 12.5 mg tablet 12.5 mg PO DAILY PRN dizziness #10 02/23/23 05/10/23 Rx tabs naproxen 500 mg tablet,delayed 500 mg PO BID PRN pain #60 tabs 03/28/23 05/10/23 Rx release (EC-Naprosyn) lisinopril 10 mg tablet 10 mg PO DAILY #30 tabs 05/09/23 05/10/23 Rx L.acid,casei,plant,saliv-B.anim 10 cap PO 05/10/23 05/10/23 History billion cell (2 billion ea) capsule albuterol sulfate 90 mcg/actuation 2 puff inhalation Q4H PRN Wheezing 05/17/23 05/17/23 Rx aerosol inhaler #18 grams ipratropium 0.5 mg-albuterol 3 mg 3 ml inhalation Q8H PRN shortness 05/17/23 05/17/23 Rx (2.5 mg base)/3 mL nebulization of breath or wheezing #180 mL soln sodium chloride 7 % for 1 inh inhalation BID #240 mL 05/17/23 05/17/23 Rx nebulization Patient History Medical History (Updated 06/19/23 @ 17:31 by Konstantin Scott, ) Asthma Bronchiectasis Hx of colonic polyps Interstitial cystitis Macular degeneration SEPIDEH (mycobacterium avium-intracellulare) infection Microscopic colitis Mitral valve prolapse Myoclonus REASON FOR TAKING BUSPAR Obstructive sleep apnea no cpap can't tolerate Osteoarthritis Osteoporosis Prediabetes Right lumbar radiculopathy Sciatica Solar lentigo Tick bite Trochanteric bursitis, right hip Vitamin D deficiency Surgical History H/O excision of mass (10/30/20) Right Arm Lipoma Excision(Right), superficial to fascia, less than [address] Cloud 10/30/2020 History of arthroscopy LEFT HIP History of bronchoscopy 2016 History of cataract surgery bilat History of colonoscopy History of esophagogastroduodenoscopy (EGD) History of kidney surgery right > repair UPJ obstruction History of tonsillectomy History of tooth extraction History of umbilical hernia repair Lipoma RT ARM Ureteral and renal pelvis obstruction, congenital resolved Family History Brother Family history of diabetes mellitus Depression Family hx colonic polyps Myocardial infarction Hypertension Colorectal cancer Sister Colon cancer Dementia Depression Colorectal cancer Father Prostate cancer Hypertension Stroke Aunt Breast cancer Grandmother Colon cancer Unknown Colon cancer Colorectal cancer Grandfather (Maternal) Colorectal cancer Other No family history of adverse response to anesthesia Denies family history of Ovarian cancer Social History Smoking Status: Never smoker Second Hand Exposure: No; Do You Dip or Chew Tobacco: No; Hx Alcohol Use: Yes Alcohol type: wine Alcohol Intake Frequency: 4 or More x per/Week Alcohol Intake Frequency Comment: daily drink with dinner Hx Substance Use: No Preferred Language: Nepali Communication Ability: Effective Visual Impairment: No Limitations Hearing Ability: Normal 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 Reports diarrhea with red meats and any animal-based products Physical Exam Physical Exam: General: Alert. nontoxic. Skin: Warm, dry, Head: Atraumatic Ears, nose, mouth and throat: airway patent Cardiovascular: Normal peripheral perfusion Respiratory: no respiratory distress Gastrointestinal: Non distended Musculoskeletal: No deformity, TR band on right wrist Results & Data Results & Data Vital Signs (Past 12 Hours) Vital Signs Temp Pulse Pulse Resp BP BP Pulse Ox 06/19/23 16:30 71 24 95 06/19/23 16:58 06/19/23 16:00 79 26 H 95 06/19/23 16:00 98/53 L 06/19/23 15:30 71 23 95 06/19/23 16:05 36.6 C 06/19/23 15:00 71 25 H 95 06/19/23 15:00 104/62 06/19/23 14:45 67 22 94 06/19/23 14:30 70 24 95 06/19/23 14:30 109/62 06/19/23 14:15 66 22 94 06/19/23 14:15 91/49 L 06/19/23 14:00 73 25 H 95 06/19/23 14:00 111/65 06/19/23 13:45 67 24 95 06/19/23 13:45 98/44 L 06/19/23 13:30 77 25 H 95 06/19/23 13:30 103/65 06/19/23 13:15 77 32 H 96 06/19/23 13:15 104/70 06/19/23 13:00 72 22 96 06/19/23 13:00 99/62 L 06/19/23 12:45 72 23 93 06/19/23 12:45 105/58 L 06/19/23 12:30 70 22 94 06/19/23 12:30 110/57 L 06/19/23 12:15 76 35 H 95 06/19/23 12:15 113/69 06/19/23 15:05 06/19/23 14:05 06/19/23 13:05 06/19/23 12:35 36.9 C 06/19/23 12:00 78 28 H 90 06/19/23 12:00 132/69 06/19/23 11:53 83 32 H 91 06/19/23 11:53 123/80 06/19/23 12:05 06/19/23 11:39 86 16 130/61 95 06/19/23 11:25 88 16 127/72 93 06/19/23 10:10 83 16 95 06/19/23 10:15 06/19/23 10:05 20 129/71 97 06/19/23 10:11 97 06/19/23 10:11 06/19/23 10:06 82 06/19/23 09:53 36.5 C 85 20 118/57 L 95 O2 Del Method O2 Flow Rate 06/19/23 16:30 06/19/23 16:58 Room Air 06/19/23 16:00 06/19/23 16:00 06/19/23 15:30 06/19/23 16:05 06/19/23 15:00 06/19/23 15:00 06/19/23 14:45 06/19/23 14:30 06/19/23 14:30 06/19/23 14:15 06/19/23 14:15 06/19/23 14:00 06/19/23 14:00 06/19/23 13:45 06/19/23 13:45 06/19/23 13:30 06/19/23 13:30 06/19/23 13:15 06/19/23 13:15 06/19/23 13:00 06/19/23 13:00 06/19/23 12:45 06/19/23 12:45 06/19/23 12:30 06/19/23 12:30 06/19/23 12:15 06/19/23 12:15 06/19/23 15:05 Room Air 06/19/23 14:05 Room Air 06/19/23 13:05 Room Air 06/19/23 12:35 06/19/23 12:00 06/19/23 12:00 06/19/23 11:53 06/19/23 11:53 06/19/23 12:05 Room Air 06/19/23 11:39 Room Air 06/19/23 11:25 Room Air 06/19/23 10:10 06/19/23 10:15 Room Air 06/19/23 10:05 06/19/23 10:11 Room Air 06/19/23 10:11 Room Air 97 06/19/23 10:06 06/19/23 09:53 Room Air Critical Care Results & Data Vital Signs (Past 12 Hours) Vital Signs Temp Pulse Pulse Resp BP BP Pulse Ox 06/19/23 16:30 71 24 95 06/19/23 16:58 06/19/23 16:00 79 26 H 95 06/19/23 16:00 98/53 L 06/19/23 15:30 71 23 95 06/19/23 16:05 36.6 C 06/19/23 15:00 71 25 H 95 06/19/23 15:00 104/62 06/19/23 14:45 67 22 94 06/19/23 14:30 70 24 95 10/09/23 14:30 109/62 06/19/23 14:15 66 22 94 06/19/23 14:15 91/49 L 06/19/23 14:00 73 25 H 95 06/19/23 14:00 111/65 06/19/23 13:45 67 24 95 06/19/23 13:45 98/44 L 06/19/23 13:30 77 25 H 95 06/19/23 13:30 103/65 06/19/23 13:15 77 32 H 96 06/19/23 13:15 104/70 06/19/23 13:00 72 22 96 06/19/23 13:00 99/62 L 06/19/23 12:45 72 23 93 06/19/23 12:45 105/58 L 06/19/23 12:30 70 22 94 06/19/23 12:30 110/57 L 06/19/23 12:15 76 35 H 95 06/19/23 12:15 113/69 06/19/23 15:05 06/19/23 14:05 06/19/23 13:05 06/19/23 12:35 36.9 C 06/19/23 12:00 78 28 H 90 06/19/23 12:00 132/69 06/19/23 11:53 83 32 H 91 06/19/23 11:53 123/80 06/19/23 12:05 06/19/23 11:39 86 16 130/61 95 06/19/23 11:25 88 16 127/72 93 06/19/23 10:10 83 16 95 06/19/23 10:15 06/19/23 10:05 20 129/71 97 06/19/23 10:11 97 06/19/23 10:11 06/19/23 10:06 82 06/19/23 09:53 36.5 C 85 20 118/57 L 95 O2 Del Method O2 Flow Rate 06/19/23 16:30 06/19/23 16:58 Room Air 06/19/23 16:00 06/19/23 16:00 06/19/23 15:30 06/19/23 16:05 06/19/23 15:00 06/19/23 15:00 06/19/23 14:45 06/19/23 14:30 06/19/23 14:30 06/19/23 14:15 06/19/23 14:15 06/19/23 14:00 06/19/23 14:00 06/19/23 13:45 06/19/23 13:45 06/19/23 13:30 06/19/23 13:30 06/19/23 13:15 06/19/23 13:15 06/19/23 13:00 06/19/23 13:00 06/19/23 12:45 06/19/23 12:45 06/19/23 12:30 06/19/23 12:30 06/19/23 12:15 06/19/23 12:15 06/19/23 15:05 Room Air 06/19/23 14:05 Room Air 06/19/23 13:05 Room Air 06/19/23 12:35 06/19/23 12:00 06/19/23 12:00 06/19/23 11:53 06/19/23 11:53 06/19/23 12:05 Room Air 06/19/23 11:39 Room Air 06/19/23 11:25 Room Air 06/19/23 10:10 06/19/23 10:15 Room Air 06/19/23 10:05 06/19/23 10:11 Room Air 06/19/23 10:11 Room Air 97 06/19/23 10:06 06/19/23 09:53 Room Air Lab & Micro Results (Past 24 Hours) RBC 3.44 M/uL (4.20-5.40) L 06/19/23 WBC 9.19 K/ul (4.8-10.8) 06/19/23 Hgb 10.2 g/dl (12.0-16.0) L 06/19/23 Hct 30.8 % (37.0-47.0) L 06/19/23 MCV 89.5 fL (80.0-100.0) 06/19/23 MCH 29.7 pg (25.0-34.0) 06/19/23 MCHC 33.1 g/dL (32.0-36.0) 06/19/23 RDW Standard Deviation 46.9 fL (36.4-46.3) H 06/19/23 RDW Coefficient of Variation 14.4 % (11.5-14.5) 06/19/23 Plt Count 262 K/uL (130-400) 06/19/23 MPV 9.4 fL (9.4-12.4) 06/19/23 Neutrophils (%) (Auto) 76.1 % 06/19/23 Lymphocytes (%) (Auto) 12.2 % 06/19/23 Monocytes # (Auto) 0.99 K/uL (0.11-0.59) H 06/19/23 Eosinophils # (Auto) 0.00 K/uL (0.00-0.50) 06/19/23 Immature Granulocyte % (Auto) 0.7 % 06/19/23 Neutrophils # (Auto) 7.00 K/uL (1.40-6.50) H 06/19/23 Lymphocytes # (Auto) 1.12 K/uL (1.20-3.40) L 06/19/23 Monocytes # (Auto) 0.99 K/uL (0.11-0.59) H 06/19/23 Eosinophils # (Auto) 0.00 K/uL (0.00-0.50) 06/19/23 Basophils # (Auto) 0.02 K/uL (0.00-0.20) 06/19/23 Immature Granulocyte # (Auto) 0.06 K/uL (0.01-0.20) 3 Na 134 mmol/L (136-145) L 06/19/23 K 3.8 mmol/L (3.5-5.1) 06/19/23 Cl 105 mmol/L (98-107) 06/19/23 CO2 23 mmol/L (21-32) 06/19/23 Anion Gap 6 (3-11) 06/19/23 BUN 17 mg/dl (6-23) 06/19/23 Creatinine 0.65 mg/dl (0.6-1.2) 06/19/23 Estimated GFR ( Amer) 100.0 ml/min 06/19/23 Estimated GFR (Non-Af Amer) 86.2 ml/min 06/19/23 BUN/Creatinine Ratio 26.2 (10-20) H 06/19/23 Glu 99 mg/dl (70-99(Fasting)) 06/19/23 Ca 8.5 mg/dl (8.6-10.3) L 06/19/23 Total Bilirubin 1.0 mg/dl (0.2-1.0) 06/19/23 AST 73 U/L (13-39) H 06/19/23 ALT 26 U/L (7-52) 06/19/23 Alkaline Phosphatase 48 U/L (34-104) 06/19/23 TP 6.5 gm/dl (6.0-8.3) 06/19/23 Albumin 3.8 gm/dl (3.4-5.0) 06/19/23 Globulin 2.7 gm/dl (2.5-4.0) 06/19/23 Albumin/Globulin Ratio 1.4 (0.9-2) 06/19/23 Mg 1.9 mg/dl (1.7-2.4) 06/19/23 10:05 Calcium Level 8.5 mg/dl (8.6-10.3) L 06/19/23 12:05 Diagnostic Findings (Past 24 Hours) Chest X-Ray 06/19/23 09:58 XR chest 1V portable CLINICAL HISTORY: Chest pain, nonspecific. COMPARISON STUDY: Chest radiograph January 19, 2022. Chest CT January 30, 2023. FINDINGS: There is no pneumothorax or pleural effusion. Cardiomediastinal silhouette is stable. No evidence for pulmonary edema. Linear bibasilar densities are greater on the left. The findings favor atelectasis. Underlying bronchiectasis is better depicted on prior CT. There has been no significant change in appearance of the chest. IMPRESSION: No acute cardiopulmonary findings. No significant change in appearance of the chest. ACT 112: Negative or not required by law. Electronically signed by: Rahat Mondragon M.D. 06/19/2023 10:24 AM I & O Totals 24 Hours 06/18/23 06/19/23 06/20/23 06:59 06:59 06:59 Intake Total 400 / 400 Balance 400 / 400 Cumulative 06/19/23 09:48 thru 06/19/23 16:00 Intake Total 400 Balance 400 RT Ventilator Mngmt (Last Documented) Ventilator Ordered Settings Respiratory Rate 24 06/19/23 16:30 Ventilator - PT Measurements Respiratory Rate 24 Coding Level of Care Code 64499 CRITICAL CARE 1ST 30-74M Diagnoses Atherogenic dyslipidemia E78.5 ST elevation AL (STEMI) I21.3 Involved coronary artery: unspecified coronary artery Chest pain R07.9 Chest pain type: unspecified CAD (coronary atherosclerotic disease) I25.10 Obstructive sleep apnea G47.33 SEPIDEH (mycobacterium avium-intracellulare) infection A31.0 (2) ST elevation AL (STEMI) Involved coronary artery: unspecified coronary artery Qualified Code(s): I21.3 - ST elevation (STEMI) myocardial infarction of unspecified site (3) Chest pain Chest pain type: unspecified Qualified Code(s): R07.9 - Chest pain, unspecified
[2023-06-19] MEDS: busPIRone 7.5 MG TAB PO SCH (21:22)
[2023-06-19] MEDS: METOPROLOL TARTRATE 25 MG TAB PO SCH (21:23)
[2023-06-19] MEDS ORDERED: FAMOTIDINE 20 MG in SYRINGE 3 ML IV SCH (22:00)
[2023-06-20 04:23] LABS: Hematocrit (blood only) 27.3 % (37.0-47.0); Hemoglobin 8.9 g/dl (12.0-16.0); Mean Corpuscular Hemoglobin 29.7 pg (25.0-34.0); Mean Corpuscular Hgb Conc 32.6 g/dL (32.0-36.0); Mean Platelet Volume 9.7 fL (9.4-12.4); Platelet Count 227 K/uL (130-400); RDW Coefficient of Variation 14.3 % (11.5-14.5); RDW Standard Deviation 47.7 fL (36.4-46.3)
[2023-06-20 05:00] LABS: Albumin Globulin Ratio 1.4 (0.9-2); Albumin Level 2.9 gm/dl (3.4-5.0); BUN Creatinine Ratio 26.5 (10-20); Bilirubin,Total 0.7 mg/dl (0.2-1.0); Calcium 7.7 mg/dl (8.6-10.3); Creatinine Clr Calc Pharmacy 70.4 ml/min; Est GFR (African American) 98.5 ml/min; Globulin 2.1 gm/dl (2.5-4.0); Magnesium 1.9 mg/dl (1.7-2.4); Potassium 3.6 mmol/L (3.5-5.1)
[2023-06-20] MEDS: SODIUM CHLORIDE 0.9% 1,000 ML IV SCH ×2 (06:12→11:46)
[2023-06-20] MEDS: ICU Protocol for HYPERglycemia SCH ×2 (07:40→11:20)
[2023-06-20] MEDS: busPIRone 7.5 MG TAB PO SCH ×2 (07:47→20:07)
[2023-06-20] MEDS: ATORVASTATIN 40 MG TAB PO SCH (07:47)
[2023-06-20] MEDS: ASPIRIN 81 MG ECTAB PO SCH (07:48)
[2023-06-20] MEDS: METOPROLOL TARTRATE 25 MG TAB PO SCH ×2 (07:48→20:07)
[2023-06-20] MEDS: TICAGRELOR 90 MG TAB PO SCH ×2 (07:49→20:08)
[2023-06-20] MEDS: ETHAMBUTOL HCL 400 MG TAB PO SCH (07:49)
[2023-06-20] MEDS ORDERED: POTASSIUM CHLORIDE CRTAB 20 MEQ TABCR PO STA (07:54)
[2023-06-20] MEDS ORDERED: MAGNESIUM SULFATE / D5W 1 GM/100 ML BAG IV ONE (07:54)
[2023-06-20] MEDS: ENOXAPARIN INJ 40 MG/0.4 ML SYR SQ SCH (09:12)
[2023-06-20] MEDS: ONDANSETRON INJ 2 MG/ML 2 ML VIAL IV PRN ×2 (09:41→15:46)
[2023-06-20] MEDS ORDERED: Nursing to Pharmacy Communication SCH (10:45)
--- NOTE | 2023-06-20 10:46 | Critical Care Progress Note ---
Date of Service June 20, 2023 Assessment & Plan (1) Atherogenic dyslipidemia: Plan: PLAN: Resp: History of SEPIDEH -Follow-up with pulmonary as previously directed CV: Hypertension: Well-controlled -Reviewed cardiology notes Coronary artery disease -High intensity statin ID: Afebrile GI/Nutrition: Animal product intolerance -Possible alpha gal versus lactose intolerance -Discussed following up with clinical support manager versus GI doctor for further evaluation and possible etiologies of diarrhea related to animal product and dairy product Heme: Dual antiplatelet therapy DVT prophylaxis: Lovenox Endocrine: ICU hyperglycemia protocol A1c: 5.2 Vascular access: Peripheral IVs Code Status: Full code Disposition: Stable for downgrade out of ICU (2) ST elevation AK (STEMI): (3) Chest pain: (4) CAD (coronary atherosclerotic disease): (5) Obstructive sleep apnea: (6) SEPIDEH (mycobacterium avium-intracellulare) infection: Admission and Anticipated Discharge Date Admission Date: June 19, 2023 Subjective No overnight events Physical Exam Physical Exam: General: Alert. nontoxic. Skin: Warm, dry, Head: Atraumatic Ears, nose, mouth and throat: airway patent Cardiovascular: Normal peripheral perfusion Respiratory: no respiratory distress Gastrointestinal: Non distended Musculoskeletal: No deformity Results & Data Results & Data Vital Signs (Past 12 Hours) Vital Signs Temp Pulse Resp BP Pulse Ox 06/20/23 08:36 96/51 L 06/20/23 08:34 68 24 93 06/20/23 08:00 60 06/20/23 07:30 70 15 94 06/20/23 07:00 65 20 93 06/20/23 07:43 78 20 93 06/20/23 07:43 147/70 H 06/20/23 07:41 36.7 C 06/20/23 06:00 73 18 104/80 95 06/20/23 05:00 63 19 88/48 L 93 06/20/23 04:00 65 21 91/50 L 92 06/20/23 03:00 63 21 104/88 91 06/20/23 02:01 66 22 91 06/20/23 02:01 98/58 L 06/20/23 02:00 65 23 98/70 L 92 06/20/23 01:01 74 28 H 92 06/20/23 01:01 118/69 06/20/23 01:00 71 32 H 93 06/20/23 00:01 67 22 93 06/20/23 00:01 90/46 L 06/20/23 00:00 68 26 H 93 06/19/23 23:00 65 26 H 94 06/19/23 23:00 100/54 L Critical Care Results & Data Vital Signs (Past 12 Hours) Vital Signs Temp Pulse Resp BP Pulse Ox 06/20/23 08:36 96/51 L 06/20/23 08:34 68 24 93 06/20/23 08:00 60 06/20/23 07:30 70 15 94 06/20/23 07:00 65 20 93 06/20/23 07:43 78 20 93 06/20/23 07:43 147/70 H 06/20/23 07:41 36.7 C 06/20/23 06:00 73 18 104/80 95 06/20/23 05:00 63 19 88/48 L 93 06/20/23 04:00 65 21 91/50 L 92 06/20/23 03:00 63 21 104/88 91 06/20/23 02:01 66 22 91 06/20/23 02:01 98/58 L 06/20/23 02:00 65 23 98/70 L 92 06/20/23 01:01 74 28 H 92 06/20/23 01:01 118/69 06/20/23 01:00 71 32 H 93 06/20/23 00:01 67 22 93 06/20/23 00:01 90/46 L 06/20/23 00:00 68 26 H 93 06/19/23 23:00 65 26 H 94 06/19/23 23:00 100/54 L Lab & Micro Results (Past 24 Hours) RBC 3.00 M/uL (4.20-5.40) L 06/20/23 WBC 8.30 K/ul (4.8-10.8) 06/20/23 Hgb 8.9 g/dl (12.0-16.0) L 06/20/23 Hct 27.3 % (37.0-47.0) L 06/20/23 MCV 91.0 fL (80.0-100.0) 06/20/23 MCH 29.7 pg (25.0-34.0) 06/20/23 MCHC 32.6 g/dL (32.0-36.0) 06/20/23 RDW Standard Deviation 47.7 fL (36.4-46.3) H 06/20/23 RDW Coefficient of Variation 14.3 % (11.5-14.5) 06/20/23 Plt Count 227 K/uL (130-400) 06/20/23 MPV 9.7 fL (9.4-12.4) 06/20/23 Neutrophils (%) (Auto) 76.1 % 06/19/23 Lymphocytes (%) (Auto) 12.2 % 06/19/23 Monocytes # (Auto) 0.99 K/uL (0.11-0.59) H 06/19/23 Eosinophils # (Auto) 0.00 K/uL (0.00-0.50) 06/19/23 Immature Granulocyte % (Auto) 0.7 % 06/19/23 Neutrophils # (Auto) 7.00 K/uL (1.40-6.50) H 06/19/23 Lymphocytes # (Auto) 1.12 K/uL (1.20-3.40) L 06/19/23 Monocytes # (Auto) 0.99 K/uL (0.11-0.59) H 06/19/23 Eosinophils # (Auto) 0.00 K/uL (0.00-0.50) 06/19/23 Basophils # (Auto) 0.02 K/uL (0.00-0.20) 06/19/23 Immature Granulocyte # (Auto) 0.06 K/uL (0.01-0.20) 3 Na 135 mmol/L (136-145) L 06/20/23 K 3.6 mmol/L (3.5-5.1) 06/20/23 Cl 106 mmol/L (98-107) 06/20/23 CO2 23 mmol/L (21-32) 06/20/23 Anion Gap 6 (3-11) 06/20/23 BUN 18 mg/dl (6-23) 06/20/23 Creatinine 0.68 mg/dl (0.6-1.2) 06/20/23 Estimated GFR ( Amer) 98.5 ml/min 06/20/23 Estimated GFR (Non-Af Amer) 85.0 ml/min 06/20/23 BUN/Creatinine Ratio 26.5 (10-20) H 06/20/23 Glu 104 mg/dl (70-99(Fasting)) H 06/20/23 Ca 7.7 mg/dl (8.6-10.3) L 06/20/23 Phosphorus Level 3.0 mg/dl (2.5-4.9) 06/20/23 Total Bilirubin 0.7 mg/dl (0.2-1.0) 06/20/23 AST 49 U/L (13-39) H 06/20/23 ALT 19 U/L (7-52) 06/20/23 Alkaline Phosphatase 37 U/L (34-104) 06/20/23 TP 5.0 gm/dl (6.0-8.3) L 06/20/23 Albumin 2.9 gm/dl (3.4-5.0) L 06/20/23 Globulin 2.1 gm/dl (2.5-4.0) L 06/20/23 Albumin/Globulin Ratio 1.4 (0.9-2) 06/20/23 Mg 1.9 mg/dl (1.7-2.4) 06/20/23 03:27 Calcium Level 7.7 mg/dl (8.6-10.3) L 06/20/23 03:27 I & O Totals 24 Hours 06/19/23 06/20/23 06/21/23 06:59 06:59 06:59 Intake Total 1820 / 1820 300 / 300 Output Total 375 / 375 300 / 300 Balance 1445 / 1445 0 / 0 Cumulative 06/19/23 09:48 thru 06/20/23 10:00 Intake Total 2120 Output Total 675 Balance 1445 RT Ventilator Mngmt (Last Documented) Ventilator Ordered Settings Respiratory Rate 24 06/20/23 08:34 Ventilator - PT Measurements Respiratory Rate 24 Coding Level of Care Code 85983 SUB INP/OBS CARE 10/05MIN Diagnoses Atherogenic dyslipidemia E78.5 ST elevation AK (STEMI) I21.3 Involved coronary artery: unspecified coronary artery Chest pain R07.9 Chest pain type: unspecified CAD (coronary atherosclerotic disease) I25.10 Obstructive sleep apnea G47.33 SEPIDEH (mycobacterium avium-intracellulare) infection A31.0 (2) ST elevation AK (STEMI) Involved coronary artery: unspecified coronary artery Qualified Code(s): I21.3 - ST elevation (STEMI) myocardial infarction of unspecified site (3) Chest pain Chest pain type: unspecified Qualified Code(s): R07.9 - Chest pain, unspecified
[2023-06-20] MEDS: guaiFENesin 600 MG TABCR PO SCH ×2 (13:32→20:07)
--- NOTE | 2023-06-20 15:32 | XCELERA ---
[id number]
--- NOTE | 2023-06-20 15:45 | Electrocardiogram Report ---
Test Reason : Blood Pressure : / mmHG Vent. Rate : 065 BPM Atrial Rate : 065 BPM P-R Int : 170 ms QRS Dur : 082 ms QT Int : 418 ms P-R-T Axes : 072 014 094 degrees QTc Int : 434 ms Normal sinus rhythm Inferior infarct , possibly acute Consider right ventricular involvement in acute inferior infarct Abnormal ECG When compared with ECG of 19-JUN-2023 11:33, Serial changes of evolving Inferior infarct Confirmed by Perico Rivera ([id number]) on 06/20/2023 3:44:28 PM Referred By: Wayne Fuentes Confirmed By:Perico Rivera
--- NOTE | 2023-06-20 15:53 | Electrocardiogram Report ---
Test Reason : Blood Pressure : / mmHG Vent. Rate : 065 BPM Atrial Rate : 065 BPM P-R Int : 176 ms QRS Dur : 088 ms QT Int : 414 ms P-R-T Axes : 091 045 -87 degrees QTc Int : 430 ms Normal sinus rhythm Low voltage QRS Inferior infarct , age undetermined Abnormal ECG When compared with ECG of 19-JUN-2023 21:55, (unconfirmed) Serial changes of evolving Inferior infarct Confirmed by Perico Rivera ([id number]) on 06/20/2023 3:52:39 PM Referred By: Wayne Fuentes Confirmed By:Perico Rivera
[2023-06-20] MEDS ORDERED: KETOROLAC TROMETHAMINE 15 MG/ML VIAL IV ONE (17:06)
[2023-06-20] MEDS ORDERED: KETOROLAC TROMETHAMINE 15 MG/ML VIAL IV PRN (17:06)
--- NOTE | 2023-06-20 17:13 | Hospitalist Progress Note ---
Date of Service June 20, 2023 Assessment & Plan (1) STEMI (ST elevation myocardial infarction): Plan: Patient presented with 1 week of substernal chest pain, nausea and shortness of breath. EKG w/ ST elevation in inferior leads, trop 11592.3 on admission, heart alert called and now s/p cardiac catheterization with Dr Fuentes with 2 overlapping WON placed in RCA for 99% occlusion Pt continues to have same CP, nausea. ECHO with inferior wall hypokinesis, preserved EF, no pericardial effusion ECG with some residual ST elevation aVF, ST depression lateral leads with TWI [place] V4-[place] [address] CXR negative Suspect component of pericarditis post CO as per my d/w Cardiology given her CO was ongoing likely for a few days prior to admission. May also have costochondritis given direct tenderness to chest wall on exam -start colchicine 0.6mg daily,toradol prn -continue to monitor on telemetry -Continue Brilinta BID, ASA 81mg, Metoprolol tartrate 25mg BID, Lipitor 40mg daily - A1c/lipid panel excellent -monitor for improvement of chest pain (2) Chest pain: Plan: as above (3) Anemia: Plan: hgb down to 8.9 from 11.4 on admission, some hemodilutional, no evidence of bleeding stopped fluids and repeat hgb--> up to 9.7 monitor CBC, watch for bleeding-no melena or hematochezia per patient -start Protonix 40mg IV bid (4) HTN (hypertension): Plan: On lisinopril 10mg daily at home-held -started metoprolol as above, holding further lisinopril post-cath until BP can handle monitor (5) Obstructive sleep apnea: Plan: unable to tolerate CPAP reported also w/ restrictive lung disease, not very compliant w/ her nebs duonebs/hypertonic saline added as needed. CXR w/o acute process on admission (6) CAD (coronary atherosclerotic disease): Plan: as above (7) Bronchiectasis: Plan: hypertonic saline nebs on SEPIDEH treatment with ethambutol, clofazimine which is experimental and can be brought from home (8) SEPIDEH (mycobacterium avium-intracellulare) infection: Plan: as above Plan DVT proph-Lovenox -Dispo-continued stay Admission and Anticipated Discharge Date Admission Date: June 19, 2023 Subjective Pt c/o persistent chest pain righ tin center of chest that hurts to the touch but also when just sitting at rest. She reports it is the exact same as when she came in. Also with same nausea as before, no change since cath. She cannot explain if any other symptoms were worse the day she came in but just that her family made her come in. No real change in CP quality with sitting forward Discussed her care with Cardiology Tele with NSR, rates 60-70s Physical Exam Constitutional: WD/WN, vitals as above Neck: trachea midline, no thyromegaly Respiratory: normal respiratory effort, lungs clear to auscultation Cardiovascular: RRR, no murmur, no edema Chest (Breasts): Chest: normal inspection of chest Additional Comments: +TTP exquisite over costochondral junction right side Gastrointestinal (Abdomen): normal bowel sounds, soft, nontender, no hepatosplenomegaly Musculoskeletal: Extremities: extremities normal to inspection; no cyanosis and no clubbing Skin: no rashes, warm and dry Neurologic: moves all extremities and awake; no focal motor deficits Psychiatric: A+Ox3, euthymic affect Lymphatic: no lymphedema Results & Data Results & Data Vital Signs (Past 12 Hours) Vital Signs Temp Pulse Pulse Resp BP BP Pulse Ox 06/20/23 15:40 37.0 C 68 112/76 95 06/20/23 11:36 37.0 C 67 18 113/72 94 06/20/23 11:01 124/70 06/20/23 11:00 64 25 H 06/20/23 10:32 100/35 L 06/20/23 10:32 62 27 H 96 06/20/23 08:00 06/20/23 08:36 96/51 L 06/20/23 08:34 68 24 93 06/20/23 08:00 60 06/20/23 07:30 70 15 94 06/20/23 07:00 65 20 93 06/20/23 07:43 78 20 93 06/20/23 07:43 147/70 H 06/20/23 07:41 36.7 C 06/20/23 06:00 73 18 104/80 95 O2 Del Method 06/20/23 15:40 Room Air 06/20/23 11:36 Room Air 06/20/23 11:01 06/20/23 11:00 06/20/23 10:32 06/20/23 10:32 06/20/23 08:00 Room Air 06/20/23 08:36 06/20/23 08:34 06/20/23 08:00 06/20/23 07:30 06/20/23 07:00 06/20/23 07:43 06/20/23 07:43 06/20/23 07:41 06/20/23 06:00 Laboratory Results CBC, troponin, BMP, LFTs, magnesium reviewed PG Care Time/CCT Total # of Minutes Spent Total Time Spent with Patient: Total time spent is greater than 50% in coordination of care (as documented) at patient's floor/unit and/or counseling patient: Coding Level of Care Code 42462 SUB INP/OBS CARE 3/50MIN Diagnoses STEMI (ST elevation myocardial infarction) I21.3 Chest pain R07.9 Chest pain type: unspecified Anemia D64.9 HTN (hypertension) I10 Obstructive sleep apnea G47.33 CAD (coronary atherosclerotic disease) I25.10 Bronchiectasis J47.9 SEPIDEH (mycobacterium avium-intracellulare) infection A31.0 (2) Chest pain Chest pain type: unspecified Qualified Code(s): R07.9 - Chest pain, unspecified
[2023-06-20] MEDS: PANTOprazole 40 MG in SYRINGE 0 ML IV SCH (17:41)
[2023-06-20] MEDS: COLCHICINE 0.6 MG TAB PO SCH (17:42)
[2023-06-20 18:12] LABS: Basophils # (auto) 0.04 K/uL (0.00-0.20); Basophils % (auto) 0.5 %; Eosinophils # (auto) 0.02 K/uL (0.00-0.50); Eosinophils % (auto) 0.3 %; Hematocrit (blood only) 29.2 % (37.0-47.0); Hemoglobin 9.7 g/dl (12.0-16.0); Immature Granulocytes # (auto) 0.06 K/uL (0.01-0.20); Immature Granulocytes % (auto) 0.8 %; Lymphocytes # (auto) 0.94 K/uL (1.20-3.40); Lymphocytes % (auto) 12.7 %; Mean Corpuscular Hemoglobin 29.9 pg (25.0-34.0); Mean Corpuscular Hgb Conc 33.2 g/dL (32.0-36.0); Mean Corpuscular Volume 90.1 fL (80.0-100.0); Mean Platelet Volume 9.6 fL (9.4-12.4); Monocytes # (auto) 0.88 K/uL (0.11-0.59); Monocytes % (auto) 11.9 %; Neutrophils # (auto) 5.45 K/uL (1.40-6.50); Neutrophils % (auto) 73.8 %; Platelet Count 260 K/uL (130-400); RDW Coefficient of Variation 14.3 % (11.5-14.5); RDW Standard Deviation 47.6 fL (36.4-46.3); Red Blood Count 3.24 M/uL (4.20-5.40); White Blood Count 7.39 K/ul (4.8-10.8)
[2023-06-21 07:54] LABS: Magnesium 2.1 mg/dl (1.7-2.4); Phosphorus 3.5 mg/dl (2.5-4.9)
[2023-06-21] MEDS: PANTOprazole 40 MG in SYRINGE 0 ML IV SCH (08:29)
[2023-06-21] MEDS: ENOXAPARIN INJ 40 MG/0.4 ML SYR SQ SCH (08:29)
[2023-06-21] MEDS: busPIRone 7.5 MG TAB PO SCH (08:32)
[2023-06-21] MEDS: ASPIRIN 81 MG ECTAB PO SCH (08:33)
[2023-06-21] MEDS: COLCHICINE 0.6 MG TAB PO SCH (08:33)
[2023-06-21] MEDS: ETHAMBUTOL HCL 400 MG TAB PO SCH (08:33)
[2023-06-21] MEDS: TICAGRELOR 90 MG TAB PO SCH (08:33)
[2023-06-21] MEDS: ATORVASTATIN 40 MG TAB PO SCH (08:34)
[2023-06-21] MEDS: METOPROLOL TARTRATE 25 MG TAB PO SCH (08:35)
[2023-06-21] MEDS: guaiFENesin 600 MG TABCR PO SCH (08:36)
[2023-06-21] MEDS ORDERED: CHOLECALCIFEROL 1,000 UNITS 25 MCG TAB PO SCH (09:00)
[2023-06-21] MEDS ORDERED: MULTIVITAMIN TAB PO SCH (09:00)
[2023-06-21 09:23] LABS: Basophils # (auto) 0.02 K/uL (0.00-0.20); Basophils % (auto) 0.3 %; Eosinophils # (auto) 0.09 K/uL (0.00-0.50); Eosinophils % (auto) 1.4 %; Hematocrit (blood only) 27.5 % (37.0-47.0); Hemoglobin 9.2 g/dl (12.0-16.0); Immature Granulocytes # (auto) 0.04 K/uL (0.01-0.20); Immature Granulocytes % (auto) 0.6 %; Lymphocytes # (auto) 1.17 K/uL (1.20-3.40); Lymphocytes % (auto) 18.8 %; Mean Corpuscular Hemoglobin 30.2 pg (25.0-34.0); Mean Corpuscular Hgb Conc 33.5 g/dL (32.0-36.0); Mean Corpuscular Volume 90.2 fL (80.0-100.0); Mean Platelet Volume 9.9 fL (9.4-12.4); Monocytes # (auto) 0.69 K/uL (0.11-0.59); Monocytes % (auto) 11.1 %; Neutrophils % (auto) 67.8 %; Platelet Count 247 K/uL (130-400); RDW Coefficient of Variation 14.3 % (11.5-14.5); RDW Standard Deviation 46.9 fL (36.4-46.3); Red Blood Count 3.05 M/uL (4.20-5.40); White Blood Count 6.21 K/ul (4.8-10.8)
[2023-06-21 09:29] LABS: Calcium 7.9 mg/dl (8.6-10.3); Potassium 3.7 mmol/L (3.5-5.1)
[2023-06-21 09:35] LABS: BUN Creatinine Ratio 20.6 (10-20); Est GFR (African American) 98.5 ml/min
[2023-06-21 09:52] LABS: Troponin I High Sensitivity 9483.8 pg/ml (0-14)
[2023-06-21 09:56] LABS: Thyroid Stimulating Hormone 4.25 uIu/ml (0.300-4.500)
[2023-06-21 10:04] LABS: Ferritin 75.6 ng/ml (8-388)
[2023-06-21 10:18] LABS: Folate (Folic Acid),Ser orPlas 12.27 ng/ml (>5.38)
[2023-06-21] MEDS: ACETAMINOPHEN 325 MG TAB PO PRN (10:57)
--- NOTE | 2023-06-21 11:41 | Hospitalist Progress Note ---
Date of Service June 21, 2023 Assessment & Plan (1) STEMI (ST elevation myocardial infarction): Plan: Patient presented with 1 week of substernal chest pain, nausea and shortness of breath. EKG w/ ST elevation in inferior leads, trop 18242.3 on admission, heart alert called and now s/p cardiac catheterization with Dr Fuentes with 2 overlapping WON placed in RCA for 99% occlusion Pt continued to have same CP, nausea. ECHO with inferior wall hypokinesis, preserved EF, no pericardial effusion ECG with some residual ST elevation aVF, ST depression lateral leads with TWI in V4-6 [place] [address] CXR negative Suspect component of pericarditis post [place] as per my d/w Cardiology given her [place] was ongoing likely for a few days prior to admission. May also have costochondritis given direct tenderness to chest wall on exam ESR 33 Started colchicine 0.6mg daily,toradol prn and now much improved. Also started Protonix the same day which may also be helping -continue colchicine and increase to bid, continue toradol prn -continue to monitor on telemetry for arrhythmia-none noted -Continue Brilinta BID, ASA 81mg, Metoprolol tartrate 25mg BID, Lipitor 40mg daily - A1c/lipid panel excellent -monitor for improvement of chest pain-seems to be improving (2) Chest pain: Plan: as above (3) Anemia: Plan: hgb down to 8.9 from 11.4 on admission, some hemodilutional, no evidence of bleeding stopped fluids and repeat hgb--> up to 9.7 and stable today at 9.2 Fe studies anemia of chronic disease, transferrin sat low at 11%, ferritin normal, B12/folate normal, TSH normal -monitor CBC, watch for bleeding-no melena or hematochezia per patient -continue Protonix 40mg IV bid (4) HTN (hypertension): Plan: On lisinopril 10mg daily at home-held -started metoprolol as above, holding further lisinopril post-cath until BP can handle monitor (5) Obstructive sleep apnea: Plan: unable to tolerate CPAP reported also w/ restrictive lung disease, not very compliant w/ her nebs duonebs/hypertonic saline added as needed. CXR w/o acute process on admission (6) CAD (coronary atherosclerotic disease): Plan: as above (7) Bronchiectasis: Plan: hypertonic saline nebs on SEPIDEH treatment with ethambutol, clofazimine which is experimental and can be brought from home (8) SEPIDEH (mycobacterium avium-intracellulare) infection: Plan: as above Plan DVT proph-Lovenox -Dispo-continued stay on PCU but hopeful for dc to home tomorrow if chest pain improving Admission and Anticipated Discharge Date Admission Date: June 19, 2023 Anticipated date of discharge: 06/22/23 Subjective Pt reports feeling much improved today with chest pain only a 3/10 in severity, nausea completely resolved but remains with low appetite. No other concerns except her chronic RLE radiculopathy causing pain. No dark stools. Tele with NSR, rates 60-70s Physical Exam Constitutional: WD/WN, vitals as above Neck: trachea midline, no thyromegaly Respiratory: normal respiratory effort, lungs clear to auscultation Cardiovascular: RRR, no murmur, no edema Chest (Breasts): Chest: normal inspection of chest Additional Comments: mild/improved TTP over right ccostochondral junction Gastrointestinal (Abdomen): normal bowel sounds, soft, nontender, no hepatosplenomegaly Musculoskeletal: Extremities: extremities normal to inspection; no cyanosis and no clubbing Skin: no rashes, warm and dry Neurologic: moves all extremities and awake; no focal motor deficits Psychiatric: A+Ox3, euthymic affect Lymphatic: no lymphedema Results & Data Results & Data Vital Signs (Past 12 Hours) Vital Signs Temp Pulse Pulse Resp BP Pulse Ox O2 Del Method 06/21/23 11:27 36.7 C 63 18 109/71 98 Room Air 06/21/23 08:02 36.5 C 68 16 123/75 99 Room Air 06/21/23 07:16 51 L Laboratory Results CBC, BMP, mag, iron studies, B12, folate, TSH, ESR reviewed PG Care Time/CCT Total # of Minutes Spent Total Time Spent with Patient: Total time spent is greater than 50% in coordination of care (as documented) at patient's floor/unit and/or counseling patient: Coding Level of Care Code 18416 SUB INP/OBS CARE 2/35MIN Diagnoses STEMI (ST elevation myocardial infarction) I21.3 Chest pain R07.9 Chest pain type: unspecified Anemia D64.9 HTN (hypertension) I10 Obstructive sleep apnea G47.33 CAD (coronary atherosclerotic disease) I25.10 Bronchiectasis J47.9 SEPIDEH (mycobacterium avium-intracellulare) infection A31.0 (2) Chest pain Chest pain type: unspecified Qualified Code(s): R07.9 - Chest pain, unspecified
[2023-06-21 15:55] VITALS: BP 96/47; RESP 20; TEMP 98.2; O2SAT 92
--- NOTE | 2023-06-21 16:08 | Electrocardiogram Report ---
Test Reason : Blood Pressure : / mmHG Vent. Rate : 077 BPM Atrial Rate : 077 BPM P-R Int : 166 ms QRS Dur : 086 ms QT Int : 394 ms P-R-T Axes : 036 035 255 degrees QTc Int : 445 ms Normal sinus rhythm Low voltage QRS ST elevation consider inferior injury or acute infarct ACUTE IA / STEMI Consider right ventricular involvement in acute inferior infarct Abnormal ECG When compared with ECG of 20-JUN-2023 08:48, No significant change was found Confirmed by Perico Rivera ([id number]) on 06/21/2023 4:08:29 PM Referred By: Wayne Fuentes Confirmed By:Perico Rivera
--- NOTE | 2023-06-21 16:51 | Cardiology Progress Note ---
Date of Service June 21, 2023 Assessment & Plan (1) ST elevation MS (STEMI): Plan: Drug-eluting stent to RCA. Good angiographic results with good cheondoism of coronary flow. Her troponin has peaked and trended down. Echo with RCA territory wall motion abnormality but preserved EF. Will likely improve post revascularization and medications. She will remain on dual antiplatelet therapy with aspirin and Brilinta to complete 1 to 2 years therapy if tolerated. Guideline directed medical therapy for secondary prevention of coronary disease as below. Strongly encouraged her to participate in cardiac rehab. She is interested in this referral will be made as an outpatient. (2) Atherogenic dyslipidemia: Plan: High risk. High intensity statin therapy with target LDL reduction of greater than or equal to 50% of untreated baseline LDL. Continue atorvastatin. We will check a lipid panel after 3 months therapy. (3) CAD (coronary atherosclerotic disease): Plan: Guideline directed medical therapy with aspirin, beta-monique, statin, and PHONG inhibitor. Her current blood pressure and heart rate are at target. Her blood pressure was slightly elevated earlier this morning. We will continue current regimen at current doses. (4) HTN (hypertension): Plan: Blood pressure is adequately controlled. No changes at this time. (5) Atypical chest pain: Plan: Probable costochondritis as she clearly has palpable/reproducible chest pain. There may also be a component of pericarditis since it seems she was at home for several days with chest pain and likely has inflammation associated with MS. I agree with the use of nonsteroidal in the short-term to help with inflammation. Colchicine specifically for the pericarditis. We will reevaluate further as an outpatient Plan From a cardiovascular standpoint the patient is appropriate for discharge at this time. I would like to see her in the cardiology clinic for follow-up within 1 to 2 weeks of discharge. Her post cath discharge instructions have been completed along with the cardiac medications being electronically sent to the pharmacy. Admission and Anticipated Discharge Date Admission Date: June 19, 2023 Subjective Patient was seen this morning at the bedside. She was comfortable at that time. She had tenderness of her chest and mild chest discomfort. She reported to me that she has had 2 prior episodes of costochondritis and that her current chest pain is very similar to those. Costochondritis took quite some time to improve per her recollection. She believes her current chest pain is equivalent to what she was feeling much prior to her heart attack. Her MS pain is different than what she is currently feeling. She has not been out of bed and walking around at this point. She has no shortness of breath. She denied fevers, chills, or cough. She was concerned about not receiving her antibiotic for her Mycobacterium. No other complaints or concerns. She denied pain at the radial access site. She was interested in discharge later today. Review of Systems Review of Systems: Negative except as per HPI Physical Exam Constitutional: WD/WN, vitals as above Eyes: Extraocular muscles intact. Sclera are anicteric. ENMT: Oral mucosa is pink moist and intact Neck: No JVD or bruits Respiratory: Clear to auscultation bilaterally. No wheezing, rhonchi, or rales. Good air movement. Cardiovascular: Regular rate and rhythm. Distant heart sounds. S4 gallop. Do not appreciate any rubs or murmurs. Chest (Breasts): Additional Comments: Mild chest tenderness to palpation of the anterior chest and sternum. Musculoskeletal: no cyanosis or clubbing, extremities motor strength 5/5 (Mild ecchymosis R radial access site/forearm. Good distal perfusion) Neurologic: Cognition is intact. Speech is fluent. No focal deficits. Psychiatric: A+Ox3, euthymic affect Results & Data Vital Signs (Past 12 Hours) Vital Signs Temp Pulse Pulse Resp BP Pulse Ox O2 Del Method 06/21/23 15:55 36.8 C 67 20 96/47 L 92 Room Air 06/21/23 11:27 36.7 C 63 18 109/71 98 Room Air 06/21/23 08:02 36.5 C 68 16 123/75 99 Room Air 06/21/23 07:16 51 L PG Care Time/CCT Total # of Minutes Spent Total Time Spent with Patient: Total time spent is greater than 50% in coordination of care (as documented) at patient's floor/unit and/or counseling patient: Coding Level of Care Code 32600 SUB INP/OBS CARE 3/50MIN Diagnoses ST elevation MS (STEMI) I21.3 Involved coronary artery: unspecified coronary artery Atherogenic dyslipidemia E78.5 CAD (coronary atherosclerotic disease) I25.10 HTN (hypertension) I10 Atypical chest pain R07.89 (1) ST elevation MS (STEMI) Involved coronary artery: unspecified coronary artery Qualified Code(s): I21.3 - ST elevation (STEMI) myocardial infarction of unspecified site
--- NOTE | 2023-06-21 17:50 | Discharge Summary ---
Discharge Summary Date of Service June 21, 2023 Notes For Next Care Provider Medication Changes From Visit Added Brilinta 90mg po bid Added ASA 81mg po daily Added metoprolol 25mg po bid Added atorvastatin 40mg po daily Added Protonix 40mg po bid Added colchicine 0.6mg po bid Decreased lisinopril to 5mg po daily Principal Dx & Hospital Course #1 = Principal Diagnosis (1) STEMI (ST elevation myocardial infarction): Patient presented with 1 week of substernal chest pain, nausea and shortness of breath. EKG w/ ST elevation in inferior leads, trop 95030.3 on admission, heart alert called and now s/p cardiac catheterization with Dr Fuentes with 2 overlapping WON placed in RCA for 99% occlusion Pt continued to have same CP, nausea. ECHO with inferior wall hypokinesis, preserved EF, no pericardial effusion ECG with some residual ST elevation aVF, ST depression lateral leads with TWI in V4-6 [place] [address] CXR negative Suspect component of pericarditis post [place] as per my d/w Cardiology given her [place] was ongoing likely for a few days prior to admission. May also have costochondritis given direct tenderness to chest wall on exam ESR 33 Started colchicine 0.6mg bid,toradol prn and now chest pain much improved. Also started Protonix the same day which may also be helping the nausea -continue colchicine bid, continue naproxen prn pain on discharge for carli carditis -monitored on telemetry for arrhythmia-none noted -Continue Brilinta BID, ASA 81mg, Metoprolol tartrate 25mg BID, Lipitor 40mg daily, and lowered dose of lisinopril to 5mg daily due to relative hypotension after adding metoprolol - A1c/lipid panel excellent -remain on protonix for at least one month given possible gastritis (2) Chest pain: as above (3) Anemia: hgb down to 8.9 from 11.4 on admission, some hemodilutional, no evidence of bleeding stopped fluids and repeat hgb--> up to 9.7 and stable today at 9.2 Fe studies anemia of chronic disease, transferrin sat low at 11%, ferritin normal, B12/folate normal, TSH normal -monitor CBC as outpt, watch for bleeding-no melena or hematochezia per patient -continue Protonix 40mg po bid as outpt and f/u with PCP (4) HTN (hypertension): On lisinopril 10mg daily at home-held here while starting metoprolol -lower lisinopril to 5mg daily on discharge due to BPs in the 90s -100s systolic (5) Obstructive sleep apnea: unable to tolerate CPAP reported also w/ restrictive lung disease, not very compliant w/ her nebs duonebs/hypertonic saline. CXR w/o acute process on admission (6) CAD (coronary atherosclerotic disease): as above (7) Bronchiectasis: hypertonic saline nebs on SEPIDEH treatment with ethambutol, clofazimine which is experimental (8) SEPIDEH (mycobacterium avium-intracellulare) infection: as above Plan DVT proph-Lovenox -Dispo-dc to home today as per my d/w Cardiology Discharge Exam Constitutional WD/WN, vitals as above Neck trachea midline, no thyromegaly Respiratory normal respiratory effort, lungs clear to auscultation Cardiovascular RRR, no murmur, no edema Chest (Breasts) Chest: normal inspection of chest Additional Comments: +TTP over right costochondral junction Gastrointestinal (Abdomen) normal bowel sounds, soft, nontender, no hepatosplenomegaly Musculoskeletal Extremities: extremities normal to inspection; no cyanosis and no clubbing Skin no rashes, warm and dry Neurologic moves all extremities and awake; no focal motor deficits Psychiatric A+Ox3, euthymic affect Lymphatic no lymphedema Updated Medication List Medication Instructions Recorded Confirmed Type guaifenesin 600 mg tablet, 600 mg PO Q12H 06/13/18 06/19/23 History extended release 12 hr (Mucinex) vit C 250 mg-vit E 90 mg-zinc 40 1 tab PO BID 06/13/18 06/19/23 History mg-copper 1 nv-[id number]-rgocqu capsule (PreserVision AREDS-2) cholecalciferol (vitamin D3) 50 4,000 units PO QAM 08/19/19 06/19/23 History mcg (2,000 unit) capsule (Vitamin D3) nebulizer accessories #2 ea 01/13/22 05/10/23 Rx acetaminophen 650 mg 650 mg PO Q12H PRN Pain 01/15/22 06/19/23 History tablet,extended release ethambutol 400 mg tablet 1,200 mg PO QAM 08/23/22 06/19/23 History buspirone 15 mg tablet 15 mg PO BID #180 tabs 12/01/22 06/19/23 Rx clofazimine 100 mg PO DAILY #1 cap 01/13/23 05/10/23 Rx turmeric root extract 500 mg tablet 1,000 mg PO DAILY 01/13/23 06/19/23 History meclizine 12.5 mg tablet 12.5 mg PO DAILY PRN dizziness #10 02/23/23 06/19/23 Rx tabs naproxen 500 mg tablet,delayed 500 mg PO BID PRN pain #60 tabs 03/28/23 06/19/23 Rx release (EC-Naprosyn) lisinopril 10 mg tablet 10 mg PO DAILY #30 tabs 05/09/23 06/19/23 Rx L.acid,casei,plant,saliv-B.anim 10 cap PO 05/10/23 05/10/23 History billion cell (2 billion ea) capsule albuterol sulfate 90 mcg/actuation 2 puff inhalation Q4H PRN Wheezing 05/17/23 06/19/23 Rx aerosol inhaler #18 grams ipratropium 0.5 mg-albuterol 3 mg 3 ml inhalation Q8H PRN shortness 05/17/23 06/19/23 Rx (2.5 mg base)/3 mL nebulization of breath or wheezing #180 mL soln sodium chloride 7 % for 1 inh inhalation BID #240 mL 05/17/23 06/19/23 Rx nebulization aspirin 81 mg tablet,delayed 81 mg PO QAM #90 tabs 06/21/23 Rx release atorvastatin 40 mg tablet 40 mg PO QAM #90 tabs 06/21/23 Rx colchicine (gout) 0.6 mg tablet 0.6 mg PO BID #60 tabs 06/21/23 Rx (Colcrys) metoprolol tartrate 25 mg tablet 25 mg PO BID #180 tabs 06/21/23 Rx pantoprazole 40 mg tablet,delayed 40 mg PO BID #60 tabs 06/21/23 Rx release ticagrelor 90 mg tablet (Brilinta) 90 mg PO BID #180 tabs 06/21/23 Rx Hospital Stay Data Consultations 06/19/23 10:13 Consult Cardiac Catheterization Stat ED Decision to Admit Stat 06/19/23 12:04 Consult Credit Office Manager Routine 06/20/23 10:52 Consult Cardiology Routine Procedures Performed Operation Date: 06/19/23 10:15 Actual Procedures p Aspiration/PCI w/WON for Stemi - Wayne Fuentes MD, PhD s Cineradiography w/Routine Exam - Wayne Fuentes MD, PhD s Cath, Coronaries ONLY (no LV) - Wayne Fuentes MD, PhD s Ultrasound Vascular Access - Wayne Fuentes MD, PhD Diagnostic Imagining Performed 06/19/23 10:13 CL Cath Imgs for PACS use only Stat ECHO Pending Results Patient Have Any Pending Studies at Discharge: No Discharge Instructions Given to Patient (Per Discharging Provider) Please stay on the colchicine twice a day for the inflammation around your heart from the heart attack. You can take naproxen as needed for chest pain but try to take this sparingly. Your lisinopril dose was lowered to 5mg daily to avoid low blood pressure. You were also started on Protonix which helps with inflammation in the stomach as an antacid. Please stay on this for 1 month. You will need ot stay on the aspirin and Brilinta as prescribed to keep your heart stents from clogging back up-this is very important. You were also started on a cholesterol medication and metoprolol. Both of these medications help prevent future heart attacks. You were also found to be anemic. Your iron levels, B12, and folate as well as thyroid function were all checked and were fine. Please follow up with your PCP regarding your anemia. ACTIVITY RECOMMENDATIONS: It is common to feel weak and fatigue for a few days. * Do not drive or operate any motorized equipment for the next three days. * Limit stair usage (2 or 3 trips a day only) for the next three days. * Do not lift anything heavier than 10 pounds for the next three days. * Do not engage in vigorous exercise or any sports for the next five days. * You may shower the day after your procedure, but do not immerse the area for three days. Cleanse the site gently with soap and water. SPECIAL CARE INSTRUCTIONS: * You may replace the pressure dressing or band-aid the morning after the procedure. * After your procedure, it is normal to have a small bruise or small lump at the site. Examine your site daily for any change in the bruise or lump, redness, swelling, drainage or numbness. Notify your doctor if any change. BLEEDING: * If there is a small amount of bleeding at the site, lie down and apply firm pressure with a clean cloth for ten minutes. When the bleeding stops, lie quietly keeping the procedure limb straight for six hours. Notify your doctor as soon as possible. * If the bleeding does not stop after ten minutes or if there is a large amount of bleeding or spurting, call 911 immediately. Continue to lie down and hold firm pressure until help arrives. SKIN IRRITATION: * You may experience some redness and/or swelling in the area where radiation was administered. If any skin irritation occurs, please contact your family physician. FOLLOW UP VISIT: Keep any scheduled doctor appointments. Total Time Total Time Spent Total Time Spent (In Minutes): 40 min Coding Level of Care Code 46419 INP/OBS DISCH >30 MIN Diagnoses STEMI (ST elevation myocardial infarction) I21.3 Chest pain R07.9 Chest pain type: unspecified Anemia D64.9 HTN (hypertension) I10 Obstructive sleep apnea G47.33 CAD (coronary atherosclerotic disease) I25.10 Bronchiectasis J47.9 SEPIDEH (mycobacterium avium-intracellulare) infection A31.0
[2023-06-21 17:54] VITALS: PULSE 67
[2023-06-21] MEDS ORDERED: PANTOprazole 40 MG TAB PO SCH (21:00)
[2023-06-21] MEDS ORDERED: COLCHICINE 0.6 MG TAB PO SCH (21:00)
== END 2023-06-21 18:00 | disposition home or self-care (01) | DRG 322 ==
LOC: ED 09:48 → CC 10:15 → 1E 10:15 → SUATTDRO 10:44 → 1E 11:46 → 2S 06-20 11:54
PROC: CLB.CCO (2023-06-19 10:15)

== ENCOUNTER 2023-07-15 12:09 | Observation (INO) ==
[2023-07-15] MEDS ORDERED: ASPIRIN CHEW 324 MG PO STA (12:17)
[2023-07-15 12:58] LABS: Basophils # (auto) 0.04 K/uL (0.00-0.20); Basophils % (auto) 0.6 %; Eosinophils # (auto) 0.16 K/uL (0.00-0.50); Eosinophils % (auto) 2.4 %; Hematocrit (blood only) 37.2 % (37.0-47.0); Hemoglobin 12.4 g/dl (12.0-16.0); Immature Granulocytes # (auto) 0.03 K/uL (0.01-0.20); Immature Granulocytes % (auto) 0.5 %; Lymphocytes # (auto) 1.04 K/uL (1.20-3.40); Lymphocytes % (auto) 15.9 %; Mean Corpuscular Hemoglobin 29.5 pg (25.0-34.0); Mean Corpuscular Hgb Conc 33.3 g/dL (32.0-36.0); Mean Corpuscular Volume 88.4 fL (80.0-100.0); Mean Platelet Volume 10.8 fL (9.4-12.4); Monocytes # (auto) 0.73 K/uL (0.11-0.59); Monocytes % (auto) 11.2 %; Neutrophils # (auto) 4.54 K/uL (1.40-6.50); Neutrophils % (auto) 69.4 %; Platelet Count 271 K/uL (130-400); RDW Coefficient of Variation 14.9 % (11.5-14.5); RDW Standard Deviation 47.9 fL (36.4-46.3); Red Blood Count 4.21 M/uL (4.20-5.40); White Blood Count 6.54 K/ul (4.8-10.8)
[2023-07-15] MEDS ORDERED: MoRPHine SULFATE 2 MG/ML CARP IV STA (12:58)
[2023-07-15 13:17] LABS: Albumin Level 3.7 gm/dl (3.4-5.0); BUN Creatinine Ratio 14.6 (10-20); Bilirubin Direct 0.3 mg/dl (0-0.2); Bilirubin,Total 1.1 mg/dl (0.2-1.0); Calcium 8.7 mg/dl (8.6-10.3); Creatinine Clr Calc Pharmacy 48.4 ml/min; Potassium 3.6 mmol/L (3.5-5.1); Total Protein 6.1 gm/dl (6.0-8.3)
--- NOTE | 2023-07-15 13:23 | Emergency Department Note ---
History of Present Illness General Chief Complaint: Cardiac Assessment Stated Complaint: CHEST PAIN, HEART ATTACK 06/19 Time Seen by Provider: 07/15/23 12:17 History of Present Illness Provider Complaint: chest pain Onset (ago): month(s) 1 Duration: intermittent Onset: during rest Pain Location: substernal and left chest Severity: moderate Maximum Pain Intensity: 8 Current Pain Intensity: 8 Quality: + aching, + heaviness and + dull Relieved By: + nothing Exacerbated By: + nothing Context: + other (Recent [place] on June 19 and stent placement on June 19) Associated symptoms: + dyspnea (Developed over the last 2 days); no vomiting, no diaphoresis, no syncope, no palpitations, no fever, no cough or no leg swelling Home Medications Medication Instructions Recorded Confirmed Type guaifenesin 600 mg tablet, 600 mg PO Q12H 06/13/18 07/15/23 History extended release 12 hr (Mucinex) vit C 250 mg-vit E 90 mg-zinc 40 1 tab PO BID 06/13/18 07/15/23 History mg-copper 1 ua-vwunra-jepica capsule (PreserVision AREDS-2) cholecalciferol (vitamin D3) 50 4,000 units PO QAM 08/19/19 07/15/23 History mcg (2,000 unit) capsule (Vitamin D3) ethambutol 400 mg tablet 1,200 mg PO QAM 08/23/22 07/15/23 History buspirone 15 mg tablet 15 mg PO BID #180 tabs 12/01/22 07/15/23 Rx clofazimine 100 mg PO DAILY #1 cap 01/13/23 07/15/23 Rx turmeric root extract 500 mg tablet 1,000 mg PO DAILY 01/13/23 07/15/23 History meclizine 12.5 mg tablet 12.5 mg PO DAILY PRN dizziness #10 02/23/23 07/15/23 Rx tabs naproxen 500 mg tablet,delayed 500 mg PO BID PRN pain #60 tabs 03/28/23 07/15/23 Rx release (EC-Naprosyn) L.acid,casei,plant,saliv-B.anim 10 1 cap PO DAILY 05/10/23 07/15/23 History billion cell (2 billion ea) capsule ipratropium 0.5 mg-albuterol 3 mg 3 ml inhalation Q8H PRN shortness 05/17/23 07/15/23 Rx (2.5 mg base)/3 mL nebulization of breath or wheezing #180 mL soln sodium chloride 7 % for 1 inh inhalation BID #240 mL 05/17/23 07/15/23 Rx nebulization aspirin 81 mg tablet,delayed 81 mg PO QAM #90 tabs 06/21/23 07/15/23 Rx release atorvastatin 40 mg tablet 40 mg PO QAM #90 tabs 06/21/23 07/15/23 Rx colchicine 0.6 mg tablet (Colcrys) 0.6 mg PO BID #60 tabs 06/21/23 07/15/23 Rx lisinopril 10 mg tablet 5 mg (1/2 x 10 mg) PO DAILY #30 06/21/23 07/15/23 Rx tabs metoprolol tartrate 25 mg tablet 25 mg PO BID #180 tabs 06/21/23 07/15/23 Rx pantoprazole 40 mg tablet,delayed 40 mg PO BID #60 tabs 06/21/23 07/15/23 Rx release ticagrelor 90 mg tablet (Brilinta) 90 mg PO BID #180 tabs 06/21/23 07/15/23 Rx Allergies Allergy/AdvReac Type Severity Reaction Status Date / Time diphenhydramine Allergy Severe anaphylaxis Verified 07/13/23 11:06 amikacin Allergy Intermediate Rash Verified 07/13/23 11:06 chlorhexidine Allergy Intermediate RED & ITCHY Verified 07/13/23 11:06 Sulfa (Sulfonamide Allergy Intermediate rash Verified 07/13/23 11:06 Antibiotics) triamcinolone Allergy Intermediate nose Verified 07/13/23 11:06 bleed, Nausea Beef Containing Products Allergy Unknown Unknown Verified 07/15/23 14:41 milk Allergy Unknown Verified 07/15/23 14:41 perflutren [From Definity] Allergy Back Pain Verified 07/15/23 14:41 Pork/Porcine Containing Allergy Unknown Verified 07/15/23 14:41 Products azithromycin AdvReac Intermediate Nausea Verified 07/13/23 11:06 clarithromycin AdvReac Intermediate nausea Verified 07/13/23 11:06 codeine AdvReac Intermediate nausea Verified 07/13/23 11:06 erythromycin base AdvReac Intermediate nausea Verified 07/13/23 11:06 hydrocodone AdvReac Intermediate nausea Verified 07/13/23 11:06 metronidazole AdvReac Intermediate nausea Verified 07/13/23 11:06 ondansetron AdvReac Intermediate "can't Verified 07/13/23 11:06 sleep" oxymetazoline AdvReac Intermediate headache Verified 07/13/23 11:06 pantoprazole AdvReac Intermediate nausea Verified 07/13/23 11:06 propoxyphene AdvReac Intermediate nausea Verified 07/13/23 11:06 tramadol AdvReac Intermediate nausea Verified 07/13/23 11:06 hyoscyamine AdvReac Mild when just Verified 07/13/23 11:06 by itself ok, not in combo med Past Med/Surg History Medical History Tick bite Elevated troponin I level Chest pain STEMI (ST elevation myocardial infarction) Prediabetes Osteoporosis Right lumbar radiculopathy Hx of colonic polyps Sciatica Trochanteric bursitis, right hip Bronchiectasis Vitamin D deficiency Solar lentigo Obstructive sleep apnea no cpap can't tolerate Microscopic colitis Osteoarthritis Interstitial cystitis Macular degeneration Myoclonus REASON FOR TAKING BUSPAR Mitral valve prolapse SEPIDEH (mycobacterium avium-intracellulare) infection Asthma Surgical History H/O excision of mass (10/30/20) Right Arm Lipoma Excision(Right), superficial to fascia, less than [address] 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 History of umbilical hernia repair History of arthroscopy LEFT HIP History of esophagogastroduodenoscopy (EGD) History of colonoscopy Ureteral and renal pelvis obstruction, congenital resolved History of tooth extraction History of tonsillectomy History of bronchoscopy 2017 Family History Brother Family history of diabetes mellitus Depression Family hx colonic polyps Myocardial infarction Hypertension Colorectal cancer Sister Colon cancer Dementia Depression Colorectal cancer Father Prostate cancer Hypertension Stroke Aunt Breast cancer Grandmother Colon cancer Unknown Colon cancer Colorectal cancer Grandfather (Maternal) Colorectal cancer Other No family history of adverse response to anesthesia Denies family history of Ovarian cancer Social History Smoking Status: Never smoker Second Hand Exposure: No; Do You Dip or Chew Tobacco: No; Hx Alcohol Use: Yes Alcohol type: wine Alcohol Intake Frequency: 4 or More x per/Week Alcohol Intake Frequency Comment: daily drink with dinner Hx Substance Use: No Preferred Language: Honduran Communication Ability: Effective Visual Impairment: No Limitations Hearing Ability: Normal Health Data Analyst Required: No Beliefs That Will Affect Care: None marital status: Current Living Situation: Spouse Current Living Situation Comment: [facility] current occupational status: retired 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, 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 [employer] How many Children do You have: 3 Other Information That Helps Us Care for You: No Feels Safe at Home: Yes Safety Concerns: Feels Safe At This Time Childhood Exposure to Second-Hand Smoke: No Diet: regular Diet Comment: eats small amounts of fish as well caffeine: Yes Dental Care, Regularly: Yes Physical Activity Frequency: Does not Exercise Seatbelt Use: always Sunscreen Use: Yes Assistive Devices: None Physical Exam Vital Signs Vital Signs - 24 hr 07/15/23 12:09 07/15/23 12:09 07/15/23 12:23 Temperature 36.6 C Temperature Source Temporal Artery Scan Pulse Rate 63 93 H Pulse Rate [Left Finger] Pulse Rate from SpO2 Sensor 63 Pulse Rhythm Respiratory Rate 18 29 H Blood Pressure 127/71 Blood Pressure [Right Arm] Blood Pressure Mean 89 Blood Pressure Mean [Right Arm] Blood Pressure Position [Right Arm] Pulse Oximetry 97 98 Oxygen Delivery Method Room Air Sepsis Recent Fever Within 48 Hours No Sepsis New/Unexplained Change in Mental Status N/A Sepsis Action Taken by Nursing No Action Required 07/15/23 12:30 07/15/23 12:33 07/15/23 12:35 Temperature Temperature Source Pulse Rate 61 62 60 Pulse Rate [Left Finger] Pulse Rate from SpO2 Sensor 58 L Pulse Rhythm Regular Respiratory Rate 13 23 18 Blood Pressure Blood Pressure [Right Arm] Blood Pressure Mean Blood Pressure Mean [Right Arm] Blood Pressure Position [Right Arm] Pulse Oximetry 97 97 Oxygen Delivery Method Sepsis Recent Fever Within 48 Hours Sepsis New/Unexplained Change in Mental Status Sepsis Action Taken by Nursing 07/15/23 12:42 07/15/23 13:00 07/15/23 13:21 Temperature Temperature Source Pulse Rate 64 62 Pulse Rate [Left Finger] 59 L Pulse Rate from SpO2 Sensor 59 L Pulse Rhythm Respiratory Rate 28 H 22 Blood Pressure 141/75 H Blood Pressure [Right Arm] 141/75 H Blood Pressure Mean 97 Blood Pressure Mean [Right Arm] 97 Blood Pressure Position [Right Arm] Sitting Pulse Oximetry 97 96 Oxygen Delivery Method Room Air Sepsis Recent Fever Within 48 Hours Sepsis New/Unexplained Change in Mental Status Sepsis Action Taken by Nursing 07/15/23 13:30 07/15/23 14:25 07/15/23 14:27 Temperature Temperature Source Pulse Rate 58 L 66 Pulse Rate [Left Finger] 67 Pulse Rate from SpO2 Sensor 57 L Pulse Rhythm Respiratory Rate 18 18 20 Blood Pressure Blood Pressure [Right Arm] 162/75 H Blood Pressure Mean Blood Pressure Mean [Right Arm] 104 Blood Pressure Position [Right Arm] Pulse Oximetry 95 95 Oxygen Delivery Method Sepsis Recent Fever Within 48 Hours Sepsis New/Unexplained Change in Mental Status Sepsis Action Taken by Nursing 07/15/23 14:30 07/15/23 15:04 07/15/23 15:30 Temperature Temperature Source Pulse Rate 66 59 L 58 L Pulse Rate [Left Finger] Pulse Rate from SpO2 Sensor 65 57 L Pulse Rhythm Respiratory Rate 19 20 18 Blood Pressure 162/75 H Blood Pressure [Right Arm] Blood Pressure Mean 104 Blood Pressure Mean [Right Arm] Blood Pressure Position [Right Arm] Pulse Oximetry 93 93 Oxygen Delivery Method Sepsis Recent Fever Within 48 Hours Sepsis New/Unexplained Change in Mental Status Sepsis Action Taken by Nursing 07/15/23 16:00 Temperature Temperature Source Pulse Rate 58 L Pulse Rate [Left Finger] Pulse Rate from SpO2 Sensor 58 L Pulse Rhythm Respiratory Rate 18 Blood Pressure Blood Pressure [Right Arm] Blood Pressure Mean Blood Pressure Mean [Right Arm] Blood Pressure Position [Right Arm] Pulse Oximetry 96 Oxygen Delivery Method Sepsis Recent Fever Within 48 Hours Sepsis New/Unexplained Change in Mental Status Sepsis Action Taken by Nursing Physical Exam HENT: Exam performed. - Head: Normocephalic and atraumatic. EYES: Conjunctivae and EOM are normal. Right eye exhibits no discharge. Left eye exhibits no discharge. No scleral icterus. NECK: Normal range of motion. Neck supple. No JVD present. CV: Normal rate, regular rhythm, normal heart sounds and intact distal pulses. There is no peripheral edema. Palpable radial pulses bue. PULM/CHEST: Effort normal and breath sounds normal. No respiratory distress. No stridor. no wheezes. no rales. ABD: The abdomen is soft. There is no tenderness. NEURO: Motor and sensation grossly intact. SKIN: Skin is warm and dry. He is not diaphoretic. PSYCH: normal mood and affect. Behavior is normal. Judgment and thought content normal. Course Course 1217: The patient was evaluated in room C12. A complete history and physical exam was performed Cardiac monitoring: An order was placed for continuous cardiac monitoring. The monitor shows a rate of 70 with sinus rhythm interpreted by me 1255: EKGs show T wave inversions in leads II, III and aVF. The first EKG showed deeper T wave inversion in leads II, III and aVF compared to her previous EKGs when the heart alert was called. There is second EKG showed some mild ST elevation in leads II, III and aVF similar to when her heart alert was called. 3rd EKG today done did show resolvement of that ST elevation. I discussed the patient's case with her ukrainian folk arts instructor Dr. Fuentes and he was sent the EKG images from today via [facility] text. He compared them to the EKGs from June when the patient was taken to the Implementation Analyst. He reported he did not see any significant difference and has had chest pain and nausea every day since his stents were placed, he states it waxes wanes but is not persistent. He recommended that a stat echo be called which she will read and then recommends that the hospitalist admit the patient and have him on consult. orthodontic lab technician was contacted will be down to evaluate the patient. 1340: orthodontic lab technician is finishing up the bedside echo. Coagulation machine is down. We will send the patient for CTA rule out PE. 1511: Vital signs stable. Dr. Fuentes read the patient's echo as no significant change compared to previous echo. CTA of the chest was completed. D-dimer did eventually come back as negative. CTA of the chest reviewed by me did not show any large PE or dissection, formal radiology read is pending. We will proceed with the plan set forth by Dr. Fuentes to admit the patient to the medicine service. He placed additional lab work for the patient to have done. Serial troponins will be done. Discussed the case with Dr. Kilgore and Conner Valle NP for Dr. Kilgore and they will follow-up on the formal read of the CT of the chest and admit the patient to their service. Administered Medications Buspirone HCl (Buspirone 15 Mg Tab) 15 mg PO BID MINNIE Stop: 08/14/23 21:59 Last Admin: 07/15/23 22:52 Dose: 15 mg Documented By: MG Enoxaparin Sodium (Enoxaparin Inj 40 Mg/0.4 Ml Syr) 40 mg SQ Q24H MINNIE Stop: 08/15/23 05:59 Last Admin: 07/16/23 05:42 Dose: 40 mg Documented By: MG Guaifenesin (Guaifenesin 600 Mg Tabcr) 600 mg PO Q12H MINNIE Stop: 08/14/23 21:59 Last Admin: 07/15/23 22:52 Dose: 600 mg Documented By: MG Metoprolol Tartrate (Metoprolol Tartrate 25 Mg Tab) 25 mg PO BID MINNIE Stop: 08/14/23 22:14 Last Admin: 07/15/23 22:52 Dose: 25 mg Documented By: MG Pantoprazole Sodium (Pantoprazole 40 Mg Tab) 40 mg PO BID MINNIE Stop: 08/14/23 22:14 Last Admin: 07/15/23 22:51 Dose: 40 mg Documented By: MG Sodium Chloride (Sodium Chlor 7% 4 Ml Neb) 4 ml INH BIDR MINNIE Stop: 08/14/23 21:59 Last Admin: 07/15/23 23:00 Dose: Not Given Documented By: NAGI Ticagrelor (Ticagrelor 90 Mg Tab) 90 mg PO BID MINNIE Stop: 08/14/23 22:14 Last Admin: 07/15/23 22:51 Dose: 90 mg Documented By: MG Discontinued Medications Acetaminophen (Acetaminophen 500 Mg Tab) 1,000 mg PO NOW STA Stop: 07/15/23 21:59 Last Admin: 07/15/23 22:50 Dose: 1,000 mg Documented By: Aspirin (Aspirin Chew 324 Mg) 324 mg PO NOW STA Stop: 07/15/23 12:18 Last Admin: 07/15/23 12:43 Dose: 324 mg Documented By: MARTÍN Famotidine 20 mg/ Syringe 5 mls @ 2.5 mls/min IV NOW STA Stop: 07/15/23 15:39 Last Admin: 07/15/23 16:03 Dose: 2.5 mls/min Documented By: PALLAVI Pantoprazole Sodium 40 mg/ (Syringe) 10 mls @ 5 mls/min IV NOW ONE Stop: 07/15/23 15:39 Last Admin: 07/15/23 16:04 Dose: 5 mls/min Documented By: PALLAVI Ioversol (Optiray 320 500ml) 106 ml IV ONCE ONE Stop: 07/15/23 14:18 Last Admin: 07/15/23 14:17 Dose: 106 ml Documented By: NICOLE Morphine Sulfate (Morphine Sulfate 2 Mg/Ml Carp) 1 mg IV NOW STA Stop: 07/15/23 12:59 Last Admin: 07/15/23 13:23 Dose: 1 mg Documented By: MARTÍN Prochlorperazine (Prochlorperazine Maleate 5 Mg Tab) 5 mg PO NOW ONE Stop: 07/15/23 22:31 Last Admin: 07/15/23 22:50 Dose: 5 mg Documented By: Medical Decision Making Medical Records Attestation: I reviewed the patient's medical records. Medical records narrative: External medical records reviewed. Patient was seen in the emergency department on June 19, 2023 and a heart alert was called. Patient was taken to Implementation Analyst by Dr. Fuentes and had 2 stents placed in her RCA. EKGs done on June 19 show T wave inversion in leads II, III, aVF and a repeat EKG which showed some mild ST elevation in leads II, III and aVF. The patient was discharged home. She is not on any anticoagulants except Brilinta. The patient was reseen by her ukrainian folk arts instructor in the office on July 04, 2023 and there was mention in his note that the patient has atypical chest pain that is thought to not be related to her ACS. The patient did not respond to colchicine and according to Dr. Fuentes's notes the patient's chest pain goes back sometime is multifactorial. He referred the patient to GI. Patient was seen by JUWAN Sawyer. The patient was continued on Protonix 40 mg twice daily and Carafate 10 mL 4 times daily. Laboratory Data Attestation: I reviewed the patient's lab results. 07/16/23 04:23 07/16/23 04:23 Labs: Lab Results 07/15/23 07/15/23 Range/Units 12:27 15:55 WBC 6.54 (4.8-10.8) K/ul RBC 4.21 (4.20-5.40) M/uL Hgb 12.4 (12.0-16.0) g/dl Hct 37.2 (37.0-47.0) % MCV 88.4 (80.0-100.0) fL MCH 29.5 (25.0-34.0) pg MCHC 33.3 (32.0-36.0) g/dL RDW Std Deviation 47.9 H (36.4-46.3) fL RDW Coeff of Daisy 14.9 H (11.5-14.5) % Plt Count 271 (130-400) K/uL MPV 10.8 (9.4-12.4) fL Immature Gran % (Auto) 0.5 % Neut % (Auto) 69.4 % Lymph % (Auto) 15.9 % Rincon % (Auto) 11.2 % Eos % (Auto) 2.4 % Baso % (Auto) 0.6 % Neut # (Auto) 4.54 (1.40-6.50) K/uL Lymph # (Auto) 1.04 L (1.20-3.40) K/uL Rincon # (Auto) 0.73 H (0.11-0.59) K/uL Eos # (Auto) 0.16 (0.00-0.50) K/uL Baso # (Auto) 0.04 (0.00-0.20) K/uL Immature Gran # (Auto) 0.03 (0.01-0.20) K/uL ESR 8 (0-30) mm/hr PT 13.0 H (9.0-12.0) Seconds INR 1.2 H (0.9-1.1) APTT 27.8 (21.0-31.0) Seconds PTT Ratio 1.0 D-Dimer 430 (0-500) ug/L FEU Sodium 139 (136-145) mmol/L Potassium 3.6 (3.5-5.1) mmol/L Chloride 106 (98-107) mmol/L Carbon Dioxide 27 (21-32) mmol/L Anion Gap 6 (3-11) BUN 13 (6-23) mg/dl Creatinine 0.89 (0.6-1.2) mg/dl Est Cr Clr Drug Dosing 48.4 ml/min Est GFR ( Amer) 73.0 ml/min Est GFR (Non-Af Amer) 63.0 ml/min BUN/Creatinine Ratio 14.6 (10-20) Glucose 94 (70-99(Fasting)) mg/dl Calcium 8.7 (8.6-10.3) mg/dl Total Bilirubin 1.1 H (0.2-1.0) mg/dl Direct Bilirubin 0.3 H (0-0.2) mg/dl AST 30 (13-39) U/L ALT 27 (7-52) U/L Alkaline Phosphatase 91 (34-104) U/L Troponin I High Sens 12.3 12.0 (0-14) pg/ml Total Protein 6.1 (6.0-8.3) gm/dl Albumin 3.7 (3.4-5.0) gm/dl Lipase 20 (11-82) U/L Imaging Data Chest x-ray: Attestation: I personally reviewed and interpreted this imaging study as follows: My impression: Chest x-ray negative. Airway clear. No pneumothorax. No consolidation. No cardiomegaly or cephalization.. No free air under the diaphragm. No fractures of the skeletal structures. CTA chest: No large PE or dissection. Radiologist's impression: Chest X-Ray 07/15/23 12:17 XR chest 1V portable CLINICAL HISTORY: Chest pain, nonspecific TECHNIQUE: Single frontal radiograph of the chest was obtained. Comparison: Comparison is made to chest radiograph 06/19/2023 FINDINGS: No lines and tubes are seen. The cardiomediastinal silhouette is normal. The lungs are clear. No evidence of pleural effusion or pneumothorax. IMPRESSION: No acute chest disease. ACT 112: Negative or not required by law. Electronically signed by: Theo Barton M.D. 07/15/2023 1:29 PM ECG Data Attestation: I personally reviewed and interpreted this ECG as follows: Additional Comments: EKG #1 at 1220: Sinus rhythm with rate of 66. OK QRS and QTc intervals within normal limits. No ST elevation or ST depression. There is T wave inversion in leads II, III and aVF. This T wave inversion was also present on the EKGs that were done on the first June 19, 2023 however the T wave inversion looks deeper on this EKG. The T wave inversions are new from the EKG that was done post catheterization on June 19, 2023. EKG #2 at 1234: Sinus rhythm with rate of 59. OK QRS and QTc intervals within normal limits. There alludes mild ST elevation in leads II, III and aVF along with the deep T wave inversion in leads II, III and aVF this is similar to the second EKG does conduct June 19, 2023 when a heart alert was called. EKG #3 at 1242: Sinus rhythm with rate of 57. OK QRS and QTc intervals within normal limits. ST elevation has resolved and there is continued deep T wave inversion in leads II, III and aVF. [facility] Narrative 1217: The patient was evaluated in room C12. A complete history and physical exam was performed Cardiac monitoring: An order was placed for continuous cardiac monitoring. The monitor shows a rate of 70 with sinus rhythm interpreted by me 1255: EKGs show T wave inversions in leads II, III and aVF. The first EKG showed deeper T wave inversion in leads II, III and aVF compared to her previous EKGs when the heart alert was called. There is second EKG showed some mild ST elevation in leads II, III and aVF similar to when her heart alert was called. 3rd EKG today done did show resolvement of that ST elevation. I discussed the patient's case with her ukrainian folk arts instructor Dr. Fuentes and he was sent the EKG images from today via [place] text. He compared them to the EKGs from June when the patient was taken to the Implementation Analyst. He reported he did not see any significant difference and has had chest pain and nausea every day since his stents were placed, he states it waxes wanes but is not persistent. He recommended that a stat echo be called which she will read and then recommends that the hospitalist admit the patient and have him on consult. orthodontic lab technician was contacted will be down to evaluate the patient. 1340: orthodontic lab technician is finishing up the bedside echo. Coagulation machine is down. We will send the patient for CTA rule out PE. 1511: Vital signs stable. Dr. Fuentes read the patient's echo as no significant change compared to previous echo. CTA of the chest was completed. D-dimer did eventually come back as negative. CTA of the chest reviewed by me did not show any large PE or dissection, formal radiology read is pending. We will proceed with the plan set forth by Dr. Fuentes to admit the patient to the medicine service. He placed additional lab work for the patient to have done. Serial troponins will be done. Discussed the case with Dr. Kilgore and Conner Valle NP for Dr. Kilgore and they will follow-up on the formal read of the CT of the chest and admit the patient to their service. Impression & Plan Chest pain Discharge Plan Visit Data Chief Complaint: Cardiac Assessment Stated Complaint: CHEST PAIN, HEART ATTACK 06/19 ED Provider: Albert Knapp Discharge Problem: Chest pain Patient Disposition: Admitted As Inpatient Discharge Instructions Interventions: ED Discharge Assessment Last Done: 07/15/23 20:44 Discharge Problem: Chest pain Qualifiers: Chest pain type: unspecified Qualified Code(s): R07.9 - Chest pain, unspecified
[2023-07-15 13:24] LABS: Troponin I High Sensitivity 12.3 pg/ml (0-14)
--- NOTE | 2023-07-15 13:31 | XRay Report ---
XR chest 1V portable CLINICAL HISTORY: Chest pain, nonspecific TECHNIQUE: Single frontal radiograph of the chest was obtained. Comparison: Comparison is made to chest radiograph 06/19/2023 FINDINGS: No lines and tubes are seen. The cardiomediastinal silhouette is normal. The lungs are clear. No evid ence of pleural effusion or pneumothorax. IMPRESSION: No acute chest disease. ACT 112: Negative or not required by law. Electronically signed by: Theo Barton M.D. 07/15/2023 1:29 PM
[2023-07-15 14:12] LABS: D Dimer 430 ug/L FEU (0-500); INR 1.2 (0.9-1.1); Partial Thromboplastin Time 27.8 Seconds (21.0-31.0)
[2023-07-15] MEDS ORDERED: OPTIRAY 320 500ml IV ONE (14:17)
--- NOTE | 2023-07-15 14:29 | XCELERA ---
[id number] \\[id number]
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
--- NOTE | 2023-07-15 15:32 | CT Scan Report ---
CT angio chest PE protocol CLINICAL HISTORY: ro PE TECHNIQUE: Multidetector row helical CT of the chest was performed with angiographic protocol. Garza l and sagittal reformations were obtained. Coronal and sagittal MIPS were obtained from the axial denis a set and were submitted for review. Automated dose lowering techniques and/or adjustment according to patient size were utilized for this exam. CT DOSE: 449.45 mGy.cm Comparison: None available at the time of this dictation. FINDINGS: Lungs and pleura: Atelectasis versus scarring is in the lingula and left lower lobe. Mosaic attenuati on is noted. Tree-in-bud nodularity is in the left greater than right lower lobe. Heart and pericardium: Cardiomegaly is seen with biatrial enlargement. Vessels: No evidence of pulmonary embolism. Mediastinum and davidson: Prominent lymph nodes measure up to 11 mm in short axis. Chest wall and lower neck: Unremarkable. Abdomen: Unremarkable. Bones: Degenerative changes in the thoracic spine. Subacute appearing fractures of the lateral left r ibs noted. IMPRESSION: 1. No evidence of pulmonary embolus. 2. Tree in bud nodules in the left greater than right lower lobes, increased from prior exam, are co mpatible with infectious/inflammatory process. Mediastinal lymph nodes are likely reactive. 3. Redemonstration of subacute rib fractures. 4. Scarring versus atelectasis in the left lung, unchanged. ACT 112: Negative or not required by law. Electronically signed by: Theo Barton M.D. 07/15/2023 3:30 PM
[2023-07-15] MEDS ORDERED: PANTOprazole 40 MG in SYRINGE 0 ML IV ONE (15:38)
[2023-07-15] MEDS ORDERED: FAMOTIDINE 20 MG in SYRINGE 3 ML IV STA (15:38)
[2023-07-15] MEDS ORDERED: ALBUT/IPRATROP 3MG/0.5MG NEB 3 ML VIAL INH PRN (21:40)
[2023-07-15] MEDS ORDERED: MECLIZINE 12.5 MG TAB PO PRN (21:40)
[2023-07-15] MEDS ORDERED: ACETAMINOPHEN 500 MG TAB PO STA (21:58)
[2023-07-15] MEDS ORDERED: PROCHLORPERAZINE MALEATE 5 MG TAB PO ONE (22:30)
[2023-07-15] MEDS: TICAGRELOR 90 MG TAB PO SCH (22:51)
[2023-07-15] MEDS: PANTOprazole 40 MG TAB PO SCH (22:51)
[2023-07-15] MEDS: busPIRone 15 MG TAB PO SCH (22:52)
[2023-07-15] MEDS: guaiFENesin 600 MG TABCR PO SCH (22:52)
[2023-07-15] MEDS: METOPROLOL TARTRATE 25 MG TAB PO SCH (22:52)
[2023-07-15] MEDS: SODIUM CHLOR 7% 4 ML NEB INH SCH (23:00)
[2023-07-16 05:23] LABS: Basophils # (auto) 0.03 K/uL (0.00-0.20); Basophils % (auto) 0.7 %; Eosinophils # (auto) 0.21 K/uL (0.00-0.50); Eosinophils % (auto) 4.8 %; Hematocrit (blood only) 31.4 % (37.0-47.0); Hemoglobin 10.7 g/dl (12.0-16.0); Immature Granulocytes # (auto) 0.01 K/uL (0.01-0.20); Immature Granulocytes % (auto) 0.2 %; Lymphocytes # (auto) 1.01 K/uL (1.20-3.40); Lymphocytes % (auto) 22.9 %; Mean Corpuscular Hemoglobin 29.7 pg (25.0-34.0); Mean Corpuscular Hgb Conc 34.1 g/dL (32.0-36.0); Mean Corpuscular Volume 87.2 fL (80.0-100.0); Mean Platelet Volume 10.8 fL (9.4-12.4); Monocytes # (auto) 0.64 K/uL (0.11-0.59); Monocytes % (auto) 14.5 %; Neutrophils # (auto) 2.52 K/uL (1.40-6.50); Neutrophils % (auto) 56.9 %; Platelet Count 193 K/uL (130-400); RDW Coefficient of Variation 14.6 % (11.5-14.5); White Blood Count 4.42 K/ul (4.8-10.8)
[2023-07-16 05:42] LABS: Albumin Globulin Ratio 1.5 (0.9-2); Albumin Level 2.9 gm/dl (3.4-5.0); BUN Creatinine Ratio 18.8 (10-20); Bilirubin,Total 0.8 mg/dl (0.2-1.0); Calcium 8.1 mg/dl (8.6-10.3); Creatinine Clr Calc Pharmacy 73.6 ml/min; Est GFR (African American) 100.5 ml/min; Est GFR (Non-African American) 86.7 ml/min; Globulin 1.9 gm/dl (2.5-4.0); Magnesium 1.7 mg/dl (1.7-2.4); Potassium 3.6 mmol/L (3.5-5.1); Total Protein 4.8 gm/dl (6.0-8.3)
[2023-07-16] MEDS: ENOXAPARIN INJ 40 MG/0.4 ML SYR SQ SCH (05:42)
[2023-07-16 06:25] LABS: INR 1.2 (0.9-1.1); Prothrombin Time 13.5 Seconds (9.0-12.0)
[2023-07-16] MEDS: SODIUM CHLOR 7% 4 ML NEB INH SCH ×2 (07:03→20:00)
[2023-07-16] MEDS: ATORVASTATIN 40 MG TAB PO SCH (09:33)
[2023-07-16] MEDS: ASPIRIN 81 MG ECTAB PO SCH (09:33)
[2023-07-16] MEDS: ETHAMBUTOL HCL 400 MG TAB PO SCH (09:34)
[2023-07-16] MEDS: PANTOprazole 40 MG TAB PO SCH ×2 (09:34→19:49)
[2023-07-16] MEDS: METOPROLOL TARTRATE 25 MG TAB PO SCH ×2 (09:34→19:49)
[2023-07-16] MEDS: lisinopril 5 MG TAB PO SCH (09:34)
[2023-07-16] MEDS: busPIRone 15 MG TAB PO SCH ×2 (09:34→19:49)
[2023-07-16] MEDS: guaiFENesin 600 MG TABCR PO SCH ×2 (09:35→19:49)
[2023-07-16] MEDS: TICAGRELOR 90 MG TAB PO SCH ×2 (09:35→19:49)
--- NOTE | 2023-07-16 15:25 | Hospitalist Progress Note ---
Date of Service July 16, 2023 Assessment & Plan (1) Chest pain: Plan: - trop WNL, TTE without acute changes, and no acute ST segment changes when comparing to her previous ECG's post cardiac cath -The patient reported similar symptoms after her heart cath last admission, she was given famotidine with improvement of her symptoms -Her pantoprazole was reduced from BID to daily along with starting Carafate by GI on 07/06. The patient had multiple episodes of non-bloody emesis after starting Carafate yesterday, this likely exacerbated her chronic symptoms -Patient is also on Clofazimine for SEPIDEH treatment, review of side effects shows up to 50% of patient report GI/reflux symptoms after use -CTA of the chest is negative for PE or acute findings to otherwise explain her symptoms -serial troponin was negative pain has resolved excepting mild pain that is extremely reproducible with mild pressure on xiphoid / lower sternum c/w costochondral MSK pain. consider upper GI series, recently seen in GI clinic note reviewed (2) Nausea: Plan: may be largely medication side effects seems resolved today -continue PPI, antiemetics -stopped carafate, clofazamine (3) Diarrhea: Plan: stop colchicine (4) SEPIDEH (mycobacterium avium-intracellulare) infection: Plan: -Follows with [facility]; Dr. Shelby in [place] -Patient explains recent discussions with ID suggested stopping Clofazimine but continuing Ethambutol; patient has still been taking both as she has yet to have a chance to discuss with her PCP -Clofazimine could also be contributing to her GERD/reflux symptoms as this is a common side effect -CTA of the chest shows progression of her tree-in-bud nodules since January -Will hold Clofazimine for now to see if this helps improve GI symptoms -she expressed interest in changing ID providers because driving to [place] is hard - ID [facility] providers would have to follow her in [place] so explained that is a poor option. discussed with her and daughter in room. they stated if seeking a second opinion they would rather head to the [facility] rather than [place]. (5) CAD (coronary atherosclerotic disease): Plan: CAD - recent inferior VT with PCI - RCA stent Dr. Fuentes -Continue metoprolol, statin, aspirin, Brilinta (6) HTN (hypertension): Plan: -Stable -Continue lisinopril (7) GERD (gastroesophageal reflux disease): Plan: -Conitnue pantoprazole and famotidine -Ensure patient is discharged back on BID pantoprazole and likely daily or BID famotidine Admission and Anticipated Discharge Date Admission Date: July 15, 2023 Subjective had nausea, vomiting, diarrhea, chest pain. the chest pain has been going on "ever since my heart attack" today feels much better. No further N/V/D and chest pain is virtually resolved. her ID doctor at [facility] told her last week she could stop taking the clofazimine and just stay on ethambutol alone, but she stayed on both she thinks carafate made her vomit Results & Data Results & Data Vital Signs (Past 12 Hours) Vital Signs Temp Pulse Pulse Resp BP Pulse Ox O2 Del Method 07/16/23 12:32 36.7 C 59 L 18 110/70 96 Room Air 07/16/23 11:26 56 L 07/16/23 07:49 Room Air 07/16/23 07:39 36.7 C 66 19 131/72 93 Room Air 07/16/23 07:33 18 97 Room Air 07/16/23 04:04 36.6 C 58 L 18 131/70 95 Room Air Laboratory Results 07/16/23 07/16/23 07/15/23 Range/Units 05:45 04:23 15:55 WBC 4.42 L (4.8-10.8) K/ul RBC 3.60 L (4.20-5.40) M/uL Hgb 10.7 L (12.0-16.0) g/dl Hct 31.4 L (37.0-47.0) % MCV 87.2 (80.0-100.0) fL MCH 29.7 (25.0-34.0) pg MCHC 34.1 (32.0-36.0) g/dL RDW Std Deviation 47.0 H (36.4-46.3) fL RDW Coeff of Daisy 14.6 H (11.5-14.5) % Plt Count 193 (130-400) K/uL MPV 10.8 (9.4-12.4) fL Immature Gran % (Auto) 0.2 % Neut % (Auto) 56.9 % Lymph % (Auto) 22.9 % Ness % (Auto) 14.5 % Eos % (Auto) 4.8 % Baso % (Auto) 0.7 % Neut # (Auto) 2.52 (1.40-6.50) K/uL Lymph # (Auto) 1.01 L (1.20-3.40) K/uL Ness # (Auto) 0.64 H (0.11-0.59) K/uL Eos # (Auto) 0.21 (0.00-0.50) K/uL Baso # (Auto) 0.03 (0.00-0.20) K/uL Immature Gran # (Auto) 0.01 (0.01-0.20) K/uL PT 13.5 H (9.0-12.0) Seconds INR 1.2 H (0.9-1.1) Sodium 139 (136-145) mmol/L Potassium 3.6 (3.5-5.1) mmol/L Chloride 108 H (98-107) mmol/L Carbon Dioxide 27 (21-32) mmol/L Anion Gap 4 (3-11) BUN 12 (6-23) mg/dl Creatinine 0.64 (0.6-1.2) mg/dl Est Cr Clr Drug Dosing 73.6 ml/min Est GFR ( Amer) 100.5 ml/min Est GFR (Non-Af Amer) 86.7 ml/min BUN/Creatinine Ratio 18.8 (10-20) Glucose 87 (70-99(Fasting)) mg/dl Calcium 8.1 L (8.6-10.3) mg/dl Magnesium 1.7 (1.7-2.4) mg/dl Total Bilirubin 0.8 (0.2-1.0) mg/dl AST 23 (13-39) U/L ALT 21 (7-52) U/L Alkaline Phosphatase 70 (34-104) U/L Troponin I High Sens 12.0 (0-14) pg/ml Total Protein 4.8 L D (6.0-8.3) gm/dl Albumin 2.9 L (3.4-5.0) gm/dl Globulin 1.9 L (2.5-4.0) gm/dl Albumin/Globulin Ratio 1.5 (0.9-2) Nasal Screen MRSA (PCR) Negative (Negative) Diagnostic Findings Chest X-Ray 07/15/23 12:17 XR chest 1V portable CLINICAL HISTORY: Chest pain, nonspecific TECHNIQUE: Single frontal radiograph of the chest was obtained. Comparison: Comparison is made to chest radiograph 06/19/2023 FINDINGS: No lines and tubes are seen. The cardiomediastinal silhouette is normal. The lungs are clear. No evidence of pleural effusion or pneumothorax. IMPRESSION: No acute chest disease. ACT 112: Negative or not required by law. Electronically signed by: Theo Barton M.D. 07/15/2023 1:29 PM Chest CTA 07/15/23 13:26 CT angio chest PE protocol CLINICAL HISTORY: ro PE TECHNIQUE: Multidetector row helical CT of the chest was performed with angiographic protocol. Coronal and sagittal reformations were obtained. Coronal and sagittal MIPS were obtained from the axial data set and were submitted for review. Automated dose lowering techniques and/or adjustment according to patient size were utilized for this exam. CT DOSE: 449.45 mGy.cm Comparison: None available at the time of this dictation. FINDINGS: Lungs and pleura: Atelectasis versus scarring is in the lingula and left lower lobe. Mosaic attenuation is noted. Tree-in-bud nodularity is in the left greater than right lower lobe. Heart and pericardium: Cardiomegaly is seen with biatrial enlargement. Vessels: No evidence of pulmonary embolism. Mediastinum and davidson: Prominent lymph nodes measure up to 11 mm in short axis. Chest wall and lower neck: Unremarkable. Abdomen: Unremarkable. Bones: Degenerative changes in the thoracic spine. Subacute appearing fractures of the lateral left ribs noted. IMPRESSION: 1. No evidence of pulmonary embolus. 2. Tree in bud nodules in the left greater than right lower lobes, increased from prior exam, are compatible with infectious/inflammatory process. Mediastinal lymph nodes are likely reactive. 3. Redemonstration of subacute rib fractures. 4. Scarring versus atelectasis in the left lung, unchanged. ACT 112: Negative or not required by law. Electronically signed by: Theo Barton M.D. 07/15/2023 3:30 PM PG Care Time/CCT Total # of Minutes Spent Total Time Spent with Patient: Total time spent is greater than 50% in coordination of care (as documented) at patient's floor/unit and/or counseling patient: Coding Level of Care Code 49644 SUB INP/OBS CARE 235MIN Diagnoses Chest pain R07.9 Chest pain type: unspecified Nausea R11.0 Diarrhea R19.7 SEPIDEH (mycobacterium avium-intracellulare) infection A31.0 CAD (coronary atherosclerotic disease) I25.10 HTN (hypertension) I10 GERD (gastroesophageal reflux disease) K21.9 (1) Chest pain Chest pain type: unspecified Qualified Code(s): R07.9 - Chest pain, unspecified
[2023-07-16] MEDS ORDERED: PROCHLORPERAZINE 5 MG in SYRINGE 4 ML IV PRN (17:10)
[2023-07-16] MEDS ORDERED: ACETAMINOPHEN 325 MG TAB PO PRN (17:10)
[2023-07-16] MEDS ORDERED: LOPERAMIDE HCL 2 MG CAP PO PRN (17:10)
[2023-07-16] MEDS ORDERED: GABAPENTIN 100 MG CAP PO ONE (17:30)
--- NOTE | 2023-07-16 19:09 | Electrocardiogram Report ---
Test Reason : Blood Pressure : / mmHG Vent. Rate : 066 BPM Atrial Rate : 066 BPM P-R Int : 146 ms QRS Dur : 088 ms QT Int : 450 ms P-R-T Axes : 046 060 -57 degrees QTc Int : 471 ms Normal sinus rhythm T wave abnormality, consider inferior ischemia Abnormal ECG When compared with ECG of 20-JUN-2023 16:45, ST no longer depressed in Lateral leads T wave inversion more evident in Inferior leads Nonspecific T wave abnormality, improved in Anterolateral leads Confirmed by Kei Peñaloza ([id number]) on 07/16/2023 7:09:27 PM Referred By: REFERRED SELF Confirmed By:Kei Peñaloza
--- NOTE | 2023-07-16 19:12 | Electrocardiogram Report ---
Test Reason : Blood Pressure : / mmHG Vent. Rate : 057 BPM Atrial Rate : 057 BPM P-R Int : 156 ms QRS Dur : 084 ms QT Int : 474 ms P-R-T Axes : 047 063 -56 degrees QTc Int : 461 ms Sinus bradycardia with Premature atrial complexes T wave abnormality, consider inferior ischemia Abnormal ECG When compared with ECG of 15-JUL-2023 12:20, (unconfirmed) Premature atrial complexes are now Present Confirmed by Kei Peñaloza ([id number]) on 07/16/2023 7:11:28 PM Referred By: REFERRED SELF Confirmed By:Kei Peñaloza
[2023-07-17] MEDS: ENOXAPARIN INJ 40 MG/0.4 ML SYR SQ SCH (05:15)
[2023-07-17 05:23] LABS: Basophils # (auto) 0.02 K/uL (0.00-0.20); Basophils % (auto) 0.4 %; Eosinophils # (auto) 0.16 K/uL (0.00-0.50); Eosinophils % (auto) 3.3 %; Hematocrit (blood only) 33.1 % (37.0-47.0); Hemoglobin 11.2 g/dl (12.0-16.0); Immature Granulocytes # (auto) 0.01 K/uL (0.01-0.20); Immature Granulocytes % (auto) 0.2 %; Lymphocytes # (auto) 0.83 K/uL (1.20-3.40); Lymphocytes % (auto) 16.9 %; Mean Corpuscular Hemoglobin 29.5 pg (25.0-34.0); Mean Corpuscular Hgb Conc 33.8 g/dL (32.0-36.0); Mean Corpuscular Volume 87.1 fL (80.0-100.0); Monocytes # (auto) 0.54 K/uL (0.11-0.59); Neutrophils # (auto) 3.35 K/uL (1.40-6.50); Neutrophils % (auto) 68.2 %; Platelet Count 199 K/uL (130-400); RDW Coefficient of Variation 14.5 % (11.5-14.5); RDW Standard Deviation 46.5 fL (36.4-46.3); White Blood Count 4.91 K/ul (4.8-10.8)
[2023-07-17 05:42] LABS: Alanine Aminotransferase 21 U/L (7-52); Albumin Globulin Ratio 1.6 (0.9-2); Albumin Level 3.2 gm/dl (3.4-5.0); Alkaline Phosphatase 65 U/L (34-104); Anion Gap 4 (3-11); BUN Creatinine Ratio 16.2 (10-20); Bilirubin,Total 0.9 mg/dl (0.2-1.0); Blood Urea Nitrogen 12 mg/dl (6-23); Calcium 8.3 mg/dl (8.6-10.3); Carbon Dioxide 26 mmol/L (21-32); Chloride 108 mmol/L (98-107); Creatinine Clr Calc Pharmacy 63.6 ml/min; Est GFR (African American) 91.2 ml/min; Est GFR (Non-African American) 78.7 ml/min; Glucose 97 mg/dl (70-99(Fasting)); Magnesium 1.9 mg/dl (1.7-2.4); Sodium 138 mmol/L (136-145); Total Protein 5.2 gm/dl (6.0-8.3)
[2023-07-17 06:33] LABS: Potassium 3.9 mmol/L (3.5-5.1)
[2023-07-17] MEDS: SODIUM CHLOR 7% 4 ML NEB INH SCH (07:16)
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
[2023-07-17] MEDS: ATORVASTATIN 40 MG TAB PO SCH (09:36)
[2023-07-17] MEDS: METOPROLOL TARTRATE 25 MG TAB PO SCH (09:36)
[2023-07-17] MEDS: busPIRone 15 MG TAB PO SCH (09:36)
[2023-07-17] MEDS: lisinopril 5 MG TAB PO SCH (09:36)
[2023-07-17] MEDS: ETHAMBUTOL HCL 400 MG TAB PO SCH (09:36)
[2023-07-17] MEDS: ASPIRIN 81 MG ECTAB PO SCH (09:36)
[2023-07-17] MEDS: PANTOprazole 40 MG TAB PO SCH (09:36)
[2023-07-17] MEDS: TICAGRELOR 90 MG TAB PO SCH (09:37)
[2023-07-17] MEDS: guaiFENesin 600 MG TABCR PO SCH (09:37)
[2023-07-19 14:21] LABS: Anti Nuclear Antibody Screen NEGATIVE (NEGATIVE); C-Reactive Protein High Sens. <0.3 mg/L; Rheumatoid Factor <14 IU/mL (<14)
== END 2023-07-17 11:04 | disposition home or self-care (01) ==
LOC: ED 12:09 → 2W 12:09 → SUATTDRO 16:06 → 2W 20:44

== ENCOUNTER 2024-10-24 08:48 | Inpatient (IN) ==
--- NOTE | 2024-10-15 12:20 | PAT Medication Instructions ---
Medication Instructions Date of Service October 15, 2024 Home Medications Medication Instructions Recorded buspirone 15 mg tablet 15 mg PO BID #180 tabs 05/07/24 ipratropium 0.5 mg-albuterol 3 mg 3 ml inhalation Q8H PRN shortness 05/10/24 (2.5 mg base)/3 mL nebulization of breath or wheezing #180 mL soln methylprednisolone 4 mg tablets in 4 mg PO DAILY #21 ea 10/09/24 a dose pack (Medrol (Ismael)) aspirin 81 mg tablet,delayed 81 mg PO QAM #90 tabs 10/11/24 release atorvastatin 40 mg tablet 40 mg PO QAM #90 tabs 10/11/24 gabapentin 100 mg capsule 100 mg PO TID #90 caps 10/11/24 meclizine 12.5 mg tablet 12.5 mg PO DAILY PRN dizziness #10 10/11/24 tabs vit C 250 mg-vit E 90 mg-zinc 40 1 tab PO BID #180 caps 10/11/24 mg-copper 1 [id number]-fucuen capsule (PreserVision AREDS-2) guaifenesin 600 mg tablet, extended release 12 hr (Mucinex) 600 mg PO Q12H cholecalciferol (vitamin D3) 50 mcg (2,000 unit) capsule (Vitamin D3) 4,000 units PO QAM buspirone 15 mg tablet 15 mg PO BID ipratropium 0.5 mg-albuterol 3 mg (2.5 mg base)/3 mL nebulization soln 3 ml inhalation Q8H PRN shortness of breath or wheezing methylprednisolone 4 mg tablets in a dose pack (Medrol (Ismael)) 4 mg PO DAILY aspirin 81 mg tablet,delayed release 81 mg PO QAM atorvastatin 40 mg tablet 40 mg PO QAM gabapentin 100 mg capsule 100 mg PO TID meclizine 12.5 mg tablet 12.5 mg PO DAILY PRN dizziness vit C 250 mg-vit E 90 mg-zinc 40 mg-copper 1 [id number] capsule (PreserVision AREDS-2) 1 tab PO BID clopidogrel 75 mg tablet 75 mg PO QAM losartan 50 mg tablet 75 mg PO QAM metoprolol succinate 50 mg tablet,extended release 24 hr 50 mg PO QAM pantoprazole 40 mg tablet,delayed release 40 mg PO QAM sodium chloride 7 % for nebulization 1 inh inhalation BID PRN nebulizer tramadol 50 mg tablet 50 mg PO Q6H PRN Pain turmeric root extract 500 mg tablet 1,000 mg PO QAM Continue as directed methylprednisolone 4 mg tablets in a dose pack (Medrol (Ismael)) 4 mg PO DAILY ASK your prescriber and surgeon aspirin 81 mg tablet,delayed release 81 mg PO QAM clopidogrel 75 mg tablet 75 mg PO QAM STOP taking 2 weeks before surgery (or as soon as possible if surgery is within 2 weeks) vit C 250 mg-vit E 90 mg-zinc 40 mg-copper 1 pf-zzjvnt-vlycoa capsule (PreserVision AREDS-2) 1 tab PO BID turmeric root extract 500 mg tablet 1,000 mg PO QAM DO NOT take the morning of surgery guaifenesin 600 mg tablet, extended release 12 hr (Mucinex) 600 mg PO Q12H cholecalciferol (vitamin D3) 50 mcg (2,000 unit) capsule (Vitamin D3) 4,000 units PO QAM losartan 50 mg tablet 75 mg PO QAM Take morning of surgery With a small sip of water, OTHERWISE NOTHING TO EAT OR DRINK AFTER MIDNIGHT: buspirone 15 mg tablet 15 mg PO BID ipratropium 0.5 mg-albuterol 3 mg (2.5 mg base)/3 mL nebulization soln 3 ml inhalation Q8H PRN shortness of breath or wheezing (if needed) atorvastatin 40 mg tablet 40 mg PO QAM gabapentin 100 mg capsule 100 mg PO TID meclizine 12.5 mg tablet 12.5 mg PO DAILY PRN dizziness (if needed) metoprolol succinate 50 mg tablet,extended release 24 hr 50 mg PO QAM pantoprazole 40 mg tablet,delayed release 40 mg PO QAM sodium chloride 7 % for nebulization 1 inh inhalation BID PRN nebulizer (if needed) tramadol 50 mg tablet 50 mg PO Q6H PRN Pain (if needed) Take evening before surgery guaifenesin 600 mg tablet, extended release 12 hr (Mucinex) 600 mg PO Q12H buspirone 15 mg tablet 15 mg PO BID ipratropium 0.5 mg-albuterol 3 mg (2.5 mg base)/3 mL nebulization soln 3 ml inhalation Q8H PRN shortness of breath or wheezing (if needed) gabapentin 100 mg capsule 100 mg PO TID meclizine 12.5 mg tablet 12.5 mg PO DAILY PRN dizziness (if needed) sodium chloride 7 % for nebulization 1 inh inhalation BID PRN nebulizer (if needed) tramadol 50 mg tablet 50 mg PO Q6H PRN Pain (if needed) Other Notes If you have any questions please call us at [phone] or [phone] or [phone] or [phone]
--- NOTE | 2024-10-17 14:43 | Anesthesiology Consultation ---
Date of Service October 17, 2024 Assessment & Plan (1) Encounter for pre-operative examination: Chart Review Chart Review: Acceptable Risk for Surgery and Patient seen in Pre Admission Testing Chlorhexidine allergy- no wipes given at PAT appt Per PAT appt on 10/17/24, no recent illness/disease exposures, illness related symptoms, or recent illness/disease positive tests. Will leave to surgeon's discretion if preop Covid testing needed Patient seen by PCP 10/16/24= seen for preop evaluation. Estimated risk probability for perioperative ETHEL RCRI 1 (Hx GA) = Class II risk for perioperative events with a risk percentage 0.9%... from a general medical standpoint, patient is of acceptable risk for surgery pending normal CXR/EKG/labs. Reviewed labs in ER and no concerning findings... Given CAD c/b STEMI s/p WON 06/2023 & asthma/bronchiectasis with chronic SEPIDEH infection, Karo is at an increased but acceptable risk of cardiopulmonary complications perioperatively. Ok to hold clopidogrel but must remain on aspirin 81mg throughout perioperative period unless specifically advised otherwise by pedor stock. Continue metoprolol succinate, atorvastatin throughout perioperative period. Ok to hold losartan day of procedure. She should have pulmonary clearance measures (hypertonic saline nebs, mucinex, flutter valve, percussion vest) as soon as possible after surgery. Would recommend the following interventions to minimize the patients risk for respiratory complications: * Lung Expansion Maneuvers: Provide teaching on using incentive spirometry & deep breathing exercises prior to surgery; these should be done 10X an hour, every hour while awake. * Early mobilization of the patient, aggressive PT/OT * Bronchodilator therapy: Albuterol INH q4h as needed, Duoneb INH q4h while awake * Pain control: Adequate pain control to encourage deep breathing and ambulation * Other: Diuresis to maintain patient at dry weight. Bowel regimen for prevention of constipation and abdominal distension, aspiration precautions. (Surgeon's office informed regarding the above recommendations) Patient seen by cardiology 07/19/24= seen for follow up. Pre-operative cardiovascular examination, myocardial ischemia: Patient is now 13 months post PCI. From a cardiovascular standpoint she is now considered low risk for myocardial ischemic complication of non cardiovascular surgery. She may temporarily hold her dual antiplatelet therapy (aspirin plus clopidogrel) for 7 to 10 days as recommended for spinal surgery. She should remain on guideline directed medical therapy for secondary prevention of coronary disease including statin, beta-monique, PHONG inhibitor/ARB, and aspirin (held for surgery). Postoperatively we would recommend resumption of aspirin 81 mg daily and Plavix 75 mg daily, once the risk of bleeding is deemed adequately low. We would be happy to assist in the medical management of this patient perioperatively. Atherogenic dyslipidemia- on Lipitor. CAD- s/p PCI. Complete 2 years with DAPT. HTN- BP is above average. Follow up in six months Teaching & Discussion Pre-Anesthesia Teaching/Discussion Notes: Instructed NPO after midnight before surgery,except medications with 15 cc of water. Medication instructions provided according to the PAT guidelines. History Surgery Operation Date: 10/24/24 10:05 Proposed Procedures p L3-L5 Decompression and Possible L3-L5 Fusion, Spinal Cord Monitoring - Yosi Ray DO Height/Weight Height: 5 ft 5 in Weight: 78.6 kg Allergies Allergy/AdvReac Type Severity Reaction Status Date / Time diphenhydramine Allergy Severe anaphylaxis Verified 10/24/24 09:19 amikacin Allergy Intermediate Rash Verified 10/24/24 09:19 chlorhexidine Allergy Intermediate RED & ITCHY Verified 10/24/24 09:19 perflutren [From Definity] Allergy Intermediate Back Pain Verified 10/24/24 09:19 Sulfa (Sulfonamide Allergy Intermediate rash Verified 10/24/24 09:19 Antibiotics) triamcinolone Allergy Intermediate nose Verified 10/24/24 09:19 bleed, Nausea nickel Allergy Mild redness Verified 10/24/24 09:19 with earrings amoxicillin [From Augmentin] AdvReac Severe Diarrhea Verified 10/24/24 09:19 clavulanic acid AdvReac Severe Diarrhea Verified 10/24/24 09:19 [From Augmentin] azithromycin AdvReac Intermediate Nausea Verified 10/24/24 09:19 Beef Containing Products AdvReac Intermediate Diarrhea Verified 10/24/24 09:19 clarithromycin AdvReac Intermediate nausea Verified 10/24/24 09:19 codeine AdvReac Intermediate nausea Verified 10/24/24 09:19 erythromycin base AdvReac Intermediate nausea Verified 10/24/24 09:19 hydrocodone AdvReac Intermediate nausea Verified 10/24/24 09:19 metronidazole AdvReac Intermediate nausea Verified 10/24/24 09:19 ondansetron AdvReac Intermediate "can't Verified 10/24/24 09:19 sleep" oxymetazoline AdvReac Intermediate headache Verified 10/24/24 09:19 Pork/Porcine Containing AdvReac Intermediate Diarrhea Verified 10/24/24 09:19 Products propoxyphene AdvReac Intermediate nausea Verified 10/14/24 10:12 hyoscyamine AdvReac Mild when just Verified 10/14/24 10:12 by itself ok, not in combo med Medications Home Medications Medication Instructions Recorded Confirmed Last Taken guaifenesin 600 mg tablet, 600 mg PO Q12H 06/13/18 10/24/24 06/30/22 09:00 extended release 12 hr (Mucinex) ipratropium 0.5 mg-albuterol 3 mg 3 ml inhalation Q8H PRN shortness 05/10/24 10/24/24 Unknown (2.5 mg base)/3 mL nebulization of breath or wheezing #180 mL soln sodium chloride 7 % for 1 inh inhalation BID PRN nebulizer 10/14/24 10/24/24 Unknown nebulization tramadol 50 mg tablet 50 mg PO Q6H PRN Pain 10/14/24 10/24/24 10/23/24 21:00 aspirin 81 mg tablet,delayed 81 mg PO QAM #90 tabs 10/16/24 10/24/24 10/19/24 09:00 release atorvastatin 40 mg tablet 40 mg PO QAM #90 tabs 10/16/24 10/24/24 10/23/24 09:00 buspirone 15 mg tablet 15 mg PO BID #180 tabs 10/16/24 10/24/24 10/23/24 20:30 cholecalciferol (vitamin D3) 50 2,000 unit PO QAM #90 caps 10/16/24 10/24/24 10/23/24 20:30 mcg (2,000 unit) capsule (Vitamin D3) clopidogrel 75 mg tablet 75 mg PO QAM #90 tabs 10/16/24 10/24/24 10/19/24 09:00 gabapentin 100 mg capsule 100 mg PO TID #90 caps 10/16/24 10/24/24 10/23/24 20:30 losartan 50 mg tablet 75 mg (1.5 x 50 mg) PO QAM #135 10/16/24 10/24/2425 09:00 tabs meclizine 12.5 mg tablet 12.5 mg PO DAILY PRN dizziness #10 10/16/24 10/24/24 Unknown tabs metoprolol succinate 50 mg 50 mg PO QAM #90 tabs 10/16/24 10/24/24 10/23/24 09:00 tablet,extended release 24 hr pantoprazole 40 mg tablet,delayed 40 mg PO QAM #90 tabs 10/16/24 10/24/24 10/23/24 09:00 release turmeric root extract 500 mg tablet 1,000 mg (2 x 500 mg) PO QAM #180 10/16/24 10/24/24 10/19/24 09:00 tabs vit C 250 mg-vit E 90 mg-zinc 40 1 tab PO BID #180 caps 10/16/24 10/24/24 10/19/24 09:00 mg-copper 1 [id number]-dwxffp capsule (PreserVision AREDS-2) nitrofurantoin 100 mg PO BID #10 caps 10/18/24 10/24/24 10/23/24 20:30 monohydrate/macrocrystals 100 mg capsule (Macrobid) oxycodone 5 mg tablet 5 mg PO Q4H PRN Pain 10/24/24 10/24/24 10/23/24 16:00 Past Medical History Medical History Atherogenic dyslipidemia Prediabetes Bronchiectasis follows with pulm- hypertonic saline and Mucinex and chest vest therapy on a regular basis Spinal stenosis Restrictive lung disease nebulizer prn--follows with Dr. Mcelroy Osteoarthritis Obstructive sleep apnea no device, pt stated could not tolerate Myoclonus Reason for Buspar History of SEPIDEH infection Diagnosed 2015- relapsed in 2021- s/p treatment (no longer following with ID- unable to tolerate meds/poor compliance) No current issues - follows with pulm routinely Lumbar back pain Hypertension GERD (gastroesophageal reflux disease) well controlled and stable CAD (coronary atherosclerotic disease) WON x 2 (overlapping) to RCA 06/19/23 Chronic cough Multifactorial per records On anticoagulant therapy plavix daily History of myocardial infarction (06/19/23) had heart cath with 2 stents placed--follows with Dr. Fuentes--reason for plavix daily Macular degeneration of right eye Solar lentigo Interstitial cystitis Mitral valve prolapse Per 07/2023 ECHO- MV is grossly normal- mild MR (jet is eccentrically directed) Exercise / Class Metabolic Activity III < 4 Walking/Shop/Light housework (no chest pain or SOB with flat surface, short distance ambulation - uses wheeled walker occasionally ) Past Family History Family History Brother Family history of diabetes mellitus Depression Family hx colonic polyps Myocardial infarction Hypertension Colorectal cancer Sister Colon cancer Dementia Depression Colorectal cancer Father Prostate cancer Hypertension Stroke Aunt Breast cancer Grandmother Colon cancer Unknown Colon cancer Colorectal cancer Grandfather (Maternal) Colorectal cancer Other No family history of adverse response to anesthesia Denies family history of Ovarian cancer Past Surgical History Surgical History Status post epidural steroid injection History of cardiac cath (06/19/23) due to GA--@ [facility]--2 stents placed--follows with Dr. Fuentes History of heart artery stent (06/19/23) 2 stents placed @ [facility] H/O excision of mass (10/30/20) Right Arm Lipoma Excision(Right), superficial to fascia, less than [address] 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 History of umbilical hernia repair History of arthroscopy LEFT HIP History of esophagogastroduodenoscopy (EGD) History of colonoscopy Ureteral and renal pelvis obstruction, congenital resolved History of tooth extraction History of tonsillectomy History of bronchoscopy 2017 Past Anesthesia History No Hx of Anesthesia Complications and No Family Hx of Anesthesia Complications History of PONV No Hx of PONV and No Hx of Motion Sickness Social History Smoking Status: Never smoker Do You Dip or Chew Tobacco: No Hx Alcohol Use: Yes (1 "whiskey and coke" every evening) Alcohol type: hard liquor alcohol intake frequency: 0-2 drinks per day Hx Substance Use: No substance use type: does not use Review of Systems - Soreness under left axilla due to transferring injury (mild per patient) -Chronic cough - stable - Hx of blood transfusion- post op from surgery- years ago Patient denies chest pain, shortness of breath at rest, wheezing, palpitations. No hx of seizures, stroke. No hx of blood clots Physical Exam Vital Signs Last Vital Signs Temp 36.9 C 10/24/24 09:25 Pulse 82 10/24/24 09:25 Resp 20 10/24/24 09:25 BP 153/83 H 10/24/24 09:25 Pulse Ox 94 10/24/24 09:25 O2 Del Method Room Air 10/24/24 09:25 VITALS BP 134/62 P 70 TEMP 98.1 SP02 93% RESP 16 Constitutional no acute distress ENMT Mouth: no TMJ clicking Thyromental Distance: > or= 3.5 Finger Breadths Mallampati Class: II Permanent right side bridge Neck neck extension not limited Respiratory normal respiratory effort; no respiratory distress Auscultation: lungs clear to auscultation bilaterally; no wheezes Cardiovascular Rate/Rhythm: regular rate and regular rhythm Heart Sounds: no murmur Vessels: no carotid bruit Musculoskeletal Spine: no pain with cervical ROM Extremities: extremities normal to inspection Psychiatric Orientation: alert Lab Results Anesthesia Preop Results Results Anesthesia Widget: WBC 7.55 K/ul (4.8-10.8) 10/09/24 Hgb 13.5 g/dl (12.0-16.0) 10/09/24 Hct 40.9 % (37.0-47.0) 10/09/24 Plt 264 K/uL (130-400) 10/09/24 Na 138 mmol/L (136-145) 09/22/24 K 4.0 mmol/L (3.5-5.1) 09/22/24 Cl 106 mmol/L (98-107) 09/22/24 CO2 27 mmol/L (21-32) 09/22/24 BUN 27 mg/dl (6-23) H 09/22/24 Creat 0.72 mg/dl (0.6-1.2) 09/22/24 Glucose Level 98 mg/dl (70-99(Fasting)) 09/22/24 POC Glucose 109 mg/dl (70-99) H 10/24/24 PT 10.6 Seconds (9.0-12.0) 10/17/24 PTT 24 Seconds (21-31) 10/17/24 INR 1.0 (0.9-1.1) 10/17/24 Urine Color Yellow 10/17/24 Urine Appearance Cloudy (Clear) A 10/17/24 Urine pH 5.0 (4.5-7.5) 10/17/24 Urine Specific [place] 1.028 (1.000-1.030) 10/17/24 Urine Protein Trace (Negative) H 10/17/24 Urine Glucose (UA) Negative (Negative) 10/17/24 Urine Ketones Trace (Negative) H 10/17/24 Urine Blood 2+ (Negative) H 10/17/24 Urine Nitrite Positive (Negative) A 10/17/24 Urine Bilirubin Negative (Negative) 10/17/24 Urine Urobilinogen Negative (Negative) 10/17/24 Urine Leukocyte Esterase 3+ (Negative) H 10/17/24 Urine WBC (Auto) >50 /hpf (0-5) H 10/17/24 Urine RBC (Auto) 6-10 /hpf (0-2) H 10/17/24 Urine Hyaline Casts (Auto) 0-2 /lpf (0-2) 10/17/24 Urine Epithelial Cells (Auto) 0-2 /hpf (0-2) 10/17/24 Urine Bacteria (Auto) 4+ (None Seen) H 10/17/24 Blood Type O Positive 10/17/24 Antibody Screen NEGATIVE 10/17/24 Testing Laboratory Results 10/24/24 09:20 POC Glucose 109 H Abnormal UA; preliminary urine culture showing E coli- surgeon's office informed- will leave to surgeon's discretion on how to proceed Electrocardiogram Date: 10/17/24 Findings: + NSR @ (72bpm) Nonspecific T wave abnormality in inferior leads When compared to EKG from Jul 15, 2023- TWI less evident in inferior leads, PACs are no longer present per cardio Chest X-Ray Date: 04/08/24 Findings: + NAD Echocardiogram Date: 07/15/23 EF: 50-55% Other Findings: no LVH LV is normal in size. No thrombus. Mild inferior wall hypokinesis RV is grossly normal in size and systolic function. Left atrium borderline dilated Mild MR. Mitral regurgitant jet is eccentrically directed Mild TR Compared to prior study, there is no significant change Cardiac Catheterization Date: 06/19/23 Coronary angiography findings: XYS-yekcd-ifiihiz vessel trifurcating into LAD, LCx, and ramus. There is no disease. LAD-large caliber and transapical. Proximal segment without disease. It gives a large caliber branching first diagonal without disease. The mid segment is also without disease in the vessel then becomes tortuous distally. The early distal segment has less than 20% stenosis. YTd-cgpir-gvwncfi traveling in the AV groove. It is a nondominant vessel and essentially becomes a large caliber multi branching OM1. There is no angiographically evident disease in the circumflex or its branches. Ramus-small to medium caliber vessel without significant disease. RCA-medium to large caliber and dominant. Proximal segment into the mid segment has a long thrombotic 99% occlusion. There is no more than DENISE I flow distal to this lesion. Initial angiography does not reveal the distal branch vessels. PCI of RCA- 0% residual stenosis PCI. DENISE-3 flow post PCI No evidence of dissection or perforation post PCI There is revealed a large and long PDA as well as a medium caliber multi branching posterolateral. These vessels have no disease. Summary: 1. Acute inferior ST elevation GA secondary to proximal to mid RCA occlusion. 2. Successful PCI of the RCA with implantation of 2 overlapped drug-eluting stents. 3. No significant residual coronary disease. 4. Dual antiplatelet therapy with aspirin and Brilinta. Initiate guideline directed medical therapy for secondary prevention to include; high intensity statin therapy, beta-monique, plus or minus PHONG inhibitor/ARB.
[2024-10-24] MEDS: LR 15ML/HR IV SCH (09:44)
[2024-10-24] MEDS: CeleBREX 200 MG CAP PO SCH (09:45)
[2024-10-24] MEDS: ACETAMINOPHEN 500 MG TAB PO SCH (09:47)
[2024-10-24] MEDS: GABAPENTIN 300 MG CAP PO SCH (09:47)
[2024-10-24] MEDS: LR 60ML/HR IV SCH (09:48)
--- NOTE | 2024-10-24 10:11 | History & Physical Bridge Note ---
Date of Service October 24, 2024 History & Physical Bridge Note I have examined the patient, reviewed the History & Physical and in the interval since the performance of the History & Physical I have noted the following changes of clinical significance: no changes noted
--- NOTE | 2024-10-24 10:12 | History & Physical Report ---
Date of Service October 24, 2024 Assessment & Plan (1) Multilevel lumbosacral spondylosis with radiculopathy: Plan: L3-L5 decompression possible fusion History of Present Illness Chief Complaint: Back and bilateral leg pain Primary Care Provider: Sunni Ann MD This is a 78-year-old female with presents with marked client status severe pain inability ambulate and here for surgical invention. Allergies Allergy/AdvReac Type Severity Reaction Status Date / Time diphenhydramine Allergy Severe anaphylaxis Verified 10/24/24 09:19 amikacin Allergy Intermediate Rash Verified 10/24/24 09:19 chlorhexidine Allergy Intermediate RED & ITCHY Verified 10/24/24 09:19 perflutren [From Definity] Allergy Intermediate Back Pain Verified 10/24/24 09:19 Sulfa (Sulfonamide Allergy Intermediate rash Verified 10/24/24 09:19 Antibiotics) triamcinolone Allergy Intermediate nose Verified 10/24/24 09:19 bleed, Nausea nickel Allergy Mild redness Verified 10/24/24 09:19 with earrings amoxicillin [From Augmentin] AdvReac Severe Diarrhea Verified 10/24/24 09:19 clavulanic acid AdvReac Severe Diarrhea Verified 10/24/24 09:19 [From Augmentin] azithromycin AdvReac Intermediate Nausea Verified 10/24/24 09:19 Beef Containing Products AdvReac Intermediate Diarrhea Verified 10/24/24 09:19 clarithromycin AdvReac Intermediate nausea Verified 10/24/24 09:19 codeine AdvReac Intermediate nausea Verified 10/24/24 09:19 erythromycin base AdvReac Intermediate nausea Verified 10/24/24 09:19 hydrocodone AdvReac Intermediate nausea Verified 10/24/24 09:19 metronidazole AdvReac Intermediate nausea Verified 10/24/24 09:19 ondansetron AdvReac Intermediate "can't Verified 10/24/24 09:19 sleep" oxymetazoline AdvReac Intermediate headache Verified 10/24/24 09:19 Pork/Porcine Containing AdvReac Intermediate Diarrhea Verified 10/24/24 09:19 Products propoxyphene AdvReac Intermediate nausea Verified 10/14/24 10:12 hyoscyamine AdvReac Mild when just Verified 10/14/24 10:12 by itself ok, not in combo med Home Medications Medication Instructions Recorded Confirmed Type guaifenesin 600 mg tablet, 600 mg PO Q12H 06/13/18 10/24/24 History extended release 12 hr (Mucinex) ipratropium 0.5 mg-albuterol 3 mg 3 ml inhalation Q8H PRN shortness 05/10/24 10/24/24 Rx (2.5 mg base)/3 mL nebulization of breath or wheezing #180 mL soln sodium chloride 7 % for 1 inh inhalation BID PRN nebulizer 10/14/24 10/24/24 History nebulization tramadol 50 mg tablet 50 mg PO Q6H PRN Pain 10/14/24 10/24/24 History aspirin 81 mg tablet,delayed 81 mg PO QAM #90 tabs 10/16/24 10/24/24 Rx release atorvastatin 40 mg tablet 40 mg PO QAM #90 tabs 10/16/24 10/24/24 Rx buspirone 15 mg tablet 15 mg PO BID #180 tabs 10/16/24 10/24/24 Rx cholecalciferol (vitamin D3) 50 2,000 unit PO QAM #90 caps 10/16/24 10/24/24 Rx mcg (2,000 unit) capsule (Vitamin D3) clopidogrel 75 mg tablet 75 mg PO QAM #90 tabs 10/16/24 10/24/24 Rx gabapentin 100 mg capsule 100 mg PO TID #90 caps 10/16/24 10/24/24 Rx losartan 50 mg tablet 75 mg (1.5 x 50 mg) PO QAM #135 10/16/24 10/24/24 Rx tabs meclizine 12.5 mg tablet 12.5 mg PO DAILY PRN dizziness #10 10/16/24 10/24/24 Rx tabs metoprolol succinate 50 mg 50 mg PO QAM #90 tabs 10/16/24 10/24/24 Rx tablet,extended release 24 hr pantoprazole 40 mg tablet,delayed 40 mg PO QAM #90 tabs 10/16/24 10/24/24 Rx release turmeric root extract 500 mg tablet 1,000 mg (2 x 500 mg) PO QAM #180 10/16/24 10/24/24 Rx tabs vit C 250 mg-vit E 90 mg-zinc 40 1 tab PO BID #180 caps 10/16/24 10/24/24 Rx mg-copper 1 [id number]-rhpiyw capsule (PreserVision AREDS-2) nitrofurantoin 100 mg PO BID #10 caps 10/18/24 10/24/24 Rx monohydrate/macrocrystals 100 mg capsule (Macrobid) oxycodone 5 mg tablet 5 mg PO Q4H PRN Pain 10/24/24 10/24/24 History Past Med/Surg History Problem List (Updated 10/24/24 @ 10:12 by Yosi Ray DO) Multilevel lumbosacral spondylosis with radiculopathy Encounter for pre-operative examination Hx of colonic polyps Spinal stenosis History of ST elevation myocardial infarction (STEMI) 06/2023 Allergic rhinitis with postnasal drip Chronic cough Right leg pain GERD (gastroesophageal reflux disease) Anemia CAD (coronary atherosclerotic disease) HTN (hypertension) Osteoporosis Right lumbar radiculopathy Restrictive lung disease Sensorineural hearing loss (SNHL) of both ears Sciatica Trochanteric bursitis, right hip Vitamin D deficiency (Chronic) Obstructive sleep apnea (Chronic) no cpap can't tolerate Microscopic colitis (Chronic) Osteoarthritis (Chronic) Macular degeneration (Chronic) Myoclonus (Chronic) REASON FOR TAKING BUSPAR 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 Mcelroy Osteoarthritis Obstructive sleep apnea no device, pt stated could not tolerate Myoclonus Reason for Buspar History of SEPIDEH infection Diagnosed 2015- relapsed in 2021- s/p treatment (no longer following with ID- unable to tolerate meds/poor compliance) No current issues - follows with pulm routinely Lumbar back pain Hypertension GERD (gastroesophageal reflux disease) well controlled and stable CAD (coronary atherosclerotic disease) WON x 2 (overlapping) to RCA 06/19/23 Chronic cough Multifactorial per records On anticoagulant therapy plavix daily History of myocardial infarction (06/19/23) had heart cath with 2 stents placed--follows with Dr. Fuentes--reason for plavix daily Macular degeneration of right eye Solar lentigo Interstitial cystitis Mitral valve prolapse Per 07/2023 ECHO- MV is grossly normal- mild MR (jet is eccentrically directed) Surgical History Status post epidural steroid injection History of cardiac cath (06/19/23) due to [place]--@ [facility]--2 stents placed--follows with Dr. Fuentes History of heart artery stent (06/19/23) 2 stents placed @ [facility] H/O excision of mass (10/30/20) Right Arm Lipoma Excision(Right), superficial to fascia, less than [address] 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 History of umbilical hernia repair History of arthroscopy LEFT HIP History of esophagogastroduodenoscopy (EGD) History of colonoscopy Ureteral and renal pelvis obstruction, congenital resolved History of tooth extraction History of tonsillectomy History of bronchoscopy 2017 Family History Brother Family history of diabetes mellitus Depression Family hx colonic polyps Myocardial infarction Hypertension Colorectal cancer Sister Colon cancer Dementia Depression Colorectal cancer Father Prostate cancer Hypertension Stroke Aunt Breast cancer Grandmother Colon cancer Unknown Colon cancer Colorectal cancer Grandfather (Maternal) Colorectal cancer Other No family history of adverse response to anesthesia Denies family history of Ovarian cancer Social History Smoking Status: Never smoker Second Hand Exposure: No; Do You Dip or Chew Tobacco: No; Tobacco Cessation Education Requested by Patient: No Hx Alcohol Use: Yes (1 "whiskey and coke" every evening) Alcohol type: hard liquor Alcohol Intake Frequency: 4 or More x per/Week Alcohol Intake Frequency Comment: daily drink with dinner Hx Substance Use: No Preferred Language: Nigerian Communication Ability: Effective Visual Impairment: No Limitations Hearing Ability: Normal Biomedical Engineering Supervisor Required: No Beliefs That Will Affect Care: None marital status: Current Living Situation: Spouse Current Living Situation Comment: with [facility], has home manager intensive care unit 2x a day current occupational status: retired current occupation: Retired How many Children do You have: 3 Other Information That Helps Us Care for You: No Feels Safe at Home: Yes Safety Concerns: Feels Safe At This Time Childhood Exposure to Second-Hand Smoke: No Diet: regular Diet Comment: eats small amounts of fish as well caffeine: Yes Dental Care, Regularly: Yes Physical Activity Frequency: Does not Exercise Seatbelt Use: always Sunscreen Use: Yes Assistive Devices: Glasses, Nebulizer and Walker Assistive Devices Comment: reading glasses Physical Exam Physical Exam: Patient is alert and oriented heart regular rhythm lungs clear Results & Data Results & Data Vital Signs (Past 12 Hours) Vital Signs Temp Pulse Resp BP Pulse Ox O2 Del Method 10/24/24 09:25 36.9 C 82 20 153/83 H 94 Room Air
[2024-10-24] MEDS ORDERED: PROPOFOL IV EMULSION 10 MG/ML 20 ML VIAL IV ONE (10:24)
[2024-10-24] MEDS ORDERED: fentaNYL citrate PF 100 MCG/2 ML VIAL ONE (10:24)
[2024-10-24] MEDS ORDERED: LIDOCAINE 2% 2 ML VIAL/AMP(20MG/ML) INFIL ONE (10:24)
[2024-10-24] MEDS ORDERED: MIDAZOLAM HCL 1 MG/ML 2ML VIAL ONE (10:24)
[2024-10-24] MEDS ORDERED: ROCURONIUM BROMIDE 10 MG/ML 5 ML VIAL IV ONE (10:24)
[2024-10-24] MEDS: ceFAZolin 2000MG 2,000 MG/15 ML SYR IV SCH ×2 (10:34→16:46)
[2024-10-24] MEDS ORDERED: DEXAMETHASONE SOD INJ 4 MG/ML VIAL ONE ×2 (11:02)
[2024-10-24] MEDS ORDERED: ONDANSETRON INJ 2 MG/ML 2 ML VIAL ONE (11:02)
[2024-10-24] MEDS: ceFAZolin 330 MG/ML 1 GM VIAL ONE (11:10)
[2024-10-24] MEDS: BUPIVACAINE/EPINEPHRINE 0.25% 1:200,000 30 ML VIAL ONE (11:10)
[2024-10-24] MEDS: FLOSEAL HEMOSTATIC MATRIX 10ML TOP ONE (11:43)
[2024-10-24] MEDS ORDERED: SUGAMMADEX SODIUM 200 MG/2 ML VIAL IV ONE (11:50)
--- NOTE | 2024-10-24 11:56 | Operative Report ---
Post Operative Report Pre & Post Diagnosis Operation Date: 10/24/24 10:05 Pre-Op Diagnosis: #1 lumbar spondylosis with radiculopathy. #2 lumbar spinal stenosis with radiculopathy. Post-Op Diagnosis: Same with iatrogenic spondylolisthesis L4-L5 I identified the patient and participated in the time-out.: Yes Procedure Operation Date: 10/24/24 10:05 Actual Procedures #1 lumbar decompression with bilateral medial facetectomies and foraminotomies L3-L4 L4-5 per #2 posterior spinal fusion L4-5 per #3 placed posterior instrumentation L4-5 per #4 interbody fusion L4-5 #5 placement of Spira 13 x 26 mm x 2 at L4-5 #6 placement locally harvested morselized autograft in the posterior gutters. #7 placement fuse collagen sponge combined with Koros in the posterior lateral gutters and os design and interbody space. #8 application of versa wrap over the exposed dura. Surgeon Yosi Ray, Hearing Specialist Odessa Snyder Estimated Blood Loss 50 Findings Consistent with Post-Op Diagnosis Specimens None Indications This is a 78-year-old female presents with the above-mentioned diagnosis of failing course of nonoperative care is here for surgical intervention. Description of Procedure Patient was met with identified informed consent obtained. Patient was then taken to the operative suite underwent intubation placed in a prone position on the Matt table top Pritesh frame. All bony promises well-padded eyes inspected to ensure no external pressure placed upon them. This point the lumbar spine was prepped and draped in sterile fashion. Sharp dissection with the assistance of Bovie cautery from down to and exposing the lamina of L3-L4 bilaterally. From caudal to cephalad fashion a laminectomy of L4 was performed but it did require aggressive bilateral medial facetectomies to adequately decompress the traversing and exiting nerve roots at this level. This created instability at this level. I then performed a laminectomy of L3 with bilateral medial facetectomies addressing all subarticular stenosis. I then proceeded to fuse L4-L5. Pedicle screws were placed in L for L5 bilaterally with assistance of fluoroscopy in the process sandra placed. By way of transforaminal approach and right a discectomy of L4-5 was performed endplates guarded to subcortical bleeding bone and a 13 x 26 mm Spira cage filled with os designed tapped in position. Then proceeded to the left transforaminal region at L4-L5. Again discectomy performed. Endplates guided to subcortical big bone. A second 13 x 26 mm Spira cage filled with os design bone graft tapped in position. The rods were then compressed locked in final position bilaterally. The transverse processes of L4-5 burred to subcortical bleeding bone. Infuse collagen sponge, with Koros and local autograft placed in the posterior lateral gutters. Versa wrap placed over the exposed dura. 15 round NICK drain inserted. The incision was then closed with 1 Vicryl and fascia 2-0 Vicryl subcutaneously and 4 Monocryl for final skin closure. Steri-Strips sterile dressing placed. Patient waken taken PACU stable condition. Please note spinal cord monitoring was utilized at the procedure no changes noted. Odessa Snyder was present at the entire surgery involved the patient positioning complex portion of the surgery a nd final skin closure. I attest to the content of the Intraoperative Record and any orders documented therein. Any exceptions are noted below.
[2024-10-24] MEDS ORDERED: ALBUTEROL HFA 8 GM INHALER INH ONE (12:10)
--- NOTE | 2024-10-24 12:23 | Fluoroscopy Report ---
FL lumbar spine 2-3V CLINICAL HISTORY: L3-L5 DECOMPRESSION AND FUSION COMPARISON STUDY: MR lumbar spine 07/12/2024 FLUOROSCOPY TIME: 15.6 seconds FLUOROSCOPY IMAGES: 2 EXPOSURE DOSE: 14.81 mGy FINDINGS: Posterior interbody rods and screw fusion with discectomy at L4-L5. Hardware appears intact . No unexpected opaque foreign bodies. IMPRESSION: Fluoroscopic assistance as above. ACT 112: Negative or not required by law. Electronically signed by: Christos Hood M.D. 10/24/2024 12:21 PM
[2024-10-24] MEDS ORDERED: ePHEDrine sulfate 50 MG/ML AMP IV PRN (12:27)
[2024-10-24] MEDS ORDERED: ATROPINE SULFATE 0.1 MG/ML 10ML SYR IV PRN (12:27)
[2024-10-24] MEDS ORDERED: ONDANSETRON INJ 2 MG/ML 2 ML VIAL IV PRN ×2 (12:27→13:46)
[2024-10-24] MEDS: fentaNYL citrate PF 100 MCG/2 ML VIAL IV PRN ×2 (12:29→12:54)
[2024-10-24] MEDS ORDERED: diphenhydrAMINE Capsule 25 MG CAP PO PRN (13:46)
[2024-10-24] MEDS ORDERED: PROMETHAZINE 12.5 MG/50.5 ML BAG IV PRN (13:46)
[2024-10-24] MEDS ORDERED: MAGNESIUM HYDROXIDE SUSP 30 ML UDC PO PRN (13:46)
[2024-10-24] MEDS ORDERED: METOCLOPRAMIDE HCL INJ 5 MG/ML 2 ML VIAL IV PRN (13:46)
[2024-10-24] MEDS ORDERED: SODIUM CHLOR 7% 4 ML NEB INH PRN (13:46)
[2024-10-24] MEDS ORDERED: HYDROmorphone INJ 0.5 MG/0.5 ML SYR IV PRN (13:46)
[2024-10-24] MEDS ORDERED: LORazepam 0.5 MG TAB PO PRN (13:46)
[2024-10-24] MEDS ORDERED: SOD PHOSPHATE/SOD BIPHOSPHATE ENEMA 132 ML BTL PR PRN (13:46)
[2024-10-24] MEDS ORDERED: NALOXONE HCL 0.4 MG/1 ML VIAL/CARP IV PRN (13:46)
[2024-10-24] MEDS ORDERED: DO NOT ADMINISTER FLU VACCINE PRN (13:46)
[2024-10-24] MEDS ORDERED: ONDANSETRON 4 MG OD TAB PO PRN (13:46)
[2024-10-24] MEDS ORDERED: LORazepam 2 MG/1 ML VIAL IV PRN (13:46)
[2024-10-24] MEDS ORDERED: ALUMINUM/MAGNESIUM SUSP 30 ML UDC PO PRN (13:46)
[2024-10-24] MEDS ORDERED: bisacodyL 10 MG SUPP PR PRN (13:46)
[2024-10-24] MEDS ORDERED: FAMOTIDINE 20 MG TAB PO PRN (13:46)
[2024-10-24] MEDS ORDERED: DO NOT ADMINISTER PNEUMOCOCCAL VACCINE PRN (13:46)
[2024-10-24] MEDS ORDERED: ACETAMINOPHEN 1,000 MG/100 ML VIAL IV PRN (13:46)
[2024-10-24] MEDS: fentaNYL citrate PF 100 MCG/2 ML VIAL ONE ×2 (13:47→13:48)
--- NOTE | 2024-10-24 14:22 | Anesthesiology Progress Note ---
Date of Service October 24, 2024 Anesthesia Post Procedure Vital Signs Vital Signs: Temp Pulse Pulse Resp BP Pulse Ox O2 Del Method 10/24/24 14:12 97.5 F L 76 12 145/79 H 97 Nasal Cannula 10/24/24 14:03 Nasal Cannula 10/24/24 13:25 75 17 155/77 H 98 Nasal Cannula 10/24/24 13:15 97.5 F L 79 16 151/73 H 98 Nasal Cannula 10/24/24 13:05 74 16 145/71 H 97 Nasal Cannula 10/24/24 12:55 81 16 148/73 H 97 Nasal Cannula 10/24/24 12:45 79 16 150/74 H 97 Nasal Cannula 10/24/24 12:35 87 21 162/89 H 96 Oxymask 10/24/24 12:25 89 18 170/91 H 100 Oxymask 10/24/24 12:20 166/85 H 10/24/24 12:15 96.8 F L 94 H 17 174/106 H 100 Oxymask 10/24/24 09:25 98.4 F 82 20 153/83 H 94 Room Air O2 Flow Rate 10/24/24 14:12 2 10/24/24 14:03 2 10/24/24 13:25 2 10/24/24 13:15 2 10/24/24 13:05 2 10/24/24 12:55 2 10/24/24 12:45 2 10/24/24 12:35 3 10/24/24 12:25 8 10/24/24 12:20 10/24/24 12:15 8 10/24/24 09:25 Pain Intensity Right Lower Back: Pain Intensity: 9 Back: Pain Intensity: 8 Transfer of Care Handoff Completed per policy Notes Mental Status: alert / awake / arousable and participated in evaluation Patient Amnestic to Procedure: Yes Nausea / Vomiting: adequately controlled Pain: adequately controlled Airway Patency, RR, SpO2: stable & adequate BP & HR: stable & adequate Hydration State: stable & adequate Anesthetic Complications: no major complications apparent and Pt Satisfied with anesthetic care
[2024-10-24] MEDS: HYDROmorphone INJ 1 MG/ML SYRINGE IV PRN (14:43)
[2024-10-24] MEDS: GABAPENTIN 100 MG CAP PO SCH (15:40)
[2024-10-24] MEDS: DOCUSATE SODIUM/SENNA 50/8.6MG TAB PO SCH (20:49)
[2024-10-24] MEDS: traMADol HCL 50 MG TABLET PO PRN (20:54)
[2024-10-24] MEDS: guaiFENesin 600 MG TABCR PO SCH (20:55)
[2024-10-24] MEDS: busPIRone 15 MG TAB PO SCH (20:55)
[2024-10-25] MEDS: POLYETHYLENE (MIRALAX) 17 GM PACK PO SCH (05:40)
[2024-10-25] MEDS: ASPIRIN 81 MG ECTAB PO SCH (08:06)
[2024-10-25] MEDS: MECLIZINE 12.5 MG TAB PO PRN (08:06)
[2024-10-25] MEDS: CEROVITE ADV FORMULA TAB PO SCH (08:06)
[2024-10-25] MEDS: CHOLECALCIFEROL 25 MCG (1000 UNITS) TAB PO SCH (08:06)
[2024-10-25] MEDS: METOPROLOL SUCC 50MG EXT REL TAB PO SCH (08:07)
[2024-10-25] MEDS: ATORVASTATIN 40 MG TAB PO SCH (08:07)
[2024-10-25] MEDS: LOSARTAN POTASSIUM 25 MG TAB PO SCH (08:07)
[2024-10-25] MEDS: PANTOprazole 40 MG TAB PO SCH (08:07)
[2024-10-25] MEDS: dexAMETHasone 6 MG in SYRINGE 0 ML IV SCH (08:08)
[2024-10-25 08:42] LABS: Basophils # (auto) 0.02 K/uL (0.00-0.20); Basophils % (auto) 0.2 %; Hematocrit (blood only) 35.9 % (37.0-47.0); Hemoglobin 11.6 g/dl (12.0-16.0); Immature Granulocytes # (auto) 0.12 K/uL (0.01-0.20); Lymphocytes # (auto) 1.49 K/uL (1.20-3.40); Lymphocytes % (auto) 11.9 %; Mean Corpuscular Hemoglobin 29.4 pg (25.0-34.0); Mean Corpuscular Hgb Conc 32.3 g/dL (32.0-36.0); Mean Corpuscular Volume 91.1 fL (80.0-100.0); Monocytes # (auto) 1.04 K/uL (0.11-0.59); Monocytes % (auto) 8.3 %; Neutrophils # (auto) 9.83 K/uL (1.40-6.50); Neutrophils % (auto) 78.6 %; Platelet Count 283 K/uL (130-400); RDW Coefficient of Variation 13.9 % (11.5-14.5); RDW Standard Deviation 46.6 fL (36.4-46.3); Red Blood Count 3.94 M/uL (4.20-5.40)
[2024-10-25 09:16] LABS: BUN Creatinine Ratio 23.3 (10-20); Calcium 8.6 mg/dl (8.6-10.3); Creatinine Clr Calc Pharmacy 79.7 ml/min; Potassium 4.3 mmol/L (3.5-5.1)
--- NOTE | 2024-10-25 10:08 | Orthopedic Progress Note ---
Date of Service October 25, 2024 Assessment & Plan (1) Multilevel lumbosacral spondylosis with radiculopathy: Plan: At this time we will continue physical therapy monitor NICK output hopefully discharge home in the next few days. Admission and Anticipated Discharge Date Admission Date: October 24, 2024 Subjective Back pain is controlled leg pain improving Physical Exam Physical Exam: Patient is in the chair at the bedside. She is good strength testing. Results & Data Vital Signs (Past 12 Hours) Vital Signs Temp Pulse Resp BP Pulse Ox O2 Del Method O2 Flow Rate 10/25/24 09:34 Nasal Cannula 2 10/25/24 07:57 36.3 C L 76 16 156/81 H 94 Room Air 10/25/24 04:37 36.4 C L 74 16 148/75 H 95 Room Air 10/25/24 00:40 36.7 C 59 L 16 136/79 93 Room Air
--- NOTE | 2024-10-26 09:39 | Orthopedic Progress Note ---
Date of Service October 26, 2024 Assessment & Plan (1) Multilevel lumbosacral spondylosis with radiculopathy: Plan: At this point we will continue with physical therapy. I explained that some of her leg pain is both nerve recovery as well as trochanteric bursitis. Will assess how she progresses over the next day and she may be a possible candidate for rehab. Admission and Anticipated Discharge Date Admission Date: October 24, 2024 Subjective Patient continues to complain of some right leg pain. It is improved from her preoperative status. Is along the right lateral thigh. She is having difficult with physical therapy. Physical Exam Physical Exam: On exam she has good strength testing right extremity. There is marked tenderness palpation of the right IT band and trochanteric region. Results & Data Vital Signs (Past 12 Hours) Vital Signs Temp Pulse Resp BP BP Pulse Ox O2 Del Method 10/26/24 07:54 36.5 C 77 18 146/76 H 96 Room Air 10/26/24 05:22 36.6 C 78 18 158/74 H 94 Room Air 10/25/24 21:43 36.4 C L 69 16 145/65 H 93 Room Air
--- NOTE | 2024-10-26 11:17 | Electrocardiogram Report ---
Test Reason : Blood Pressure : */* mmHG Vent. Rate : 79 BPM Atrial Rate : 79 BPM P-R Int : 146 ms QRS Dur : 90 ms QT Int : 378 ms P-R-T Axes : 83 43 -13 degrees QTcB Int : 433 ms Normal sinus rhythm Cannot rule out Inferior infarct , age undetermined Abnormal ECG When compared with ECG of 17-Oct-2024 15:18, No significant change was found Confirmed by Stephen Bartlett ([id number]) on 10/26/2024 11:17:41 AM Referred By: Yosi Ray Confirmed By: Stephen Bartlett
--- NOTE | 2024-10-26 13:13 | Hospitalist Consultation ---
Date of Consultation October 26, 2024 Assessment & Plan (1) History of SEPIDEH infection: (2) CAD (coronary atherosclerotic disease): Lumbar radiculopathy S/p decompression, fusion 10/24/2024. Uncomplicated with 50 cc estimated blood loss Pain control, activity per primary team. Patient is to be continued on aspirin, discussed with primary team. Postoperatively has had improvement but not resolution of her right leg pain. PT/OT Chest pain, CAD w/ hx PCI With prior history of PCI/WON 06/2023 - Echo 2022 w/ EF 55% Patient was chest pain overnight 10/25. Was seen by overnight resident. Does endorse some anxiety and pain completely resolved after an hour. Repeat EKG normal sinus rhythm without territorial ischemia. No significant change from prior. Troponin negative. No sweating/dyspnea at the time - Given hx and 1 hour of pain into neck will repeat trop x1, repeat EKG, and obtain echo for any wm change. PLan is to resume plavix POD#5 - Continue BB, ARB. - Will move to M/T for monitoring History of PCI/WON 06/2023 - No evidence of CHF Addendum: Repeat EKG without any ischemic changes, troponin remains normal. Will follow symptomatically and moved to telemetry for monitoring, repeat troponin and EKG for any recurrent chest pain and trial nitro at that time. Will anticipate resuming Plavix postop day 5. History of SEPIDEH infection, asthma Hypertonic saline nebs, Mucinex, flutter valve, percussion vest for sputum mobilization Albuterol every 2 hours as needed as needed, may alternate with DuoNeb every 4-6 hours Anxiety/depression Continue buspirone History of Present Illness Attending Physician: Yosi Ray, History of Present Illness Karo is a 78-year-old female with a history of STEMI with WON to RCA 2022, hypertension, asthma, SEPIDEH, GERD who presented for scheduled surgical management of lumbar radiculopathy. She reports other than her leg pain had been doing well up until last night. R leg pain which initially improved is now worsened and radiating down the back of her R leg. Improves with pain medication, but still bothersome to her. No change in strength. This morning when she woke up she felt she had ~1 hour of chest pain/discomfort radiating into her neck. Does endorse some anxiety. Was seen by overnight resident and had a normal EKG/trop. [place] lik eher pain lasted ~1 hour and then resolved completley. No associated dyspnea/sweating. She has had some L shoulde rpain with moving/lift assist at her facility, but this felt different and she did not notice any reproducible pain. Denies pain with activity in the last few weeks. Medical History: Reviewed Medications: Reviewed Surgical History: Reviewed Family history: Reviewed Allergies: Reviewed Social History: Reviewed Code Status:Full Allergies Allergy/AdvReac Type Severity Reaction Status Date / Time diphenhydramine Allergy Severe anaphylaxis Verified 10/24/24 09:19 amikacin Allergy Intermediate Rash Verified 10/24/24 09:19 chlorhexidine Allergy Intermediate RED & ITCHY Verified 10/24/24 09:19 perflutren [From Definity] Allergy Intermediate Back Pain Verified 10/24/24 09:19 Sulfa (Sulfonamide Allergy Intermediate rash Verified 10/24/24 09:19 Antibiotics) triamcinolone Allergy Intermediate nose Verified 10/24/24 09:19 bleed, Nausea nickel Allergy Mild redness Verified 10/24/24 09:19 with earrings amoxicillin [From Augmentin] AdvReac Severe Diarrhea Verified 10/24/24 09:19 clavulanic acid AdvReac Severe Diarrhea Verified 10/24/24 09:19 [From Augmentin] azithromycin AdvReac Intermediate Nausea Verified 10/24/24 09:19 Beef Containing Products AdvReac Intermediate Diarrhea Verified 10/24/24 09:19 clarithromycin AdvReac Intermediate nausea Verified 10/24/24 09:19 codeine AdvReac Intermediate nausea Verified 10/24/24 09:19 erythromycin base AdvReac Intermediate nausea Verified 10/24/24 09:19 hydrocodone AdvReac Intermediate nausea Verified 10/24/24 09:19 metronidazole AdvReac Intermediate nausea Verified 10/24/24 09:19 ondansetron AdvReac Intermediate "can't Verified 10/24/24 09:19 sleep" oxymetazoline AdvReac Intermediate headache Verified 10/24/24 09:19 Pork/Porcine Containing AdvReac Intermediate Diarrhea Verified 10/24/24 09:19 Products propoxyphene AdvReac Intermediate nausea Verified 10/14/24 10:12 hyoscyamine AdvReac Mild when just Verified 10/14/24 10:12 by itself ok, not in combo med Home Medications Medication Instructions Recorded Confirmed Type guaifenesin 600 mg tablet, 600 mg PO Q12H 06/13/18 10/24/24 History extended release 12 hr (Mucinex) ipratropium 0.5 mg-albuterol 3 mg 3 ml inhalation Q8H PRN shortness 05/10/24 10/24/24 Rx (2.5 mg base)/3 mL nebulization of breath or wheezing #180 mL soln sodium chloride 7 % for 1 inh inhalation BID PRN nebulizer 10/14/24 10/24/24 History nebulization tramadol 50 mg tablet 50 mg PO Q6H PRN Pain 10/14/24 10/24/24 History aspirin 81 mg tablet,delayed 81 mg PO QAM #90 tabs 10/16/24 10/24/24 Rx release atorvastatin 40 mg tablet 40 mg PO QAM #90 tabs 10/16/24 10/24/24 Rx buspirone 15 mg tablet 15 mg PO BID #180 tabs 10/16/24 10/24/24 Rx cholecalciferol (vitamin D3) 50 2,000 unit PO QAM #90 caps 10/16/24 10/24/24 Rx mcg (2,000 unit) capsule (Vitamin D3) clopidogrel 75 mg tablet 75 mg PO QAM #90 tabs 10/16/24 10/24/24 Rx gabapentin 100 mg capsule 100 mg PO TID #90 caps 10/16/24 10/24/24 Rx losartan 50 mg tablet 75 mg (1.5 x 50 mg) PO QAM #135 10/16/24 10/24/24 Rx tabs meclizine 12.5 mg tablet 12.5 mg PO DAILY PRN dizziness #10 10/16/24 10/24/24 Rx tabs metoprolol succinate 50 mg 50 mg PO QAM #90 tabs 10/16/24 10/24/24 Rx tablet,extended release 24 hr pantoprazole 40 mg tablet,delayed 40 mg PO QAM #90 tabs 10/16/24 10/24/24 Rx release turmeric root extract 500 mg tablet 1,000 mg (2 x 500 mg) PO QAM #180 10/16/24 10/24/24 Rx tabs vit C 250 mg-vit E 90 mg-zinc 40 1 tab PO BID #180 caps 10/16/24 10/24/24 Rx mg-copper 1 gg-ydlefo-icohel capsule (PreserVision AREDS-2) nitrofurantoin 100 mg PO BID #10 caps 10/18/24 10/24/24 Rx monohydrate/macrocrystals 100 mg capsule (Macrobid) oxycodone 5 mg tablet 5 mg PO Q4H PRN Pain 10/24/24 10/24/24 History oxycodone 5 mg tablet 5 mg PO Q6H PRN pain #30 tabs 10/25/24 Rx tramadol 50 mg tablet 50 mg PO Q6H PRN pain, moderate 10/25/24 Rx #30 tabs Patient History Medical History (Updated 10/26/24 @ 00:08 by Mary Lou Coy) Atherogenic dyslipidemia Prediabetes Bronchiectasis follows with pulm- hypertonic saline and Mucinex and chest vest therapy on a regular basis Spinal stenosis Restrictive lung disease nebulizer prn--follows with Dr. Mcelroy Osteoarthritis Obstructive sleep apnea no device, pt stated could not tolerate Myoclonus Reason for Buspar History of SEPIDEH infection Diagnosed 2015- relapsed in 2021- s/p treatment (no longer following with ID- unable to tolerate meds/poor compliance) No current issues - follows with pulm routinely Lumbar back pain Hypertension GERD (gastroesophageal reflux disease) well controlled and stable CAD (coronary atherosclerotic disease) WON x 2 (overlapping) to RCA 06/19/23 Chronic cough Multifactorial per records On anticoagulant therapy plavix daily History of myocardial infarction (06/19/23) had heart cath with 2 stents placed--follows with Dr. Fuentes--reason for plavix daily Macular degeneration of right eye Solar lentigo Interstitial cystitis Mitral valve prolapse Per 07/2023 ECHO- MV is grossly normal- mild MR (jet is eccentrically directed) Surgical History Status post epidural steroid injection History of cardiac cath (06/19/23) due to NE--@ [facility]--2 stents placed--follows with Dr. Fuentes History of heart artery stent (06/19/23) 2 stents placed @ [facility] H/O excision of mass (10/30/20) Right Arm Lipoma Excision(Right), superficial to fascia, less than [address] 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 History of umbilical hernia repair History of arthroscopy LEFT HIP History of esophagogastroduodenoscopy (EGD) History of colonoscopy Ureteral and renal pelvis obstruction, congenital resolved History of tooth extraction History of tonsillectomy History of bronchoscopy 2017 Family History Brother Family history of diabetes mellitus Depression Family hx colonic polyps Myocardial infarction Hypertension Colorectal cancer Sister Colon cancer Dementia Depression Colorectal cancer Father Prostate cancer Hypertension Stroke Aunt Breast cancer Grandmother Colon cancer Unknown Colon cancer Colorectal cancer Grandfather (Maternal) Colorectal cancer Other No family history of adverse response to anesthesia Denies family history of Ovarian cancer Social History Smoking Status: Never smoker Second Hand Exposure: No; Do You Dip or Chew Tobacco: No; Tobacco Cessation Education Requested by Patient: No Hx Alcohol Use: Yes (1 "whiskey and coke" every evening) Alcohol type: hard liquor Alcohol Intake Frequency: 4 or More x per/Week Alcohol Intake Frequency Comment: daily drink with dinner Hx Substance Use: No Preferred Language: [place] Communication Ability: Effective Visual Impairment: No Limitations Hearing Ability: Normal Burlesque Dancer Required: No Beliefs That Will Affect Care: None marital status: Current Living Situation: Spouse Current Living Situation Comment: with [facility], has home palliative care physician 2x a day current occupational status: retired current occupation: Retired How many Children do You have: 3 Other Information That Helps Us Care for You: No Feels Safe at Home: Yes Safety Concerns: Feels Safe At This Time Childhood Exposure to Second-Hand Smoke: No Diet: regular Diet Comment: eats small amounts of fish as well caffeine: Yes Dental Care, Regularly: Yes Physical Activity Frequency: Does not Exercise Seatbelt Use: always Sunscreen Use: Yes Assistive Devices: Walker and Wheelchair Assistive Devices Comment: reading glasses Physical Exam Physical Exam: General: A&Ox3. NAD. Cooperative. HEENT: Atraumatic, normocephalic. Pulm: CTAB A&P. -wheezes, -rales, -rhonchi. Symmetrical chest rise. No increased work of breathing. No respiratory distress. Cardiac: RRR, -mrg. Radial pulses intact and symmetrical. Back: NICK drain in place, serosanginous Ext: Sensation intact in feet bilateral. R hip strength limited by pain down he rthigh. Ankle dorsi/plantarflexion 5/5, sensation to soft touch is intact in feet. Results & Data Results & Data Vital Signs (Past 12 Hours) Vital Signs Temp Pulse Resp BP BP Pulse Ox O2 Del Method 10/26/24 07:54 36.5 C 77 18 146/76 H 96 Room Air 10/26/24 05:22 36.6 C 78 18 158/74 H 94 Room Air PG Care Time/CCT Total # of Minutes Spent Total Time Spent with Patient: Total time spent is greater than 50% in coordination of care (as documented) at patient's floor/unit and/or counseling patient: Coding Level of Care Code 37688 IN/OBS CONSULT LVL 5,80M Diagnoses History of SEPIDEH infection Z86.19 Atherosclerosis of coronary artery of [place] heart, unspecified vessel or lesion type, unspecified whether angina present I25.10 Associated angina: unspecified whether angina present Coronary Disease-Associated Artery/Lesion type: unspecified vessel or lesion type [place] vs. transplanted heart: [place] heart (2) CAD (coronary atherosclerotic disease) Associated angina: unspecified whether angina present Coronary Disease- Associated Artery/Lesion type: unspecified vessel or lesion type [place] vs. transplanted heart: [place] heart Qualified Code(s): I25.10 - Atherosclerotic heart disease of [place] coronary artery without angina pectoris
[2024-10-26] MEDS: oxyCODONE HCL IR 5 MG TAB (IMMEDIATE RELEASE) PO PRN (14:14)
[2024-10-26] MEDS: ACETAMINOPHEN 500 MG TAB PO PRN (14:14)
--- NOTE | 2024-10-26 16:07 | XCELERA ---
[id number]
[2024-10-27 05:46] LABS: Basophils # (auto) 0.02 K/uL (0.00-0.20); Basophils % (auto) 0.2 %; Hematocrit (blood only) 33.9 % (37.0-47.0); Hemoglobin 11.3 g/dl (12.0-16.0); Immature Granulocytes # (auto) 0.13 K/uL (0.01-0.20); Immature Granulocytes % (auto) 1.1 %; Lymphocytes # (auto) 1.41 K/uL (1.20-3.40); Lymphocytes % (auto) 11.7 %; Mean Corpuscular Hemoglobin 30.4 pg (25.0-34.0); Mean Corpuscular Hgb Conc 33.3 g/dL (32.0-36.0); Mean Corpuscular Volume 91.1 fL (80.0-100.0); Mean Platelet Volume 8.8 fL (9.4-12.4); Monocytes # (auto) 0.94 K/uL (0.11-0.59); Monocytes % (auto) 7.8 %; Neutrophils # (auto) 9.58 K/uL (1.40-6.50); Neutrophils % (auto) 79.2 %; Platelet Count 272 K/uL (130-400); RDW Coefficient of Variation 14.1 % (11.5-14.5); Red Blood Count 3.72 M/uL (4.20-5.40); White Blood Count 12.08 K/ul (4.8-10.8)
[2024-10-27 06:22] LABS: BUN Creatinine Ratio 37.9 (10-20); Calcium 8.7 mg/dl (8.6-10.3); Creatinine Clr Calc Pharmacy 82.4 ml/min; Potassium 4.2 mmol/L (3.5-5.1)
--- NOTE | 2024-10-27 07:21 | Electrocardiogram Report ---
Test Reason : Blood Pressure : */* mmHG Vent. Rate : 73 BPM Atrial Rate : 73 BPM P-R Int : 136 ms QRS Dur : 94 ms QT Int : 384 ms P-R-T Axes : 24 29 2 degrees QTcB Int : 423 ms Normal sinus rhythm Normal ECG When compared with ECG of 26-Oct-2024 05:35, No significant change was found Confirmed by Stephen Bartlett ([id number]) on 10/27/2024 7:20:58 AM Referred By: Yosi Ray Confirmed By: Stephen Bartlett
--- NOTE | 2024-10-27 07:44 | Orthopedic Progress Note ---
Date of Service October 27, 2024 Assessment & Plan (1) Multilevel lumbosacral spondylosis with radiculopathy: Plan: Patient is doing better postoperative 3. She has minimal back discomfort and just tingling in her legs but no laura radicular complaints. She is no longer having any chest pain. She is rodri continue to be on the monitor for the next 24 to 48 hours. They get her up and moving as tolerated. Will continue the GI DVT prophylaxis and pain control. Admission and Anticipated Discharge Date Admission Date: October 24, 2024 Subjective Patient was seen bedside in room 276. Yesterday the patient experienced chest pain with pain that radiated into her neck. She had EKGs performed serial troponins as well as an echo. All of her testing so far has been negative for a major cardiac event. She states she is not having chest pain currently. She is having some discomfort in the lower portion of her back but her legs are much better. She has little bit of tingling in the right leg. She denies any other numbness, tingling, or paresthesias. Physical Exam Physical Exam: On exam she is alert and oriented. She answers questions appropriately. Her dressing is clean dry and intact her calves are supple and nontender. Her NICK drain is holding suction is placed out 25 cc on this previous shift and 40 prior to that. Her strength and sensation are both intact in her legs. Her abdomen soft and nontender. Cardiovascular exam reveals no gross abnormalities the patient's respirations are unlabored and even. Results & Data Vital Signs (Past 12 Hours) Vital Signs Temp Pulse Pulse Resp BP BP Pulse Ox 10/27/24 03:57 36.6 C 61 12 129/69 93 10/26/24 23:55 36.9 C 68 16 146/73 H 93 10/26/24 21:50 86 O2 Del Method 10/27/24 03:57 Room Air 10/26/24 23:55 Room Air 10/26/24 21:50
--- NOTE | 2024-10-27 14:50 | Hospitalist Progress Note ---
Date of Service October 27, 2024 Assessment & Plan (1) Chest pain: (2) CAD (coronary atherosclerotic disease): (3) History of SEPIDEH infection: Lashawn Huddleston is a 78-year-old female with a history of STEMI with WON to RCA 2022, hypertension, asthma, SEPIDEH, GERD who presented for scheduled surgical management of lumbar radiculopathy. Hospitalist consulted for medical management, patient had an epsiode of chest pain overnight 10/25. Lumbar radiculopathy S/p decompression, fusion 10/24/2024. Uncomplicated with 50 cc estimated blood loss Pain control, activity, discharge planning per primary team. Patient is to be continued on aspirin, discussed with primary team. PT/OT recommending rehab Chest pain, CAD w/ hx PCI With prior history of PCI/WON 06/2023 Patient had chest pain overnight 10/25, reported anxiety at that time. Resolved spontaneously in one hour. No associated SOB or diaphoresis. EKG normal sinus rhythm without territorial ischemia. Troponin negative x2. ECHO: EF 60-65%, no wall motion abnormalities. Resume plavix POD#5 Continue Losartan, ASA, and Metoprolol #History of SEPIDEH infection, asthma Hypertonic saline nebs, Mucinex, flutter valve, percussion vest for sputum mobilization Albuterol every 2 hours as needed as needed, may alternate with DuoNeb every 4-6 hours #Anxiety/depression Continue buspirone Dispo: medically stable Thank you for allowing us to participate in the care of this patient, please reach out with any questions or concerns. Medicine will continue to follow - to monitor her telemetry and for any further chest pain episodes. However, this monitoring should not hold up discharge. Admission and Anticipated Discharge Date Admission Date: October 24, 2024 Supervising Physician Co-Signing Physician Notes KUNAL Supervision Note: I did not personally see or examine the patient today, but I verified all diaz points of KUNAL Madrigal's assessment and plan with the following exceptions/additions: None Subjective patient seen lying in bed, has no complaints of chest pain currently or in the last 24 hours. Her numbness in her right leg is improving. She is questioning her discharge plans. denies any shortness of breath, does not think she had shortness of breath when she had the chest pain that radiated to her jaw Telemetry no events, sinus rhythm/sinus bradycardia 50s and 60s Review of Systems Review of Systems: All systems reviewed & are unremarkable except as noted in Subjective Physical Exam Physical Exam: General: NAD, VS as above Resp: normal respiratory effort, lungs clear to auscultation CV: RRR, no murmur, Abd: normal bowel sounds, non tender, Extremities: Moves all extremities, wiggles toes bilaterally Neuro: A&O x3, Results & Data Results & Data Vital Signs (Past 12 Hours) Vital Signs Temp Pulse Pulse Resp BP BP Pulse Ox 10/27/24 12:00 97.5 F L 69 20 138/74 92 10/27/24 09:52 63 10/27/24 07:51 98.1 F 66 18 144/67 H 94 10/27/24 03:57 97.9 F 61 12 129/69 93 O2 Del Method 10/27/24 12:00 Room Air 10/27/24 09:52 10/27/24 07:51 Room Air 10/27/24 03:57 Room Air Laboratory Results CBC and chemistry reviewed PG Care Time/CCT Total # of Minutes Spent Total Time Spent with Patient: Total time spent is greater than 50% in coordination of care (as documented) at patient's floor/unit and/or counseling patient: Coding Level of Care Code 90934 SUB INP/OBS CARE 2/35MIN Diagnoses Chest pain R07.9 Chest pain type: unspecified Atherosclerosis of coronary artery of [place] heart, unspecified vessel or lesion type, unspecified whether angina present I25.10 Associated angina: unspecified whether angina present Coronary Disease-Associated Artery/Lesion type: unspecified vessel or lesion type [place] vs. transplanted heart: [place] heart History of SEPIDEH infection Z86.19 (1) Chest pain Chest pain type: unspecified Qualified Code(s): R07.9 - Chest pain, unspecified (2) CAD (coronary atherosclerotic disease) Associated angina: unspecified whether angina present Coronary Disease- Associated Artery/Lesion type: unspecified vessel or lesion type [place] vs. transplanted heart: [place] heart Qualified Code(s): I25.10 - Atherosclerotic heart disease of [place] coronary artery without angina pectoris
[2024-10-27] MEDS: hydrOXYzine HCl 25 MG TAB PO PRN (20:03)
[2024-10-27] MEDS: COUGH DROP (SUGAR FREE) LOZ 24 LOZ/1 BOX BUCCAL PRN (22:12)
--- NOTE | 2024-10-28 10:52 | Hospitalist Progress Note ---
Date of Service October 28, 2024 Assessment & Plan (1) Chest pain: (2) CAD (coronary atherosclerotic disease): (3) History of SEPIDEH infection: Plan Karo is a 78-year-old female with a history of STEMI with WON to RCA 2022, hypertension, asthma, SEPIDEH, GERD who presented for scheduled surgical management of lumbar radiculopathy. Hospitalist consulted for medical management, patient had an epsiode of chest pain overnight 10/25. Lumbar radiculopathy S/p decompression, fusion 10/24/2024. Uncomplicated with 50 cc estimated blood loss Pain control, activity, discharge planning per primary team. Patient is to be continued on aspirin, discussed with primary team. PT/OT recommending rehab Chest pain, CAD w/ hx PCI With prior history of PCI/WON 06/2023 Patient had chest pain overnight 10/25, reported anxiety at that time. Resolved spontaneously in one hour. No associated SOB or diaphoresis. EKG normal sinus rhythm without territorial ischemia. Troponin negative x2. ECHO: EF 60-65%, no wall motion abnormalities. Resume plavix POD#5 Continue Losartan, ASA, and Metoprolol No further epsodes. #History of SEPIDEH infection, asthma Hypertonic saline nebs, Mucinex, flutter valve, percussion vest for sputum mobilization Albuterol every 2 hours as needed as needed, may alternate with DuoNeb every 4-6 hours #Anxiety/depression Continue buspirone Dispo: medically stable, okay to downgrade off telemetry. Thank you for allowing us to participate in the care of this patient, please reach out with any questions or concerns. Medicine will sign off. Admission and Anticipated Discharge Date Admission Date: October 24, 2024 Subjective patient seen lying in bed. no further episodes of chest pain anxious to go home Tele - SR 60-70s Review of Systems Review of Systems: All systems reviewed & are unremarkable except as noted in Subjective Physical Exam Physical Exam: General: NAD, VS as above Resp: normal respiratory effort, lungs clear to auscultation CV: RRR, no murmur, Abd: normal bowel sounds, non tender, Extremities: Moves all extremities, wiggles toes bilaterally Neuro: A&O x3, Results & Data Results & Data Vital Signs (Past 12 Hours) Vital Signs Temp Pulse Pulse Resp BP Pulse Ox O2 Del Method 10/28/24 08:06 98.2 F 68 16 164/88 H 95 Room Air 10/28/24 07:27 77 10/27/24 23:34 98.6 F 100 H 20 172/82 H 91 Room Air Laboratory Results BSG reviewed PG Care Time/CCT Total # of Minutes Spent Total Time Spent with Patient: Total time spent is greater than 50% in coordination of care (as documented) at patient's floor/unit and/or counseling patient: Coding Level of Care Code 74062 SUB INP/OBS CARE 2/35MIN Diagnoses Chest pain R07.9 Chest pain type: unspecified Atherosclerosis of coronary artery of [place] heart, unspecified vessel or lesion type, unspecified whether angina present I25.10 Coronary Disease-Associated Artery/Lesion type: unspecified vessel or lesion type [place] vs. transplanted heart: [place] heart Associated angina: unspecified whether angina present History of SEPIDEH infection Z86.19 (1) Chest pain Chest pain type: unspecified Qualified Code(s): R07.9 - Chest pain, unspecified (2) CAD (coronary atherosclerotic disease) Coronary Disease-Associated Artery/Lesion type: unspecified vessel or lesion type [place] vs. transplanted heart: [place] heart Associated angina: un specified whether angina present Qualified Code(s): I25.10 - Atherosclerotic heart disease of [place] coronary artery without angina pectoris
[2024-10-28 10:54] VITALS: BP 133/63; RESP 18; TEMP 97.9; O2SAT 93
--- NOTE | 2024-10-28 11:32 | Discharge Summary ---
Date of Service October 28, 2024 Admission HPI Per Admitting Provider This is a 78-year-old female with presents with marked client status severe pain inability ambulate and here for surgical invention. Principal Diagnosis Lumbar spondylosis with radiculopathy Discharge Data Allergies Allergy/AdvReac Type Severity Reaction Status Date / Time diphenhydramine Allergy Severe anaphylaxis Verified 10/24/24 09:19 amikacin Allergy Intermediate Rash Verified 10/24/24 09:19 chlorhexidine Allergy Intermediate RED & ITCHY Verified 10/24/24 09:19 perflutren [From Definity] Allergy Intermediate Back Pain Verified 10/24/24 09:19 Sulfa (Sulfonamide Allergy Intermediate rash Verified 10/24/24 09:19 Antibiotics) triamcinolone Allergy Intermediate nose Verified 10/24/24 09:19 bleed, Nausea nickel Allergy Mild redness Verified 10/24/24 09:19 with earrings amoxicillin [From Augmentin] AdvReac Severe Diarrhea Verified 10/24/24 09:19 clavulanic acid AdvReac Severe Diarrhea Verified 10/24/24 09:19 [From Augmentin] azithromycin AdvReac Intermediate Nausea Verified 10/24/24 09:19 Beef Containing Products AdvReac Intermediate Diarrhea Verified 10/24/24 09:19 clarithromycin AdvReac Intermediate nausea Verified 10/24/24 09:19 codeine AdvReac Intermediate nausea Verified 10/24/24 09:19 erythromycin base AdvReac Intermediate nausea Verified 10/24/24 09:19 hydrocodone AdvReac Intermediate nausea Verified 10/24/24 09:19 metronidazole AdvReac Intermediate nausea Verified 10/24/24 09:19 ondansetron AdvReac Intermediate "can't Verified 10/24/24 09:19 sleep" oxymetazoline AdvReac Intermediate headache Verified 10/24/24 09:19 Pork/Porcine Containing AdvReac Intermediate Diarrhea Verified 10/24/24 09:19 Products propoxyphene AdvReac Intermediate nausea Verified 10/14/24 10:12 hyoscyamine AdvReac Mild when just Verified 10/14/24 10:12 by itself ok, not in combo med Consultations 10/24/24 13:46 Consult Hospitalist Routine Procedures Performed Operation Date: 10/24/24 10:05 Actual Procedures p L4-L5 Decompression and Fusion, Spinal Cord Monitoring(Not Applicable) - Yosi Ray DO Ordered Studies 10/24/24 10:05 FL lumbar spine 2-3V Routine Hospital Course (1) Multilevel lumbosacral spondylosis with radiculopathy: Patient underwent lumbar decompression fusion tolerated so stayed orthopedic for postoperative postoperative she progressed slowly. She did have an episode of chest pain but ruled out to be cardiac in nature. She is very comfortable at this time. Tolerating physical therapy. Pain controlled. Simply discharged home. Discharge orders instructions from the chart for further review. Total Time Total Time Spent Total Time Spent (In Minutes): 20 minutes Discharge Plan Discharge Items Patient Disposition: Home - Self-Care Reason For Visit: Paresthesia of Saddle Area, Two-Level Lumbosacral Discharge Diagnosis: Lumbar spondylosis with radiculopathy Activity: As commented below Non-emergency contact: Primary Care Provider Call non-emergency contact if: you have any medication questions Follow-up/Referrals: Sunni Ann MD [Primary Care Provider] - Diet: Regular Addtl Attending Provider Instructions: ACTIVITY RECOMMENDATIONS: SELF CARE INSTRUCTIONS AFTER THORACIC/LUMBAR FUSIONS 1. You may walk to your tolerance. It is good exercise for your legs and back. Expect some back and intermittent leg aches and pains. 2. You may perform "counter-top" level activities (make a sandwich, dione with a project, etc.). 3. No bending or lifting of more than 10 pounds or back twisting of any nature (roll like a log when turning in bed). 4. You may ride in a car for 20-30 minutes at a time. No driving until after your first visit with your doctor. 5. Frequent changes of position and restricting sitting to 30 minutes at a time will help limit the amount of back spasms and stiffness you may experience. 6. You may discontinue the use of ambulatory aids (cane, crutches, etc.) once your strength and confidence allow. 7. You may clinical esthetician the shower and let water strike your incision when you arrive home at least once daily. Do not take a tub bath, sit in a hot tub or go into a swimming pool until after your first recheck in the office. 8. You may resume previous diet. SPECIAL CARE INSTRUCTIONS: VERY IMPORTANT TO READ AND REVIEW A. Your surgical incision has been closed with a cosmetic suture under the skin that will dissolve in about 6 weeks. In 14 days, you can use a pair of clean scissors and cut the suture that is left outside of the skin at the ends of your incision. 1. The small skin tapes can be removed 7 days after surgery if they have not fallen off by that point. 2. You may keep the wound open to air as much as possible to promote healing after post-op day number 5 unless told otherwise by your doctor. 3. If you think the wound looks like it is becoming infected (redness or worsening drainage) and/or you are experiencing fever, chill or worsening back pain and muscle spasms, contact the office so that we may evaluate you as soon as possible. B. Complications are uncommon, but please contact us if you have any signs or symptoms of: 1. wound infection (fever higher than 102.5 degrees F, redness, separation of wound, drainage, or increasing pain from the incision) 2. blood clots in legs (pain, swelling, redness and warmth in legs) 3. urinary tract infection (fever higher than 102.5 degrees F, burning upon urination or increased frequency of urination) 4. nerve problems (inability to walk on your toes or heels, numbness, loss of bowel or bladder control) 5. any other symptoms that concern you C. Please call the office at if you have any concerns or questions about your operation or recovery. D. No smoking! Smoking drastically decreases the chance of a solid fusion. E. Do not take any anti-inflammatory medications (Indocin, Advil, Motrin, Aspirin, Naprosyn, etc.) as these may inhibit the chance of a solid fusion. Tylenol is okay to take for pain. MANAGING PAIN AFTER SPINAL SURGERY 1. Narcotic medication is intended for short-term use and will be provided for surgical pain. Surgical pain usually lasts for a period of 4-6 weeks. Narcotic medication includes Percocet, Vicodin, Darvocet, Tylenol #3 or Lortab. 2. Longer-term pain is more appropriately treated with non-narcotic medication such as Tylenol ES. 3. Muscle spasm is not appropriately treated with narcotics. Muscle relaxers such as Soma, Flexeril or Skelaxin can be used along with Tylenol ES. 4. Remember that we all live with some "aches and pains". This is not unusual or uncommon after an injury or as we get older. a. Back pain is expected and may include muscle spasms for 4 to 6 weeks after surgery. The pain should gradually improve. If the pain worsens for no apparent reason, please contact the office. b. Intermittent leg pain may also be experienced and should not be concerned about unless it worsens for no apparent reason. If so, please contact the office. 5. We will provide appropriate medication within the normal guidelines of their prescribed use. We will also be very cautious and aware of potential abuse and extended duration of patients' medication needs. a. Pain medications are for your comfort and to assist with sleep and rest so that the tissue can heal. They are not provided in order to return to normal activity and should not be used through the day. To do so or worsening pain at night can result from ongoing tissue damage and development of tolerance to the prescribed medicine. 6. Please allow 2-3 days to process refills. Prescriptions will not be mailed but must be picked up at the office. FOLLOW UP VISIT: Keep your scheduled follow-up appointment. Any questions, please call the office at . Pending Studies at Discharge: No Stand-Alone Forms: [facility] [employer], Smoking Cessation Medications and DC Order Prescriptions: New tramadol 50 mg tablet 50 mg PO Q6H PRN (Reason: pain, moderate) Qty: 30 0RF oxycodone 5 mg tablet 5 mg PO Q6H PRN (Reason: pain) Qty: 30 0RF Continued aspirin 81 mg tablet,delayed release (DR/EC) 81 mg PO QAM Qty: 90 3RF atorvastatin 40 mg tablet 40 mg PO QAM Qty: 90 3RF buspirone 15 mg tablet 15 mg PO BID Qty: 180 3RF cholecalciferol (vitamin D3) [Vitamin D3] 50 mcg (2,000 unit) capsule 2,000 unit PO QAM Qty: 90 3RF clopidogrel 75 mg tablet 75 mg PO QAM Qty: 90 3RF Rx Instructions: begin 1 day after "loading dose" taken. gabapentin 100 mg capsule 100 mg PO TID Qty: 90 2RF Rx Instructions: Compliance packaging losartan 50 mg tablet 75 mg PO QAM Qty: 135 3RF meclizine 12.5 mg tablet 12.5 mg PO DAILY PRN (Reason: dizziness) Qty: 10 0RF metoprolol succinate 50 mg tablet extended release 24 hr 50 mg PO QAM Qty: 90 3RF pantoprazole 40 mg tablet,delayed release (DR/EC) 40 mg PO QAM Qty: 90 3RF PreserVision AREDS-2 250-90-40-1 mg capsule 1 tab PO BID Qty: 180 3RF turmeric root extract 500 mg tablet 1,000 mg PO QAM Qty: 180 0RF nitrofurantoin monohyd/m-cryst [Macrobid] 100 mg capsule 100 mg PO BID Qty: 10 0RF Rx Instructions: must administer with a meal/food ipratropium-albuterol 0.5 mg-3 mg(2.5 mg base)/3 mL solution for nebulization 3 ml inhalation Q8H PRN (Reason: shortness of breath or wheezing) Qty: 180 3RF guaifenesin [Mucinex] 600 mg Tablet Extended Release 12hr 600 mg PO Q12H tramadol 50 mg Tablet 50 mg PO Q6H PRN (Reason: Pain) sodium chloride 7 % solution for nebulization 1 inh inhalation BID PRN (Reason: nebulizer) Discontinued oxycodone 5 mg Tablet 5 mg PO Q4H PRN (Reason: Pain) Discharge Orders: Discharge Order (Routine); Ordered 10/28/24 Ordered By: Yosi Ray Admission Data Admit Date/Time: 10/24/24 12:00 Attending Provider: Yosi Ray Admit Provider: Yosi Ray Primary Care Provider: Sunni Ann Other Providers: Mansoor Scanlon Narvon; Benjamin Cunningham
[2024-10-28 11:35] VITALS: PULSE 75
== END 2024-10-28 14:58 | disposition home or self-care (01) | DRG 402 ==
LOC: ASU 08:48 → 3W 12:00 → 2N 10-26 16:10